=== PATIENT | male | born 1960 | race Caucasian/White ===

== ENCOUNTER 2016-09-12 07:19 | Inpatient (IN) | payer BC, MEDICARE, OTHER ==
[2016-09-12] MEDS ORDERED: Nitroglycerin TAB 0.4 MG* 0.4 MG TAB SL ONE (07:39)
[2016-09-12] MEDS ORDERED: Aspirin TAB* 325 MG PO ONE (07:39)
[2016-09-12] MEDS ORDERED: Ondansetron INJ* 2 MG/ML VIAL IV ONE (07:40)
[2016-09-12] MEDS ORDERED: Aspirin Low Dose CHEW TAB* 81 MG ONE (07:40)
[2016-09-12] MEDS ORDERED: Heparin for STEMI(*) 5,000 UNITS/ML 1 ML VIAL IV ONE (07:40)
[2016-09-12] MEDS ORDERED: Nitroglycerin TAB 0.4 MG* 0.4 MG TAB SL PRN ×2 (07:40→11:13)
[2016-09-12] MEDS ORDERED: nitroGLYCERIN DRIP* 250 ML ONE ×2 (07:45→09:07)
[2016-09-12] MEDS ORDERED: fentaNYL* 50 MCG/ML 2 ML VIAL (100 MCG VIAL) ONE (07:45)
[2016-09-12] MEDS ORDERED: Midazolam* 1 MG/ML 5 ML VIAL (5 MG) ONE (07:45)
[2016-09-12] MEDS ORDERED: Lidocaine 1% INJ* 10 MG/ML 30 ML SDV ONE (07:45)
[2016-09-12] MEDS ORDERED: Heparin 2 UNITS/ML IVPREMIX* 3,000 ML IV ONE (07:45)
[2016-09-12] MEDS ORDERED: Iodixanol* (CONTRAST) 320 MG/ML 100 ML SDV ONE ×2 (07:47→10:30)
[2016-09-12 07:57] LABS: Hematocrit 26 % (42-52); Mean Corpuscular HGB Conc 31 g/dl (31-36); Mean Corpuscular Hemoglobin 28 pg (27-31); Mean Corpuscular Volume 88 fL (80-94); Mean Platelet Volume 10 um3 (7.4-10.4); Red Blood Count 2.89 10^6/ul (4.0-5.4); Red Cell Distribution Width 16 % (10.5-15); White Blood Count 18.9 10^3/ul (3.5-10.8)
[2016-09-12 07:59] LABS: Add Diff/Slide Review? Slide Review Added; Comments Flag Yes
[2016-09-12 08:13] LABS: Albumin 2.3 g/dL (3.2-5.2); BUN/Creatinine Ratio 7.6 (8-20); Calcium 8.9 mg/dL (8.6-10.3); EGFR African American 9.8 (>60); EGFR Non-African American 7.6 (>60); Globulin 4.4 g/dL (2-4); Total Bilirubin 0.3 mg/dL (0.2-1.0); Total Protein 6.7 g/dL (6.4-8.9)
[2016-09-12 08:20] LABS: Troponin I 0.17 ng/mL (<0.04)
[2016-09-12] MEDS ORDERED: Bivalirudin(*) 250 MG VIAL ONE (08:32)
[2016-09-12] MEDS ORDERED: Clopidogrel TAB* 75 MG ONE (08:36)
[2016-09-12 08:42] LABS: Potassium 3.5 mmol/L (3.5-5.0)
[2016-09-12 08:43] LABS: Eosinophils % 3 % (0-6); Immature Granulocytes 5 % (0-9); Metamyelocytes % 1 % (0-2); Myelocytes % 3 % (0-1); Neutrophil % 76 % (38-83)
[2016-09-12 08:44] LABS: Hypochromasia 2+
[2016-09-12] MEDS ORDERED: Heparin(*) 1000 UNIT/ML 10 ML VIAL CATH LAB IV ONE (09:07)
[2016-09-12] MEDS ORDERED: Amiodarone IV VIAL* 6 ML ONE (10:41)
[2016-09-12] MEDS ORDERED: Amiodarone 360 MG IVPREMIX* 360 MG/200 ML BAG IV ONE ×2 (10:42→14:57)
[2016-09-12] MEDS ORDERED: Heparin 2 UNITS/ML IVPREMIX* 1,000 ML IV ONE (11:05)
[2016-09-12] MEDS ORDERED: NS 0.9% 1000 ML* 1,000 ML IV SCH (11:15)
[2016-09-12 13:48] LABS: Troponin I 9.05 ng/mL (<0.04)
[2016-09-12] MEDS: Acetaminophen TAB* 325 MG PO PRN ×2 (15:35→21:20)
[2016-09-12] MEDS ORDERED: Fluticasone NASAL SPRAY 50MCG* 16 gm SPRAY BTL BOTH NARES PRN (16:08)
[2016-09-12] MEDS ORDERED: Dextrose 50% Syringe 50 ML* 25 GM/50 ML SYRINGE IV PUSH PRN ×2 (16:16→16:57)
--- NOTE | 2016-09-12 16:21 | CONSULT ---
Consult Consult: CRITICAL CARE MEDICINE DATE: 09/12/16 TIME: 1400 PRIMARY CARE PROVIDER: REFERRING PROVIDER: Mckenna REASON/CHIEF COMPLAINT: vf arrest in laboratory tech HISTORY OF PRESENT ILLNESS: 56 M with significant vascular history and multiple MIs and stents previously presenting with acute inf wall Mi with occluded RCA. Recieved moderate sedation in laboratory tech. Femoral access. Nasal cannuli. While manipulating open RCA pt with VF, requiring defibrillation x3 with ROSC. slow to respond with shallow respirations at first and concern for need for advanced airway. On arrival pt was doing better with more spont respirations, able to communicate and orient. Protecting airway and still needing stenting to be performed. on NC 15L. Sats into upper 90s. Ventilation a bit impaired but able to begin better compensation. Stayed to observe but not needing advance airway at the time. Later in course, again with VF and responded to defibrillation and placed on amio. Again, slow response to resp recovery, but able to surmount. Able to maintain with supplemental O2 and conclude procedure with plans for continued observation in ICU. REVIEW OF SYSTEMS: As per HPI. Pt with mild sob; limited review. PAST MEDICAL HISTORY: As per HPI. CAD, stents, multiple amputations and gangrene history (see previous records for details as not re-discussed with pt) ; ESRD on PD. MEDICATIONS: Reviewed. ALLERGIES: clinda, morphine - unclear rxn at this time SOCIAL HISTORY: Reviewed. FAMILY HISTORY: Noncontributory at present. PHYSICAL EXAM: limited in lab Vital Signs: Reviewed. Neurologic: awake, communicating, orientable HEENT: anicteric, pupils small but reactive Cardiovascular: Reg, 80s. Respiratory: clear with mild azael stoke resp pattern while coming thru the process Abdomen: soft, mild fluid Extremities: chronic changes and multiple amputations LABS: Reviewed. IMAGING: Reviewed. MEDICATIONS: Reviewed. ASSESSMENT: 56 M Acute STEMI to RCA s/p stenting VF s/p defibrillation. ESRD on PD DM 1 - uncontrolled with pentad PLAN: Neurologic: stable. TTM euthermia; not requiring active tx given stable neuro status, but would avoid fevers with tylenol if they present. Cardiovascular: Perfusing. vol status ok and for PD later today as long as he equilibrates post lab; Cards f/u for tx. not in shock now. amio for vf and f/ u needs. EF depressed prior and may worsen now and needs f/u Respiratory: tolerating ventilation and oxygenation now. wean off nc. is. avoid fluid overload Gastrointestinal: po diet as ok with cards Renal/Metabolic: neprho f/u for his pd needs Infectious Disease: no infectious signs but pt with disturbance of line integrities intracath, although nothing suggestive of true sterile field break, and can hold off on any abx. wbc up as reaction to mi. can remain on his outpt doxy regimen. Hematology: antiplt per cards. bedrest and then can become active and avoid chemical vte prophylaxis needs vs potential need for heparin tomorrow Endocrine: resume outpt lantus. glucose is reactive right now and although he may take less po, needs at least his outpt lantus, plus ssi, or even potential for gtt needs. Musculoskeletal: bedrest per cards. can f/u chronic wounds. Psych/Social: pt expressed understanding Supportive and preventative care as ordered. SUP: po VTE prophylaxis: on antiplt and needs to be oob Disposition: ICU Code Status: Full D/w [facility] Critical Care Time: 45min F. Rajendra Valdez DO
[2016-09-12] MEDS ORDERED: Insulin LISPRO* 1 UNITS UNIT SUBCUT ONE (17:00)
[2016-09-12] MEDS: Atorvastatin* 80 MG TAB PO SCH (17:02)
[2016-09-12] MEDS: Carvedilol TAB* 6.25 MG PO SCH (17:02)
[2016-09-12] MEDS: fentaNYL* 50 MCG/ML 2 ML VIAL (100 MCG VIAL) IV SLOW PU PRN ×2 (17:03→21:00)
[2016-09-12] MEDS ORDERED: Amiodarone 360 MG IVPREMIX* 360 MG/200 ML BAG IV SCH ×2 (17:30→17:31)
[2016-09-12] MEDS: oxyCODONE TAB* 5 MG TAB PO PRN ×2 (17:52→23:09)
[2016-09-12] MEDS ORDERED: nitroGLYCERIN DRIP* 25,000 MCG in PREMIX* 0 ML IV SCH (18:00)
[2016-09-12] MEDS: Insulin GLARGINE(*) 1 UNITS UNIT SUBCUT SCH (18:08)
[2016-09-12 19:19] LABS: Troponin I 30.41 ng/mL (<0.04)
[2016-09-12] MEDS ORDERED: Atropine SYRINGE* 0.1 MG/ML 10 ML SYRINGE (1 MG) ONE (21:05)
[2016-09-12] MEDS: Cilostazol TAB* 100 MG PO SCH (21:19)
[2016-09-12] MEDS: Docusate CAP* 100 MG PO SCH (21:24)
[2016-09-12] MEDS: DOXYcycline CAP(*) 100 MG PO SCH (21:29)
[2016-09-12] MEDS: Pregabalin CAP(*) 25 MG PO SCH (21:29)
[2016-09-12] MEDS: Insulin LISPRO* 1 UNITS UNIT SUBCUT SCH ×3 (22:07→22:17)
[2016-09-13 01:47] LABS: Troponin I 41.05 ng/mL (<0.04)
[2016-09-13] MEDS: fentaNYL* 50 MCG/ML 2 ML VIAL (100 MCG VIAL) IV SLOW PU PRN ×5 (02:12→23:46)
[2016-09-13] MEDS: oxyCODONE TAB* 5 MG TAB PO PRN ×4 (04:30→22:22)
[2016-09-13 05:38] LABS: Hematocrit 24 % (42-52); Hemoglobin 7.8 g/dl (14.0-18.0); Mean Corpuscular HGB Conc 32 g/dl (31-36); Mean Corpuscular Hemoglobin 28 pg (27-31); Mean Corpuscular Volume 88 fL (80-94); Mean Platelet Volume 10 um3 (7.4-10.4); Red Blood Count 2.75 10^6/ul (4.0-5.4); Red Cell Distribution Width 17 % (10.5-15); White Blood Count 23.3 10^3/ul (3.5-10.8)
[2016-09-13 05:43] LABS: Add Diff/Slide Review? Slide Review Added; Comments Flag Yes
[2016-09-13 05:57] LABS: BUN/Creatinine Ratio 7.1 (8-20); Calcium 8.6 mg/dL (8.6-10.3); EGFR African American 11.6 (>60); HDL Cholesterol 12.1 mg/dL; Total Bilirubin 0.2 mg/dL (0.2-1.0)
[2016-09-13] MEDS ORDERED: Potassium Chloride LIQUID* 20 MEQ PACKET PO ONE (07:00)
[2016-09-13] MEDS ORDERED: Clopidogrel TAB* 75 MG PO SCH ×2 (09:00)
[2016-09-13] MEDS ORDERED: Lisinopril TAB* 10 MG PO SCH (09:00)
[2016-09-13] MEDS: Aspirin Low Dose CHEW TAB* 81 MG PO SCH (09:17)
[2016-09-13] MEDS: Cilostazol TAB* 100 MG PO SCH ×2 (09:17→22:21)
[2016-09-13] MEDS: Carvedilol TAB* 6.25 MG PO SCH ×2 (09:17→18:01)
[2016-09-13] MEDS: DOXYcycline CAP(*) 100 MG PO SCH ×2 (09:23→22:40)
[2016-09-13] MEDS: NIFEdipine ER TAB* 30 MG PO SCH (09:23)
[2016-09-13] MEDS: Calcitriol CAP* 0.25 MCG PO SCH (09:23)
[2016-09-13] MEDS ORDERED: Insulin GLARGINE(*) 1 UNITS UNIT SUBCUT ONE (09:25)
[2016-09-13 09:42] LABS: Magnesium 1.3 mg/dL (1.9-2.7)
[2016-09-13] MEDS: Docusate CAP* 100 MG PO SCH ×2 (09:50→22:22)
[2016-09-13] MEDS: Insulin LISPRO* 1 UNITS UNIT SUBCUT SCH ×8 (10:00→22:36)
[2016-09-13] MEDS: Simethicone TAB* 80 MG TAB.CHEW PO PRN (10:02)
--- NOTE | 2016-09-13 12:00 | PN ---
Progress Note - Progress Note Note: CRITICAL CARE MEDICINE DATE: 09/13/16 TIME: 1130 SUBJECTIVE: Patient seen and examined. Doing ok. PHYSICAL EXAM: Vital Signs: Reviewed. Neurologic: awake, communicating HEENT: anicteric, trachea midline Cardiovascular: Reg, 80s. Respiratory: clear Abdomen: soft, mild distention, mild fluid Extremities: chronic changes and multiple amputations LABS: Reviewed. IMAGING: Reviewed. MEDICATIONS: Reviewed. ASSESSMENT: 56 M Acute STEMI to RCA s/p stenting VF s/p defibrillation. ESRD on PD DM 1 - uncontrolled with pentad Chronic pain PLAN: Neurologic: stable. Cardiovascular: Perfusing. vol status ok. f/u pd needs. Cards f/u for tx and rx. Respiratory: stable Gastrointestinal: po diet Renal/Metabolic: neprho f/u for his pd needs and lyte adjustments Infectious Disease: no infectious signs Hematology: antiplt per cards. Endocrine: resumed outpt lantus, but with his reactive hyperglycemia blunt further with additional dose today and ssi as ordered. Will have Dr. Velasco f/u Musculoskeletal: oob. f/u chronic wounds. daily chlorhexadine cleanse Psych/Social: back to chronic outpt narc regimen for chronic pain. Supportive and preventative care as ordered. SUP: po VTE prophylaxis: on antiplt and needs to be oob Disposition: ICU and cards f/u Code Status: Full Critical Care Time: 25min Sudhir Valdez DO
--- NOTE | 2016-09-13 12:06 | ECHO ---
Patient: NETO CRISTINA [facility] Rec#: [id number] : 1960 Date: 09/13/2016 Age: 56y Height: 160 cm / 63.0 in Weight: 73.9 kg / 162.9 lbs Sex: M BSA: 1.77 Room#: [facility] Admit Date#: 09/12/2016 Type: Inpatient Referring: Amado Andres MD Referring: Krish Velasco MD Reading: Amado Andres MD Senior Accountant: Sierra Leslie [facility] Senior Accountant: Judy Martinez CC: Isrrael Turk MD CC: Krish Velasco MD Transthoracic Echocardiogram Indication: Inferior STEMI BP: 108/56 HR: 80 Rhythm: NSR Findings History: CAD, AL, PCI, HTN, HLD, PAD, ESRD w/ peritineal dialysis, DM. Technical Comments: The study was technically limited due to the patient's inability to lay in the left lateral decubitus position. Completed at 0907. Left Ventricle: The left ventricular chamber size is normal. Moderate concentric left ventricular hypertrophy is observed. There is a focal wall motion abnormality present.There is akinesis of the inferior wall, with noderate to severe hypokinesis of the low interventricular septum, with preservation of the low posterolateral wall. There is mild to moderately decreased left ventricular systolic function. The estimated ejection fraction is 35-40%. Visually estimated LVEF is closer to 35%. Abnormal left ventricular diastolic filling is observed, consistent with impaired relaxation. The basal inferior, basal inferoseptal, mid inferolateral, mid inferior, mid inferoseptal, apical septal, and apical inferior wall segments are hypokinetic (score 2). Overall wallmotion score index is 1.44 Left Atrium: The left atrium is mildly dilated. Right Ventricle: The right ventricular cavity size is normal. The right ventricular global systolic function is mildly reduced. Right Atrium: The right atrial cavity size is normal. Aortic Valve: The aortic valve is trileaflet. The aortic valve leaflets are mildly thickened. There is no evidence of aortic regurgitation. There is no evidence of aortic stenosis. Mitral Valve: The mitral valve leaflets are mildly thickened. There is a trace of mitral regurgitation. There is no evidence of mitral stenosis. Tricuspid Valve: The tricuspid valve leaflets are normal. There is trace tricuspid regurgitation. Unable to estimate the right ventricular systolic pressure. There is no tricuspid stenosis. Pulmonic Valve: The pulmonic valve structure is not well visualized. There is a trace pulmonic regurgitation. Pericardium: There is no pericardial effusion. Aorta: There is no dilatation of the ascending aorta. There is no dilatation of the aortic arch. There is no dilation of the aortic root. Pulmonary Artery: The main pulmonary artery is not well visualized. Venous: The venous system is not well visualized. Conclusions Moderate concentric left ventricular hypertrophy is observed. There is a focal wall motion abnormality present.There is akinesis of the inferior wall, with noderate to severe hypokinesis of the low interventricular septum, with preservation of the low posterolateral wall. There is mild to moderately decreased left ventricular systolic function. The estimated ejection fraction is 35-40%. Abnormal left ventricular diastolic filling is observed, consistent with impaired relaxation. No significant valvular disease: There is a trace of mitral regurgitation. There is trace tricuspid regurgitation. Unable to estimate the right ventricular systolic pressure. There is a trace pulmonic regurgitation. Compared to report of study from 07/19/2016 there is no signfiicant change. Measurements Name Value Normal Range RVIDd (AP) 2D 3.5 cm (0.9 - 2.6) RVDdMajor (2D) 3.8 cm (2.2 - 4.4) RAd ISD 4CH 5.1 cm (3.4 - 4.9) RA (A4C)W 4 cm (2.9 - 4.6) IVSd (2D) 1.5 cm (0.6 - 1) LVPWd (2D) 1.5 cm (0.6 - 1) LVIDd (2D) 5 cm (3.6 - 5.4) LVIDs (2D) 4 cm - LV FS (2D) 20 % (25 - 45) Aortic Annulus 2.4 cm (1.4 - 2.6) Ao root diameter (2D) 2.9 cm (2.1 - 3.5) Ascending Ao 3.1 cm (2.1 - 3.4) Aortic arch 3 cm (1.8 - 3.4) Descending Ao 0.8 cm - LA dimension (AP) 2D 3.8 cm (2.3 - 3.8) LAd ISD 4CH 5.6 cm (2.9 - 5.3) LA ISD 4CH W 4 cm (2.5 - 4.5) Name Value Normal Range LA ESV SP 4CH (A/L) 58 ml - LA ESV SP 2CH (A/L) 60 ml - LA ESV BP (A/L) 61 ml - LA ESV BP (A/L) index 35 ml/m2 - LA ESV SP 4CH (MOD) 55 ml - LA ESV SP 2CH (MOD) 58 ml - Name Value Normal Range MV E-wave Vmax 0.7 m/sec - MV deceleration time 248 msec - MV A-wave Vmax 0.9 m/sec - MV E:A ratio 0.7 ratio - LV septal e' Vmax 0.02 m/sec - LV lateral e' Vmax 0.06 m/sec - LV E:e' septal ratio 35 ratio - LV E:e' lateral ratio 11.7 ratio - Name Value Normal Range AV Vmax 1.6 m/sec - AV VTI 21.8 cm - AV peak gradient 9.8 mmHg - AV mean gradient 5 mmHg - LVOT Vmax 1.3 m/sec - LVOT VTI 18.4 cm - LVOT peak gradient 6.9 mmHg - LVOT mean gradient 3.47 mmHg - KARSON Vmax 0.79 m/sec - KARSON peak gradient 2.47 mmHg - Name Value Normal Range TR Vmax 1.3 m/sec - TR peak gradient 6.35 mmHg - Name Value Normal Range PV Vmax 1.1 m/sec - PV peak gradient 4.68 mmHg - Wallmotion BAS Normal BA Normal BAL Normal RYAN Normal BI Hypokinetic BIS Hypokinetic MAS Normal MA Normal MAL Normal MIL Hypokinetic AL Hypokinetic MIS Hypokinetic Hypokinetic AA Normal AL Normal AI Hypokinetic APEX Hypokinetic
[2016-09-13] MEDS ORDERED: Insulin LISPRO* 1 UNITS UNIT SUBCUT ONE (13:18)
[2016-09-13] MEDS: Mupirocin 2% OINT* TUBE TOPICAL SCH (13:22)
[2016-09-13] MEDS ORDERED: Magnesium Sulfate 2 GM IV* 2 GM/50 ML BAG IVPB ONE (15:00)
[2016-09-13] MEDS: Nitroglycerin 0.1 mg/Hr PATCH* (2.5 MG) TRANSDERM SCH (16:54)
[2016-09-13] MEDS: Atorvastatin* 80 MG TAB PO SCH (18:01)
[2016-09-13] MEDS: Insulin GLARGINE(*) 1 UNITS UNIT SUBCUT SCH (18:01)
--- NOTE | 2016-09-13 20:42 | HP ---
ADMISSION HISTORY AND PHYSICAL: DATE OF ADMISSION: 09/12/16 CHIEF COMPLAINT: The patient with significant chest discomfort, EKG now demonstrating ST segment elevation in the inferior leads, acute ST elevation myocardial infarction. HISTORY OF PRESENT ILLNESS: The patient is a 56-year-old gentleman known to our group through Dr. Ella Sosa who has been involved with his severe coronary artery disease. He has a history of having undergone intervention with stent placement back in April for non-ST elevation myocardial infarction to his mid to distal right coronary artery as it turned down to the inferior surface of the heart. He had diffuse disease past that point and was readmitted. The patient subsequently had a non-ST elevation repeat myocardial infarction in June 2016 at which time, a discussion was made with Dr. Sosa as well as Dr. Robert Mesa at [facility], regional branch manager, after looking at the coronary artery disease and seeing distal disease that would necessitate rotational atherectomy. The patient was subsequently transferred up there and further stenting was done in the right coronary artery after the right coronary artery was found to be subtotally occluded at the original stent placed back in April. The distal vessel was not treated at that point as well. More recently, he had gone up to [place] for more revision on his stump, and because of complaints of chest discomfort, he apparently had a heart catheterization just done less than a week ago and then told them that there was no change from his prior disease. I do not have any reports at this emergent time of them. Of note, he has been having on and off chest discomfort atypical in nature for the past month or so. Today, he developed the onset of significant persistent chest discomfort and was brought in by his . In the emergency room, EKG demonstrated acute ST segment elevation in leads III and aVF with reciprocal ST segment depression noted in I and aVL. A STEMI alert was called. He had mild ST segment depression in V6 as well. When I came to see him, he was still having ongoing chest discomfort. We discussed the risks and benefits of yet another repeat cardiac catheterization, noting that he is an atheropath with vascular disease all over and his right groin was now limited with a hematoma present from prior cardiac catheterization just done in [place]. The risks and benefits were explained to both him and his and he wished to proceed. No laboratory results were pending at this time, but he is known to have significant renal failure and is on peritoneal dialysis. PAST MEDICAL HISTORY: 1. Type 1 diabetes. 2. End-stage renal disease, on peritoneal dialysis. 3. Hypertension. 4. Hyperlipidemia. 5. Coronary artery disease, status post MN. 6. Dry gangrene of the right hand. 7. Right lower lobe stump infection. CURRENT MEDICATIONS: At home were unchanged from last hospitalization according to the . ALLERGIES: MORPHINE, CLINDAMYCIN, and SEVELAMER. SOCIAL HISTORY: Does not smoke. REVIEW OF SYSTEMS: Pertinent to proceeding emergently to the cardiovascular lab - the patient has a remote history of having had scars found on a brain scan that were felt to be old infarcts. There was no mention of any cerebral hemorrhage. He has renal failure as known, but he is on peritoneal dialysis. He is not allergic to the dye. He does not have any hematochezia, hematemesis, or hematuria. PHYSICAL EXAMINATION When I see him in the emergency room reveals: VITAL SIGNS: Blood pressure initially 155/66, pulse 95, respirations 22, and O2 saturation 100%. HEENT: Conjunctivae are pale. Sclerae clear. NECK: Supple. There is no increased JVP. Carotid has fair upstroke and volume. LUNGS: No accessory muscle usage. I do not hear any active rales, rhonchi, or wheezes. HEART: No visible heaves. Heart is distant in nature. Normal S1, S2. I cannot appreciate a significant diastolic murmur. EXTREMITIES: Reveal an above the knee amputation on the right with a stump placed. The right hand is bandaged. The left femoral pulse is diminished. I cannot appreciate an active bruit. NEUROLOGIC: The patient is alert and oriented with fairly normal mentation. MUSCULOSKELETAL: The patient moves all extremities appropriately. PSYCHOLOGICAL: The patient appropriately anxious. OVERALL ASSESSMENT: Florian presents now with acute ST segment elevation inferior wall myocardial infarction with known prior stenting to multiple areas of the right coronary artery. At this point in time, the risks and benefits were explained. He wishes to proceed with an attempt towards revascularization if possible to interrupt the inferior myocardial infarction. He understands the inherent risks involved as does his . Further management may depend on pending results. The patient did receive 4000 units of heparin in addition to a full aspirin dose in the emergency room. CC: Krish Velasco MD; Ella Sosa [place] [id number]/[facility] #: [id number] [facility]
[2016-09-13] MEDS: Pregabalin CAP(*) 25 MG PO SCH (22:22)
[2016-09-14] MEDS: Acetaminophen TAB* 325 MG PO PRN ×2 (01:55→20:33)
[2016-09-14] MEDS: oxyCODONE TAB* 5 MG TAB PO PRN ×5 (01:55→23:03)
[2016-09-14] MEDS: fentaNYL* 50 MCG/ML 2 ML VIAL (100 MCG VIAL) IV SLOW PU PRN ×3 (03:46→16:52)
[2016-09-14 06:35] LABS: Hematocrit 25 % (42-52); Hemoglobin 7.7 g/dl (14.0-18.0); Mean Corpuscular HGB Conc 31 g/dl (31-36); Mean Corpuscular Hemoglobin 28 pg (27-31); Mean Corpuscular Volume 88 fL (80-94); Mean Platelet Volume 10 um3 (7.4-10.4); Red Blood Count 2.78 10^6/ul (4.0-5.4); Red Cell Distribution Width 16 % (10.5-15); White Blood Count 18.8 10^3/ul (3.5-10.8)
[2016-09-14 06:51] LABS: BUN/Creatinine Ratio 6.7 (8-20); Calcium 8.6 mg/dL (8.6-10.3); EGFR African American 11.3 (>60); EGFR Non-African American 8.8 (>60); Magnesium 1.6 mg/dL (1.9-2.7); Phosphorus 3.6 mg/dL (2.5-5.0); Potassium 3.2 mmol/L (3.5-5.0)
[2016-09-14] MEDS ORDERED: Potassium Chlor TAB* 20 MEQ TAB.ER PO ONE (06:56)
[2016-09-14] MEDS ORDERED: Insulin LISPRO* 1 UNITS UNIT SUBCUT ONE ×2 (08:00→10:00)
--- NOTE | 2016-09-14 08:18 | PN ---
Subjective - Subjective Reason for Note: Consultation Note History: Dr. Andres requested an endocrine consultation. I am Florian Landry's outpatient medical geneticist/primary care physician. I have reviewed his presentation and recent medical history with the patient and with the electronic health record. He has had reasonable glycemic control until this admission, he has had a stable peritoneal dialysis regimen. Today he is frustrated: he has a cast on his right hand he wants re-evaluated. He has pain in the right amputation stump. He feels that the dialysis routine has changed and this has resulted in hyperglycemia. He would like to have more control over his life and medical conditions. He has had no further chest pain, palpitations, shortness of breath. His telemetry shows no further malignant dysrhythmias. Active Problems: Active Problems Diabetic nephropathy associated with type 1 diabetes mellitus (Acute) E10.21 Electrolyte abnormality (Acute) E87.8 End-stage renal disease on peritoneal dialysis (Acute) N18.6, Z99.2 Hyperglycemia (Acute) R73.9 ST elevation (STEMI) myocardial infarction involving right coronary artery ( Acute) I21.11 Anemia of renal disease (Chronic) D63.1 Diabetic neuropathy (Chronic 03/31/14) E11.40 Diabetic peripheral neuropathy (Chronic) E11.42 History of left below knee amputation (Chronic) Z89.512 History of right above knee amputation (Chronic) Z89.611 Hypercholesteremia (Chronic 03/31/14) E78.0 Hypertension (Chronic 03/31/14) I10 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) T87.43 Peripheral vascular disease (Chronic) I73.9 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) E13.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) E10.22, N18.6 Current Medications: Current Medications Acetaminophen (Tylenol Tab*) 650 mg PO Q4H PRN PRN Reason: HEADACHE/PAIN Last Admin: 09/14/16 01:55 Dose: 650 mg Aspirin (Aspirin Low Dose Tab*) 81 mg PO DAILY [facility] Last Admin: 09/13/16 09:17 Dose: 81 mg Atorvastatin Calcium (Lipitor*) 80 mg PO 1700 [facility] Last Admin: 09/13/16 18:01 Dose: 80 mg Calcitriol (Rocaltrol Cap*) 0.25 mcg PO DAILY [facility] Last Admin: 09/13/16 09:23 Dose: 0.25 mcg Carvedilol (Coreg Tab*) 6.25 mg PO BID WITH MEALS [facility] Last Admin: 09/13/16 18:01 Dose: 6.25 mg Dextrose (D50w Syringe 50 Ml*) 12.5 gm IV PUSH .FOR FS < 60 - SS PRN PRN Reason: FS < 60 Docusate Sodium (Colace Cap*) 100 mg PO BID [facility] Last Admin: 09/13/16 22:22 Dose: 100 mg Doxycycline Hyclate (Vibramycin Cap(*)) 100 mg PO BID [facility] Last Admin: 09/13/16 22:40 Dose: 100 mg Fentanyl Citrate (Fentanyl*) 25 mcg IV SLOW PU Q4H PRN PRN Reason: SEVERE PAIN Last Admin: 09/14/16 03:46 Dose: 25 mcg Fluticasone Propionate (Flonase Nasal Fenton 50mcg*) 2 spray BOTH NARES DAILY PRN PRN Reason: Allergy Symptoms Sodium Chloride (Ns 0.9% 1000 Ml*) 1,000 mls @ 0 mls/hr IV KVO [facility] PRN Reason: KVO Last Admin: 09/13/16 14:56 Dose: 10 mls/hr Insulin Glargine (Lantus(*)) 35 units SUBCUT Q24H [facility] Last Admin: 09/13/16 18:01 Dose: 35 units Insulin Human Lispro (Humalog*) 0 units SUBCUT FS ACHS ICU [facility] PRN Reason: Protocol Last Admin: 09/13/16 22:36 Dose: Not Given Insulin Human Lispro (Humalog*) 0 units SUBCUT ACHS [facility] PRN Reason: Protocol Last Admin: 09/13/16 22:35 Dose: 10 units Lisinopril (Prinivil Tab*) 10 mg PO DAILY [facility] Mupirocin (Bactroban 2 % Oint*) 1 applic TOPICAL DAILY [facility] Last Admin: 09/13/16 13:22 Dose: 1 apply Nifedipine (Procardia Xl Tab*) 30 mg PO DAILY [facility] Last Admin: 09/13/16 09:23 Dose: 30 mg Nitroglycerin (Nitroglycerin Tab 0.4 Mg*) 0.4 mg SL Q5M PRN PRN Reason: ANGINA Nitroglycerin (Nitroglycerin 2.5 Mg Patch*) 1 patch TRANSDERM 0900 [facility] Last Admin: 09/13/16 16:54 Dose: 1 patch Oxycodone HCl (Roxycodone Tab*) 20 mg PO Q4H PRN PRN Reason: PAIN Last Admin: 09/14/16 01:55 Dose: 20 mg Pharmacy Profile Note (Nitro Patch/Oint Remove*) 1 note PATCH OFF 2100 GABRIEL Pregabalin (Lyrica Cap(*)) 75 mg PO BEDTIME [facility] Last Admin: 09/13/16 22:22 Dose: 75 mg Simethicone (Mylicon*) 80 mg PO Q6H PRN PRN Reason: INDIGESTION Last Admin: 09/13/16 10:02 Dose: 80 mg Ticagrelor (Brilinta*) 180 mg PO ONCE ONE Stop: 09/14/16 09:01 Ticagrelor (Brilinta*) 90 mg PO BID GABRIEL - Review of Systems Constitutional Symptoms: No: Fever, Night Sweats Pulmonary: Negative: Cough, Sputum, Hemoptysis Cardiology: Negative: Chest Pain, Shortness of Breath, Palpitations Gastroenterology: Positive: Nausea - after receiving potassium close to mealtime Negative: Abdominal Pain, Vomiting Home Medications: Home Medications Medication Instructions Recorded Confirmed Type Fluticasone NASAL SPRAY 50MCG* 2 spray BOTH NARES DAILY PRN 11/16/13 09/12/16 History [Flonase NASAL SPRAY 50MCG*] Calcitriol CAP* [Rocaltrol CAP*] 0.25 mcg PO DAILY 06/14/14 09/12/16 History Pinnacle-3 Fatty Acids [Fish Oil 1 cap PO DAILY 06/14/14 09/12/16 History Triple Strength 1400 mg] Carvedilol TAB* [Coreg TAB*] 25 mg PO DAILY 04/04/15 09/12/16 History Lisinopril [Lisinopril 40 MG-] 20 mg PO DAILY 04/04/15 09/12/16 History Sildenafil Citrate [Viagra] 100 mg PO DAILY PRN 04/04/15 09/12/16 History B-Complex W/ C & Folic Acid 1 tab PO DAILY 06/18/16 09/12/16 History [Ct-Yvan] Melatonin (NF) 3 mg PO BEDTIME PRN 06/18/16 09/12/16 History Pregabalin CAP(*) [Lyrica CAP(*)] 75 mg PO BEDTIME 06/18/16 09/12/16 History Venlafaxine EXT RELEASE CAP* 37.5 mg PO BEDTIME 06/18/16 09/12/16 History [Effexor Xr CAP*] diPHENhydraMINE PO* [Benadryl PO*] 25 mg PO Q6H PRN 06/18/16 09/12/16 History Allergies: Allergies Allergy/AdvReac Type Severity Reaction Status Date / Time Clindamycin Allergy Intermediate Diarrhea Verified 07/13/15 09:07 Morphine Allergy Hallucinati Verified 07/13/15 09:07 ons Objective - Vital Signs Vital Signs: Vital Signs 09/13/16 09/13/16 09/13/16 09:00 09:18 10:00 Temperature Pulse Rate 80 88 Respiratory 15 19 21 Rate Blood Pressure 108/90 105/56 91/53 (mmHg) O2 Sat by Pulse 100 100 Oximetry 09/13/16 09/13/16 09/13/16 11:00 11:36 12:00 Temperature 99 F Pulse Rate 74 74 Respiratory 15 16 Rate Blood Pressure 72/40 93/51 (mmHg) O2 Sat by Pulse 100 100 Oximetry 09/13/16 09/13/16 09/13/16 13:00 14:00 15:00 Temperature Pulse Rate 79 78 72 Respiratory 15 18 14 Rate Blood Pressure 110/52 117/59 118/68 (mmHg) O2 Sat by Pulse 99 95 99 Oximetry 09/13/16 09/13/16 09/13/16 16:00 17:00 17:07 Temperature 99.1 F Pulse Rate 74 72 Respiratory 17 16 16 Rate Blood Pressure 108/61 134/55 (mmHg) O2 Sat by Pulse 93 93 Oximetry 09/13/16 09/13/16 09/13/16 18:00 19:00 20:00 Temperature 98.9 F Pulse Rate 83 Respiratory 17 13 17 Rate Blood Pressure 148/72 121/57 109/53 (mmHg) O2 Sat by Pulse 99 94 Oximetry 09/13/16 09/13/16 09/13/16 20:26 21:00 22:00 Temperature Pulse Rate Respiratory 14 16 17 Rate Blood Pressure 126/61 (mmHg) O2 Sat by Pulse 99 Oximetry 09/13/16 09/13/16 09/13/16 22:05 22:20 23:00 Temperature Pulse Rate Respiratory 13 16 18 Rate Blood Pressure 105/47 123/53 (mmHg) O2 Sat by Pulse 99 100 Oximetry 09/13/16 09/13/16 09/13/16 23:06 23:46 23:48 Temperature Pulse Rate Respiratory 14 16 16 Rate Blood Pressure (mmHg) O2 Sat by Pulse 100 Oximetry 09/14/16 09/14/16 09/14/16 00:00 00:01 00:15 Temperature 98.0 F Pulse Rate Respiratory 16 22 Rate Blood Pressure 110/54 (mmHg) O2 Sat by Pulse 98 98 Oximetry 09/14/16 09/14/16 09/14/16 01:00 01:20 01:59 Temperature Pulse Rate Respiratory 13 18 16 Rate Blood Pressure 102/37 111/52 (mmHg) O2 Sat by Pulse 97 96 Oximetry 09/14/16 09/14/16 09/14/16 02:00 03:00 03:46 Temperature Pulse Rate Respiratory 19 15 14 Rate Blood Pressure 128/54 98/48 (mmHg) O2 Sat by Pulse 97 99 Oximetry 09/14/16 09/14/16 09/14/16 04:00 04:51 05:00 Temperature Pulse Rate Respiratory 16 16 12 Rate Blood Pressure 95/50 90/48 (mmHg) O2 Sat by Pulse 97 97 Oximetry 09/14/16 09/14/16 09/14/16 05:55 06:00 06:48 Temperature 98.8 F Pulse Rate 82 Respiratory 16 18 Rate Blood Pressure 96/48 (mmHg) O2 Sat by Pulse 97 99 Oximetry 09/14/16 09/14/16 09/14/16 07:00 07:01 08:00 Temperature 97.9 F Pulse Rate 84 84 Respiratory 12 15 Rate Blood Pressure 99/52 (mmHg) O2 Sat by Pulse 98 98 Oximetry - Intake and Output Intake and Output: Intake & Output 09/11/16 09/12/16 09/13/16 09/14/16 11:59 11:59 11:59 11:59 Intake Total 1835 1339 Output Total 200 Balance 1835 1139 Weight 163 lb 2.273 oz 174 lb 13.225 oz Intake: IV Fluids 371 369 NS to Maintain IV Patency 371 319 mg 50 IVPB 215 NS to Maintain IV Patency 215 Medicated IV 529 10 CC - Amiodarone 498 CC - Nitroglycerine/ 31 10 Tridil Oral 720 960 Output: Urine 200 Other: Date of Last Bowel 09/13/2016 Movement # Bowel Movements 1 Estimated Stool Amount Medium ADLs: Meal Record Start: 09/12/16 09: 06 Freq: 09,13,18 Status: Active Created 09/12/16 09:06 System (Rec: 09/12/16 09:06 System CARD-C01) Document 09/12/16 18:00 [id number] (Rec: 09/12/16 18:47 [id number] ICU-C07) Document 09/13/16 09:00 [id number] (Rec: 09/13/16 10:54 [id number] ICU-C07) Document 09/13/16 13:00 [id number] (Rec: 09/13/16 13:27 [id number] ICU-C07) Intake and Output Start: 09/12/16 07: 26 Freq: Status: Active Created 09/12/16 07:26 System (Rec: 09/12/16 07:26 System [id number]) Intake and Output Start: 09/12/16 09: 06 Freq: 06,14,22 Status: Active Created 09/12/16 09:06 System (Rec: 09/12/16 09:06 System CARD-C01) Document 09/12/16 14:00 [id number] (Rec: 09/12/16 14:25 [id number] ICU-C07) Document 09/12/16 22:00 [id number] (Rec: 09/12/16 22:52 [id number] ICU-C07) Document 09/13/16 05:37 [id number] (Rec: 09/13/16 05:38 [id number] ICU-C07) Document 09/13/16 14:00 [id number] (Rec: 09/13/16 15:00 [id number] ICU-M07) Document 09/13/16 22:00 [id number] (Rec: 09/13/16 22:43 [id number] ICU-C20) Document 09/13/16 22:47 [id number] (Rec: 09/13/16 22:47 [id number] ICU-C07) Document 09/14/16 05:55 [id number] (Rec: 09/14/16 05:55 [id number] ICU-C07) - Physical Exam General: No Cyanosis, Yes Anemia, No Jaundice, No Clubbing Skin: Normal: Rash Endocrine: No Central Obesity, No Acromegaly, No Vitiligo, No Flushing, No Acanthosis nigricans, No Violaceious striae, No Stephanie Syndrome Lungs and Chest: Yes: Chest Expansion Full, Chest Expansion Symetrica, Percussion Note Resonant, Vessicular Breath Sounds. No: Crackles, Wheezes Heart Rate and Rhythm: Regular Additional Cardiovascular: Yes: Normal Heart Sounds. No: Heart Murmur Abdominal Exam: Yes: Soft, Bowel Sounds Present. No: Distention, Hepatomegaly, Abdominal Tenderness Results - Results Lab Results: Laboratory Results - last 24 hr 09/13/16 09/13/16 09/13/16 05:30 09:11 10:00 WBC RBC Hgb Hct MCV MCH MCHC RDW Plt Count MPV Sodium Potassium 3.5 Chloride Carbon Dioxide Anion Gap BUN Creatinine Est GFR ( Amer) Est GFR (Non-Af Amer) BUN/Creatinine Ratio Glucose POC Glucose (mg/dL) 285 H Calcium Phosphorus Magnesium 1.3 L 09/13/16 09/13/16 09/13/16 12:46 17:53 22:00 WBC RBC Hgb Hct MCV MCH MCHC RDW Plt Count MPV Sodium Potassium Chloride Carbon Dioxide Anion Gap BUN Creatinine Est GFR ( Amer) Est GFR (Non-Af Amer) BUN/Creatinine Ratio Glucose 373 H POC Glucose (mg/dL) 199 H 283 H Calcium Phosphorus Magnesium 09/14/16 09/14/16 06:25 06:25 WBC 18.8 H RBC 2.78 L Hgb 7.7 L Hct 25 L MCV 88 MCH 28 MCHC 31 RDW 16 H Plt Count 407 MPV 10 Sodium 125 L Potassium 3.2 L Chloride 89 L Carbon Dioxide 25 Anion Gap 11 BUN 44 H Creatinine 6.60 H Est GFR ( Amer) 11.3 Est GFR (Non-Af Amer) 8.8 BUN/Creatinine Ratio 6.7 L Glucose 528 H* POC Glucose (mg/dL) Calcium 8.6 Phosphorus 3.6 Magnesium 1.6 L Other Results/Reports: Transthoracic echocardiogram Conclusions Moderate concentric left ventricular hypertrophy is observed. There is a focal wall motion abnormality present.There is akinesis of the inferior wall, with noderate to severe hypokinesis of the low interventricular septum, with preservation of the low posterolateral wall. There is mild to moderately decreased left ventricular systolic function. The estimated ejection fraction is 35-40%. Abnormal left ventricular diastolic filling is observed, consistent with impaired relaxation. No significant valvular disease: There is a trace of mitral regurgitation. There is trace tricuspid regurgitation. Unable to estimate the right ventricular systolic pressure. There is a trace pulmonic regurgitation. Compared to report of study from 07/19/2016 there is no signfiicant change. Assessment - Problem List Assessment: Patient Problems Diabetic nephropathy associated with type 1 diabetes mellitus (Acute) Electrolyte abnormality (Acute) End-stage renal disease on peritoneal dialysis (Acute) Hyperglycemia (Acute) ST elevation (STEMI) myocardial infarction involving right coronary artery ( Acute) Anemia of renal disease (Chronic) Diabetic neuropathy (Chronic 03/31/14) Diabetic peripheral neuropathy (Chronic) History of left below knee amputation (Chronic) History of right above knee amputation (Chronic) Hypercholesteremia (Chronic 03/31/14) Hypertension (Chronic 03/31/14) 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) Peripheral vascular disease (Chronic) 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 I am concerned that if we over-correct his glycemic control, he may develop hypoglycemia. This concern is shared by Florian. He would prefer to increase his lantus from 35 to 40 units. We have agreed to subtract from the extra correction doses of humalog insulin he requires in the next 24 hours and add a proportion of that to the lantus insulin dose tomorrow IF the dialysate remains constant. He would like Dr. Turk to visit to determine a strategy of dialysis so that there is no discontinuity when he goes home Electrolyte abnormality (Acute) This relates to his PD dialysate End-stage renal disease on peritoneal dialysis (Acute) See above ST elevation (STEMI) myocardial infarction involving right coronary artery ( Acute) 2 days post STEMI and stenting - management per Dr. Andres and certified court interpreter. The echocardiogram doesn't show significant difference with prior study, suggesting a good potential for recovery Anemia of renal disease (Chronic) per Dr. Turk Diabetic neuropathy (Chronic 03/31/14) secondary diagnosis Diabetic peripheral neuropathy (Chronic) secondary diagnosis History of left below knee amputation (Chronic) secondary diagnosis History of right above knee amputation (Chronic) He has stump pain - he had a recent revision/debridement. His dressing has been changed this admission. Hypercholesteremia (Chronic 03/31/14) secondary diagnosis - high intensity statin therapy Hypertension (Chronic 03/31/14) At present he is hypotensive. 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
[2016-09-14] MEDS ORDERED: Insulin LISPRO* 1 UNITS UNIT SUBCUT SCH (08:44)
[2016-09-14] MEDS: Lisinopril TAB* 10 MG PO SCH (08:50)
[2016-09-14] MEDS: Carvedilol TAB* 6.25 MG PO SCH ×2 (08:50→18:05)
[2016-09-14] MEDS: Aspirin Low Dose CHEW TAB* 81 MG PO SCH (08:50)
[2016-09-14] MEDS: Calcitriol CAP* 0.25 MCG PO SCH (08:50)
[2016-09-14] MEDS: DOXYcycline CAP(*) 100 MG PO SCH ×2 (08:50→20:41)
[2016-09-14] MEDS: Simethicone TAB* 80 MG TAB.CHEW PO PRN ×3 (08:50→20:51)
[2016-09-14] MEDS: NIFEdipine ER TAB* 30 MG PO SCH (08:50)
[2016-09-14] MEDS: Nitroglycerin 0.1 mg/Hr PATCH* (2.5 MG) TRANSDERM SCH (08:51)
[2016-09-14] MEDS: Mupirocin 2% OINT* TUBE TOPICAL SCH (08:51)
[2016-09-14] MEDS: Docusate CAP* 100 MG PO SCH ×2 (08:59→20:08)
[2016-09-14] MEDS ORDERED: Ticagrelor* 90 MG TAB PO ONE (09:00)
[2016-09-14] MEDS ORDERED: Dextrose 50% Syringe 50 ML* 25 GM/50 ML SYRINGE IV PUSH PRN (09:51)
[2016-09-14] MEDS ORDERED: Insulin GLARGINE(*) 1 UNITS UNIT SUBCUT ONE (10:00)
[2016-09-14] MEDS: Insulin LISPRO* 1 UNITS UNIT SUBCUT SCH ×9 (10:02→21:00)
[2016-09-14] MEDS: Insulin GLARGINE(*) 1 UNITS UNIT SUBCUT SCH (18:05)
[2016-09-14] MEDS: Atorvastatin* 80 MG TAB PO SCH (18:05)
[2016-09-14] MEDS: Ticagrelor* 90 MG TAB PO SCH (20:33)
[2016-09-14] MEDS: Pregabalin CAP(*) 25 MG PO SCH (20:33)
[2016-09-14] MEDS: Nitro Patch/OINT Remove PATCH OFF SCH (21:00)
[2016-09-15] MEDS: Acetaminophen TAB* 325 MG PO PRN ×2 (03:46→10:20)
[2016-09-15 06:05] LABS: Hematocrit 23 % (42-52); Hemoglobin 7.2 g/dl (14.0-18.0); Mean Corpuscular HGB Conc 32 g/dl (31-36); Mean Corpuscular Hemoglobin 28 pg (27-31); Mean Corpuscular Volume 87 fL (80-94); Mean Platelet Volume 10 um3 (7.4-10.4); Red Blood Count 2.59 10^6/ul (4.0-5.4); Red Cell Distribution Width 17 % (10.5-15)
[2016-09-15 06:06] LABS: Comments Flag Yes
[2016-09-15 06:24] LABS: BUN/Creatinine Ratio 6.5 (8-20); Calcium 8.9 mg/dL (8.6-10.3); EGFR African American 11.5 (>60); EGFR Non-African American 8.9 (>60); Globulin 3.9 g/dL (2-4); Potassium 3.4 mmol/L (3.5-5.0); Total Bilirubin 0.2 mg/dL (0.2-1.0); Total Protein 5.9 g/dL (6.4-8.9)
[2016-09-15] MEDS: Insulin LISPRO* 1 UNITS UNIT SUBCUT SCH ×8 (07:58→22:27)
[2016-09-15] MEDS: Lisinopril TAB* 10 MG PO SCH (09:56)
[2016-09-15] MEDS: Nitroglycerin 0.1 mg/Hr PATCH* (2.5 MG) TRANSDERM SCH (09:57)
[2016-09-15] MEDS: Ticagrelor* 90 MG TAB PO SCH ×2 (09:57→20:53)
[2016-09-15] MEDS: Docusate CAP* 100 MG PO SCH ×2 (09:57→20:30)
[2016-09-15] MEDS: Aspirin Low Dose CHEW TAB* 81 MG PO SCH (09:57)
[2016-09-15] MEDS: Carvedilol TAB* 6.25 MG PO SCH ×2 (09:57→19:15)
[2016-09-15] MEDS: Calcitriol CAP* 0.25 MCG PO SCH (10:01)
[2016-09-15] MEDS: DOXYcycline CAP(*) 100 MG PO SCH ×2 (10:01→20:52)
[2016-09-15] MEDS: Mupirocin 2% OINT* TUBE TOPICAL SCH (10:01)
[2016-09-15] MEDS: NIFEdipine ER TAB* 30 MG PO SCH (10:28)
--- NOTE | 2016-09-15 11:10 | PN ---
Subjective - Subjective Reason for Note: Consultation Note History: I have spoken at length to Dr. Andres and I have reviewed the EHR. Florian states that he was "out of it" yesterday and doesn't remember my visit. He has no new symptoms. No fevers, sweats or chills. He has a chronic cough with some sputum - nothing new. No new shortness of breath. He had nausea yesterday, none today. His right stump and right hand are not causing him undue pain today (though he had one brief episode of lancinating pain whilst I was there in his stump). He has no diarrhea and produces very little urine. He has had no further cardiac symptoms. There are no rashes and no other symptoms suggestive of an acute infectious process. The verbal report about the dressing change to his right hand demonstrates no evidence of new infection ( discharge etc). He is frustrated that he has lost his phone and can't contact his . Active Problems: Active Problems Diabetic nephropathy associated with type 1 diabetes mellitus (Acute) E10.21 Electrolyte abnormality (Acute) E87.8 End-stage renal disease on peritoneal dialysis (Acute) N18.6, Z99.2 Hyperglycemia (Acute) R73.9 Leukocytosis (Acute) D72.829 ST elevation (STEMI) myocardial infarction involving right coronary artery ( Acute) I21.11 Anemia of renal disease (Chronic) D63.1 Diabetic neuropathy (Chronic 03/31/14) E11.40 Diabetic peripheral neuropathy (Chronic) E11.42 History of left below knee amputation (Chronic) Z89.512 History of right above knee amputation (Chronic) Z89.611 Hypercholesteremia (Chronic 03/31/14) E78.0 Hypertension (Chronic 03/31/14) I10 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) T87.43 Peripheral vascular disease (Chronic) I73.9 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) E13.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) E10.22, N18.6 Current Medications: Current Medications Acetaminophen (Tylenol Tab*) 650 mg PO Q4H PRN PRN Reason: HEADACHE/PAIN Last Admin: 09/15/16 10:20 Dose: 650 mg Aspirin (Aspirin Low Dose Tab*) 81 mg PO DAILY GABRIEL Last Admin: 09/15/16 09:57 Dose: 81 mg Atorvastatin Calcium (Lipitor*) 80 mg PO 1700 [facility] Last Admin: 09/14/16 18:05 Dose: 80 mg Calcitriol (Rocaltrol Cap*) 0.25 mcg PO DAILY [facility] Last Admin: 09/15/16 10:01 Dose: 0.25 mcg Carvedilol (Coreg Tab*) 6.25 mg PO BID WITH MEALS [facility] Last Admin: 09/15/16 09:57 Dose: 6.25 mg Dextrose (D50w Syringe 50 Ml*) 12.5 gm IV PUSH .FOR FS < 60 - SS PRN PRN Reason: FS < 60 Dextrose (D50w Syringe 50 Ml*) 12.5 gm IV PUSH .FOR FS < 60 - SS PRN PRN Reason: FS < 60 Docusate Sodium (Colace Cap*) 100 mg PO BID [facility] Last Admin: 09/15/16 09:57 Dose: 100 mg Doxycycline Hyclate (Vibramycin Cap(*)) 100 mg PO BID [facility] Last Admin: 09/15/16 10:01 Dose: Not Given Fentanyl Citrate (Fentanyl*) 25 mcg IV SLOW PU Q4H PRN PRN Reason: SEVERE PAIN Last Admin: 09/14/16 16:52 Dose: 25 mcg Fluticasone Propionate (Flonase Nasal [place] 50mcg*) 2 spray BOTH NARES DAILY PRN PRN Reason: Allergy Symptoms Last Admin: 09/14/16 13:58 Dose: 2 spray Sodium Chloride (Ns 0.9% 1000 Ml*) 1,000 mls @ 0 mls/hr IV KVO [facility] PRN Reason: KVO Last Admin: 09/13/16 14:56 Dose: 10 mls/hr Insulin Glargine (Lantus(*)) 40 units SUBCUT Q24H [facility] Last Admin: 09/14/16 18:05 Dose: 40 units Insulin Human Lispro (Humalog*) 0 units SUBCUT FS ACHS ICU [facility] PRN Reason: Protocol Last Admin: 09/15/16 10:02 Dose: 3 units Insulin Human Lispro (Humalog*) 0 units SUBCUT ACHS [facility]EL PRN Reason: Protocol Last Admin: 09/15/16 07:58 Dose: 8 units Lisinopril (Prinivil Tab*) 10 mg PO DAILY [facility] Last Admin: 09/15/16 09:56 Dose: 10 mg Mupirocin (Bactroban 2 % Oint*) 1 applic TOPICAL DAILY [facility] Last Admin: 09/15/16 10:01 Dose: 1 apply Nifedipine (Procardia Xl Tab*) 30 mg PO DAILY [facility] Last Admin: 09/15/16 10:28 Dose: Not Given Nitroglycerin (Nitroglycerin Tab 0.4 Mg*) 0.4 mg SL Q5M PRN PRN Reason: ANGINA Nitroglycerin (Nitroglycerin 2.5 Mg Patch*) 1 patch TRANSDERM 0900 [facility] Last Admin: 09/15/16 09:57 Dose: 1 patch Oxycodone HCl (Roxycodone Tab*) 20 mg PO Q4H PRN PRN Reason: PAIN Last Admin: 09/14/16 23:03 Dose: 10 mg Pharmacy Profile Note (Nitro Patch/Oint Remove*) 1 note PATCH OFF 2100 [facility] Last Admin: 09/14/16 21:00 Dose: 1 admin Pregabalin (Lyrica Cap(*)) 75 mg PO BEDTIME [facility] Last Admin: 09/14/16 20:33 Dose: 75 mg Simethicone (Mylicon*) 80 mg PO Q6H PRN PRN Reason: INDIGESTION Last Admin: 09/14/16 20:51 Dose: 80 mg Ticagrelor (Brilinta*) 90 mg PO BID [facility] Last Admin: 09/15/16 09:57 Dose: 90 mg Home Medications: Home Medications Medication Instructions Recorded Confirmed Type Fluticasone NASAL SPRAY 50MCG* 2 spray BOTH NARES DAILY PRN 11/16/13 09/12/16 History [Flonase NASAL SPRAY 50MCG*] Calcitriol CAP* [Rocaltrol CAP*] 0.25 mcg PO DAILY 06/14/14 09/12/16 History [place]-3 Fatty Acids [Fish Oil 1 cap PO DAILY 06/14/14 09/12/16 History Triple Strength 1400 mg] Carvedilol TAB* [Coreg TAB*] 25 mg PO DAILY 04/04/15 09/12/16 History Lisinopril [Lisinopril 40 MG-] 20 mg PO DAILY 04/04/15 09/12/16 History Sildenafil Citrate [Viagra] 100 mg PO DAILY PRN 04/04/15 09/12/16 History B-Complex W/ C & Folic Acid 1 tab PO DAILY 06/18/16 09/12/16 History [Ct-Yvan] Melatonin (NF) 3 mg PO BEDTIME PRN 06/18/16 09/12/16 History Pregabalin CAP(*) [Lyrica CAP(*)] 75 mg PO BEDTIME 06/18/16 09/12/16 History Venlafaxine EXT RELEASE CAP* 37.5 mg PO BEDTIME 06/18/16 09/12/16 History [Effexor Xr CAP*] diPHENhydraMINE PO* [Benadryl PO*] 25 mg PO Q6H PRN 06/18/16 09/12/16 History Allergies: Allergies Allergy/AdvReac Type Severity Reaction Status Date / Time Clindamycin Allergy Intermediate Diarrhea Verified 07/13/15 09:07 Morphine Allergy Hallucinati Verified 07/13/15 09:07 ons Objective - Vital Signs Vital Signs: Vital Signs 09/14/16 09/14/16 09/14/16 11:00 11:40 12:00 Temperature 97.6 F Pulse Rate 78 78 Respiratory 18 17 Rate Blood Pressure 92/46 96/52 (mmHg) O2 Sat by Pulse 98 99 Oximetry 09/14/16 09/14/16 09/14/16 12:22 13:00 14:00 Temperature Pulse Rate 79 81 Respiratory 14 14 17 Rate Blood Pressure 107/49 96/57 (mmHg) O2 Sat by Pulse 97 99 Oximetry 09/14/16 09/14/16 09/14/16 15:00 16:00 16:52 Temperature 97.8 F Pulse Rate 80 81 Respiratory 20 16 13 Rate Blood Pressure 122/88 131/62 (mmHg) O2 Sat by Pulse 99 100 Oximetry 09/14/16 09/14/16 09/14/16 17:00 18:00 19:00 Temperature Pulse Rate 51 86 Respiratory 17 14 19 Rate Blood Pressure 106/66 123/57 (mmHg) O2 Sat by Pulse 89 97 97 Oximetry 09/14/16 09/14/16 09/14/16 20:00 20:06 20:14 Temperature 97.7 F Pulse Rate Respiratory 15 17 Rate Blood Pressure 72/54 97/83 (mmHg) O2 Sat by Pulse 96 100 Oximetry 09/14/16 09/14/16 09/14/16 20:59 21:01 22:00 Temperature Pulse Rate 83 Respiratory 15 15 18 Rate Blood Pressure 122/56 (mmHg) O2 Sat by Pulse 98 97 95 Oximetry 09/14/16 09/14/16 09/14/16 22:01 23:00 23:46 Temperature Pulse Rate Respiratory 17 20 17 Rate Blood Pressure 121/58 124/54 (mmHg) O2 Sat by Pulse 100 97 97 Oximetry 09/14/16 09/15/16 09/15/16 23:49 00:00 00:01 Temperature Pulse Rate Respiratory 14 17 16 Rate Blood Pressure 117/57 (mmHg) O2 Sat by Pulse 98 97 Oximetry 09/15/16 09/15/16 09/15/16 01:00 02:00 02:03 Temperature Pulse Rate 78 Respiratory 17 17 18 Rate Blood Pressure 129/54 121/62 (mmHg) O2 Sat by Pulse 99 97 100 Oximetry 09/15/16 09/15/16 09/15/16 03:00 03:53 04:00 Temperature 98.8 F Pulse Rate Respiratory 16 14 16 Rate Blood Pressure 112/55 108/54 (mmHg) O2 Sat by Pulse 99 98 Oximetry 09/15/16 09/15/16 09/15/16 05:00 05:30 06:00 Temperature Pulse Rate Respiratory 13 14 15 Rate Blood Pressure 105/44 (mmHg) O2 Sat by Pulse 97 99 Oximetry 09/15/16 09/15/16 09/15/16 07:00 07:51 07:59 Temperature 97.4 F Pulse Rate 71 Respiratory 14 22 16 Rate Blood Pressure (mmHg) O2 Sat by Pulse 100 Oximetry 09/15/16 08:00 Temperature Pulse Rate 71 Respiratory 16 Rate Blood Pressure 116/53 (mmHg) O2 Sat by Pulse 98 Oximetry - Intake and Output Intake and Output: Intake & Output 09/12/16 09/13/16 09/14/16 09/15/16 11:59 11:59 11:59 11:59 Intake Total 1835 1389 693 Output Total 200 200 Balance 1835 1189 493 Weight 163 lb 2.273 oz 174 lb 13.225 oz 176 lb 5.917 oz Intake: IV Fluids 371 369 173 NS to Maintain IV Patency 371 319 90 mg 50 83 IVPB 215 NS to Maintain IV Patency 215 Medicated IV 529 10 CC - Amiodarone 498 CC - Nitroglycerine/ 31 10 Tridil Oral 720 1010 520 Output: Urine 200 200 Other: Date of Last Bowel 09/13/2016 Movement # Bowel Movements 1 Estimated Stool Amount Medium ADLs: Meal Record Start: 09/12/16 09: 06 Freq: 09,13,18 Status: Active Created 09/12/16 09:06 System (Rec: 09/12/16 09:06 System CARD-C01) Document 09/12/16 18:00 [id number] (Rec: 09/12/16 18:47 [id number] ICU-C07) Document 09/13/16 09:00 [id number] (Rec: 09/13/16 10:54 [id number] ICU-C07) Document 09/13/16 13:00 [id number] (Rec: 09/13/16 13:27 [id number] ICU-C07) Document 09/14/16 09:00 [id number] (Rec: 09/14/16 11:01 [id number] ICU-C07) Document 09/14/16 13:00 [id number] (Rec: 09/14/16 14:30 [id number] ICU-C07) Intake and Output Start: 09/12/16 09: 06 Freq: 06,14,22 Status: Active Created 09/12/16 09:06 System (Rec: 09/12/16 09:06 System CARD-C01) Document 09/12/16 14:00 [id number] (Rec: 09/12/16 14:25 [id number] ICU-C07) Document 09/12/16 22:00 [id number] (Rec: 09/12/16 22:52 [id number] ICU-C07) Document 09/13/16 05:37 [id number] (Rec: 09/13/16 05:38 [id number] ICU-C07) Document 09/13/16 14:00 [id number] (Rec: 09/13/16 15:00 [id number] ICU-M07) Document 09/13/16 22:00 [id number] (Rec: 09/13/16 22:43 [id number] ICU-C20) Document 09/13/16 22:47 [id number] (Rec: 09/13/16 22:47 [id number] ICU-C07) Document 09/14/16 05:55 [id number] (Rec: 09/14/16 05:55 [id number] ICU-C07) Document 09/14/16 14:00 [id number] (Rec: 09/14/16 15:09 [id number] ICU-C07) Document 09/14/16 22:00 [id number] (Rec: 09/14/16 23:45 [id number] ICU-C07) Document 09/15/16 06:00 [id number] (Rec: 09/15/16 06:43 [id number] ICU-C07) - Physical Exam General: No Cyanosis, Yes Anemia, No Jaundice, No Lymphadenopathy Lungs and Chest: Yes: Chest Expansion Full, Chest Expansion Symetrica, Percussion Note Resonant, Vessicular Breath Sounds. No: Crackles, Wheezes Heart Rate and Rhythm: Regular Additional Cardiovascular: Yes: Normal Heart Sounds, Other - no left stump edema , no sacral edema. No: Heart Murmur Abdominal Exam: Yes: Soft, Bowel Sounds Present. No: Distention, Abdominal Mass , Hepatomegaly, Abdominal Tenderness Results - Results Lab Results: Laboratory Results - last 24 hr 09/14/16 09/14/16 09/14/16 13:06 18:03 20:12 WBC RBC Hgb Hct MCV MCH MCHC RDW Plt Count MPV Neut % (Auto) Lymph % (Auto) [place] % (Auto) Eos % (Auto) Baso % (Auto) Absolute Neuts (auto) Absolute Lymphs (auto) Absolute Monos (auto) Absolute Eos (auto) Absolute Basos (auto) Absolute Nucleated RBC Nucleated RBC % Sodium Potassium Chloride Carbon Dioxide Anion Gap BUN Creatinine Est GFR ( Amer) Est GFR (Non-Af Amer) BUN/Creatinine Ratio Glucose POC Glucose (mg/dL) 148 H 139 H 165 H Calcium Total Bilirubin AST ALT Alkaline Phosphatase Total Protein Albumin Globulin Albumin/Globulin Ratio 09/15/16 09/15/16 09/15/16 03:48 05:56 05:56 WBC 21.0 H RBC 2.59 L Hgb 7.2 L Hct 23 L MCV 87 MCH 28 MCHC 32 RDW 17 H Plt Count 431 MPV 10 Neut % (Auto) 77.3 Lymph % (Auto) 10.8 L [place] % (Auto) 9.8 H Eos % (Auto) 1.6 Baso % (Auto) 0.5 Absolute Neuts (auto) 16.2 H Absolute Lymphs (auto) 2.3 Absolute Monos (auto) 2.1 H Absolute Eos (auto) 0.3 Absolute Basos (auto) 0.1 Absolute Nucleated RBC 0.01 Nucleated RBC % 0 Sodium 127 L Potassium 3.4 L Chloride 90 L Carbon Dioxide 27 Anion Gap 10 BUN 42 H Creatinine 6.51 H Est GFR ( Amer) 11.5 Est GFR (Non-Af Amer) 8.9 BUN/Creatinine Ratio 6.5 L Glucose 251 H POC Glucose (mg/dL) 264 H Calcium 8.9 Total Bilirubin 0.20 AST 19 ALT 6 L Alkaline Phosphatase 75 Total Protein 5.9 L Albumin 2.0 L Globulin 3.9 Albumin/Globulin Ratio 0.5 L Assessment - Problem List Assessment: Patient Problems Diabetic nephropathy associated with type 1 diabetes mellitus (Acute) Electrolyte abnormality (Acute) End-stage renal disease on peritoneal dialysis (Acute) Hyperglycemia (Acute) Leukocytosis (Acute) ST elevation (STEMI) myocardial infarction involving right coronary artery ( Acute) Anemia of renal disease (Chronic) Diabetic neuropathy (Chronic 03/31/14) Diabetic peripheral neuropathy (Chronic) History of left below knee amputation (Chronic) History of right above knee amputation (Chronic) Hypercholesteremia (Chronic 03/31/14) Hypertension (Chronic 03/31/14) 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) Peripheral vascular disease (Chronic) 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 Andres: The left coronary artery system is largely patent. He considers this to be a clopidogrel failure and wants him to take ticagrelor for at least 30 months. The only potential block is the [facility]. He states that there were enough collaterals to prevent a large amount of damage to the myocardium from ischemia during his STEMI. From the cardiology point of view he is ready for discharge tomorrow. Leukocytosis (Acute) He has chronic leukocytosis. Todays is higher than the preceding 2 days - though this is not a neutrophilia (the % lymphocytes increased). He has no clinical signs of infection. I will withhold antibacterials. I will culture him and also check a CXR. I suspect that this is a chronic inflammation. I will check a baseline CRP and repeat this to see if it is coming down (it can be raised from a NE, chronic stump inflammation/ infection). His hypoalbuminemia may also be part of a response to chronic inflammation (negative acute phase reactant) Diabetic nephropathy associated with type 1 diabetes mellitus (Acute) Electrolyte abnormality (Acute)End-stage renal disease on peritoneal dialysis ( Acute) His weight has gone up during his hospital stay - but this is a bed scale and I just don't think this is clinically the case. The dialysis team should have a better idea of I and O. 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) Hyperglycemia (Acute) I think his hyperglycemia reflects his dialysate. I don' t want to overcompensate as when he goes home on his usual dialysate he would have hypoglycemia. We will continue coverage. I am far more concerned about hypoglycemia than hyperglycemia. Anemia of renal disease (Chronic) he receives epogen as an outpatient. Dr. Andres wonders about transfusion. I am not sure the virtues outweigh the vices. Diabetic neuropathy (Chronic 03/31/14) secondary diagnosis Diabetic peripheral neuropathy (Chronic) secondary diagnosis History of left below knee amputation (Chronic)secondary diagnosis History of right above knee amputation (Chronic)secondary diagnosis Hypercholesteremia (Chronic 03/31/14)secondary diagnosis Hypertension (Chronic 03/31/14)secondary diagnosis - controlled 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) ? 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 He understands the unpredictable nature of his disease. He thinks his glucose levels will be easier to control at home. He would like to return home as soon as he can.
--- NOTE | 2016-09-15 14:00 | CATH ---
INTERVENTIONAL REPORT: DATE OF PROCEDURE: 09/12/16 - ROOM #ICU-12 INDICATION FOR PROCEDURE: The patient with ST segment elevation inferior wall myocardial infarction. PROCEDURE: Coronary arteriography, balloon angioplasty, and placement of a 2.5 mm x 12 mm long Synergy drug-eluting stent in the distal right coronary artery followed by a second 2.5 x 12 mm long Synergy drug-eluting stent overlapping the prior stent to the mid to distal area. Balloon angioplasty and placement of a 2.75x16 mm Synergy drug eluting stent in the proximal right coronary artery. PROCEDURE IN DETAIL: The patient was interviewed and examined in the ER where the risks and benefits were explained for emergent catheterization and intervention. He and his understood them and wished to proceed. The patient was brought to the [facility] where a formal time out was performed. He was then prepped and draped in a steril fashion and the left groin area was anesthetized with lidocaine and the left femoral artery was cannulated and a 6.5 nigerian glidesheath was placed. coronary arteriography of the left coronary artery was performed with a 5 nigerian 4 curve left may catheter. The right coronary artery was visualized with a ART4 curve 6 nigerian guide catheter. After attempts to cross the totally occluded distal RCA with an exchange length wire supported with an over the wire balloon were unsuccessful due to poor guide catheter support, the guide was exchanged for a 6 nigerian AL1 guide. Eventually a guideliner was also utilized for more support and after multiple different guidewires were used , a PT graphics wire was able to cross the occlusion. Extensive balloon dilatation was performed to the distal RCA and placement of the first 2.5x12 mm stent was performed. Following that, balloon angioplasty was performed through the distal right coronary artery more proximally and a second 2.5 mm x 12 mm long Synergy drug-eluting stent was deployed. Of note, the patient's transient development of arrhythmias with ventricular fibrillation as that stent was initially advanced into the right coronary artery to be placed distally. Following this, the patient was shocked out of an amiodarone bolus and drip was run. The patient then had a balloon angioplasty to the proximal right coronary artery and placement of a 2.75 x 16 mm long Synergy drug-eluting stent. High-pressure balloon inflations were performed after that as well. Eventually, the artery was assessed afterwards with the stent balloons removed. Following that, additional injections were made into the left coronary artery to assess the left coronary artery system. At the end of the case, the sheath was sutured in place to be manually removed in the intensive care unit. It should be noted that the sheath was actually obstructing the blood flow down the leg and it was pulled back to allow extremely slow antegrade flow to occur down the leg. The catheter size was virtually the size of the artery. The total contrast used was 300 cc of Omnipaque dye. The radiation exposure included 49.8 minutes of fluoro time. The air kerma radiation was 2090 milligray. The DAP radiation was 14,702 microgray per meter squared. RESULTS: CORONARY ARTERIOGRAPHY: A. Left coronary artery. 1. Left main. Left main had calcium within the vessel wall with no significant obstruction noted, minimal 10% narrowing in its distal portion. 2. Left anterior descending artery. Left anterior descending artery traversed to the apical region. There was [id number] 45% to 50% narrowing proximally with a 40% narrowing seen after the first small caliber diagonal branch. The LAD continued without significant obstruction. The diagonal branches were small in caliber noted. 3. Circumflex artery - a nondominant vessel supplying a thin first and second obtuse marginal branch with a larger but still small caliber size third and fourth obtuse marginal branch. The vessel filling was somewhat streaming in nature, but there appeared to be moderate disease between the second and third mid obtuse marginal branches. The degree of narrowing is difficult to assess by the suboptimal images, but appears to be as much as 50% to 55%. Collateral blood flow was seen to the posterior descending artery through the septal perforators of the left anterior descending artery. The distal right coronary artery itself was not very well visualized by any type of collaterals. B. Right coronary artery - a dominant vessel, which was totally occluded just after it turned onto the inferior surface of the heart with 2 acute marginal branches; one in the mid segment and one just at the point of total occlusion. On eventual reconstitution of the vessel after intervention, the PDA had a significant 85% to 90% obstruction noted in its proximal portion, again a small caliber vessel clearly under 2 mm. The continuation supplied multiple posterior left ventricular branches, the caliber of which was clearly small in nature at under 2 mm. Diffuse disease was seen in these vessels as well. The proximal segment of the right coronary artery had a significant 85% to 90% obstruction noted on the first bend with calcium. INTERVENTION INTO RIGHT CORONARY ARTERY: A. Cay-xi-ygpwaj total occlusion - successful reconstitution after multiple attempts at wiring the artery with multiple guidewires with balloon angioplasty and placement of two 2.5 x 12 mm long stents in the lxb-ya-qrohhn portion. JOE -3 flow was noted with no significant residual stenosis seen compared to surrounding vessels. Of note, diffuse disease may not well enough assess the true caliber of these vessels for appropriate size. B. Proximal right coronary artery - successful reduction of critical 85% to 90% obstruction with balloon angioplasty and placement of a 2.75 x 16 mm long Synergy drug-eluting stent dilated to high pressures with JOE-3 flow and a mild 15% narrowing noted compared to the area just after it. OVERALL ASSESSMENT: A total occlusion of the [id number]-dntznb right coronary artery at area of prior stent placement with successful intervention as described above. Residual critical disease still left with the ostium of the posterior descending artery. It is noted that collateral blood flow was present from the left anterior descending artery to the PDA itself, which may help support perfusion to this area. At this point in time, consideration for switching from clopidogrel to Brilinta probably should be entertained after reviewing any question of prior hemorrhagic stroke, which will need to be investigated in records. Aggressive dual- antiplatelet therapy in addition to continued statin therapy and aggressive diabetes management are all factors that will need to be addressed carefully. He will continue on peritoneal dialysis. CC: Dr. Krish Velacso; Dr. Isrrael Turk; Dr. Ella Sosa * [id number]/CPS #: [id number] A- [id number]/CPS #: [id number] [facility]
--- NOTE | 2016-09-15 14:00 | RAD ---
Indication: Elevated white blood cell count. Assess for infection. History of cardiovascular disease and respiratory disease. Comparison: July 13, 2016 Technique: Upright AP 1300 hours Report: Elevated lung volumes. No alveolar consolidation, focal pulmonary lesion, pleural effusion, pneumothorax. Mild cardiomegaly. Unremarkable central pulmonary vasculature and mediastinal contours. IMPRESSION: Stigmata of probable chronic obstructive pulmonary disease. Mild cardiomegaly. No acute cardiopulmonary process evident.
[2016-09-15] MEDS: oxyCODONE TAB* 5 MG TAB PO PRN ×2 (14:24→15:41)
[2016-09-15] MEDS: Simethicone TAB* 80 MG TAB.CHEW PO PRN (15:05)
[2016-09-15] MEDS: Atorvastatin* 80 MG TAB PO SCH (19:16)
[2016-09-15] MEDS: Insulin GLARGINE(*) 1 UNITS UNIT SUBCUT SCH (20:52)
[2016-09-15] MEDS: Pregabalin CAP(*) 25 MG PO SCH (20:53)
[2016-09-15] MEDS: Nitro Patch/OINT Remove PATCH OFF SCH (20:57)
[2016-09-16] MEDS: Acetaminophen TAB* 325 MG PO PRN ×3 (00:06→10:28)
[2016-09-16] MEDS: oxyCODONE TAB* 5 MG TAB PO PRN ×3 (00:06→10:27)
[2016-09-16] MEDS: Simethicone TAB* 80 MG TAB.CHEW PO PRN (04:04)
[2016-09-16 06:05] LABS: Hematocrit 24 % (42-52); Hemoglobin 7.3 g/dl (14.0-18.0); Mean Corpuscular HGB Conc 31 g/dl (31-36); Mean Corpuscular Hemoglobin 27 pg (27-31); Mean Corpuscular Volume 87 fL (80-94); Mean Platelet Volume 10 um3 (7.4-10.4); Red Cell Distribution Width 17 % (10.5-15); White Blood Count 20.8 10^3/ul (3.5-10.8)
[2016-09-16 06:07] LABS: Add Diff/Slide Review? Slide Review Added
[2016-09-16 06:18] LABS: BUN/Creatinine Ratio 7.2 (8-20); C Reactive Protein 182.54 mg/L (< 5.00); Calcium 9.3 mg/dL (8.6-10.3); EGFR Non-African American 8.5 (>60); Potassium 3.5 mmol/L (3.5-5.0)
[2016-09-16 06:43] LABS: Macrocytosis 1+; Microcytosis 1+; Polychromasia 1+; Stomatocytes 1+; Target Cells 1+
[2016-09-16] MEDS ORDERED: Carvedilol TAB* 6.25 MG PO SCH (09:00)
--- NOTE | 2016-09-16 10:03 | PN ---
Subjective - Subjective Reason for Note: Consultation Note History: He has responded well to his dialysis regimen with good loss of extra fluid. He has no symptoms suggesting infection - no cough, sputum, fever, sweats. His wounds are not noted to be infected by those who have inspected them. He has had no new cardiac symptoms. Blood glucose control - he is hyperglycemic in the morning after using a higher dextrose dwell in dialysate. His glycemic control was adequate during the day yesterday (running higher than usual). Active Problems: Active Problems Diabetic nephropathy associated with type 1 diabetes mellitus (Acute) E10.21 Electrolyte abnormality (Acute) E87.8 End-stage renal disease on peritoneal dialysis (Acute) N18.6, Z99.2 Hyperglycemia (Acute) R73.9 Leukocytosis (Acute) D72.829 ST elevation (STEMI) myocardial infarction involving right coronary artery ( Acute) I21.11 Anemia of renal disease (Chronic) D63.1 Diabetic neuropathy (Chronic 03/31/14) E11.40 Diabetic peripheral neuropathy (Chronic) E11.42 History of left below knee amputation (Chronic) Z89.512 History of right above knee amputation (Chronic) Z89.611 Hypercholesteremia (Chronic 03/31/14) E78.0 Hypertension (Chronic 03/31/14) I10 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) T87.43 Peripheral vascular disease (Chronic) I73.9 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) E13.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) E10.22, N18.6 Current Medications: Current Medications Acetaminophen (Tylenol Tab*) 650 mg PO Q4H PRN PRN Reason: HEADACHE/PAIN Last Admin: 09/16/16 04:03 Dose: 650 mg Aspirin (Aspirin Low Dose Tab*) 81 mg PO DAILY [facility] Last Admin: 09/15/16 09:57 Dose: 81 mg Atorvastatin Calcium (Lipitor*) 80 mg PO 1700 [facility] Last Admin: 09/15/16 19:16 Dose: 80 mg Calcitriol (Rocaltrol Cap*) 0.25 mcg PO DAILY [facility] Last Admin: 09/15/16 10:01 Dose: 0.25 mcg Carvedilol (Coreg Tab*) 12.5 mg PO BID [facility] Dextrose (D50w Syringe 50 Ml*) 12.5 gm IV PUSH .FOR FS < 60 - SS PRN PRN Reason: FS < 60 Dextrose (D50w Syringe 50 Ml*) 12.5 gm IV PUSH .FOR FS < 60 - SS PRN PRN Reason: FS < 60 Docusate Sodium (Colace Cap*) 100 mg PO BID [facility] Last Admin: 09/15/16 20:30 Dose: Not Given Doxycycline Hyclate (Vibramycin Cap(*)) 100 mg PO BID [facility] Last Admin: 09/15/16 20:52 Dose: 100 mg Fentanyl Citrate (Fentanyl*) 25 mcg IV SLOW PU Q4H PRN PRN Reason: SEVERE PAIN Last Admin: 09/14/16 16:52 Dose: 25 mcg Fluticasone Propionate (Flonase Nasal [place] 50mcg*) 2 spray BOTH NARES DAILY PRN PRN Reason: Allergy Symptoms Last Admin: 09/14/16 13:58 Dose: 2 spray Sodium Chloride (Ns 0.9% 1000 Ml*) 1,000 mls @ 0 mls/hr IV KVO [facility] PRN Reason: KVO Last Admin: 09/13/16 14:56 Dose: 10 mls/hr Insulin Glargine (Lantus(*)) 40 units SUBCUT Q24H [facility] Last Admin: 09/15/16 20:52 Dose: 40 units Insulin Human Lispro (Humalog*) 0 units SUBCUT FS ACHS ICU [facility] PRN Reason: Protocol Last Admin: 09/15/16 22:27 Dose: Not Given Insulin Human Lispro (Humalog*) 0 units SUBCUT ACHS [facility] PRN Reason: Protocol Last Admin: 09/15/16 20:51 Dose: 3 units Lisinopril (Prinivil Tab*) 10 mg PO DAILY [facility] Last Admin: 09/15/16 09:56 Dose: 10 mg Mupirocin (Bactroban 2 % Oint*) 1 applic TOPICAL DAILY [facility] Last Admin: 09/15/16 10:01 Dose: 1 apply Nitroglycerin (Nitroglycerin Tab 0.4 Mg*) 0.4 mg SL Q5M PRN PRN Reason: ANGINA Nitroglycerin (Nitroglycerin 2.5 Mg Patch*) 1 patch TRANSDERM 0900 [facility] Last Admin: 09/15/16 09:57 Dose: 1 patch Oxycodone HCl (Roxycodone Tab*) 10 mg PO Q4H PRN PRN Reason: PAIN Last Admin: 09/16/16 04:03 Dose: 10 mg Pharmacy Profile Note (Nitro Patch/Oint Remove*) 1 note PATCH OFF 2100 [facility] Last Admin: 09/15/16 20:57 Dose: 1 admin Pregabalin (Lyrica Cap(*)) 75 mg PO BEDTIME [facility] Last Admin: 09/15/16 20:53 Dose: 75 mg Simethicone (Mylicon*) 80 mg PO Q6H PRN PRN Reason: INDIGESTION Last Admin: 09/16/16 04:04 Dose: 80 mg Ticagrelor (Brilinta*) 90 mg PO BID [facility] Last Admin: 09/15/16 20:53 Dose: 90 mg Home Medications: Home Medications Medication Instructions Recorded Confirmed Type Fluticasone NASAL SPRAY 50MCG* 2 spray BOTH NARES DAILY PRN 11/16/13 09/12/16 History [Flonase NASAL SPRAY 50MCG*] Calcitriol CAP* [Rocaltrol CAP*] 0.25 mcg PO DAILY 06/14/14 09/12/16 History [place]-3 Fatty Acids [Fish Oil 1 cap PO DAILY 06/14/14 09/12/16 History Triple Strength 1400 mg] Carvedilol TAB* [Coreg TAB*] 25 mg PO DAILY 04/04/15 09/12/16 History Lisinopril [Lisinopril 40 MG-] 20 mg PO DAILY 04/04/15 09/12/16 History Sildenafil Citrate [Viagra] 100 mg PO DAILY PRN 04/04/15 09/12/16 History B-Complex W/ C & Folic Acid 1 tab PO DAILY 06/18/16 09/12/16 History [Ct-Yvan] Melatonin (NF) 3 mg PO BEDTIME PRN 06/18/16 09/12/16 History Pregabalin CAP(*) [Lyrica CAP(*)] 75 mg PO BEDTIME 06/18/16 09/12/16 History Venlafaxine EXT RELEASE CAP* 37.5 mg PO BEDTIME 06/18/16 09/12/16 History [Effexor Xr CAP*] diPHENhydraMINE PO* [Benadryl PO*] 25 mg PO Q6H PRN 06/18/16 09/12/16 History Allergies: Allergies Allergy/AdvReac Type Severity Reaction Status Date / Time Clindamycin Allergy Intermediate Diarrhea Verified 07/13/15 09:07 Morphine Allergy Hallucinati Verified 07/13/15 09:07 ons Objective - Vital Signs Vital Signs: Vital Signs 09/15/16 09/15/16 09/15/16 10:00 11:00 11:58 Temperature 98.1 F Pulse Rate 77 73 Respiratory 15 17 Rate Blood Pressure 110/56 106/50 (mmHg) O2 Sat by Pulse 99 99 Oximetry 09/15/16 09/15/16 09/15/16 12:00 12:12 13:00 Temperature Pulse Rate 68 70 72 Respiratory 17 17 18 Rate Blood Pressure 105/48 66/38 (mmHg) O2 Sat by Pulse 100 100 100 Oximetry 09/15/16 09/15/16 09/15/16 13:02 14:00 15:00 Temperature Pulse Rate 72 71 69 Respiratory 15 16 15 Rate Blood Pressure 112/44 131/56 89/27 (mmHg) O2 Sat by Pulse 100 98 100 Oximetry 09/15/16 09/15/16 09/15/16 15:09 16:00 16:22 Temperature 98.3 F Pulse Rate Respiratory 16 16 17 Rate Blood Pressure 123/61 (mmHg) O2 Sat by Pulse Oximetry 09/15/16 09/15/16 09/15/16 17:00 18:00 18:18 Temperature Pulse Rate Respiratory 18 17 18 Rate Blood Pressure 144/45 117/101 (mmHg) O2 Sat by Pulse Oximetry 09/15/16 09/15/16 09/15/16 19:00 20:00 20:12 Temperature 98.4 F Pulse Rate Respiratory 16 16 Rate Blood Pressure 50/31 128/68 (mmHg) O2 Sat by Pulse Oximetry 09/15/16 09/15/16 09/15/16 20:25 22:00 22:53 Temperature Pulse Rate Respiratory 16 17 19 Rate Blood Pressure (mmHg) O2 Sat by Pulse Oximetry 09/15/16 09/15/16 09/15/16 23:00 23:16 23:27 Temperature 98.7 F Pulse Rate Respiratory 21 19 Rate Blood Pressure 150/49 (mmHg) O2 Sat by Pulse Oximetry 09/16/16 09/16/16 09/16/16 00:00 01:00 02:00 Temperature Pulse Rate Respiratory 16 20 16 Rate Blood Pressure 134/63 128/55 (mmHg) O2 Sat by Pulse Oximetry 09/16/16 09/16/16 09/16/16 03:00 03:36 04:00 Temperature 98.4 F Pulse Rate Respiratory 23 20 Rate Blood Pressure 133/57 127/58 (mmHg) O2 Sat by Pulse Oximetry 09/16/16 09/16/16 09/16/16 04:06 05:00 05:25 Temperature Pulse Rate Respiratory 18 16 16 Rate Blood Pressure 142/60 (mmHg) O2 Sat by Pulse Oximetry 09/16/16 09/16/16 09/16/16 06:00 06:04 08:00 Temperature 97.4 F Pulse Rate Respiratory 21 17 Rate Blood Pressure (mmHg) O2 Sat by Pulse Oximetry - Intake and Output Intake and Output: Intake & Output 09/13/16 09/14/16 09/15/16 09/16/16 11:59 11:59 11:59 11:59 Intake Total 1835 1389 693 720 Output Total 200 200 425 Balance 1835 1189 493 295 Weight 163 lb 2.273 oz 174 lb 13.225 oz 176 lb 5.917 oz 169 lb 1.513 oz Intake: IV Fluids 371 369 173 NS to Maintain IV Patency 371 319 90 mg 50 83 IVPB 215 NS to Maintain IV Patency 215 Medicated IV 529 10 CC - Amiodarone 498 CC - Nitroglycerine/ 31 10 Tridil Oral 720 1010 520 720 Output: Urine 200 200 425 Other: Date of Last Bowel 09/13/2016 Movement # Bowel Movements 1 Estimated Stool Amount Medium ADLs: Meal Record Start: 09/12/16 09: 06 Freq: 09,13,18 Status: Active Created 09/12/16 09:06 System (Rec: 09/12/16 09:06 System CARD-C01) Document 09/12/16 18:00 [id number] (Rec: 09/12/16 18:47 [id number] ICU-C07) Document 09/13/16 09:00 [id number] (Rec: 09/13/16 10:54 [id number] ICU-C07) Document 09/13/16 13:00 [id number] (Rec: 09/13/16 13:27 [id number] ICU-C07) Document 09/14/16 09:00 [id number] (Rec: 09/14/16 11:01 [id number] ICU-C07) Document 09/14/16 13:00 [id number] (Rec: 09/14/16 14:30 [id number] ICU-C07) Document 09/15/16 09:00 [id number] (Rec: 09/15/16 12:15 [id number] ICU-C07) Document 09/15/16 15:09 [id number] (Rec: 09/15/16 15:12 [id number] ICU-C07) Document 09/15/16 18:36 [id number] (Rec: 09/15/16 18:36 [id number] ICU-C07) Intake and Output Start: 09/12/16 09: 06 Freq: 06,14,22 Status: Active Created 09/12/16 09:06 System (Rec: 09/12/16 09:06 System CARD-C01) Document 09/12/16 14:00 [id number] (Rec: 09/12/16 14:25 [id number] ICU-C07) Document 09/12/16 22:00 [id number] (Rec: 09/12/16 22:52 [id number] ICU-C07) Document 09/13/16 05:37 [id number] (Rec: 09/13/16 05:38 [id number] ICU-C07) Document 09/13/16 14:00 [id number] (Rec: 09/13/16 15:00 [id number] ICU-M07) Document 09/13/16 22:00 [id number] (Rec: 09/13/16 22:43 [id number] ICU-C20) Document 09/13/16 22:47 [id number] (Rec: 09/13/16 22:47 [id number] ICU-C07) Document 09/14/16 05:55 [id number] (Rec: 09/14/16 05:55 [id number] ICU-C07) Document 09/14/16 14:00 [id number] (Rec: 09/14/16 15:09 [id number] ICU-C07) Document 09/14/16 22:00 [id number] (Rec: 09/14/16 23:45 [id number] ICU-C07) Document 09/15/16 06:00 [id number] (Rec: 09/15/16 06:43 [id number] ICU-C07) Document 09/15/16 15:12 [id number] (Rec: 09/15/16 15:12 [id number] ICU-C07) Document 09/15/16 21:39 [id number] (Rec: 09/15/16 21:39 [id number] ICU-C07) Document 09/15/16 22:00 [id number] (Rec: 09/15/16 22:44 [id number] ICU-C07) Document 09/16/16 05:50 [id number] (Rec: 09/16/16 05:50 [id number] ICU-C14) - Physical Exam General: No Cyanosis, Yes Anemia, No Jaundice, No Clubbing Lungs and Chest: Yes: Chest Expansion Full, Chest Expansion Symetrica, Percussion Note Resonant, Vessicular Breath Sounds. No: Crackles, Wheezes Heart Rate and Rhythm: Regular Additional Cardiovascular: Yes: Normal Heart Sounds, Other - no sacral or stump edema. No: Heart Murmur Abdominal Exam: Yes: Soft. No: Distention Results - Results Lab Results: Laboratory Results - last 24 hr 09/15/16 09/15/16 09/15/16 11:41 11:41 12:07 WBC RBC Hgb Hct MCV MCH MCHC RDW Plt Count MPV Neut % (Auto) Lymph % (Auto) [place] % (Auto) Eos % (Auto) Baso % (Auto) Absolute Neuts (auto) Absolute Lymphs (auto) Absolute Monos (auto) Absolute Eos (auto) Absolute Basos (auto) Absolute Nucleated RBC Nucleated RBC % Normal RBC Morphology Polychromasia Microcytosis Macrocytosis Target Cells Stomatocytes Sodium Potassium Chloride Carbon Dioxide Anion Gap BUN Creatinine Est GFR ( Amer) Est GFR (Non-Af Amer) BUN/Creatinine Ratio Glucose POC Glucose (mg/dL) 104 Calcium C-Reactive Protein 190.77 H Procalcitonin 1.2 H 09/15/16 09/15/16 09/16/16 16:40 20:42 05:35 WBC RBC Hgb Hct MCV MCH MCHC RDW Plt Count MPV Neut % (Auto) Lymph % (Auto) [place] % (Auto) Eos % (Auto) Baso % (Auto) Absolute Neuts (auto) Absolute Lymphs (auto) Absolute Monos (auto) Absolute Eos (auto) Absolute Basos (auto) Absolute Nucleated RBC Nucleated RBC % Normal RBC Morphology Polychromasia Microcytosis Macrocytosis Target Cells Stomatocytes Sodium 127 L Potassium 3.5 Chloride 89 L Carbon Dioxide 29 Anion Gap 9 BUN 49 H Creatinine 6.78 H Est GFR ( Amer) 11.0 Est GFR (Non-Af Amer) 8.5 BUN/Creatinine Ratio 7.2 L Glucose 303 H POC Glucose (mg/dL) 98 194 H Calcium 9.3 C-Reactive Protein 182.54 H Procalcitonin 09/16/16 05:35 WBC 20.8 H RBC 2.70 L Hgb 7.3 L Hct 24 L MCV 87 MCH 27 MCHC 31 RDW 17 H Plt Count 545 H D MPV 10 Neut % (Auto) 74.1 Lymph % (Auto) 12.9 L [place] % (Auto) 9.9 H Eos % (Auto) 2.5 Baso % (Auto) 0.6 Absolute Neuts (auto) 15.4 H Absolute Lymphs (auto) 2.7 Absolute Monos (auto) 2.1 H Absolute Eos (auto) 0.5 Absolute Basos (auto) 0.1 Absolute Nucleated RBC 0 Nucleated RBC % 0 Normal RBC Morphology Not Reportable Polychromasia 1+ Microcytosis 1+ Macrocytosis 1+ Target Cells 1+ Stomatocytes 1+ Sodium Potassium Chloride Carbon Dioxide Anion Gap BUN Creatinine Est GFR ( Amer) Est GFR (Non-Af Amer) BUN/Creatinine Ratio Glucose POC Glucose (mg/dL) Calcium C-Reactive Protein Procalcitonin Radiology Results: Patient Name: NETO CRISTINA Medical Record#: [id number] Ordering Physician: Krish Velasco MD Acct.#: [id number] : 1960 Age: 56 Sex: M Location: [facility] Exam Date: 09/15/16 1256 ADM Status: ADM IN Order Information: CHEST AP PORTABLE Accession Number: [id number] CPT: 22693 Indication: Elevated white blood cell count. Assess for infection. History of cardiovascular disease and respiratory disease. Comparison: July 13, 2016 Technique: Upright AP 1300 hours Report: Elevated lung volumes. No alveolar consolidation, focal pulmonary lesion , pleural effusion, pneumothorax. Mild cardiomegaly. Unremarkable central pulmonary vasculature and mediastinal contours. IMPRESSION: Stigmata of probable chronic obstructive pulmonary disease. Mild cardiomegaly. No acute cardiopulmonary process evident. <Electronically signed by Power Lott MD in OV> 09/15/16 1357 Dictated By: Power Lott MD Dictated Date/Time: 09/15/16 1357 Transcribed Date/Time: 09/15/16 1355 Copy to: CC:Krish Velasco MD; Juan Valdez DO; Amado Andres MD; Isrrael Turk MD; Kim Hess MD Imaging - [facility] [address] [place] [address] [address] [address] ph ([phone]) ph ([phone]) ph ([phone]) 1 of 1 Assessment - Problem List Assessment: Patient Problems Diabetic nephropathy associated with type 1 diabetes mellitus (Acute) Electrolyte abnormality (Acute) End-stage renal disease on peritoneal dialysis (Acute) Hyperglycemia (Acute) Leukocytosis (Acute) ST elevation (STEMI) myocardial infarction involving right coronary artery ( Acute) Anemia of renal disease (Chronic) Diabetic neuropathy (Chronic 03/31/14) Diabetic peripheral neuropathy (Chronic) History of left below knee amputation (Chronic) History of right above knee amputation (Chronic) Hypercholesteremia (Chronic 03/31/14) Hypertension (Chronic 03/31/14) 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) Peripheral vascular disease (Chronic) 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) 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) Plan: Hyperglycemia (Acute)/Type 1 diabetes mellitus with end-stage renal disease ( ESRD) (Chronic 03/31/14) He is markedly hyperglycemic in the morning, but has mild hyperglycemia during the day. The factors at play include the increased dextrose in the dialysate to allow removal of fluid, recent IA, possible ( doubtful) infection. My main concern is hypoglycemia as this would cause him cardiac stress. He will return to his usual dialysis regimen at home. I recommend he goes back to his usual insulin regimen (lantus 23 units/Humalog carb counting). If he remains hyperglycemic on this, I will titrate back up his basal insulin and increase his coverage - leaving his carb counting alone Diabetic nephropathy associated with type 1 diabetes mellitus (Acute) Electrolyte abnormality (Acute)End-stage renal disease on peritoneal dialysis ( Acute) This is now stable. 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 His CRP is elevated, but came down slightly. The procalcitonin was 1.2 (normal CXR) - I think this is attributable to renal failure. The literature suggests a cut off of 1.5 in patients with end stage renal disease. He is clinically not infected. I have not started him on extra antibacterials ( he takes doxycycline chronically to prevent stump infection). He checks his temperature bid at home anyhow for his peritoneal dialysis. We have cultures pending. ST elevation (STEMI) myocardial infarction involving right coronary artery ( Acute) Per Dr. Andres - ready for discharge Anemia of renal disease (Chronic) Address with Dr. Turk as an outpatient I discussed the above with the patient and his daughter, along with Dr. Andres
[2016-09-16] MEDS: DOXYcycline CAP(*) 100 MG PO SCH (10:13)
[2016-09-16] MEDS: Docusate CAP* 100 MG PO SCH (10:13)
[2016-09-16] MEDS: Calcitriol CAP* 0.25 MCG PO SCH (10:13)
[2016-09-16] MEDS: Ticagrelor* 90 MG TAB PO SCH (10:14)
[2016-09-16] MEDS: Lisinopril TAB* 10 MG PO SCH (10:14)
[2016-09-16] MEDS: Aspirin Low Dose CHEW TAB* 81 MG PO SCH (10:14)
[2016-09-16] MEDS: Insulin LISPRO* 1 UNITS UNIT SUBCUT SCH ×4 (10:28→12:00)
[2016-09-16] MEDS: Mupirocin 2% OINT* TUBE TOPICAL SCH (10:31)
[2016-09-16] MEDS: Nitroglycerin 0.1 mg/Hr PATCH* (2.5 MG) TRANSDERM SCH (10:37)
[2016-09-16] MEDS ORDERED: Epoetin Alfa* 10,000 UNITS/ML VIAL SUBCUT ONE (11:00)
[2016-09-16 14:48] VITALS: BP 113/50
--- NOTE | 2016-09-17 03:15 | DS ---
DISCHARGE SUMMARY: DATE OF ADMISSION: 09/12/16 DATE OF DISCHARGE: 09/16/16 FINAL DIAGNOSIS: Acute ST segment elevation inferior wall myocardial infarction. SECONDARY DIAGNOSES: Include: 1. Stenotic coronary artery disease. 2. History of ischemic cardiomyopathy. 3. History of severe peripheral vascular disease. 4. History of insulin-dependent diabetes. 5. Chronic renal failure, on peritoneal dialysis. 6. Hyponatremia. 7. Persistent elevated white blood count. HISTORY OF PRESENT ILLNESS: The patient is a pleasant 56-year-old gentleman who was well known to our service through Dr. Ella Sosa, who has been involved with his coronary artery interventions in the past. Please refer to my history and physical for complete details of presenting symptoms. Essentially, he presented with onset of chest discomfort reminiscent of his ischemic events in the past with ST segment elevations in II, III, aVF and reciprocal changes in I and aVL. A STEMI alert was called on the day of admission. He was worked to the cardiovascular laboratory. Findings revealed a totally occluded mid to distal right coronary artery as it turned on to the inferior surface of the heart. The left anterior descending artery and the circumflex artery had moderate disease and there had been no focal critical stenosis, although the distal circumflex had bordering on significant disease, but JOE-3 flow was seen throughout these vessels. Collateral blood flow was noted to be from the left anterior descending artery to the right- sided posterior descending artery but it did not fill well the hoh right coronary artery leading to the posterior LV branches. Aggressive attempts were made to open the right coronary artery with multiple wires and balloons utilized, eventually reopening up the right coronary artery and placing drug-eluting stents in the mid to distal portion as well as in the proximal portion with findings of a new critical stenosis in the proximal right coronary artery of greater than 80%. HOSPITAL COURSE: Postprocedure, his cardiac enzymes had peaked with a total CPK of 379. His MB was 65.8. His troponins had gone up to the 40s. During the course of the hospitalization, he was initially watched carefully by Dr. Valdez with eventually Dr. Krish Velasco joining us too as his primary care physician to take over management of his diabetes. He continued on peritoneal dialysis under Dr. Turk's guidance. Throughout the course of the hospitalization, he had sodium that tended to be in the 124 to 127 range and indeed on the day of discharge, his sodium was 127. His sugars came under very good control after initially being significantly elevated. His white count when he came in was elevated at 18,000, had gone up to as high as 23,000 and by the day of discharge was down to 20,800. He had blood cultures drawn that showed today preliminary results of no growth after 24 hours of reading. There was peritoneal fluid that had a culture that was pending. He was afebrile throughout the hospital course and eventually he was up sitting in his customized wheelchair. He had no further chest, throat, jaw or arm discomfort. His electrocardiogram during the hospitalization had revealed resolution of the ST segment elevation in aVF with persistent mild elevation in 3, T-wave inversion was noted in V2 through V4 with ST segment depression and downsloping in I and aVL. It was less of the segment depression than on initial presentation in leads I and aVL where they seemed to be more horizontal in nature. During the hospitalization, changes were made to his medical management for his coronary artery disease, most importantly now switching him to Brilinta 90 mg b.i.d. We stopped his Procardia XL in light of this LV dysfunction and I put him on a nitro patch at 0.1 mg per hour. We continued his beta-dennys, increasing it as blood pressure tolerated with Coreg 12.5 mg twice a day. He remained on lisinopril, albeit a slightly lower dose at 10 mg a day, which may be adjusted further higher as an outpatient depending on his pressure. On the day of discharge, he was well with no shortness of breath, oxygenating well on room air. No specific chest, throat, jaw or arm discomfort. Vital signs were stable. His lungs were clear and his heart had a regular rate and rhythm. Extremities show the amputations that he had already had both to the right above the knee, left below the knee, and finger amputations on the right. MEDICATIONS AT THE TIME OF DISCHARGE: Included: 1. Aspirin 81 mg a day. 2. Atorvastatin 80 mg a day. 3. Calcitriol 0.25 mg daily. 4. Carvedilol 12.5 mg twice a day. 5. Docusate 100 mg a day. 6. Doxycycline 100 mg twice a day to be readdressed by Dr. Krish Velasco because the patient told us that he had stopped that as an outpatient. 7. Insulin 23 units of Lantus a day and lispro per his carbohydrate guidance scale. The patient is also on: 1. Lisinopril 10 mg a day. 2. Nitro patch 0.1 mg per hour while awake. 3. Ticagrelor 90 mg a day. 4. Simethicone 80 mg p.r.n. 5. Oxycodone p.r.n. 6. Lyrica 75 mg at bedtime. 7. Effexor 37.5 mg at bedtime in addition to p.r.n. Flonase usage and p.r.n. Benadryl usage and p.r.n. oxycodone usage. The patient will be called in the office to set up a followup with Dr. Ella Sosa in approximately 1 week after discharge in addition to following up with Dr. Krish Velasco and with Dr. Isrrael Turk. The patient received his education cardiac booklet in addition to a stent card for his current stents that were placed. I answered all of his questions and his 's questions to their satisfaction before he left and his new medications were sent in via the computer to the [facility] in [place]. CC: Isrrael Turk MD; Krish Velasco MD; Ella Sosa MD * [id number]/[facility] #: [id number] MTDD
--- NOTE | 2016-09-17 04:05 | CATH ---
INTERVENTIONAL REPORT: * ADDENDUM: DATE OF PROCEDURE: PROCEDURE IN DETAIL: Following that, a balloon angioplasty was performed through the distal right coronary artery more proximally and a second 2.5 mm x 12 mm long Synergy drug-eluting stent was deployed. Of note, the patient's transient development of arrhythmias with ventricular fibrillation as that stent was initially advanced into the right coronary artery to be placed distally. Following this, the patient was shocked out of an amiodarone bolus and drip was run. The patient then had a balloon angioplasty to the proximal right coronary artery and placement of a 2.75 x 16 mm long Synergy drug-eluting stent. High-pressure balloon inflations were performed after that as well. Eventually, the artery was assessed afterwards with the stent balloons removed. Following that, additional injections were made into the left coronary artery to assess the left coronary artery system. At the end of the case, the sheath was sutured in place to be manually removed in the intensive care unit. It should be noted that the sheath was actually obstructing the blood flow down the leg and it was pulled back to allow extremely slow antegrade flow to occur down the leg. The catheter size was virtually the size of the artery. The total contrast used was 300 cc of Omnipaque dye. The radiation exposure included 49.8 minutes of fluoro time. The air kerma radiation was 2090 milligray. The DAP radiation was 14,702 microgray per meter squared. RESULTS: CORONARY ARTERIOGRAPHY: A. Left coronary artery. 1. Left main. Left main had calcium within the vessel wall with no significant obstruction noted, minimal 10% narrowing in its distal portion. 2. Left anterior descending artery. Left anterior descending artery traversed to the apical region. There was [id number]-[id number] 45% to 50% narrowing proximally with a 40% narrowing seen after the first small caliber diagonal branch. The LAD continued without significant obstruction. The diagonal branches were small in caliber noted. 3. Circumflex artery - a nondominant vessel supplying a thin first and second obtuse marginal branch with a larger but still small caliber size third and fourth obtuse marginal branch. The vessel filling was somewhat streaming in nature, but there appeared to be moderate disease between the second and third mid obtuse marginal branches. The degree of narrowing is difficult to assess by the suboptimal images, but appears to be as much as 50% to 55%. Collateral blood flow was seen to the posterior descending artery through the septal perforators of the left anterior descending artery. The distal right coronary artery itself was not very well visualized by any type of collaterals. B. Right coronary artery - a dominant vessel, which was totally occluded just after it turned onto the inferior surface of the heart with 2 acute marginal branches; one in the mid segment and one just at the point of total occlusion. On eventual reconstitution of the vessel after intervention, the PDA had a significant 85% to 90% obstruction noted in its proximal portion, again a small caliber vessel clearly under 2 mm. The continuation supplied multiple posterior left ventricular branches, the caliber of which was clearly small in nature at under 2 mm. Diffuse disease was seen in these vessels as well. The proximal segment of the right coronary artery had a significant 85% to 90% obstruction noted on the first bend with calcium. INTERVENTION INTO RIGHT CORONARY ARTERY: A. Gmu-rn-oddpca total occlusion - successful reconstitution after multiple attempts at wiring the artery with multiple guidewires with balloon angioplasty and placement of two 2.5 x 12 mm long stents in the zeb-mt-jtnixj portion. JOE-3 flow was noted with no significant residual stenosis seen compared to surrounding vessels. Of note, diffuse disease may not well enough assess the true caliber of these vessels for appropriate size. B. Proximal right coronary artery - successful reduction of critical 85% to 90% obstruction with balloon angioplasty and placement of a 2.75 x 16 mm long Synergy drug-eluting stent dilated to high pressures with JOE -3 flow and a mild 15% narrowing noted compared to the area just after it. OVERALL ASSESSMENT: A total occlusion of the rkz-lo-zzbiiq right coronary artery at area of prior stent placement with successful intervention as described above. Residual critical disease still left with the ostium of the posterior descending artery. It is noted that collateral blood flow was present from the left anterior descending artery to the PDA itself, which may help support perfusion to this area. At this point in time, consideration for switching from clopidogrel to Brilinta probably should be entertained after reviewing any question of prior hemorrhagic stroke, which will need to be investigated in records. Aggressive dual- antiplatelet therapy in addition to continued statin therapy and aggressive diabetes management are all factors that will need to be addressed carefully. He will continue on peritoneal dialysis. [id number]/[facility] #: [id number] [facility]NEUR HEALTHJulia
--- NOTE | 2016-10-17 21:06 | ED ---
Vamshi Ellison Benjamin, scribed for Zak Stout MD on 09/12/16 at 0750 . HPI Chest Pain - HPI Summary HPI Summary: 56yo male c/o burning mid sternal CP since 0545 this morning. Pt rates the pain as 3/10. Pt took NTGx2 SYSTEMS INTEGRATOR but not ASA. NTG did moderate relief. Pt has hx of CAD with cardiac stents put in. - History of Current Complaint Chief Complaint: EDChestPainROMI Time Seen by Provider: 09/12/16 07:28 Hx Obtained From: Patient, Family/Order Analyst Onset/Duration: Started Hours Ago, Still Present Time of Onset: 05:45 Initial Severity: Mild Current Severity: Mild Pain Intensity: 3 Pain Scale Used: 0-10 Numeric Chest Pain Location: Mid Sternal Chest Pain Radiates: No Character: Burning Alleviating Factor(s): NTG 123 Associated Signs and Symptoms: Positive: Negative - Additional Pertinent History Primary Care Physician: NOLAN - Allergy/Home Medications Allergies/Adverse Reactions: Allergies Allergy/AdvReac Type Severity Reaction Status Date / Time Clindamycin Allergy Intermediate Diarrhea Verified 07/13/15 09:07 Morphine Allergy Hallucinati Verified 07/13/15 09:07 ons PMH/Surg Hx/FS Hx/Imm Hx Endocrine/Hematology History: Reports: Hx Diabetes, Hx Anemia, Other Endocrine/ Hematological Disorders - retinal hemorrhage with heparin Denies: Hx Systemic Lupus Erythematosus, Hx Thyroid Disease Cardiovascular History: Reports: Hx Angina, Hx Angioplasty - recent R leg angioplasty, Hx Hypercholesterolemia, Hx Hypertension, Hx Myocardial Infarction , Hx Peripheral Vascular Disease, Other Cardiovascular Problems/Disorders - a.fib in past Denies: Hx Auto Implanted Cardiovert Defib, Hx Congestive Heart Failure, Hx Coronary Artery Disease, Hx Pacemaker/ICD, Hx Valvular Heart Disease Respiratory History: Reports: Hx Sleep Apnea - undiagnosed, Other Respiratory Problems/Disorders - post nasal drip Denies: Hx Asthma, Hx Chronic Obstructive Pulmonary Disease (COPD) GI History: Denies: Hx Jaundice, Hx Ulcer History: Reports: Hx Chronic Renal Failure - ESRD, Hx Dialysis, Hx Renal Disease, Other Problems/Disorders Musculoskeletal History: Reports: Hx Orthopedic Injury - Broke right foot in 2009, Other Musculoskeletal History - Left -BKA Denies: Hx Rheumatoid Arthritis Sensory History: Reports: Hx Cataracts - right eye, Hx Contacts or Glasses, Hx Vision Problem, Hx Hearing Problem - ringing in left ear, Other Sensory Impairments - Bleed related to Heparin. Denies: Hx Hearing Aid Opthamlomology History: Reports: Hx Cataracts - right eye, Hx Contacts or Glasses, Hx Vision Problem, Other Sensory Impairments - Bleed related to Heparin. Neurological History: Reports: Other Neuro Impairments/Disorders - diabetic neuropathy Denies: Hx Headaches Psychiatric History: Denies: Hx Panic Disorder - Cancer History Hx Chemotherapy: No - Surgical History Surgery Procedure, Year, and Place: VASECTOMY;. LEFT KNEE PATELLA REALIGNMENT- 1986;. 2011- PERITONEAL CATHETER PLACEMENT;. 04/2013-CREATION OF A FISTULA LEFT ARM-[facility] [place];. L-BKA-06/23/2014; 04/02/14-Left big toe removed-[facility];. Lt EYE 2013 -CAUTERIZED DUE TO BLOOD POOLING THEN 10/2014 Rt EYE; REVISION Lt BKA Hx Anesthesia Reactions: No Infectious Disease History: No Infectious Disease History: Denies: Hx Hepatitis, Hx Human Immunodeficiency Virus (HIV), Traveled Outside the US in Last 30 Days - Family History Known Family History: Positive: Diabetes Negative: Cardiac Disease - Social History Alcohol Use: None Alcohol Amount: unable to assess Hx Substance Use: No Substance Use Type: Reports: None Substance Use Comment - Amount & Last Used: unable to assess Hx Tobacco Use: Yes Smoking Status (MU): Former Smoker Type: Cigarettes Length of Time of Smoking/Using Tobacco: 22 years Have You Smoked in the Last Year: No Review of Systems Constitutional: Negative Eyes: Negative ENT: Negative Positive: Chest Pain Respiratory: Negative Gastrointestinal: Negative Genitourinary: Negative Musculoskeletal: Negative Skin: Negative Neurological: Negative Psychological: Normal All Other Systems Reviewed And Are Negative: Yes Physical Exam Triage Information Reviewed: Yes Vital Signs On Initial Exam: Initial Vitals Temp Pulse Resp BP Pulse Ox 99 F 95 22 155/66 100 09/12/16 07:21 09/12/16 07:21 09/12/16 07:21 09/12/16 07:21 09/12/16 07:21 Vital Signs Reviewed: Yes Appearance: Positive: Pain Distress - mild Skin: Positive: Warm, Skin Color Reflects Adequate Perfusion, Dry Head/Face: Positive: Normal Head/Face Inspection Eyes: Positive: Normal, EOMI, WALDEMAR ENT: Positive: Normal ENT inspection Neck: Positive: Supple, Nontender Respiratory/Lung Sounds: Positive: Clear to Auscultation, Breath Sounds Present Cardiovascular: Positive: Normal, RRR Abdomen Description: Positive: Nontender, No Organomegaly, Soft Bowel Sounds: Positive: Present Musculoskeletal: Positive: Strength/ROM Intact, Other - bilateral BKA. Dressing on right hand Neurological: Positive: Normal, Sensory/Motor Intact, Alert, Oriented to Person Place, Time, CN Intact II-III Psychiatric: Positive: Affect/Mood Appropriate Diagnostics - Vital Signs Vital Signs Temp Pulse Resp BP Pulse Ox 09/12/16 07:21 99 F 95 22 155/66 100 - Laboratory Lab Results: Lab Results 09/12/16 09/12/16 09/12/16 Range/Units 07:43 07:43 07:43 WBC 18.9 H (3.5-10.8) 10^3/ul RBC 2.89 L (4.0-5.4) 10^6/ul Hgb 8.0 L (14.0-18.0) g/dl Hct 26 L (42-52) % MCV 88 (80-94) fL MCH 28 (27-31) pg MCHC 31 (31-36) g/dl RDW 16 H (10.5-15) % Plt Count 467 H (150-450) 10^3/ul MPV 10 (7.4-10.4) um3 Immature Gran % (Auto) 5 (0-9) % Neut % (Auto) 81.5 (38-83) % Lymph % (Auto) 7.4 L (25-47) % Fannin % (Auto) 8.0 (1-9) % Eos % (Auto) 1.8 (0-6) % Baso % (Auto) 1.3 (0-2) % Absolute Neuts (auto) 15.4 H (1.5-7.7) 10^3/ul Absolute Lymphs (auto) 1.4 (1.0-4.8) 10^3/ul Absolute Monos (auto) 1.5 H (0-0.8) 10^3/ul Absolute Eos (auto) 0.3 (0-0.6) 10^3/ul Absolute Basos (auto) 0.2 (0-0.2) 10^3/ul Absolute Nucleated RBC 0.01 10^3/ul Neutrophils % 76 (38-83) % Band Neutrophils % 1 (0-8) % Lymphocytes % 10 L (25-47) % Monocytes % 5 (0-13) % Eosinophils % 3 (0-6) % Basophils % 1 (0-2) % Metamyelocytes % 1 (0-2) % Myelocytes % 3 H (0-1) % Nucleated RBC % 0 Normal RBC Morphology Not Reportable Hypochromasia 2+ INR (Anticoag Therapy) 1.14 H (0.89-1.11) APTT 32.9 (26.0-36.3) seconds Sodium 126 L (133-145) mmol/L Potassium 3.5 (3.5-5.0) mmol/L Chloride 88 L (101-111) mmol/L Carbon Dioxide 25 (22-32) mmol/L Anion Gap 13 H (2-11) mmol/L BUN 57 H (6-24) mg/dL Creatinine 7.49 H (0.67-1.17) mg/dL Est GFR ( Amer) 9.8 (>60) Est GFR (Non-Af Amer) 7.6 (>60) BUN/Creatinine Ratio 7.6 L (8-20) Glucose 465 H (70-100) mg/dL Lactic Acid (0.5-2.0) mmol/L Calcium 8.9 (8.6-10.3) mg/dL Total Bilirubin 0.30 (0.2-1.0) mg/dL AST 16 (13-39) U/L ALT 3 L (7-52) U/L Alkaline Phosphatase 76 (34-104) U/L Total Creatine Kinase 52 (10-223) U/L CK-MB (CK-2) 4.4 (0.6-6.3) ng/mL Troponin I 0.17 H* (<0.04) ng/mL B-Natriuretic Peptide ( - 100) pg/mL Total Protein 6.7 (6.4-8.9) g/dL Albumin 2.3 L (3.2-5.2) g/dL Globulin 4.4 H (2-4) g/dL Albumin/Globulin Ratio 0.5 L (1-3) LDL Cholesterol Direct 39 mg/dL 09/12/16 09/12/16 Range/Units 07:43 07:43 WBC (3.5-10.8) 10^3/ul RBC (4.0-5.4) 10^6/ul Hgb (14.0-18.0) g/dl Hct (42-52) % MCV (80-94) fL MCH (27-31) pg MCHC (31-36) g/dl RDW (10.5-15) % Plt Count (150-450) 10^3/ul MPV (7.4-10.4) um3 Immature Gran % (Auto) (0-9) % Neut % (Auto) (38-83) % Lymph % (Auto) (25-47) % Fannin % (Auto) (1-9) % Eos % (Auto) (0-6) % Baso % (Auto) (0-2) % Absolute Neuts (auto) (1.5-7.7) 10^3/ul Absolute Lymphs (auto) (1.0-4.8) 10^3/ul Absolute Monos (auto) (0-0.8) 10^3/ul Absolute Eos (auto) (0-0.6) 10^3/ul Absolute Basos (auto) (0-0.2) 10^3/ul Absolute Nucleated RBC 10^3/ul Neutrophils % (38-83) % Band Neutrophils % (0-8) % Lymphocytes % (25-47) % Monocytes % (0-13) % Eosinophils % (0-6) % Basophils % (0-2) % Metamyelocytes % (0-2) % Myelocytes % (0-1) % Nucleated RBC % Normal RBC Morphology Hypochromasia INR (Anticoag Therapy) (0.89-1.11) APTT (26.0-36.3) seconds Sodium (133-145) mmol/L Potassium (3.5-5.0) mmol/L Chloride (101-111) mmol/L Carbon Dioxide (22-32) mmol/L Anion Gap (2-11) mmol/L BUN (6-24) mg/dL Creatinine (0.67-1.17) mg/dL Est GFR ( Amer) (>60) Est GFR (Non-Af Amer) (>60) BUN/Creatinine Ratio (8-20) Glucose (70-100) mg/dL Lactic Acid 1.8 (0.5-2.0) mmol/L Calcium (8.6-10.3) mg/dL Total Bilirubin (0.2-1.0) mg/dL AST (13-39) U/L ALT (7-52) U/L Alkaline Phosphatase (34-104) U/L Total Creatine Kinase (10-223) U/L CK-MB (CK-2) (0.6-6.3) ng/mL Troponin I (<0.04) ng/mL B-Natriuretic Peptide 703 H ( - 100) pg/mL Total Protein (6.4-8.9) g/dL Albumin (3.2-5.2) g/dL Globulin (2-4) g/dL Albumin/Globulin Ratio (1-3) LDL Cholesterol Direct mg/dL Result Diagrams: 09/16/16 05:35 09/16/16 05:35 Lab Statement: Any lab studies that have been ordered have been reviewed, and results considered in the medical decision making process. - EKG 0729 Cardiac Rate: NL EKG Rhythm: Sinus Rhythm EKG Interpretation: ST elevation at avF and depression at avL Chest Pain Course/Dx - Diagnoses Provider Diagnoses: STEMI - Provider Notifications Discussed Care Of Patient With: Dr. Andres (Cardio Bit Grinder) @07:40. Discharge - Discharge Plan Condition: Good Disposition: ADMITTED TO [facility] The documentation as recorded by the Vamshi shell Benjamin accurately reflects the service I personally performed and the decisions made by me, Zak Stout MD.
== END 2016-09-16 13:00 | disposition home or self-care (01) | DRG 246 ==
LOC: ED 07:19 → ICU 08:00
PROVIDERS: ADMIT Internal Medicine Cardiovascular Disease; ATTEND Internal Medicine Cardiovascular Disease
PROC: 3E1M39Z Irrigation of Peritoneal Cavity using Dialysate, Percutaneous Approach (ICD-10-PCS; 2016-09-12)
PROC: 027136Z Dilation of Coronary Artery, Two Arteries with Three Drug-eluting Intraluminal Devices, Percutaneous Approach (ICD-10-PCS; principal; 2016-09-12 07:30)
DX: I21.19 ST elevation (STEMI) myocardial infarction involving other coronary artery of inferior wall (principal); N18.6 End stage renal disease; I12.0 Hypertensive chronic kidney disease with stage 5 chronic kidney disease or end stage renal disease; E10.22 Type 1 diabetes mellitus with diabetic chronic kidney disease; I08.3 Combined rheumatic disorders of mitral, aortic and tricuspid valves; I49.01 Ventricular fibrillation; E87.1 Hypo-osmolality and hyponatremia; I25.2 Old myocardial infarction; Z99.2 Dependence on renal dialysis; E78.5 Hyperlipidemia, unspecified; I25.10 Atherosclerotic heart disease of native coronary artery without angina pectoris; Z88.6 Allergy status to analgesic agent; Z88.8 Allergy status to other drugs, medicaments and biological substances; Z88.1 Allergy status to other antibiotic agents; E10.65 Type 1 diabetes mellitus with hyperglycemia; G89.29 Other chronic pain; E10.42 Type 1 diabetes mellitus with diabetic polyneuropathy; Z89.512 Acquired absence of left leg below knee; Z89.611 Acquired absence of right leg above knee; E10.51 Type 1 diabetes mellitus with diabetic peripheral angiopathy without gangrene; E10.319 Type 1 diabetes mellitus with unspecified diabetic retinopathy without macular edema; D72.829 Elevated white blood cell count, unspecified; D63.1 Anemia in chronic kidney disease; I25.5 Ischemic cardiomyopathy; Z89.021 Acquired absence of right finger(s); Z79.82 Long term (current) use of aspirin; Z79.4 Long term (current) use of insulin; Z79.02 Long term (current) use of antithrombotics/antiplatelets
CPT/HCPCS: 36415; 71010; 76937; 80048; 80053; 80061; 82533; 82550; 82553; 82947; 83605; 83721; 83735; 83880; 84100; 84132; 84145; 84484; 85025; 85027; 85610; 85730; 86140; 87040; 87086; 87205; 87641; 90945; 93005; A9270-GY; C1725; C1769; C1876; C1887; C9606-RC; G0257; J0282; J0461; J0583; J0885; J1644; J2250; J2405; J3010; J3475

== ENCOUNTER 2016-09-22 08:36 | Observation (INO) | payer OTHER ==
[2016-09-22] MEDS ORDERED: Dextrose 50% Syringe 50 ML* 25 GM/50 ML SYRINGE IV PUSH PRN ×2 (08:48→08:49)
[2016-09-22] MEDS ORDERED: Lisinopril TAB* 10 MG PO ONE (08:51)
[2016-09-22] MEDS ORDERED: diPHENhydraMINE PO* 25 MG PO PRN (08:53)
[2016-09-22] MEDS ORDERED: Acetaminophen TAB* 325 MG PO PRN (08:55)
[2016-09-22] MEDS ORDERED: Docusate CAP* 100 MG PO ONE (08:58)
[2016-09-22] MEDS ORDERED: Cilostazol TAB* 100 MG PO SCH (09:00)
[2016-09-22] MEDS ORDERED: Levofloxacin 500 MG IVPREMIX(* 500 MG/100 ML BAG IVPB ONE (09:09)
[2016-09-22] MEDS: Carvedilol TAB* 6.25 MG PO SCH ×2 (09:44→21:21)
[2016-09-22] MEDS: Ticagrelor* 90 MG TAB PO SCH ×2 (09:44→21:21)
[2016-09-22] MEDS: oxyCODONE TAB* 5 MG TAB PO PRN (09:45)
[2016-09-22] MEDS: Aspirin EC Low Dose* 81 MG TAB.EC PO SCH (09:45)
[2016-09-22] MEDS: oxyCODONE SR TAB(*) 40 MG TAB.SR PO SCH ×2 (09:45→21:21)
--- NOTE | 2016-09-22 09:59 | PN ---
Subjective - Subjective Reason for Note: Holding Note History: See H and P - dictated He has developed progressive anemia. In addition he has a progressive increase in his WBC/CRP suggestive of infection. I am bringing him into the hospital for 1. 2 units packed RBC transfusion. 2. Culturing/evaluation of infection and commencement parenterally of linezolid/ levofloxacin. He is fatigued and in pain today Active Problems: Active Problems Diabetic nephropathy associated with type 1 diabetes mellitus (Acute) E10.21 End-stage renal disease on peritoneal dialysis (Acute) N18.6, Z99.2 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 (Acute) T87.43 Leukocytosis (Acute) D72.829 Thrombocytosis (Acute) Diabetic neuropathy (Chronic 03/31/14) E11.40 Diabetic peripheral neuropathy (Chronic) E11.42 History of left below knee amputation (Chronic) Z89.512 History of right above knee amputation (Chronic) Z89.611 Hypercholesteremia (Chronic 03/31/14) E78.0 Hypertension (Chronic 03/31/14) I10 Peripheral vascular disease (Chronic) I73.9 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) E13.319 Sacral decubitus ulcer (Chronic) 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) E10.22, N18.6 Current Medications: Current Medications Acetaminophen (Tylenol Tab*) 650 mg PO Q6H PRN PRN Reason: FEVER Aspirin (Aspirin Ec Low Dose*) 81 mg PO DAILY [facility] Last Admin: 09/22/16 09:45 Dose: 81 mg Atorvastatin Calcium (Lipitor*) 80 mg PO 2100 ONE Stop: 09/22/16 20:01 Calcitriol (Rocaltrol Cap*) 0.25 mcg PO DAILY [facility] Carvedilol (Coreg Tab*) 12.5 mg PO BID [facility] Last Admin: 09/22/16 09:44 Dose: 12.5 mg Cilostazol (Pletal Tab*) 50 mg PO BID [facility] Dextrose (D50w Syringe 50 Ml*) 12.5 gm IV PUSH .FOR FS < 60 - SS PRN PRN Reason: FS < 60 Diphenhydramine HCl (Benadryl Po*) 25 mg PO Q6H PRN PRN Reason: Allergy Symptoms Heparin Sodium (Porcine) (Heparin Vial(*)) 5,000 units SUBCUT Q8HR [facility] Linezolid (Zyvox 600 Mg Ivpremix(*)) 600 mg in 300 mls @ 300 mls/hr IVPB Q12H [facility] Levofloxacin/Dextrose (Levaquin 500 Mg Ivpremix(*)) 500 mg in 100 mls @ 100 mls /hr IVPB ONCE ONE Stop: 09/22/16 10:08 Insulin Glargine (Lantus(*)) 25 units SUBCUT Q24H [facility] Insulin Human Lispro (Humalog*) 1 units SUBCUT AC [facility] PRN Reason: Protocol Insulin Human Lispro (Humalog*) 1 units SUBCUT ACHS [facility] PRN Reason: Protocol Nitroglycerin (Nitroglycerin 2.5 Mg Patch*) 1 patch TRANSDERM DAILY [facility] Oxycodone HCl (Oxycontin(*)) 40 mg PO Q12H [facility] Last Admin: 09/22/16 09:45 Dose: 40 mg Oxycodone HCl (Roxycodone Tab*) 10 mg PO Q6H PRN PRN Reason: PAIN - MODERATE TO SEVERE Last Admin: 09/22/16 09:45 Dose: 10 mg Pharmacy Profile Note (Nitro Patch/Oint Remove*) 1 note PATCH OFF BEDTIME [facility] Pregabalin (Lyrica Cap(*)) 75 mg PO BID [facility] Ticagrelor (Brilinta*) 90 mg PO BID [facility] Last Admin: 09/22/16 09:44 Dose: 90 mg Home Medications: Home Medications Medication Instructions Recorded Confirmed Type Fluticasone NASAL SPRAY 50MCG* 2 spray BOTH NARES DAILY PRN 11/16/13 09/12/16 History [Flonase NASAL SPRAY 50MCG*] Calcitriol CAP* [Rocaltrol CAP*] 0.25 mcg PO DAILY 06/14/14 09/12/16 History [place]-3 Fatty Acids [Fish Oil 1 cap PO DAILY 06/14/14 09/12/16 History Triple Strength 1400 mg] Acetaminophen TAB* [Tylenol TAB*] 650 mg PO Q6H PRN #0 tab 04/19/16 09/12/16 Rx Aspirin Low Dose CHEW TAB* 81 mg PO DAILY tab.chew 04/19/16 09/12/16 Rx [Aspirin Low Dose TAB*] B-Complex W/ C & Folic Acid 1 tab PO DAILY 06/18/16 09/12/16 History [Ct-Yvan] Melatonin (NF) 3 mg PO BEDTIME PRN 06/18/16 09/12/16 History Pregabalin CAP(*) [Lyrica CAP(*)] 75 mg PO BEDTIME 06/18/16 09/12/16 History Venlafaxine EXT RELEASE CAP* 37.5 mg PO BEDTIME 06/18/16 09/12/16 History [Effexor Xr CAP*] diPHENhydraMINE PO* [Benadryl PO*] 25 mg PO Q6H PRN 06/18/16 09/12/16 History Atorvastatin* [Lipitor 80 MG*] 80 mg PO 1700 #90 tab 07/20/16 09/12/16 Rx Docusate CAP* [Colace Cap*] 100 mg PO BID #60 cap 07/20/16 09/12/16 Rx Doxycycline Hyclate [Doxycycline 100 mg PO BID #42 tab 07/20/16 09/12/[address]] Insulin LISPRO* [HumaLOG*] 0 units SUBCUT AC unit 07/20/16 09/12/16 Rx Insulin LISPRO* [HumaLOG*] 0 units SUBCUT ACHS unit 07/20/16 09/12/16 Rx Mupirocin 2% OINT* [Bactroban 2 % 1 applic TOPICAL DAILY #1 tube 07/20/16 Rx Oint*] Oxycodone TAB(NF) [Oxycodone HCl 10 mg PO Q3H PRN #84 tab MDD 6 07/20/16 Rx 10 MG] oxyCODONE SR TAB(*) [Oxycontin 40 40 mg PO Q12H #30 tab.sr MDD 2 07/20/16 Rx mg (*)] Carvedilol TAB* [Coreg TAB*] 12.5 mg PO BID tab 09/16/16 Rx Insulin GLARGINE(*) [Lantus(*)] 23 units SUBCUT 2100 #0 unit 09/16/16 09/12/16 Rx Lisinopril TAB* [Prinivil TAB 10 10 mg PO DAILY tab 09/16/16 Rx MG*] Nitroglycerin 0.1 mg/Hr PATCH* 1 patch TRANSDERM 0900 #30 patch 09/16/16 Rx [Nitroglycerin 2.5 MG PATCH*] Simethicone CHEW TAB* [Mylicon*] 80 mg PO Q6H PRN #0 tab.chew 09/16/16 Rx Ticagrelor* [Brilinta 90 MG*] 90 mg PO BID #60 tab 09/16/16 Rx Allergies: Allergies Allergy/AdvReac Type Severity Reaction Status Date / Time Clindamycin Allergy Intermediate Diarrhea Verified 07/13/15 09:07 Morphine Allergy Hallucinati Verified 07/13/15 09:07 ons Objective - Vital Signs Vital Signs: Vital Signs 09/22/16 09/22/16 08:50 09:45 Temperature 98.4 F Pulse Rate 85 Respiratory 16 16 Rate Blood Pressure 105/67 (mmHg) O2 Sat by Pulse 100 Oximetry - Intake and Output Intake and Output: ADLs: Meal Record Start: 09/22/16 08: 50 Freq: DAILY@0900,1400,1800 Status: Active Created 09/22/16 08:50 System (Rec: 09/22/16 08:50 System [id number]) Intake and Output Start: 09/22/16 08: 50 Freq: DAILY@0600,1400,2200 Status: Active Created 09/22/16 08:50 System (Rec: 09/22/16 08:50 System [id number]) - Physical Exam General: No Cyanosis, Yes Anemia, No Jaundice, No Clubbing Skin: Abnormal: Other - stage 2 decubitus sacral ulcer Lungs and Chest: Yes: Chest Expansion Full, Chest Expansion Symetrica, Percussion Note Resonant, Vessicular Breath Sounds. No: Crackles, Wheezes Heart Rate and Rhythm: Regular JVP: Not Elevated Additional Cardiovascular: Yes: Normal Heart Sounds, Heart Murmur - 2/6 aortic systolic murmur Abdominal Exam: Yes: Distention - slight, Soft, Bowel Sounds Present. No: Abdominal Mass, Hepatomegaly, Abdominal Tenderness Results - Results Lab Results: Laboratory Results - last 24 hr 09/22/16 08:45 Blood Type O Positive Antibody Screen Negative Crossmatch See Detail Assessment - Problem List Assessment: Patient Problems Diabetic nephropathy associated with type 1 diabetes mellitus (Acute) End-stage renal disease on peritoneal dialysis (Acute) 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 (Acute) Leukocytosis (Acute) Thrombocytosis (Acute) Diabetic neuropathy (Chronic 03/31/14) Diabetic peripheral neuropathy (Chronic) History of left below knee amputation (Chronic) History of right above knee amputation (Chronic) Hypercholesteremia (Chronic 03/31/14) Hypertension (Chronic 03/31/14) Peripheral vascular disease (Chronic) 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) Sacral decubitus ulcer (Chronic) 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 CXR. LS spine XR. US kidneys. IV loading linezolid/levofloxacin Anemia of renal disease (Chronic) transfusion x 2 units RBCs Diabetic nephropathy associated with type 1 diabetes mellitus (Acute) End- stage renal disease on peritoneal dialysis (Acute) Dialysis per Dr. romeo 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 (Acute) Likely site of infection - having appt at [place] this coming week. 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
[2016-09-22] MEDS: Nitroglycerin 0.1 mg/Hr PATCH* (2.5 MG) TRANSDERM SCH (10:09)
--- NOTE | 2016-09-22 11:40 | RAD ---
INDICATION: Right groin pain COMPARISON: None. TECHNIQUE: 2 views of the lumbar spine were obtained. FINDINGS: The vertebra are in normal alignment. No fracture is seen. Disc spaces appear maintained. Advanced calcified atherosclerosis is noted overlying the lower abdominal aorta, splenic artery and iliac arteries. . IMPRESSION: 1. No evidence of acute fracture or subluxation. 2. Incidentally noted is advanced calcified atherosclerosis in the visualized lower abdominal and pelvic arteries.
--- NOTE | 2016-09-22 11:46 | RAD ---
INDICATION: Renal failure and right-sided flank pain COMPARISON: None TECHNIQUE: Real-time ultrasound examination of the bilateral kidneys and urinary bladder including grayscale and Doppler color flow analysis. FINDINGS: The right left kidney measures 11 x 5.9 x 6.2 cm and 11 x 5.5 x 5.2 cm, respectively. In the right kidney there is shadowing hyperechogenic material filling the right renal collecting system with shadowing. The left kidney exhibits hyperechogenic, shadowing foci. There is no significant hydronephrosis bilaterally. There is mildly increased echogenicity of the renal cortices which appear normal in thickness. IMPRESSION: 1. Ultrasound findings are compatible with bilateral renal calculi, potentially with "staghorn calculi" in the right kidney. Despite this, there is no signs or appearance of hydronephrosis. 2. Sonographic appearance of the renal cortices are consistent with medical renal disease.
[2016-09-22] MEDS: Linezolid 600 MG IVPREMIX(*) 600 MG/300 ML BAG IVPB SCH ×2 (12:40→23:13)
[2016-09-22] MEDS: Calcitriol CAP* 0.25 MCG PO SCH (12:41)
[2016-09-22] MEDS: Insulin LISPRO* 1 UNITS UNIT SUBCUT SCH ×6 (12:55→21:22)
[2016-09-22] MEDS: Heparin VIAL(*) 5000 UNITS/ML VIAL (FIVE THOUSAND) SUBCUT SCH ×2 (14:11→21:22)
--- NOTE | 2016-09-22 16:09 | HP ---
CC: Dr. Sosa; Dr. Turk OBSERVATION/ADMISSION HISTORY AND PHYSICAL: DATE OF ADMISSION: 09/22/16 PRESENTING COMPLAINT: Low-grade fever, raising WBC and C-reactive protein, infection of his right above-knee amputation stump and also of the right digital amputation stumps, and severe anemia. HISTORY OF PRESENT ILLNESS: Florian Landry is a 56-year-old male. He has longstanding history of type 1 diabetes. He has end-stage renal disease and is on peritoneal dialysis. He had an admission from 09/12/16 to 09/16/[address] Amado Andres for acute ST elevation inferior wall myocardial infarction. During that hospital stay, he had a coronary angiogram with aggressive stenting to the mid and distal porion of the right coronary arteries as well as in the proximal portion. The detailed account is part of the electronic medical record as a procedure and also in the discharge summary. During that hospitalization, he was anaemic. He had leukocytosis, which was coming down a little bit by the time of discharge. He also had C-reactive protein, which was elevated and was slowly coming down by the time of discharge. Following discharge, he had a low-grade fever. As an outpatient, he was fatigued. He had pain in the right stump, in the right loin, and in the right hand. He also has some soreness from a sacral decubitus ulcer. I saw him as an outpatient on Saturday, that is yesterday, and then he was seen following that by Dr. Sosa as a followup for his cardiological condition. We carmita blood to see whether his infection was improving or worsening and also to do the same for his anemia. CBC; white count 24.1, hemoglobin 7.1, hematocrit 23, platelets 658, and present granulocyte 72.3%. Chemistry: Sodium 125, potassium 4.0, chloride 87, bicarbonate 25, BUN 70, creatinine 7.0, glucose 184 , and calcium 8.9. LFTs; AST 12, ALT 6, and alkaline phosphatase 85. C- reactive protein 221.21, total protein 5.7, and albumin 2.1. I discussed the results with the patient and his last night and we agreed to a 23-hour OBV admission today for 2 purposes. No #1 for transfusion of x2 unit packed red cells and secondly to initiate empiric antibacterial treatment of the [place] culturing. Today aside from his chronic pain, there were no new symptoms. PREVIOUS MEDICAL HISTORY: 1. Type 1 diabetes mellitus, diagnosed in 1991 at the age of 29. This is complicated by diabetic retinopathy, which is being treated by laser therapy. 2. End-stage renal disease using peritoneal dialysis since May 2013. 3. He has had peripheral neuropathy. 4. He has microvascular disease with coronary artery disease with multiple recent myocardial infarctions involving the right coronary artery territory. His left ventricle has been preserved on echocardiograms. 5. He has peripheral vascular disease. 6. He has had amputations of the right index third, fourth, and fifth fingers. He has hypocholesterolemia, hypertension, and erectile dysfunction. He is a former smoker. PREVIOUS SURGICAL HISTORY: 1. Left below-knee amputation, June 2014. 2. Right above-knee amputation, April 2016. 3. He has had an attempted AV fistula and also he has peritoneal dialysis catheter in situ. CURRENT MEDICATION: 1. Oxycodone 40 mg slow release twice daily. 2. Oxycodone 10 mg q.4 hours as needed for apqlcqlt-ja-nhyxvv pain. 3. Brilinta 90 mg b.i.d. 4. Aspirin 81 mg every day. 5. Atorvastatin 80 mg every day. 6. Calcitriol 0.25 mg daily. 7. Carvedilol 12.5 mg twice daily. 8. Docusate sodium 100 mg every day. 9. Doxycycline 100 mg twice daily. 10. Lantus insulin 22 units at bedtime. 11. Humalog insulin 1 units for every 15 g of carbohydrate plus 1 unit for every 50 mg/dL above 150 mg/dL. 12. Lisinopril 10 mg daily. 13. Nitroglycerin patch 0.1 mg per hour while awake. 14. Simethicone 80 mg p.r.n. 15. Lyrica 75 mg at bedtime. 16. Venlafaxine 37.5 mg at bedtime. 17. Flonase p.r.n. 18. Benadryl 25 mg p.r.n. ALLERGIES: CLINDAMYCIN and MORPHINE. FAMILY HISTORY: Paternal grandfather had type 2 diabetes. Father had type 1 diabetes, hypercholesterolemia, and hypertension. He was on hemodialysis before he . No other autoimmune history in the family. He has 4 children. SOCIAL HISTORY: No alcohol. No tobacco. Former smoker. Lives with his and has a supportive family. REVIEW OF SYSTEMS: Cardiovascular System: No chest pain, shortness of breath, or palpitations. No new swelling. Respiratory system: No productive cough or hemoptysis. Gastrointestinal system: Mild anorexia. No nausea or vomiting. No changes in his bowel habit. No abdominal pain. He is having daily peritoneal dialysis without adverse effect. The dialysate is clear. Nervous systems: No headaches. Awake and alert. No problems with speech. He is able to control his electronic wheelchair. PHYSICAL EXAMINATION VITAL SIGNS: Temperature 98.4, pulse 85, respirations 16, oxygen saturation 100 %, and blood pressure 105/67. He was able to steer his electric wheelchair independently from the campus receptionist in the hospital to his hospital room; however, he needs a Glenn Lift to transfer. He is not in acute distress. He looks pale. He is not febrile. He has no cyanosis, jaundice, or clubbing. He has dressings over his right hand and right above-knee amputation site. I inspected both yesterday. He has a stage II decubitus ulcer over sacral area. Cardiovascular System: His pulse was regular. Normal character and volume. Venous pressure was not elevated. Heart sounds were normal with a 2/6 systolic murmur at the aortic area. He has no sacral edema and no edema of his left stump from the amputation site. Respiratory System: Chest expansion full and symmetrical. Percussion note resonant. Breath sounds vesicular. No crackles or wheezes. Abdominal Examination: Mild distention. No tenderness, masses, or organomegaly. Bowel sounds were normal. He has some tenderness over the right renal angle. Nervous System: Alert and oriented. Conjugate eye movements. Cranial nerves II through XII are intact. Normal speech. He has normal strength in his arms. DIAGNOSTIC STUDIES/LAB DATA: Investigations: As above. ASSESSMENT AND PLAN: 1. Severe anemia: We are transfusing him 2 units of packed red cells. 2. Likely infection: He has had climbing CRP and also white blood count. He has a right above-knee amputation site that has an open wound that may well be abscesses in there. He also has some drainage from his right hand amputation site. We are repeating blood and wound cultures. We will treat him with linezolid and levafloxacin - loading him parenterally and following orally after discharge. He is seeing his surgeons this coming weak as an outpatient to establish if there are any pockets of infections/abscesses 3. Other possible source of infection, I will check a chest x-ray. 4. Right loin pain: He had a fall, which may account for this pain. I would likely to do a lumbar spine x-ray while he is here to rule out a compression fracture. Other possibilities could include a renal stone; however, the quality of the pain does not sound typical for that. 5. End-stage renal disease: Peritoneal dialysis. I spoke with Dr. Isrrael Turk and he will organize peritoneal dialysis overnight. 6. Coronary artery disease: With recent STEMI of the right coronary artery territory, he seems stable at the present time. He was seen in consultation yesterday by Dr. Sosa. I have low suspicion for an acute coronary syndrome. I will add a troponin I, although I note that with chronic renal disease and peritoneal dialysis, clearance of his previously raised troponin may take sometime. 7. Diabetic retinopathy: This is stable. 8. Peripheral vascular disease: This remains a problem in terms of the healing of his right hand. His left hand at the present time shows no signs of gangrene. 9. Type 1 diabetes mellitus: I am avoiding hypoglycemia because of his coronary artery disease and running his blood sugars a little higher. Today's peritoneal dialysate is unlikely to put his blood sugar up according to Dr. Turk. 10. Hypertension: His blood pressure is not elevated. 11. Hypercholesterolemia: We will maintain his current medication. 12. Pain control: We will continue him on the current regimen of oxycodone slow release to immediate release. 13. DVT prophylaxis: He is ovlevt-ob-jwcf risk. I will keep him on subcutaneous heparin in addition to his antiplatelet agents. 14. He wishes to be a full code. [id number]/[facility] #: [id number] MTDD
[2016-09-22] MEDS ORDERED: Insulin REGULAR(*) 1 UNITS UNIT SUBCUT ONE (17:15)
[2016-09-22] MEDS ORDERED: Insulin LISPRO* 1 UNITS UNIT SUBCUT ONE (18:00)
[2016-09-22] MEDS ORDERED: Venlafaxine ER (NF) 150 MG CAP.ER PO SCH (20:00)
[2016-09-22] MEDS ORDERED: Insulin GLARGINE(*) 1 UNITS UNIT SUBCUT SCH (20:00)
[2016-09-22] MEDS ORDERED: Atorvastatin* 80 MG TAB PO ONE (20:00)
[2016-09-22] MEDS: Pregabalin CAP(*) 25 MG PO SCH ×2 (21:22→21:27)
[2016-09-23] MEDS: oxyCODONE TAB* 5 MG TAB PO PRN (04:07)
[2016-09-23] MEDS: Heparin VIAL(*) 5000 UNITS/ML VIAL (FIVE THOUSAND) SUBCUT SCH (04:08)
[2016-09-23] MEDS ORDERED: oxyCODONE TAB* 5 MG TAB ONE (05:51)
[2016-09-23] MEDS ORDERED: oxyCODONE TAB* 5 MG TAB PO PRN (05:51)
[2016-09-23] MEDS ORDERED: oxyCODONE TAB* 5 MG TAB PO ONE (06:00)
[2016-09-23 06:08] LABS: Hematocrit 28 % (42-52); Hemoglobin 8.9 g/dl (14.0-18.0); Mean Corpuscular HGB Conc 32 g/dl (31-36); Mean Corpuscular Hemoglobin 27 pg (27-31); Mean Corpuscular Volume 83 fL (80-94); Mean Platelet Volume 10 um3 (7.4-10.4); Red Blood Count 3.33 10^6/ul (4.0-5.4); Red Cell Distribution Width 19 % (10.5-15); White Blood Count 20.9 10^3/ul (3.5-10.8)
[2016-09-23 06:10] LABS: Add Diff/Slide Review? Slide Review Added; Comments Flag Yes
[2016-09-23 07:23] LABS: C Reactive Protein 207.92 mg/L (< 5.00)
[2016-09-23] MEDS ORDERED: Insulin LISPRO* 1 UNITS UNIT SUBCUT SCH (07:30)
[2016-09-23 07:32] LABS: Troponin I 0.24 ng/mL (<0.04)
[2016-09-23] MEDS: Insulin LISPRO* 1 UNITS UNIT SUBCUT SCH (07:49)
[2016-09-23 08:16] VITALS: BP 124/69
[2016-09-23] MEDS ORDERED: Linezolid TAB* 600 MG PO SCH (09:00)
--- NOTE | 2016-09-23 09:06 | PN ---
Subjective - Subjective Reason for Note: Discharge Note History: Discharge summary: He tolerated the transfusion well. His glucose is low for the patient this morning (108 mg/dl), but on target from my point of view. The patient is concerned whether the POC machines are calibrated for PD. He has a new pain in the muscles of his left arm, shoulder, left stump. This is very tender and burning. He wonders if this relates to his antibacterials. He wants to go home Active Problems: Active Problems Diabetic nephropathy associated with type 1 diabetes mellitus (Acute) E10.21 End-stage renal disease on peritoneal dialysis (Acute) N18.6, Z99.2 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 (Acute) T87.43 Kidney stones (Acute) N20.0 Leukocytosis (Acute) D72.829 Thrombocytosis (Acute) Diabetic neuropathy (Chronic 03/31/14) E11.40 Diabetic peripheral neuropathy (Chronic) E11.42 History of left below knee amputation (Chronic) Z89.512 History of right above knee amputation (Chronic) Z89.611 Hypercholesteremia (Chronic 03/31/14) E78.0 Hypertension (Chronic 03/31/14) I10 Peripheral vascular disease (Chronic) I73.9 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) E13.319 Sacral decubitus ulcer (Chronic) 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) E10.22, N18.6 Current Medications: Current Medications Acetaminophen (Tylenol Tab*) 650 mg PO Q6H PRN PRN Reason: FEVER Last Admin: 09/23/16 06:00 Dose: 650 mg Aspirin (Aspirin Ec Low Dose*) 81 mg PO DAILY [facility] Last Admin: 09/22/16 09:45 Dose: 81 mg Calcitriol (Rocaltrol Cap*) 0.25 mcg PO DAILY [facility] Last Admin: 09/22/16 12:41 Dose: 0.25 mcg Carvedilol (Coreg Tab*) 12.5 mg PO BID [facility] Last Admin: 09/22/16 21:21 Dose: 12.5 mg Dextrose (D50w Syringe 50 Ml*) 12.5 gm IV PUSH .FOR FS < 60 - SS PRN PRN Reason: FS < 60 Diphenhydramine HCl (Benadryl Po*) 25 mg PO Q6H PRN PRN Reason: Allergy Symptoms Last Admin: 09/22/16 14:26 Dose: 25 mg Heparin Sodium (Porcine) (Heparin Vial(*)) 5,000 units SUBCUT Q8HR [facility] Last Admin: 09/23/16 04:08 Dose: Not Given Insulin Glargine (Lantus(*)) 30 units SUBCUT Q24H [facility] Last Admin: 09/22/16 21:22 Dose: 30 units Insulin Human Lispro (Humalog*) 0 units SUBCUT ACHS [facility] PRN Reason: Protocol Last Admin: 09/23/16 07:49 Dose: Not Given Insulin Human Lispro (Humalog*) 0 units SUBCUT AC [facility] PRN Reason: Protocol Linezolid (Zyvox Tab*) 600 mg PO Q12H [facility] Nitroglycerin (Nitroglycerin 2.5 Mg Patch*) 1 patch TRANSDERM DAILY [facility] Last Admin: 09/22/16 10:09 Dose: Not Given Oxycodone HCl (Oxycontin(*)) 40 mg PO Q12H [facility] Last Admin: 09/22/16 21:21 Dose: 40 mg Oxycodone HCl (Roxycodone Tab*) 20 mg PO Q6H PRN PRN Reason: PAIN - MODERATE TO SEVERE Pharmacy Profile Note (Nitro Patch/Oint Remove*) 1 note PATCH OFF BEDTIME [facility] Pregabalin (Lyrica Cap(*)) 75 mg PO BID [facility] Last Admin: 09/22/16 21:27 Dose: Not Given Ticagrelor (Brilinta*) 90 mg PO BID [facility] Last Admin: 09/22/16 21:21 Dose: 90 mg - Review of Systems Constitutional Symptoms: Yes: Fatigue, No: Fever, Night Sweats Pulmonary: Negative: Cough, Sputum, Hemoptysis Cardiology: Negative: Chest Pain, Shortness of Breath, Palpitations Gastroenterology: Negative: Abdominal Pain, Nausea, Vomiting, Anorexia, Change in Bowel Habits Genital - Urinary: Positive: Other - peritoneal dialysis Home Medications: Home Medications Medication Instructions Recorded Confirmed Type Fluticasone NASAL SPRAY 50MCG* 2 spray BOTH NARES DAILY PRN 11/16/13 09/12/16 History [Flonase NASAL SPRAY 50MCG*] Calcitriol CAP* [Rocaltrol CAP*] 0.25 mcg PO DAILY 06/14/14 09/12/16 History [place]-3 Fatty Acids [Fish Oil 1 cap PO DAILY 06/14/14 09/12/16 History Triple Strength 1400 mg] Acetaminophen TAB* [Tylenol TAB*] 650 mg PO Q6H PRN #0 tab 04/19/16 09/12/16 Rx Aspirin Low Dose CHEW TAB* 81 mg PO DAILY tab.chew 04/19/16 09/12/16 Rx [Aspirin Low Dose TAB*] B-Complex W/ C & Folic Acid 1 tab PO DAILY 06/18/16 09/12/16 History [Ct-Yvan] Melatonin (NF) 3 mg PO BEDTIME PRN 06/18/16 09/12/16 History Pregabalin CAP(*) [Lyrica CAP(*)] 75 mg PO BEDTIME 06/18/16 09/12/16 History Venlafaxine EXT RELEASE CAP* 37.5 mg PO BEDTIME 06/18/16 09/12/16 History [Effexor Xr CAP*] diPHENhydraMINE PO* [Benadryl PO*] 25 mg PO Q6H PRN 06/18/16 09/12/16 History Atorvastatin* [Lipitor 80 MG*] 80 mg PO 1700 #90 tab 07/20/16 09/12/16 Rx Docusate CAP* [Colace Cap*] 100 mg PO BID #60 cap 07/20/16 09/12/16 Rx Insulin LISPRO* [HumaLOG*] 0 units SUBCUT AC unit 07/20/16 09/12/16 Rx Insulin LISPRO* [HumaLOG*] 0 units SUBCUT ACHS unit 07/20/16 09/12/16 Rx Mupirocin 2% OINT* [Bactroban 2 % 1 applic TOPICAL DAILY #1 tube 07/20/16 Rx Oint*] Oxycodone TAB(NF) [Oxycodone HCl 10 mg PO Q3H PRN #84 tab MDD 6 07/20/16 Rx 10 MG] oxyCODONE SR TAB(*) [Oxycontin 40 40 mg PO Q12H #30 tab.sr MDD 2 07/20/16 Rx mg (*)] Carvedilol TAB* [Coreg TAB*] 12.5 mg PO BID tab 09/16/16 Rx Insulin GLARGINE(*) [Lantus(*)] 23 units SUBCUT 2100 #0 unit 09/16/16 09/12/16 Rx Lisinopril TAB* [Prinivil TAB 10 10 mg PO DAILY tab 09/16/16 Rx MG*] Nitroglycerin 0.1 mg/Hr PATCH* 1 patch TRANSDERM 0900 #30 patch 09/16/16 Rx [Nitroglycerin 2.5 MG PATCH*] Simethicone CHEW TAB* [Mylicon*] 80 mg PO Q6H PRN #0 tab.chew 09/16/16 Rx Ticagrelor* [Brilinta 90 MG*] 90 mg PO BID #60 tab 09/16/16 Rx Levofloxacin TAB* [Levaquin TAB*] 500 mg PO EVERY OTHER DAY #14 tab 09/23/16 Rx Linezolid TAB* [Zyvox TAB*] 600 mg PO Q12H #28 tab 09/23/16 Rx Allergies: Allergies Allergy/AdvReac Type Severity Reaction Status Date / Time Clindamycin Allergy Intermediate Diarrhea Verified 07/13/15 09:07 Morphine Allergy Hallucinati Verified 07/13/15 09:07 ons Objective - Vital Signs Vital Signs: Vital Signs 09/22/16 09/22/16 09/22/16 09:45 10:23 11:45 Temperature Pulse Rate Respiratory 16 16 14 Rate Blood Pressure (mmHg) O2 Sat by Pulse Oximetry 09/22/16 09/22/16 09/22/16 14:26 15:12 15:30 Temperature 98.4 F 98.4 F Pulse Rate 81 81 Respiratory 14 14 14 Rate Blood Pressure 130/56 130/56 (mmHg) O2 Sat by Pulse 95 Oximetry 09/22/16 09/22/16 09/22/16 15:45 16:26 19:48 Temperature 98.8 F 98.4 F Pulse Rate 64 72 Respiratory 12 14 Rate Blood Pressure 128/51 140/66 (mmHg) O2 Sat by Pulse 98 Oximetry 09/22/16 09/22/16 09/22/16 21:21 21:22 21:50 Temperature Pulse Rate Respiratory 16 18 18 Rate Blood Pressure (mmHg) O2 Sat by Pulse Oximetry 09/22/16 09/22/16 09/23/16 22:51 23:13 03:01 Temperature 97.7 F 98.7 F Pulse Rate 72 67 Respiratory 16 20 16 Rate Blood Pressure 140/99 207/131 (mmHg) O2 Sat by Pulse 100 100 Oximetry 09/23/16 09/23/16 09/23/16 03:03 04:07 06:00 Temperature Pulse Rate Respiratory 18 18 Rate Blood Pressure 144/52 (mmHg) O2 Sat by Pulse Oximetry 09/23/16 07:41 Temperature 97.9 F Pulse Rate 70 Respiratory 16 Rate Blood Pressure 124/69 (mmHg) O2 Sat by Pulse 100 Oximetry - Intake and Output Intake and Output: Intake & Output 09/20/16 09/21/16 09/22/16 09/23/16 11:59 11:59 11:59 11:59 Intake Total 100 2818 Output Total 0 Balance 100 2818 Weight 169 lb 165 lb Intake: IV Fluids 100 IVPB 1322 levaquin 100 linezolid 610 Oral 860 Packed Cells 636 Output: Urine 0 ADLs: Meal Record Start: 09/22/16 08: 50 Freq: DAILY@0900,1400,1800 Status: Active Created 09/22/16 08:50 System (Rec: 09/22/16 08:50 System MED-L06) Document 09/22/16 13:59 [id number] (Rec: 09/22/16 14:00 [id number] MED-C09) Document 09/22/16 18:00 [id number] (Rec: 09/22/16 18:38 [id number] MED-C09) Intake and Output Start: 09/22/16 08: 50 Freq: DAILY@0600,1400,2200 Status: Active Created 09/22/16 08:50 System (Rec: 09/22/16 08:50 System MED-L06) Document 09/22/16 13:59 [id number] (Rec: 09/22/16 14:00 [id number] MED-C09) Document 09/22/16 19:38 [id number] (Rec: 09/22/16 19:38 [id number] MED-L05) Document 09/22/16 22:00 [id number] (Rec: 09/22/16 22:02 [id number] MED-C09) Document 09/22/16 23:07 [id number] (Rec: 09/22/16 23:07 [id number] MED-C14) Document 09/23/16 05:14 [id number] (Rec: 09/23/16 05:14 [id number] [facility] [place] - Physical Exam General Physical Exam Comment: He has tenderness over his left upper arm muscles , shoulder and left amputation stump. He has good peripheral capillary refill left hand. There is no warmth or swelling of his left upper arm, shoulder or left amputation stump. There are no skin changes General: No Cyanosis, No Jaundice, No Clubbing Lungs and Chest: Yes: Chest Expansion Full, Chest Expansion Symetrica, Percussion Note Resonant, Vessicular Breath Sounds. No: Crackles, Wheezes Heart Rate and Rhythm: Regular JVP: Not Elevated Additional Cardiovascular: Yes: Normal Heart Sounds. No: Heart Murmur Abdominal Exam: Yes: Soft, Bowel Sounds Present. No: Rigidity, Abdominal Tenderness - Extremities Cranial Nerves II-XII Intact: Yes Limbs: Abnormal Power - He has weakness of his left upper arm vs. pain on movement Results - Results Lab Results: Laboratory Results - last 24 hr 09/22/16 09/22/16 09/22/16 08:45 09:30 11:30 WBC RBC Hgb Hct MCV MCH MCHC RDW Plt Count MPV Neut % (Auto) Lymph % (Auto) [place] % (Auto) Eos % (Auto) Baso % (Auto) Absolute Neuts (auto) Absolute Lymphs (auto) Absolute Monos (auto) Absolute Eos (auto) Absolute Basos (auto) Absolute Nucleated RBC Nucleated RBC % Glucose POC Glucose (mg/dL) Ammonia 33 Troponin I 0.26 H* C-Reactive Protein Blood Type O Positive Antibody Screen Negative Crossmatch See Detail 09/22/16 09/22/16 09/22/16 12:00 18:11 21:10 WBC RBC Hgb Hct MCV MCH MCHC RDW Plt Count MPV Neut % (Auto) Lymph % (Auto) [place] % (Auto) Eos % (Auto) Baso % (Auto) Absolute Neuts (auto) Absolute Lymphs (auto) Absolute Monos (auto) Absolute Eos (auto) Absolute Basos (auto) Absolute Nucleated RBC Nucleated RBC % Glucose 400 H 377 H POC Glucose (mg/dL) 190 H Ammonia Troponin I C-Reactive Protein Blood Type Antibody Screen Crossmatch 09/23/16 09/23/16 09/23/16 05:24 05:24 07:40 WBC 20.9 H RBC 3.33 L Hgb 8.9 L Hct 28 L MCV 83 MCH 27 MCHC 32 RDW 19 H Plt Count 608 H D MPV 10 Neut % (Auto) 68.0 Lymph % (Auto) 14.7 L [place] % (Auto) 14.1 H Eos % (Auto) 2.0 Baso % (Auto) 1.2 Absolute Neuts (auto) 14.2 H Absolute Lymphs (auto) 3.1 Absolute Monos (auto) 2.9 H Absolute Eos (auto) 0.4 Absolute Basos (auto) 0.2 Absolute Nucleated RBC 0.01 Nucleated RBC % 0 Glucose POC Glucose (mg/dL) 108 H Ammonia Troponin I 0.24 H* C-Reactive Protein 207.92 H Blood Type Antibody Screen Crossmatch Radiology Results: Patient Name: NETO CRISTINA Medical Record#: [id number] Ordering Physician: Krish Velasco MD Acct.#: [id number] : 1960 Age: 56 Sex: M Location: [address] [place] [address] MEDICAL Exam Date: 09/22/16 1003 ADM Status: ADM Estrada Order Information: US RENAL COMPLETE Accession Number: [id number] CPT: 34254 INDICATION: Renal failure and right-sided flank pain COMPARISON: None TECHNIQUE: Real-time ultrasound examination of the bilateral kidneys and urinary bladder including grayscale and Doppler color flow analysis. FINDINGS: The right left kidney measures 11 x 5.9 x 6.2 cm and 11 x 5.5 x 5.2 cm, respectively. In the right kidney there is shadowing hyperechogenic material filling the right renal collecting system with shadowing. The left kidney exhibits hyperechogenic, shadowing foci. There is no significant hydronephrosis bilaterally. There is mildly increased echogenicity of the renal cortices which appear normal in thickness. IMPRESSION: 1. Ultrasound findings are compatible with bilateral renal calculi, potentially with "staghorn calculi" in the right kidney. Despite this, there is no signs or appearance of hydronephrosis. 2. Sonographic appearance of the renal cortices are consistent with medical renal disease. <Electronically signed by Juanito David MD in OV> 09/22/16 1143 Dictated By: Juanito David MD Dictated Date/Time: 09/22/16 1143 Transcribed Date/Time: 09/22/16 1140 Copy to: CC:Krish Velasco MD Imaging - [facility] Imaging [facility] Imaging [facility] [address] [place] [address] [address] [address] ph ([phone]) ph ([phone]) ph [phone]) Patient Name: NETO CRISTINA Medical Record#: [id number] Ordering Physician: Krish Velasco MD Acct.#: [id number] : 1960 Age: 56 Sex: M Location: [address] [place] [address] MEDICAL Exam Date: 09/22/16 1003 ADM Status: ADM Estrada Order Information: SP LUMBAR AP/ LAT 2-3 VIEWS Accession Number: [id number] CPT: 51848 INDICATION: Right groin pain COMPARISON: None. TECHNIQUE: 2 views of the lumbar spine were obtained. FINDINGS: The vertebra are in normal alignment. No fracture is seen. Disc spaces appear maintained. Advanced calcified atherosclerosis is noted overlying the lower abdominal aorta, splenic artery and iliac arteries. . IMPRESSION: 1. No evidence of acute fracture or subluxation. 2. Incidentally noted is advanced calcified atherosclerosis in the visualized lower abdominal and pelvic arteries. <Electronically signed by Juanito David MD in OV> 09/22/16 1136 Dictated By: Juanito David MD Dictated Date/Time: 09/22/16 1136 Transcribed Date/Time: 09/22/16 1128 Copy to: CC:Krish Velasco MD Imaging - [facility] Imaging [facility] Imaging [facility] [address] [facility] [address] ph ([phone]) ph [phone]) ([phone]) 1 of 1 Assessment - Problem List Assessment: Patient Problems Diabetic nephropathy associated with type 1 diabetes mellitus (Acute) End-stage renal disease on peritoneal dialysis (Acute) 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 (Acute) Kidney stones (Acute) Leukocytosis (Acute) Thrombocytosis (Acute) Diabetic neuropathy (Chronic 03/31/14) Diabetic peripheral neuropathy (Chronic) History of left below knee amputation (Chronic) History of right above knee amputation (Chronic) Hypercholesteremia (Chronic 03/31/14) Hypertension (Chronic 03/31/14) Peripheral vascular disease (Chronic) 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 It continues to climb. Anemia of renal disease (Chronic) This is improved with transfusion. New pain in left upper arm, shoulder and left amputation stump: This appears to be muscular. It may relate to the injections of antibacterials. Otherwise, I can't see any signs of any infection/inflammation of these areas. I will treat conservatively and watch 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 (Acute) This may be the cause of his elevated WBC/CRP - or his right finger amputation site infection. Kidney stones (Acute) He has had right loin pain. This may relate to the right kidney stone - maybe a staghorn calculus. This could be infected, but no evidence of dilatation of the kidney/abscess. I think this is best followed as an outpatient. 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 He is going to attend outpatient visits at [facility] for his 2 amputation infections 2. He is attending his PCP at [facility] in [place] on Saturday 3. He is attending my office on Saturday - I will obtain CBC/diff/CRP 4. I will set up urology consultation after this coming week - unless the right loin pain worsens. I note his most recent urine culture/UA was negative 5. Dr. Turk to determine treatment with epogen/aranesp Medications Oxycodone HCl (Roxycodone Tab*) 20 mg PO Q6H PRN PRN Reason: PAIN - MODERATE TO SEVERE Calcitriol (Rocaltrol Cap*) 0.25 mcg PO DAILY [facility] Last Admin: 09/22/16 12:41 Dose: 0.25 mcg Aspirin (Aspirin Ec Low Dose*) 81 mg PO DAILY [facility] Last Admin: 09/22/16 09:45 Dose: 81 mg Acetaminophen (Tylenol Tab*) 650 mg PO Q6H PRN PRN Reason: FEVER Last Admin: 09/23/16 06:00 Dose: 650 mg Ticagrelor (Brilinta*) 90 mg PO BID [facility] Last Admin: 09/22/16 21:21 Dose: 90 mg Pregabalin (Lyrica Cap(*)) 75 mg PO BID [facility] Last Admin: 09/22/16 21:27 Dose: Not Given Oxycodone HCl (Oxycontin(*)) 40 mg PO Q12H [facility] Last Admin: 09/22/16 21:21 Dose: 40 mg Linezolid (Zyvox Tab*) 600 mg PO Q12H [facility] Diphenhydramine HCl (Benadryl Po*) 25 mg PO Q6H PRN PRN Reason: Allergy Symptoms Last Admin: 09/22/16 14:26 Dose: 25 mg Carvedilol (Coreg Tab*) 12.5 mg PO BID [facility] Last Admin: 09/22/16 21:21 Dose: 12.5 mg Levafloxacin 500 mg every other day - next dose 09/24/16 Lisinopril 10 mg daily. Hold venlafaxine (interacts with linezolid)
[2016-09-23] MEDS: Nitroglycerin 0.1 mg/Hr PATCH* (2.5 MG) TRANSDERM SCH (09:20)
[2016-09-23] MEDS: Carvedilol TAB* 6.25 MG PO SCH (09:20)
[2016-09-23] MEDS: Pregabalin CAP(*) 25 MG PO SCH (09:20)
[2016-09-23] MEDS: oxyCODONE SR TAB(*) 40 MG TAB.SR PO SCH (09:21)
[2016-09-23] MEDS: Ticagrelor* 90 MG TAB PO SCH (09:21)
[2016-09-23] MEDS: Aspirin EC Low Dose* 81 MG TAB.EC PO SCH (09:21)
[2016-09-23] MEDS: Calcitriol CAP* 0.25 MCG PO SCH (09:21)
[2016-09-23] MEDS ORDERED: Nitro Patch/OINT Remove PATCH OFF SCH (21:00)
== END 2016-09-23 10:50 | disposition home or self-care (01) ==
LOC: INTOOBSV 08:36 → MED 08:36
PROVIDERS: ADMIT Internal Medicine; ATTEND Internal Medicine
DX: D64.9 Anemia, unspecified (principal); T87.43 Infection of amputation stump, right lower extremity; T87.41 Infection of amputation stump, right upper extremity; Y83.8 Other surgical procedures as the cause of abnormal reaction of the patient, or of later complication, without mention of misadventure at the time of the procedure; R10.9 Unspecified abdominal pain; N20.0 Calculus of kidney; I12.0 Hypertensive chronic kidney disease with stage 5 chronic kidney disease or end stage renal disease; N18.6 End stage renal disease; Z99.2 Dependence on renal dialysis; D47.3 Essential (hemorrhagic) thrombocythemia; D72.829 Elevated white blood cell count, unspecified; I25.10 Atherosclerotic heart disease of native coronary artery without angina pectoris; I25.2 Old myocardial infarction; E10.319 Type 1 diabetes mellitus with unspecified diabetic retinopathy without macular edema; Z79.4 Long term (current) use of insulin; I73.9 Peripheral vascular disease, unspecified; E78.00 Pure hypercholesterolemia, unspecified; L89.152 Pressure ulcer of sacral region, stage 2; N52.9 Male erectile dysfunction, unspecified; Z79.899 Other long term (current) drug therapy; Z79.82 Long term (current) use of aspirin; Z87.891 Personal history of nicotine dependence
CPT/HCPCS: 36415; 36430; 72100; 76775; 82140; 82947; 84484; 85025; 86140; 86850; 86900; 86901; 86922; 87040; 87070; 87076; 87077; 87185; 87186; 87205; 87640; 87641; 90945; 96365; 96366; 96367; A9270-GY; G0257; G0378; J1644; J1956; J2020; P9040

== ENCOUNTER 2017-04-09 04:36 | Inpatient (IN) | payer BC, MEDICARE ==
[2017-04-09 05:31] LABS: Hematocrit 29 % (42-52); Hemoglobin 9.4 g/dl (14.0-18.0); Mean Corpuscular HGB Conc 33 g/dl (31-36); Mean Corpuscular Hemoglobin 30 pg (27-31); Mean Corpuscular Volume 90 fL (80-94); Mean Platelet Volume 9 um3 (7.4-10.4); Red Blood Count 3.18 10^6/ul (4.0-5.4); Red Cell Distribution Width 18 % (10.5-15); White Blood Count 14.9 10^3/ul (3.5-10.8)
[2017-04-09 05:36] LABS: BUN/Creatinine Ratio 8.9 (8-20); Calcium 9.8 mg/dL (8.6-10.3); EGFR African American 30.2 (>60); EGFR Non-African American 23.5 (>60); Globulin 4.1 g/dL (2-4); Potassium 3.8 mmol/L (3.5-5.0); Total Bilirubin 0.4 mg/dL (0.2-1.0); Total Protein 7.1 g/dL (6.4-8.9)
[2017-04-09 05:55] LABS: Troponin I 0.05 ng/mL (<0.04)
[2017-04-09] MEDS ORDERED: Acetaminophen TAB* 325 MG PO ONE (06:13)
[2017-04-09] MEDS ORDERED: Levofloxacin 500 MG IVPREMIX(* 500 MG/100 ML BAG IVPB ONE (06:26)
--- NOTE | 2017-04-09 06:36 | ED ---
Irish Ellison Rebecca, scribed for Marquis Garcia on 04/09/17 at 0500 . HPI Chest Pain - HPI Summary HPI Summary: Pt is a 57 y/o M BIBA as a transfer from [facility] for CP, fever and SOB s/p cardiac stent procedure on 03/28 (12 days ago) in [place], [place]. Pt reports that sx began last night at 2200 and have continued through this morning. CP is characterized as burning and is currently severe, ranked 8/10. Treated with 3 NTG at home which did not change sx. Sx aggravated and alleviated by nothing. PMHx renal failure for which he is on hemodialysis - last treatment was yesterday. - History of Current Complaint Chief Complaint: EDChestPainROMI Time Seen by Provider: 04/09/17 04:40 Hx Obtained From: Patient Onset/Duration: Still Present Time of Onset: 22:00 Current Severity: Severe Pain Intensity: 8 Pain Scale Used: 0-10 Numeric Character: Burning Aggravating Factor(s): Nothing Alleviating Factor(s): Nothing Associated Signs and Symptoms: Positive: Shortness of Breath, Fever - Additional Pertinent History Primary Care Physician: [id number] - Allergy/Home Medications Allergies/Adverse Reactions: Allergies Allergy/AdvReac Type Severity Reaction Status Date / Time Clindamycin Allergy Intermediate Diarrhea Verified 04/09/17 04:46 Morphine Allergy Hallucinati Verified 04/09/17 04:46 ons Home Medications: Home Medications Acetaminophen TAB* [Tylenol TAB*] 650 mg G TUBE Q6H PRN 04/09/17 [History Confirmed 04/09/17] Albuterol/Ipratropium RESP(NF) [Combivent Respimat (NF)] 1 puff INH Q6HR [History Confirmed 04/09/17] Alprazolam [Xanax] 0.5 mg G TUBE TID 04/09/17 [History Confirmed 04/09/17] Aspirin Low Dose CHEW TAB* [Aspirin Low Dose TAB*] 81 mg G TUBE DAILY 04/09/17 [ History Confirmed 04/09/17] Atorvastatin* [Lipitor*] 20 mg G TUBE 2100 04/09/17 [History Confirmed 04/09/17] Carvedilol TAB* [Coreg TAB*] 12.5 mg G TUBE BID 04/09/17 [History Confirmed ] Collagenase 250 MG/GM OINT* [Santyl 250 mg/gm Oint*] 1 applic TOPICAL DAILY [History Confirmed 04/09/17] Dextrose (Diabetic Use) [Glucose] 40 % G TUBE ONCE PRN 04/09/17 [History Confirmed 04/09/17] Docusate Sodium [Pedia-Lax] 100 mg G TUBE BID 04/09/17 [History Confirmed ] Epoetin Augustine* [Epogen*] 4,000 units IV PRN 04/09/17 [History] Famotidine [Pepcid] 20 mg G TUBE DAILY 04/09/17 [History Confirmed 04/09/17] Folic Acid TAB* [Folvite TAB*] 1 mg G TUBE DAILY 04/09/17 [History Confirmed ] Insulin Aspart [Novolog] 1 unit SUBCUT ACHS 04/09/17 [History Confirmed 04/09/17 ] Insulin GLARGINE(*) [Lantus(*)] 15 units SUBCUT 2100 04/09/17 [History Confirmed 04/09/17] Iron Sucrose* [Venofer*] 100 mg IV Q14D 04/09/17 [History Confirmed 04/09/17] Ketoconazole 2 % CREAM (NF) [Nizoral 2% CREAM (NF)] 1 applic TOPICAL BID [History Confirmed 04/09/17] Lactobacillus [Probiotic Acidophilus] 2 cap G TUBE BID 04/09/17 [History Confirmed 04/09/17] Lansoprazole SOLUTAB* [Prevacid Solutab*] 30 mg G TUBE 04/09/17 [History] Loperamide CAP* [Imodium CAP*] 4 mg G TUBE Q6H PRN 04/09/17 [History Confirmed 04/09/17] Lyrica CAP(*) 75 mg G TUBE BEDTIME 04/09/17 [History Confirmed 04/09/17] Melatonin 3 mg G TUBE BEDTIME PRN 04/09/17 [History Confirmed 04/09/17] Metoclopramide HCl [Reglan] 5 mg G TUBE TID 04/09/17 [History Confirmed 04/09/17 ] Multiple Vitamin [Renal Multivitamin Formul] 1 tab G TUBE DAILY 04/09/17 [ History Confirmed 04/09/17] Polyethylene Glycol 1000 1 packet G TUBE BID PRN 04/09/17 [History Confirmed ] Povidone/Iodine 10% Micha* [Betadine 10% MICHA*] 1 applic TOPICAL SEE INSTRUCTIONS 04/09/17 [History Confirmed 04/09/17] Simethicone CHEW TAB* [Mylicon*] 80 mg G TUBE Q6H PRN 04/09/17 [History Confirmed 04/09/17] Ticagrelor* [Brilinta 90 MG*] 90 mg G TUBE BID 04/09/17 [History Confirmed 04/09] amLODIPine TAB* [Norvasc 5 mg TAB*] 10 mg G TUBE DAILY 04/09/17 [History Confirmed 04/09/17] hydrALAZINE TAB* [Apresoline TAB*] 25 mg G TUBE Q8HR 04/09/17 [History Confirmed 04/09/17] oxyCODONE *Concentrate* [Oxycodone *Concentrate* 20 mg/ml] 5 mg G TUBE Q4HR PRN 04/09/17 [History Confirmed 04/09/17] PMH/Surg Hx/FS Hx/Imm Hx Endocrine/Hematology History: Reports: Hx Diabetes, Hx Anemia, Other Endocrine/ Hematological Disorders - retinal hemorrhage with heparin Denies: Hx Systemic Lupus Erythematosus, Hx Thyroid Disease Cardiovascular History: Reports: Hx Angina, Hx Angioplasty, Hx Cardiac Arrest, Hx Hypercholesterolemia, Hx Hypertension, Hx Myocardial Infarction, Hx Peripheral Vascular Disease, Other Cardiovascular Problems/Disorders - a.fib in past Denies: Hx Auto Implanted Cardiovert Defib, Hx Congestive Heart Failure, Hx Coronary Artery Disease, Hx Pacemaker/ICD, Hx Valvular Heart Disease Respiratory History: Reports: Hx Sleep Apnea - undiagnosed, Other Respiratory Problems/Disorders - post nasal drip Denies: Hx Asthma, Hx Chronic Obstructive Pulmonary Disease (COPD) GI History: Reports: Hx Gastroesophageal Reflux Disease Denies: Hx Jaundice, Hx Ulcer History: Reports: Hx Chronic Renal Failure - ESRD, Hx Dialysis, Hx Renal Disease, Other Problems/Disorders Musculoskeletal History: Reports: Hx Orthopedic Injury - Broke right foot in 2009, Other Musculoskeletal History - Left -BKA Denies: Hx Rheumatoid Arthritis Sensory History: Reports: Hx Cataracts - right eye, Hx Contacts or Glasses, Hx Vision Problem, Hx Hearing Problem - ringing in left ear, Other Sensory Impairments - Bleed related to Heparin. Denies: Hx Hearing Aid Opthamlomology History: Reports: Hx Cataracts - right eye, Hx Contacts or Glasses, Hx Vision Problem, Other Sensory Impairments - Bleed related to Heparin. Neurological History: Reports: Other Neuro Impairments/Disorders - diabetic neuropathy Denies: Hx Headaches Psychiatric History: Denies: Hx Panic Disorder - Cancer History Hx Chemotherapy: No - Surgical History Surgery Procedure, Year, and Place: VASECTOMY;. LEFT KNEE PATELLA REALIGNMENT- 1986;. 2011- PERITONEAL CATHETER PLACEMENT;. 04/2013-CREATION OF A FISTULA LEFT ARM-[facility];. L-BKA-06/23/2014; 04/02/14-Left big toe removed-[facility];. Lt EYE 2013 -CAUTERIZED DUE TO BLOOD POOLING THEN 10/2014 Rt EYE; REVISION Lt BKA Hx Anesthesia Reactions: No Infectious Disease History: No Infectious Disease History: Denies: Hx Hepatitis, Hx Human Immunodeficiency Virus (HIV), Traveled Outside the [place] in Last 30 Days - Family History Known Family History: Positive: Diabetes Negative: Cardiac Disease - Social History Alcohol Use: None Alcohol Amount: unable to assess Hx Substance Use: No Substance Use Type: Reports: None Substance Use Comment - Amount & Last Used: unable to assess Hx Tobacco Use: Yes Smoking Status (MU): Former Smoker Type: Cigarettes Length of Time of Smoking/Using Tobacco: 22 years Have You Smoked in the Last Year: No Review of Systems Positive: Fever Positive: Chest Pain - Burning Positive: Shortness Of Breath All Other Systems Reviewed And Are Negative: Yes Physical Exam - Summary Physical Exam Summary: Appearance: Well appearing, no pain distress Skin: warm, dry, reflects adequate perfusion Head/face: normal Eyes: EOMI, WALDEMAR ENT: normal Neck: supple, nontender Respiratory: CTA, breath sounds present Cardiovascular: RRR, pulses symmetrical, Tesio catheter on the L chest, scar on the L chest Abdomen: nontender, soft, GT tube is present Bowel: present Musculoskeletal: strength/ROM intact, wounds on the amputated R hand, chronic wounds on the [id number] amputation of the LLE, [id number] amputation of the RLE, healing wounds on the L and R hand which are clear Neuro: normal, sensory motor intact, A&Ox3 Triage Information Reviewed: Yes Vital Signs On Initial Exam: Initial Vitals Temp Pulse Resp BP Pulse Ox 100.7 F 73 10 148/55 96 04/09/17 04:46 04/09/17 04:46 04/09/17 04:46 04/09/17 04:46 04/09/17 04:46 Vital Signs Reviewed: Yes Diagnostics - Vital Signs Vital Signs Temp Pulse Resp BP Pulse Ox 04/09/17 04:46 100.7 F 73 10 148/55 96 - Laboratory Lab Results: Lab Results 04/09/17 04/09/17 04/09/17 Range/Units 05:00 05:00 05:00 WBC 14.9 H (3.5-10.8) 10^3/ul RBC 3.18 L (4.0-5.4) 10^6/ul Hgb 9.4 L (14.0-18.0) g/dl Hct 29 L (42-52) % MCV 90 (80-94) fL MCH 30 (27-31) pg MCHC 33 (31-36) g/dl RDW 18 H (10.5-15) % Plt Count 427 (150-450) 10^3/ul MPV 9 (7.4-10.4) um3 Neut % (Auto) 77.6 (38-83) % Lymph % (Auto) 8.3 L (25-47) % Bremer % (Auto) 12.7 H (1-9) % Eos % (Auto) 0.8 (0-6) % Baso % (Auto) 0.6 (0-2) % Absolute Neuts (auto) 11.6 H (1.5-7.7) 10^3/ul Absolute Lymphs (auto) 1.2 (1.0-4.8) 10^3/ul Absolute Monos (auto) 1.9 H (0-0.8) 10^3/ul Absolute Eos (auto) 0.1 (0-0.6) 10^3/ul Absolute Basos (auto) 0.1 (0-0.2) 10^3/ul Absolute Nucleated RBC 0 10^3/ul Nucleated RBC % 0 INR (Anticoag Therapy) 1.08 (0.89-1.11) APTT 38.7 H (26.0-36.3) seconds Sodium (133-145) mmol/L Potassium (3.5-5.0) mmol/L Chloride (101-111) mmol/L Carbon Dioxide (22-32) mmol/L Anion Gap (2-11) mmol/L BUN (6-24) mg/dL Creatinine (0.67-1.17) mg/dL Est GFR ( Amer) (>60) Est GFR (Non-Af Amer) (>60) BUN/Creatinine Ratio (8-20) Glucose (70-100) mg/dL Lactic Acid (0.5-2.0) mmol/L Calcium (8.6-10.3) mg/dL Total Bilirubin (0.2-1.0) mg/dL AST (13-39) U/L ALT (7-52) U/L Alkaline Phosphatase (34-104) U/L Troponin I (<0.04) ng/mL B-Natriuretic Peptide 2753 H ( - 100) pg/mL Total Protein (6.4-8.9) g/dL Albumin (3.2-5.2) g/dL Globulin (2-4) g/dL Albumin/Globulin Ratio (1-3) 04/09/17 04/09/17 Range/Units 05:00 05:00 WBC (3.5-10.8) 10^3/ul RBC (4.0-5.4) 10^6/ul Hgb (14.0-18.0) g/dl Hct (42-52) % MCV (80-94) fL MCH (27-31) pg MCHC (31-36) g/dl RDW (10.5-15) % Plt Count (150-450) 10^3/ul MPV (7.4-10.4) um3 Neut % (Auto) (38-83) % Lymph % (Auto) (25-47) % Bremer % (Auto) (1-9) % Eos % (Auto) (0-6) % Baso % (Auto) (0-2) % Absolute Neuts (auto) (1.5-7.7) 10^3/ul Absolute Lymphs (auto) (1.0-4.8) 10^3/ul Absolute Monos (auto) (0-0.8) 10^3/ul Absolute Eos (auto) (0-0.6) 10^3/ul Absolute Basos (auto) (0-0.2) 10^3/ul Absolute Nucleated RBC 10^3/ul Nucleated RBC % INR (Anticoag Therapy) (0.89-1.11) APTT (26.0-36.3) seconds Sodium 130 L (133-145) mmol/L Potassium 3.8 (3.5-5.0) mmol/L Chloride 90 L (101-111) mmol/L Carbon Dioxide 33 H (22-32) mmol/L Anion Gap 7 (2-11) mmol/L BUN 25 H (6-24) mg/dL Creatinine 2.81 H (0.67-1.17) mg/dL Est GFR ( Amer) 30.2 (>60) Est GFR (Non-Af Amer) 23.5 (>60) BUN/Creatinine Ratio 8.9 (8-20) Glucose 206 H (70-100) mg/dL Lactic Acid 0.9 (0.5-2.0) mmol/L Calcium 9.8 (8.6-10.3) mg/dL Total Bilirubin 0.40 (0.2-1.0) mg/dL AST 32 (13-39) U/L ALT 27 (7-52) U/L Alkaline Phosphatase 111 H (34-104) U/L Troponin I 0.05 H* (<0.04) ng/mL B-Natriuretic Peptide ( - 100) pg/mL Total Protein 7.1 (6.4-8.9) g/dL Albumin 3.0 L (3.2-5.2) g/dL Globulin 4.1 H (2-4) g/dL Albumin/Globulin Ratio 0.7 L (1-3) Result Diagrams: 04/09/17 05:00 04/09/17 05:00 Lab Statement: Any lab studies that have been ordered have been reviewed, and results considered in the medical decision making process. - Radiology CXR Xray Interpretation: Positive (See Comments) - Increased markings of the right lower lobe Radiology Interpretation Completed By: ED Physician - EKG 0720 Cardiac Rate: NL - 72 bpm EKG Rhythm: Sinus Rhythm ST Segment: Non-Specific - Non-specific ST T changes Chest Pain Course/Dx - Course Assessment/Plan: Pt is a 57 y/o M BIBA as a transfer from [facility] for CP, fever and SOB s/p cardiac stent procedure on 03/28 (12 days ago) in [place], [place]. Pt reports that sx began last night at 2200 and have continued through this morning. CP is characterized as burning and is currently severe, ranked 8/ 10. Treated with 3 NTG at home which did not change sx. Sx aggravated and alleviated by nothing. PMHx renal failure for which he is on hemodialysis - last treatment was yesterday. WBC of 14.9, troponin of 0.05 which is lower than on any prior visits, BNP of 2753, creatinine of 2.81, sodium of 130. CXR reveals increased markings of the right lower lobe as read by ED physician. EKG is sinus rhythm with non-specific ST T changes. Discussed care of pt with Dr. Fulton who accepts pt for admission. He will be admitted with Dx of SOB, PNA, CHF, end stage renal disease and hemodialysis. He understands and agrees. Elevated BP noted and advised to f/u with PCP. - Diagnoses Provider Diagnoses: SOB (shortness of breath), Pneumonia, CHF (congestive heart failure), End stage renal disease, hemodialysis, Troponin level elevated, Sepsis - Provider Notifications Discussed Care Of Patient With: Guanakito Fulton Time Discussed With Above Provider: 06:25 Instructed by Provider To: Other - Accepts pt for admission Discharge - Discharge Plan Condition: Stable Disposition: ADMITTED TO [facility] Referrals: Justa Cruz [Primary Care Provider] - The documentation as recorded by the Irish shell Rebecca accurately reflects the service I personally performed and the decisions made by , Marquis Garcia.
[2017-04-09] MEDS ORDERED: oxyCODONE TAB* 5 MG TAB PO ONE (08:01)
--- NOTE | 2017-04-09 08:12 | RAD ---
INDICATION: Fever. COMPARISON: Comparison is made with a prior chest x-ray study from September 15, 2016. TECHNIQUE: A portable view of the chest was obtained. FINDINGS: There is a central venous catheter entering on the left side. The catheter tip projects over the right atrium. The heart is mildly enlarged and unchanged from the prior exam. The lungs are clear. No pleural effusion is seen. IMPRESSION: NO EVIDENCE FOR ACUTE FINDING.
[2017-04-09] MEDS ORDERED: Morphine INJ* 2 MG/ML 1 ML SYRINGE IV PRN (09:14)
[2017-04-09] MEDS ORDERED: oxyCODONE ORAL.SOLN* 5 MG/5 ML UDC PRN (09:17)
[2017-04-09] MEDS ORDERED: Fluticasone NASAL SPRAY 50MCG* 16 gm SPRAY BTL BOTH NARES PRN (09:17)
[2017-04-09] MEDS ORDERED: Loperamide LIQ* 2 MG/10 ML UDC PEG TUBE PRN (09:17)
[2017-04-09] MEDS ORDERED: Simethicone CHEW TAB* 80 MG PRN (09:17)
[2017-04-09] MEDS ORDERED: Polyethylene Glycol 3350* 17 GM PACKET G TUBE PRN (09:17)
[2017-04-09] MEDS ORDERED: CMC:Melatonin (NF) 3 MG TAB PO PRN (09:17)
[2017-04-09] MEDS ORDERED: Vancomycin(*) 1,000 MG in NS 0.9% 250 ML* 250 ML IVPB ONE (10:00)
[2017-04-09] MEDS ORDERED: ZOSYN 3.375 GM x ONE DOSE over 30 miuntes IVPB ×2 (10:00)
[2017-04-09] MEDS ORDERED: Zosyn per Pharmacy* NOTE FOLLOW UP SCH (10:00)
[2017-04-09] MEDS ORDERED: Insulin LISPRO* 1 UNITS UNIT SUBCUT SCH (11:30)
[2017-04-09] MEDS: ZOSYN 3.375 GM Q8H per EXTENDED INFUSION IVPB SCH ×4 (11:41→20:26)
[2017-04-09] MEDS ORDERED: Dextrose 50% Syringe 50 ML* 25 GM/50 ML SYRINGE IV PUSH PRN (12:18)
[2017-04-09] MEDS ORDERED: hydrALAZINE IV* 20 MG/ML VIAL IV SLOW PU ONE (12:18)
[2017-04-09] MEDS ORDERED: Simethicone CHEW TAB* 80 MG PO PRN (12:26)
[2017-04-09] MEDS ORDERED: Polyethylene Glycol 3350* 17 GM PACKET PO PRN (12:26)
[2017-04-09] MEDS ORDERED: Loperamide LIQ* 2 MG/10 ML UDC PO PRN (12:27)
[2017-04-09] MEDS: Acetaminophen TAB* 325 MG PO PRN (12:39)
[2017-04-09 13:32] LABS: C Reactive Protein 151.17 mg/L (< 5.00)
--- NOTE | 2017-04-09 14:53 | PN ---
Nusrat Ellison SooYoung, scribed for Bismark Chicas MD on 04/09/17 at 0904 . Progress Note - Progress Note Date of Service: 04/09/17 Note: Attempts to contact Dr. Velasco were made at 0652, 0811 and 0834. 0837: Consult with Dr. Velasco, PCP for pt If this is cardiac, pt needs transfer. If not, pt can remain at [facility]. 0850: MD at bedside Pt is a 57 y/o M BIBA presenting to ED with c/o CP onset last night since resolved. Recent cardiac surgery. Discussed being admitted vs transfer, pt prefers to stay here. Brief PE: Wounds are clean. L tympanic membrane is bulging and a little erythematous. There is no cervical lymphadenopathy, but mild tenderness to posterior chain with palpation. 0905: Consult with Dr. Cramer, hospitalist Will admit pt. The documentation as recorded by the Nusrat shell SooYoung accurately reflects the service I personally performed and the decisions made by me, Bismark Chicas MD.
[2017-04-09] MEDS: ALPRAZolam TAB* 0.5 MG PO SCH ×2 (15:51→21:42)
[2017-04-09] MEDS: hydrALAZINE TAB* 25 MG PO SCH ×2 (15:52→21:41)
[2017-04-09] MEDS: Insulin LISPRO* 1 UNITS UNIT SUBCUT SCH ×2 (17:08→21:43)
--- NOTE | 2017-04-09 21:18 | RAD ---
Indication: Evaluate for osteomyelitis. 2 views of the right hand demonstrates diffuse osteopenia. Extensive atherosclerosis with calcified vessels are noted. No erosions are noted. IMPRESSION: Diffuse osteopenia. Open wound is noted at the head of the fifth metacarpal. No gross lytic areas are noted.
--- NOTE | 2017-04-09 21:19 | RAD ---
Indication: Left knee wound, evaluate for osteomyelitis 2 views of left knee demonstrates no abnormal erosion although diffuse osteopenia is noted. Atherosclerosis is noted. IMPRESSION: Extensive atherosclerosis. Diffuse osteopenia.
[2017-04-09] MEDS: Pregabalin CAP(*) 25 MG PO SCH (21:41)
[2017-04-09] MEDS: Docusate CAP* 100 MG PO SCH (21:41)
[2017-04-09] MEDS: Atorvastatin* 20 MG TAB PO SCH (21:42)
[2017-04-09] MEDS: Ticagrelor* 90 MG TAB PO SCH (21:42)
[2017-04-09] MEDS: Senna TAB PO SCH (21:42)
[2017-04-09] MEDS: Carvedilol TAB* 6.25 MG PO SCH (21:42)
[2017-04-09] MEDS: Metoclopramide TAB* 10 MG PO SCH (21:43)
[2017-04-09] MEDS: Insulin GLARGINE(*) 1 UNITS UNIT SUBCUT SCH (21:43)
[2017-04-09] MEDS: CMC:Ketoconazole 2 % CREAM (NF) 30 GM TUBE TOPICAL SCH (21:44)
--- NOTE | 2017-04-10 01:03 | HP ---
HISTORY AND PHYSICAL: DATE OF ADMISSION: 04/09/17 PRIMARY CARE PROVIDER: Justa Cruz NP, [facility]. The patient is transferred from [facility]. CHIEF COMPLAINT: Lightheadedness/dizzy/fever. HISTORY OF PRESENT ILLNESS: Mr. Landry is a 57-year-old gentleman, medically complex, who was brought to [facility]'s emergency room from [facility] for an array of complaints. There was original complaint of chest pain, which the patient states is true, but he states it was not as severe as initially portrayed. The patient recently had a cardiac coronary bypass surgery by a robotic methodology at [facility] and this was approximately 12 days ago on 03/28/17. The patient also complains of fever and some mild shortness of breath and lightheadedness and dizziness. On closer questioning of the patient, he describes left ear fullness and a feeling of sinus congestion and his corroborated recent upper respiratory congestion and rhinorrhea and coryza. About 2 nights ago, the patient started having fevers and he treated this symptomatically with Tylenol at home. Again, his left ear was bothering him clearly, he sleeps on his right side and this is his left side , which may I have had a hard time draining according to the patient. The patient also has an array of wounds that are in the midst of healing. The patient had known osteomyelitis in his right hand. He is a long time type 1 diabetic with severe vascular disease and neuropathy and he has multiple amputations including multiple digits on his right finger and AKA on his right lower extremity and a BKA on his left lower extremity. He has a stage 3 or stage 4 sacral decubitus ulcer as well as an unstageable wound on his right patella. Again, he has got wounds on his right hand, which is healing and was the site of previous osteomyelitis. The patient states that he usually has controlled blood sugars, but when he presented to the hospital, he had a glucose of approximately 400 (at [place]). The patient had several episodes of fever with a T-max of 102.5 here at [facility], all of which were controlled by Tylenol. He was started on vancomycin and Zosyn for broad-spectrum antibiotics. Blood cultures were drawn at [facility] prior to antibiotics being given and so they were not repeated at [facility]. Important access includes recent hemodialysis access in the past few weeks for a transition from peritoneal dialysis to hemodialysis. He also has a PEG tube in situ. The patient is accompanied by his , Shanelle, who is a significant lens engraver and he comes to the hospital today from home. The patient narrows his complaints primarily to his left ear with lightheadedness and dizziness followed by some chest discomfort, which on questioning did not seem entirely cardiac in nature and were almost reflux when being described. For this reason, I felt that he was safe for admission to [facility] with always the option to transfer and so, he was admitted by our hospitalist service. PAST MEDICAL HISTORY: 1. Type 1 diabetes mellitus, diagnosed in 1991 (age 29). 2. Diabetic retinopathy, treated by laser therapy. 3. CKD - stage 5/ESRD - transitioned from peritoneal dialysis only recently, now under the care of Dr. Isrrael Turk in [place]. 4. Severe peripheral neuropathy. 5. Microvascular disease with coronary disease and multiple myocardial infarctions and multiple acute coronary syndromes with multiple stents and re- stenting and finally CABG at [facility], March 2017. 6. Peripheral vascular disease with history of aortofemoral bypass on the left. 7. Left AKA. 8. Right BKA. 9. Multiple extremity angioplasties and stenting. 10. Retinal hemorrhage surgery x2. 11. Multiple episodes of sepsis and osteomyelitis with implication of right hand - now undergoing home wound care. 12. Hypertension. 13. Hyperlipidemia. 14. History of STEMI. OUTPATIENT MEDICATIONS: 1. Acetaminophen 650 mg by G-tube q.6 hours p.r.n. 2. Albuterol ipratropium 1 puff every 6 hours as needed shortness of breath. 3. Dextrose by diabetic protocol. 4. Epogen 4000 units IV as directed by dialysis treatment. 5. Iron sucrose 100 mg IV q.2 weeks according to dialysis protocol. 6. Lactobacillus 2 caps G-tube twice daily. 7. Melatonin 3 mg G-tube at bedtime. 8. Reglan 5 mg G-tube t.i.d. 9. Multivitamin 1 tablet G-tube daily. 10. Alprazolam 0.5 mg G-tube t.i.d. 11. Aspirin 81 mg by mouth daily. 12. Lipitor 20 mg by G-tube at night. 13. Coreg 12.5 mg mouth or by G-tube twice daily. 14. Collagenase/Santyl apply to wounds as directed. 15. Colace 100 mg G-tube twice daily. 16. Pepcid 20 mg G-tube daily. 17. Fluticasone/Flonase 2 sprays both nares daily. 18. Folic acid 1 mg G-tube daily. 19. Insulin aspart 1 unit subcu a.c., h.s. and Lantus 15 units subcu 2100 hours daily. 20. Ketoconazole 2% cream apply topically twice daily. 21. Lansoprazole 30 mg G-tube daily. 22. Imodium 4 mg G-tube q.6 hours p.r.n. loose stools. 23. Lyrica 75 mg G-tube b.i.d. for neuropathy. 24. Polyethylene glycol 1 tablet G-tube twice daily p.r.n. constipation. 25. Simethicone 80 mg G-tube q.6 hours p.r.n. gas/bloating. 26. Brilinta 90 mg G-tube twice daily, antiplatelet therapy for coronary disease. 27. Amlodipine 10 mg G-tube daily. 28. Hydralazine 25 mg G-tube q.8 hours standing. 29. Oxycodone 5 mg G-tube q.4 hours p.r.n. pain (oral concentrate at 20 mg/mL). ALLERGIES: CLINDAMYCIN/MORPHINE (oxycodone tolerated). FAMILY HISTORY: Multiple relatives with diabetes, both type 2 and type 1, as well as hypercholesterolemia and hypertension. There were relatives who underwent dialysis secondary to diabetes. There is no autoimmune history in his family. SOCIAL HISTORY: The patient is . His , Shanelle, is his surrogate decision maker. He does not smoke tobacco nor use alcohol. He is a former smoker. He lives with his and has a supportive family. He has multiple children. REVIEW OF SYSTEMS: Review of 14 systems was accomplished at the bedside. This was largely negative except for the pertinent positives mentioned above in the HPI and past medical history. He also identified erectile dysfunction consistent with his extensive peripheral vascular disease. PHYSICAL EXAMINATION On admission: GENERAL APPEARANCE: Older than stated age. He is lying in a hospital gurney. He has multiple amputations evident. He is a slight built man, weighing only 60 kilos. He is awake, alert, and oriented at the time of my interview. VITAL SIGNS: Temperature 98.5 degrees Fahrenheit, most recently T-max 102.5 that was at 7:30 this morning following transferring from [facility], always responsive to Tylenol. Heart rate 60s to 70s and regular, respirations 18 to 20 and unlabored, oxygen saturation 99% on 2 L nasal cannula, blood pressure consistently in the 140s-180s/60s-80s. HEENT: Oropharynx is clear. Mucous membranes are moist. His left tympanic membrane was fluid filled and bulging, it was erythematous consistent with otitis media. He had some left periauricular pain with movement of his ear, again consistent with otitis media. No lymphadenopathy bilaterally. NECK: History of tracheostomy noted with tracheostomy scar clean, dry, and intact. CHEST: Left mid axillary scar from recent cardiac surgery clean, dry, and intact. No fluctuance, no pain, no erythema. Generally negative appearance. ABDOMEN: He has got multiple surgical scars on his abdomen. He has got a PEG tube in situ. He has generally intact skin on his torso. His back is afflicted by a sacral wound that is stage 3 to stage 4 with some modest tunneling between 2 o'clock and 9 o'clock. Wound care is ordered for this. He is being turned frequently. EXTREMITIES: Left AKA noted and right BKA with eschar over right anterior patella with wound unstageable, at least 2 inches in diameter. His right hand has only his thumb, multiple digits have been amputated, site of former acute purulent osteomyelitis with now bone exposed with eschar/membrane overlying bone , but clear bone exposure and osteomyelitis by definition. NEUROLOGIC: Extensive diminished sensation in extremities. PSYCH: Distant affect, very overwhelmed by medical conditions and complexity, comforted by in room. 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 DIAGNOSTIC STUDIES/LAB DATA: Admission data: Sodium diminished at 130 - consistent with previous values, potassium 3.8, chloride 90, bicarb 33, anion gap 7, BUN 25, creatinine 2.81 (much lower than previous values whilst the patient on peritoneal dialysis), glucose 206 (elevated), fingersticks have been in the 180s to 190s subsequent to admission. Calcium, total bilirubin, AST, and ALT were normal. Alk phos elevated at 111. Troponin 0.05 (normal considering ESRD). CRP greatly elevated at 151. BNP elevated at 2753 (unclear significance given end-stage renal failure/recent cardiac surgery). Albumin 3.0 (diminished). INR 1.08. White blood cell count elevated at 14.9, hemoglobin depressed at 9.4, platelets 427,000. EKG demonstrates a normal sinus rhythm, 72 beats per minute with difficulty interpreting secondary to recent surgery with anterior ST elevations noted, but not dramatic and likely artifactual at this point considering negative troponin and absence of discomfort at this time. ASSESSMENT AND PLAN: Mr. Landry is a 57-year-old gentleman who has had fever, lightheadedness, and dizziness for the past 2 days, accompanied by left ear pain and upper sinus/respiratory congestion with the most likely explanation as otitis media, but also with multiple wounds and history of osteomyelitis with diabetes and end-stage renal as risk factors for these as infectious sources. 1. Otitis media - the patient is receiving broad-spectrum IV antibiotics that will cover otitis media including penicillin agents. We will continue this, although many causes of sinusitis and otitis media may be viral. 2. Possible osteomyelitis - check plain films of right hand and left knee for evidence of osteomyelitis. Certainly, the patient is very predisposed to this. X- rays may be insufficient sensitivity. We could always move to MRI, though may get Infectious Disease consultation to guide in this determination. I note elevated CRP and ESR, but these are nonspecific tests. Continue piperacillin/ vancomycin and we will request ID consultation for tailoring of antibiotics to current situation. 3. Insulin-dependent diabetes - continue outpatient regimen of basal insulin with preprandial dosing and sliding scale with short-acting insulin agent. Add on hemoglobin A1c to assess adequacy of long-term control. 4. Coronary disease - continue current medication regimen including atorvastatin/carvedilol/aspirin/ticagrelor/Brilinta as well as blood pressure control with amlodipine and hydralazine. 5. GI - continue PPI/H2 dennys therapy as per outpatient regimen. 6. Anemia - hemoglobin at baseline. We will trend hemoglobin during hospitalization. 7. End-stage renal disease secondary to diabetic nephropathy - consult Dr. Turk for ongoing dialysis services in hospital. 8. Reported chest pain at [facility] - repeat troponin, though 0.05 troponin level hours after onset of chest pain is reassuring. Recent coronary bypass surgery noted. 9. Status post coronary artery bypass graft earlier this month - not obviously a surgical complication with the surgical incision site being quite clean and only mild chest discomfort that is likely surgical related pain and not a true coronary ischemia considering troponin and current symptomatology profile. 10. Severe peripheral vascular disease noted with multiple amputations and this impairs wound healing. 11. Wound care consult is requested. 12. Diabetic diet as the patient tolerates with nutrition consult to recommend supplementation during hospitalization using PEG tube. The patient's was updated on plan of care and was present at the bedside much of today. TIME SPENT: Total time taken to admit Mr. Landry was 75 minutes, greater than half the time was spent at the bedside going over the history and physical and examination, [id number] with the patient. [id number]/[facility] #: [id number] [place]
[2017-04-10] MEDS: ZOSYN 3.375 GM Q8H per EXTENDED INFUSION IVPB SCH ×2 (04:47)
[2017-04-10] MEDS: hydrALAZINE TAB* 25 MG PO SCH ×3 (05:19→21:52)
[2017-04-10] MEDS ORDERED: Vancomycin(*) 1,000 MG in NS 0.9% 250 ML* 250 ML IVPB PRN (09:00)
[2017-04-10] MEDS ORDERED: Collagenase 250 MG/GM OINT* 30 GM TOPICAL PRN (09:00)
[2017-04-10] MEDS: Insulin LISPRO* 1 UNITS UNIT SUBCUT SCH ×4 (09:02→21:47)
[2017-04-10] MEDS: Famotidine TAB* 20 MG PO SCH (09:28)
[2017-04-10] MEDS: Senna TAB PO SCH (09:28)
[2017-04-10] MEDS: Docusate CAP* 100 MG PO SCH ×2 (09:28→21:55)
[2017-04-10] MEDS: Folic Acid TAB* 1 MG PO SCH (09:28)
[2017-04-10] MEDS: Omeprazole CAP* 20 MG PO SCH (09:28)
[2017-04-10] MEDS: ALPRAZolam TAB* 0.5 MG PO SCH ×2 (09:28→17:40)
[2017-04-10] MEDS: Aspirin Low Dose CHEW TAB* 81 MG PO SCH (09:28)
[2017-04-10] MEDS: amLODIPine TAB* 5 MG PO SCH (09:29)
[2017-04-10] MEDS: Ticagrelor* 90 MG TAB PO SCH ×2 (09:29→21:53)
[2017-04-10] MEDS: Carvedilol TAB* 6.25 MG PO SCH ×2 (09:29→21:54)
[2017-04-10] MEDS: Metoclopramide TAB* 10 MG PO SCH ×3 (09:37→21:53)
[2017-04-10] MEDS: oxyCODONE ORAL.SOLN* 5 MG/5 ML UDC PO PRN ×3 (10:19→22:22)
[2017-04-10] MEDS: CMC:Ketoconazole 2 % CREAM (NF) 30 GM TUBE TOPICAL SCH (13:14)
[2017-04-10 15:32] LABS: Hematocrit 26 % (42-52); Hemoglobin 8.6 g/dl (14.0-18.0); Mean Corpuscular HGB Conc 33 g/dl (31-36); Mean Corpuscular Hemoglobin 30 pg (27-31); Mean Corpuscular Volume 91 fL (80-94); Mean Platelet Volume 10 um3 (7.4-10.4); Red Blood Count 2.88 10^6/ul (4.0-5.4); Red Cell Distribution Width 17 % (10.5-15); White Blood Count 9.8 10^3/ul (3.5-10.8)
[2017-04-10] MEDS ORDERED: Epoetin Alfa* 10,000 UNITS/ML VIAL IV ONE (16:00)
[2017-04-10 16:09] LABS: Troponin I 0.06 ng/mL (<0.04)
[2017-04-10 16:16] LABS: Vancomycin Random 8.5 mcg/mL
[2017-04-10] MEDS: Heparin VIAL(*) 5000 UNITS/ML VIAL (FIVE THOUSAND) SUBCUT SCH ×2 (17:52→21:52)
[2017-04-10] MEDS ORDERED: Vancomycin(*) 1,000 MG in NS 0.9% 250 ML* 250 ML IVPB ONE (18:00)
[2017-04-10 18:01] LABS: Albumin 2.8 g/dL (3.2-5.2); BUN/Creatinine Ratio 10.5 (8-20); EGFR Non-African American 31.1 (>60); Globulin 4.3 g/dL (2-4); Potassium 3.6 mmol/L (3.5-5.0); Total Bilirubin 0.4 mg/dL (0.2-1.0); Total Protein 7.1 g/dL (6.4-8.9)
[2017-04-10] MEDS: ZOSYN 3.375 GM Q12H per EXTENDED INFUSION IVPB SCH ×2 (18:04)
[2017-04-10] MEDS ORDERED: Albuterol/Ipratropium NEB.SOL* Albuterol 2.5 MG/Ipratropium 0.5 MG 3 ML INH PRN (18:51)
[2017-04-10] MEDS ORDERED: Bisacodyl EC TAB* 5 MG PO ONE (18:51)
[2017-04-10] MEDS ORDERED: ALPRAZolam TAB* 0.25 MG PO PRN (18:51)
[2017-04-10] MEDS: Acetaminophen TAB* 325 MG PO PRN (19:09)
--- NOTE | 2017-04-10 19:51 | CONS ---
CONSULTATION REPORT: DATE OF CONSULTATION: 04/10/17 REQUESTING PHYSICIAN: Dr. Cramer. CONSULTING SERVICE: Infectious Disease. REASON FOR CONSULTATION: Sepsis. IMPRESSION: 1. Sepsis due to left ear process. On exam appears to be otitis media, possible perforated tympanic membrane, but because of the diabetes and looks like erosion in his auditory canal, question cholesteatoma. He also has mastoid tenderness and mastoiditis could be a consideration. 2. Type 1 diabetes. 3. Peripheral vascular disease, status post left [id number] amputation, right [id number] amputation, right 2nd through 5th finger amputation; aortofemoral bypass on the left. 4. Coronary artery disease, status post coronary artery bypass grafting and then recent percutaneous coronary intervention at [facility] in March 2017. 5. End-stage renal disease, on hemodialysis via left chest catheter. 6. Sacral decubitus ulcer, unstageable, ulceration of his leg amputations and over the 3rd and 5th metacarpal heads on the right hand. Underlying osteomyelitis is a consideration in each area though there is not significant evidence of a soft tissue infection on the hand or legs, that seems to be less likely there. The bigger concern would be the sacrum. RECOMMENDATIONS: 1. I agree with broad-spectrum antibiotics including coverage for Staph aureus and pseudomonas given concern for cholesteatoma. Please ask ENT to evaluate him and give recommendations on imaging of that area to evaluate mastoiditis and /or cholesteatoma. 2. As he improves, we will consider MRI of the sacrum for osteomyelitis. HISTORY OF PRESENT ILLNESS: This is a 57-year-old type 1 diabetic with vascular disease, end-stage renal disease, admitted with fever on 04/09/17. He had initially developed left ear pain and fullness and then some sinus congestion. About 3 days before coming to the hospital, he had fever with chills , no shaking chills, no sweats. He went to [facility], blood sugar was about 400. He had blood cultures drawn, started on vancomycin and Zosyn and transferred to [facility] for dialysis access. He previously used peritoneal dialysis , but now has a left chest catheter for hemodialysis. His blood cultures from 04/09/17 are negative on 24 hours. Temperature was originally 39.2, when he came to [facility] he has been afebrile. Today, he has undergone hemodialysis, complains of ongoing left ear pain and some pain behind his left ear and in the left jaw. He has no pain with jaw movement. His white count was 15,000 when he came to the hospital yesterday. He had a chest x-ray done yesterday that showed no acute findings. No evidence of osteomyelitis in the x-ray of his right hand and left knee. He has not noticed much drainage from those areas from the wounds there which are slowly getting better. He is treating with Hibiclens or Chlorhexidine. His decubitus ulcer on his back side has been followed with occasional debridement. PAST MEDICAL HISTORY: 1. Type 1 diabetes complicated by nephropathy, neuropathy, vascular disease, retinopathy. 2. Peripheral vascular disease, status post left aortofemoral bypass, left above- the-knee amputation, right oemwy-isd-achq amputation, right finger amputation. 3. Coronary artery disease, status post CABG and PCI. 4. Retinal hemorrhage surgery x2. 5. Hypertension. 6. Hyperlipidemia. 7. History of ST elevation OR. 8. End-stage renal disease, on hemodialysis, previous peritoneal dialysis. MEDICATIONS: 1. Alprazolam t.i.d. 2. Lipitor. 3. Coreg. 4. Docusate. 5. Famotidine. 6. Folic acid. 7. Insulin glargine. 8. Loperamide p.r.n. 9. Melatonin. 10. Omeprazole. 11. Zosyn 3.375 g every 12 hours by extended infusion. 12. Simethicone. 13. Brilinta. 14. Vancomycin post dialysis. 15. Amlodipine. 16. Hydralazine. 17. Oxycodone. ALLERGIES: CLINDAMYCIN and MORPHINE. FAMILY HISTORY: No recurrent infections. There are many relatives with diabetes. SOCIAL HISTORY: He lives with his . No travel. No sick contacts. Recently in the hospital at [facility] in [place]. REVIEW OF SYSTEMS: All negative to a full review of systems except as noted above. PHYSICAL EXAM: Vital Signs: Temperature 37.6, heart rate 76, respiratory rate 15, blood pressure 123/82, O2 sat 99% on room air. In general, he is awake and not in distress. Neurologic: He is oriented x3. Follows all commands. Moves all extremities. HEENT: There is no conjunctival hemorrhage. Oropharynx without lesions. Left mastoid tenderness to palpation. Left TM is obscured. There is either adherent material on the auditory canal or something is extruding into the auditory canal in the 3 o'clock position. Neck is supple without nuchal rigidity. Lymph Nodes: There is no inguinal, axillary or epitrochlear lymphadenopathy. Heart has a regular rate and rhythm without murmurs, rubs or gallops. Lungs: Clear to auscultation bilaterally. Abdomen: Soft, nontender, nondistended. There are bowel sounds present. Skin: There is no rash or splinter hemorrhage. The right 3rd and 5th metacarpal head ulceration. The right knee bandage was not taken down nor was the sacral bandage given that he is currently being dialyzed. DIAGNOSTIC STUDIES/LAB DATA: Labs from 04/09/17, white blood cell count 15, hemoglobin 9.4, platelets 427, creatinine is 2, potassium is 4. C-reactive protein was 151. Please see impressions and recommendations outlined above which are discussed with Dr. Cramer Thank you for asking me to see Mr. Landry in consultation. [id number]/[facility] #: [id number] [facility]OSPITALJulia
[2017-04-10] MEDS: Insulin GLARGINE(*) 1 UNITS UNIT SUBCUT SCH (21:48)
[2017-04-10] MEDS: Pregabalin CAP(*) 25 MG PO SCH (21:51)
[2017-04-10] MEDS: Atorvastatin* 20 MG TAB PO SCH (21:53)
[2017-04-11] MEDS: CMC:Ketoconazole 2 % CREAM (NF) 30 GM TUBE TOPICAL SCH ×3 (03:30→23:30)
[2017-04-11] MEDS: Senna TAB PO SCH ×3 (03:30→23:30)
[2017-04-11] MEDS: oxyCODONE ORAL.SOLN* 5 MG/5 ML UDC PO PRN ×2 (03:55→08:35)
[2017-04-11] MEDS: ZOSYN 3.375 GM Q12H per EXTENDED INFUSION IVPB SCH ×4 (05:33→17:35)
[2017-04-11] MEDS: Heparin VIAL(*) 5000 UNITS/ML VIAL (FIVE THOUSAND) SUBCUT SCH ×3 (05:37→23:28)
[2017-04-11] MEDS: hydrALAZINE TAB* 25 MG PO SCH ×3 (05:39→23:27)
[2017-04-11 06:09] LABS: Hematocrit 26 % (42-52); Hemoglobin 8.4 g/dl (14.0-18.0); Mean Corpuscular HGB Conc 33 g/dl (31-36); Mean Corpuscular Hemoglobin 30 pg (27-31); Mean Corpuscular Volume 91 fL (80-94); Mean Platelet Volume 9 um3 (7.4-10.4); Red Blood Count 2.84 10^6/ul (4.0-5.4); Red Cell Distribution Width 18 % (10.5-15); White Blood Count 14.2 10^3/ul (3.5-10.8)
[2017-04-11 06:11] LABS: Add Diff/Slide Review? Slide Review Added; Comments Flag Yes
[2017-04-11 06:38] LABS: BUN/Creatinine Ratio 11.1 (8-20); Calcium 9.4 mg/dL (8.6-10.3); EGFR African American 31.5 (>60); EGFR Non-African American 24.5 (>60); Potassium 3.7 mmol/L (3.5-5.0)
[2017-04-11] MEDS: amLODIPine TAB* 5 MG PO SCH (08:42)
[2017-04-11] MEDS: Omeprazole CAP* 20 MG PO SCH (08:43)
[2017-04-11] MEDS: Famotidine TAB* 20 MG PO SCH (08:43)
[2017-04-11] MEDS: Metoclopramide TAB* 10 MG PO SCH ×3 (08:44→23:28)
[2017-04-11] MEDS: Aspirin Low Dose CHEW TAB* 81 MG PO SCH (08:44)
[2017-04-11] MEDS: Carvedilol TAB* 6.25 MG PO SCH ×2 (08:44→23:27)
[2017-04-11] MEDS: Ticagrelor* 90 MG TAB PO SCH ×2 (08:44→23:27)
[2017-04-11] MEDS: Docusate CAP* 100 MG PO SCH ×2 (09:37→23:28)
[2017-04-11] MEDS: Insulin LISPRO* 1 UNITS UNIT SUBCUT SCH ×4 (09:37→23:29)
[2017-04-11] MEDS: Bisacodyl EC TAB* 5 MG PO SCH (09:37)
[2017-04-11] MEDS: Acetaminophen TAB* 325 MG PO PRN (10:13)
--- NOTE | 2017-04-11 11:29 | PN ---
Progress Note - Progress Note Date of Service: 04/11/17 SOAP: Subjective: DOS: 04/11/17 CC: fever HPI: 57 year old man with ESRD, PAD and recent admission at OSH, admitted here with sepsis. Ongoing fever. L ear and skull pain. R chest pain. Longstanding decubitus ulcer and wound on hands and left leg. No fever, rash, or diarrhea. Objective: [] Vital Signs Temp 38.8 C 04/11/17 08:11 Pulse 80 04/11/17 08:11 Resp 16 04/11/17 08:35 BP 144/52 04/11/17 08:11 Pulse Ox 100 04/11/17 08:11 Intake & Output 04/10/17 04/11/17 04/11/17 18:59 06:59 18:59 Intake Total 1435 100 Output Total 0 Balance 1435 100 Intake: IV Fluids 20 ABX - ZOSYN 20 IVPB 100 ABX - ZOSYN 100 Oral 120 100 Tube Feeding 1155 Tube Feeding Flush Amount 40 Output: Urine 0 Other: Estimated Void Small # Bowel Movements 5 Estimated Stool Amount Small # Voids 2 Gen:awake, no distress HEENT:PERRL, MMM; L TM retracted, canal with whitish clump Neck:supple Heart:RRR no murmur Lungs:CTA BL Abd:+BS NTND soft Skin: R chest blisters; large ischeal ulcer without surrounding erythema MSK no spine tenderness; L mastoid tenderness Laboratory Results - last 24 hr 04/10/17 04/10/17 04/10/17 12:10 14:30 14:30 WBC 9.8 RBC 2.88 L Hgb 8.6 L Hct 26 L MCV 91 MCH 30 MCHC 33 RDW 17 H Plt Count 305 MPV 10 Neut % (Auto) 72.1 Lymph % (Auto) 9.8 L [place] % (Auto) 15.3 H Eos % (Auto) 2.3 Baso % (Auto) 0.5 Absolute Neuts (auto) 7.1 Absolute Lymphs (auto) 1.0 Absolute Monos (auto) 1.5 H Absolute Eos (auto) 0.2 Absolute Basos (auto) 0.1 Absolute Nucleated RBC 0 Nucleated RBC % 0 Sodium 131 L Potassium 3.6 Chloride 92 L Carbon Dioxide 30 Anion Gap 9 BUN 23 Creatinine 2.20 H Est GFR ( Amer) 40.0 Est GFR (Non-Af Amer) 31.1 BUN/Creatinine Ratio 10.5 Glucose 129 H POC Glucose (mg/dL) 211 H Calcium 9.0 Total Bilirubin 0.40 AST 38 ALT 37 Alkaline Phosphatase 95 Troponin I 0.06 H* Total Protein 7.1 Albumin 2.8 L Globulin 4.3 H Albumin/Globulin Ratio 0.7 L Random Vancomycin 8.5 04/10/17 04/10/17 04/11/17 17:11 21:02 05:47 WBC RBC Hgb Hct MCV MCH MCHC RDW Plt Count MPV Neut % (Auto) Lymph % (Auto) [place] % (Auto) Eos % (Auto) Baso % (Auto) Absolute Neuts (auto) Absolute Lymphs (auto) Absolute Monos (auto) Absolute Eos (auto) Absolute Basos (auto) Absolute Nucleated RBC Nucleated RBC % Sodium Potassium Chloride Carbon Dioxide Anion Gap BUN Creatinine Est GFR ( Amer) Est GFR (Non-Af Amer) BUN/Creatinine Ratio Glucose POC Glucose (mg/dL) 199 H 234 H Calcium Total Bilirubin AST ALT Alkaline Phosphatase Troponin I Total Protein Albumin Globulin Albumin/Globulin Ratio Random Vancomycin 24.0 04/11/17 04/11/17 04/11/17 05:47 05:47 07:56 WBC 14.2 H RBC 2.84 L Hgb 8.4 L Hct 26 L MCV 91 MCH 30 MCHC 33 RDW 18 H Plt Count 314 MPV 9 Neut % (Auto) 71.6 Lymph % (Auto) 9.9 L [place] % (Auto) 16.4 H Eos % (Auto) 1.9 Baso % (Auto) 0.2 Absolute Neuts (auto) 10.2 H Absolute Lymphs (auto) 1.4 Absolute Monos (auto) 2.3 H Absolute Eos (auto) 0.3 Absolute Basos (auto) 0 Absolute Nucleated RBC 0 Nucleated RBC % 0 Sodium 132 L Potassium 3.7 Chloride 93 L Carbon Dioxide 31 Anion Gap 8 BUN 30 H Creatinine 2.71 H Est GFR ( Amer) 31.5 Est GFR (Non-Af Amer) 24.5 BUN/Creatinine Ratio 11.1 Glucose 117 H POC Glucose (mg/dL) 110 H Calcium 9.4 Total Bilirubin AST ALT Alkaline Phosphatase Troponin I Total Protein Albumin Globulin Albumin/Globulin Ratio Random Vancomycin Microbiology 04/09/17 05:30 Aerobic Blood Culture - Preliminary Blood Venous No Growth Day 2 Anaerobic Blood Culture - Preliminary No Growth Day 2 Blood Culture - Final 04/09/17 05:21 Aerobic Blood Culture - Preliminary Blood Venous No Growth Day 2 Anaerobic Blood Culture - Preliminary No Growth Day 2 Blood Culture - Final Assessment: 1. fever, ongoing; L otitis media and mastoiditis; given his T1DM and cholesteatoma 2. encephalopathy, present on admission 3. ESRD on HD 4. CAD s/p CABG and recent PCI 5. large decubitus ulcer with likely underlying chronic osteo of left ischeum Plan: 1. continue broad spectrum antibiotics, dosed for ESRD, vanco per pharmacy. Will discuss MRI with Dr Cramer.
[2017-04-11] MEDS: Folic Acid TAB* 1 MG PO SCH (12:01)
--- NOTE | 2017-04-11 23:23 | PN ---
Subjective Date of Service: 04/10/17 Interval History: . pt feels a bit better still with left ear pain WBC improved dialysis occurred some constipation-related pain - not unusual for him. requested breathing treatment - I agreed wound care ongoing TEN continuous as per nutrition recommendations Family History: Unchanged from Admission Social History: Unchanged from Admission Past Medical History: Unchanged from Admission Objective Active Medications: . Acetaminophen (Tylenol Tab*) 650 mg PO Q4H PRN PRN Reason: FEVER/PAIN Last Admin: 04/11/17 10:13 Dose: 650 mg Albuterol/Ipratropium (Duoneb (Albuterol 2.5 Mg/Ipratropium 0.5 Mg)) 1 neb INH Q4H PRN PRN Reason: SOB/WHEEZING Alprazolam (Xanax Tab*) 0.25 mg PO TID PRN PRN Reason: ANXIETY Amlodipine Besylate (Norvasc Tab*) 10 mg PO DAILY [facility] Last Admin: 04/11/17 08:42 Dose: 10 mg Aspirin (Aspirin Low Dose Tab*) 81 mg PO DAILY [facility] Last Admin: 04/11/17 08:44 Dose: 81 mg Atorvastatin Calcium (Lipitor*) 20 mg PO 2100 [facility] Last Admin: 04/10/17 21:53 Dose: 20 mg Bisacodyl (Dulcolax Ec Tab*) 10 mg PO DAILY [facility] Last Admin: 04/11/17 09:37 Dose: Not Given Carvedilol (Coreg Tab*) 12.5 mg PO BID [facility] Last Admin: 04/11/17 08:44 Dose: 12.5 mg Collagenase (Santyl 250 Mg/Gm Oint*) 1 applic TOPICAL .SEE COMMENTS PRN PRN Reason: SEE COMMENTS Dextrose (D50w Syringe 50 Ml*) 12.5 gm IV PUSH .FOR FS < 60 - SS PRN PRN Reason: FS < 60 Docusate Sodium (Colace Cap*) 100 mg PO BID [facility] Last Admin: 04/11/17 09:37 Dose: Not Given Famotidine (Pepcid Tab*) 20 mg PO DAILY [facility] Last Admin: 04/11/17 08:43 Dose: 20 mg Fluticasone Propionate (Flonase Nasal [place] 50mcg*) 2 spray BOTH NARES DAILY PRN PRN Reason: Allergy Symptoms Folic Acid (Folvite Tab*) 1 mg PO DAILY [facility] Last Admin: 04/11/17 12:01 Dose: 1 mg Heparin Sodium (Porcine) (Heparin Vial(*)) 5,000 units SUBCUT Q8HR [facility] Last Admin: 04/11/17 16:19 Dose: 5,000 units Hydralazine HCl (Apresoline Tab*) 25 mg PO Q8HR [facility] Last Admin: 04/11/17 16:21 Dose: 25 mg Vancomycin HCl 1,000 mg/ (Sodium Chloride) 250 mls @ 166.667 mls/hr IVPB DAILY PRN PRN Reason: When AM random level < 20 Piperacillin Sod/Tazobactam (Sod 3.375 gm/ Sodium Chloride) 100 mls @ 25 mls/ hr IVPB Q12H [facility] Last Admin: 04/11/17 17:35 Dose: 25 mls/hr Insulin Glargine (Lantus(*)) 15 units SUBCUT 2100 [facility] Last Admin: 04/10/17 21:48 Dose: 15 units Insulin Human Lispro (Humalog*) 0 units SUBCUT ACHS [facility]ES [facility] PRN Reason: Protocol Last Admin: 04/11/17 17:33 Dose: 4 units Ketoconazole (Nizoral 2% Cream (Nf)) 1 applic TOPICAL BID [facility] PRN Reason: Protocol Last Admin: 04/11/17 14:53 Dose: Not Given Loperamide HCl (Imodium Liq*) 4 mg PO Q6H PRN PRN Reason: DIARRHEA Melatonin (Melatonin (Nf)) 3 mg PO BEDTIME PRN; Protocol PRN Reason: INSOMNIA Metoclopramide HCl (Reglan Tab*) 5 mg PO TID [facility] Last Admin: 04/11/17 16:21 Dose: 5 mg Omeprazole (Prilosec Cap*) 20 mg PO DAILY [facility] Last Admin: 04/11/17 08:43 Dose: 20 mg Oxycodone HCl (Oxycodone Oral.Soln*) 10 mg PO Q4HR PRN PRN Reason: PAIN Last Admin: 04/11/17 08:35 Dose: 10 mg Pharmacy Consult (Zosyn Per Pharmacy*) 1 note FOLLOW UP .ZOSYN PER PHARMACY [facility] Pharmacy Consult (Vancomycin Random Level*) 1 note FOLLOW UP DAILY@0600 [facility] Polyethylene Glycol/Electrolytes (Miralax*) 1 gm PO BID PRN PRN Reason: CONSTIPATION Pregabalin (Lyrica Cap(*)) 75 mg PO BEDTIME COUNT [facility] Last Admin: 04/10/17 21:51 Dose: 75 mg Senna (Senokot Tab*) 1 tab PO BID [facility] Last Admin: 04/11/17 14:31 Dose: Not Given Simethicone (Mylicon*) 80 mg PO Q6H PRN PRN Reason: INDIGESTION Ticagrelor (Brilinta*) 90 mg PO BID COUNT [facility] Last Admin: 04/11/17 08:44 Dose: 90 mg Vital Signs 04/10/17 04/11/17 04/11/17 23:51 00:22 00:38 Temperature 99.6 F Pulse Rate 82 Respiratory 14 14 16 Rate Blood Pressure 144/53 (mmHg) O2 Sat by Pulse 97 Oximetry 04/11/17 04/11/17 04/11/17 01:31 03:37 03:55 Temperature 100.8 F Pulse Rate 84 91 Respiratory 18 16 14 Rate Blood Pressure 140/49 (mmHg) O2 Sat by Pulse 95 93 Oximetry Oxygen Devices in Use Now: Nasal Cannula Appearance: chronically ill, frail. Eyes: No Scleral Icterus Ears/Nose/Mouth/Throat: Clear Oropharnyx, - - left ear with periauricular pain, but not severe Neck: Trachea Midline Respiratory: Symmetrical Chest Expansion and Respiratory Effort Cardiovascular: NL Sounds; No Murmurs; No JVD Abdominal: NL Sounds; No Tenderness; No Distention Lymphatic: No Cervical Adenopathy Extremities: No Edema Skin: - - multiple wounds previously described Neurological: Alert and Oriented x 3 Lines/Tubes/Other Access: Clean, Dry and Intact Peripheral IV Nutrition: Taking PO's Result Diagrams: 04/11/17 05:47 04/11/17 05:47 Additional Lab and Data: Lab Results 04/09/17 04/09/17 04/09/17 Range/Units 05:00 05:00 05:00 WBC 14.9 H (3.5-10.8) 10^3/ul RBC 3.18 L (4.0-5.4) 10^6/ul Hgb 9.4 L (14.0-18.0) g/dl Hct 29 L (42-52) % MCV 90 (80-94) fL MCH 30 (27-31) pg MCHC 33 (31-36) g/dl RDW 18 H (10.5-15) % Plt Count 427 (150-450) 10^3/ul MPV 9 (7.4-10.4) um3 Neut % (Auto) 77.6 (38-83) % Lymph % (Auto) 8.3 L (25-47) % Hall % (Auto) 12.7 H (1-9) % Eos % (Auto) 0.8 (0-6) % Baso % (Auto) 0.6 (0-2) % Absolute Neuts (auto) 11.6 H (1.5-7.7) 10^3/ul Absolute Lymphs (auto) 1.2 (1.0-4.8) 10^3/ul Absolute Monos (auto) 1.9 H (0-0.8) 10^3/ul Absolute Eos (auto) 0.1 (0-0.6) 10^3/ul Absolute Basos (auto) 0.1 (0-0.2) 10^3/ul Absolute Nucleated RBC 0 10^3/ul Nucleated RBC % 0 INR (Anticoag Therapy) 1.08 (0.89-1.11) APTT 38.7 H (26.0-36.3) seconds Sodium (133-145) mmol/L Potassium (3.5-5.0) mmol/L Chloride (101-111) mmol/L Carbon Dioxide (22-32) mmol/L Anion Gap (2-11) mmol/L BUN (6-24) mg/dL Creatinine (0.67-1.17) mg/dL Est GFR ( Amer) (>60) Est GFR (Non-Af Amer) (>60) BUN/Creatinine Ratio (8-20) Glucose (70-100) mg/dL Lactic Acid (0.5-2.0) mmol/L Calcium (8.6-10.3) mg/dL Total Bilirubin (0.2-1.0) mg/dL AST (13-39) U/L ALT (7-52) U/L Alkaline Phosphatase (34-104) U/L Troponin I (<0.04) ng/mL B-Natriuretic Peptide 2753 H ( - 100) pg/mL Total Protein (6.4-8.9) g/dL Albumin (3.2-5.2) g/dL Globulin (2-4) g/dL Albumin/Globulin Ratio (1-3) 04/09/17 04/09/17 Range/Units 05:00 05:00 WBC (3.5-10.8) 10^3/ul RBC (4.0-5.4) 10^6/ul Hgb (14.0-18.0) g/dl Hct (42-52) % MCV (80-94) fL MCH (27-31) pg MCHC (31-36) g/dl RDW (10.5-15) % Plt Count (150-450) 10^3/ul MPV (7.4-10.4) um3 Neut % (Auto) (38-83) % Lymph % (Auto) (25-47) % Hall % (Auto) (1-9) % Eos % (Auto) (0-6) % Baso % (Auto) (0-2) % Absolute Neuts (auto) (1.5-7.7) 10^3/ul Absolute Lymphs (auto) (1.0-4.8) 10^3/ul Absolute Monos (auto) (0-0.8) 10^3/ul Absolute Eos (auto) (0-0.6) 10^3/ul Absolute Basos (auto) (0-0.2) 10^3/ul Absolute Nucleated RBC 10^3/ul Nucleated RBC % INR (Anticoag Therapy) (0.89-1.11) APTT (26.0-36.3) seconds Sodium 130 L (133-145) mmol/L Potassium 3.8 (3.5-5.0) mmol/L Chloride 90 L (101-111) mmol/L Carbon Dioxide 33 H (22-32) mmol/L Anion Gap 7 (2-11) mmol/L BUN 25 H (6-24) mg/dL Creatinine 2.81 H (0.67-1.17) mg/dL Est GFR ( Amer) 30.2 (>60) Est GFR (Non-Af Amer) 23.5 (>60) BUN/Creatinine Ratio 8.9 (8-20) Glucose 206 H (70-100) mg/dL Lactic Acid 0.9 (0.5-2.0) mmol/L Calcium 9.8 (8.6-10.3) mg/dL Total Bilirubin 0.40 (0.2-1.0) mg/dL AST 32 (13-39) U/L ALT 27 (7-52) U/L Alkaline Phosphatase 111 H (34-104) U/L Troponin I 0.05 H* (<0.04) ng/mL B-Natriuretic Peptide ( - 100) pg/mL Total Protein 7.1 (6.4-8.9) g/dL Albumin 3.0 L (3.2-5.2) g/dL Globulin 4.1 H (2-4) g/dL Albumin/Globulin Ratio 0.7 L (1-3) Microbiology and Other Data: Microbiology 04/09/17 12:40 Nasal Screen MRSA (PCR)([facility]) - Final Nasal Mrsa Negative Assess/Plan/Problems-Billing . Assessment: 57 yo man with multiple significant problems including IDDM, CKD-V (ESRD), on HD , s/p CABG recently and multiple coronary stents as well as multiple amputations (R AKA, L BKA, R 2-5th fingers) now with fever and sepsis and unclear source, leading candidates are L OM vs mastoiditis or osteomyelitis from any of his significant wounds. . - Patient Problems (1) Sepsis Current Visit: Yes Status: Acute Priority: High Comment: - broad spectrum antibiotics - Vanco and Zosyn renally dosed. - ID consultation appreciated (2) Otitis media Current Visit: Yes Status: Acute Priority: High Code(s): H66.90 - OTITIS MEDIA, UNSPECIFIED, UNSPECIFIED EAR Comment: - TM bulging, not ruptured. - ? cholesteatoma - Mastoiditis - recent URI noted... - patient immunosupressed. (3) Mastoiditis Current Visit: Yes Status: Acute Priority: High Code(s): H70.90 - UNSPECIFIED MASTOIDITIS, UNSPECIFIED EAR Comment: - possible (4) Diabetic nephropathy associated with type 1 diabetes mellitus Current Visit: No Status: Acute Priority: High Code(s): E10.21 - TYPE 1 DIABETES MELLITUS WITH DIABETIC NEPHROPATHY SNOMED Code(s): 760943992 Comment: - noted (5) History of left below knee amputation Current Visit: No Status: Chronic Priority: High Code(s): Z89.512 - ACQUIRED ABSENCE OF LEFT LEG BELOW KNEE (6) History of right above knee amputation Current Visit: No Status: Chronic Priority: High Code(s): Z89.611 - ACQUIRED ABSENCE OF RIGHT LEG ABOVE KNEE (7) Hypercholesteremia Current Visit: No Status: Chronic Priority: Medium Code(s): E78.0 - PURE HYPERCHOLESTEROLEMIA * DO NOT USE * (8) Peripheral vascular disease Current Visit: No Status: Chronic Priority: High Code(s): I73.9 - PERIPHERAL VASCULAR DISEASE, UNSPECIFIED SNOMED Code(s): 918271695 (9) 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 - labs at HD when possible
[2017-04-11] MEDS: Pregabalin CAP(*) 25 MG PO SCH (23:26)
[2017-04-11] MEDS: Atorvastatin* 20 MG TAB PO SCH (23:27)
[2017-04-11] MEDS: Insulin GLARGINE(*) 1 UNITS UNIT SUBCUT SCH (23:29)
--- NOTE | 2017-04-11 23:37 | PN ---
Subjective Date of Service: 04/11/17 Interval History: . Saw patient earlier today. WBC up from yesterday; though he feels a bit better I told him we would want a bit more time on hte IV antibiotics. If continued elevated WBC tomorrow and not clear improvement, can pursue MRI, though ENT informally made it clear that there would be a high threshold for surgery if the patient was stable, or improving, given his considerable co- morbidities and associated surgical risk. HD tomorrow and labs rechecked. had BM yesterday and rectal pain resolved Family History: Unchanged from Admission Social History: Unchanged from Admission Past Medical History: Unchanged from Admission Objective Active Medications: . Acetaminophen (Tylenol Tab*) 650 mg PO Q4H PRN PRN Reason: FEVER/PAIN Last Admin: 04/11/17 10:13 Dose: 650 mg Albuterol/Ipratropium (Duoneb (Albuterol 2.5 Mg/Ipratropium 0.5 Mg)) 1 neb INH Q4H PRN PRN Reason: SOB/WHEEZING Alprazolam (Xanax Tab*) 0.25 mg PO TID PRN PRN Reason: ANXIETY Amlodipine Besylate (Norvasc Tab*) 10 mg PO DAILY [facility] Last Admin: 04/11/17 08:42 Dose: 10 mg Aspirin (Aspirin Low Dose Tab*) 81 mg PO DAILY [facility] Last Admin: 04/11/17 08:44 Dose: 81 mg Atorvastatin Calcium (Lipitor*) 20 mg PO 2100 [facility] Last Admin: 04/11/17 23:27 Dose: 20 mg Bisacodyl (Dulcolax Ec Tab*) 10 mg PO DAILY [facility] Last Admin: 04/11/17 09:37 Dose: Not Given Carvedilol (Coreg Tab*) 12.5 mg PO BID [facility] Last Admin: 04/11/17 23:27 Dose: 12.5 mg Collagenase (Santyl 250 Mg/Gm Oint*) 1 applic TOPICAL .SEE COMMENTS PRN PRN Reason: SEE COMMENTS Dextrose (D50w Syringe 50 Ml*) 12.5 gm IV PUSH .FOR FS < 60 - SS PRN PRN Reason: FS < 60 Docusate Sodium (Colace Cap*) 100 mg PO BID [facility] Last Admin: 04/11/17 23:28 Dose: Not Given Famotidine (Pepcid Tab*) 20 mg PO DAILY [facility] Last Admin: 04/11/17 08:43 Dose: 20 mg Fluticasone Propionate (Flonase Nasal [place] 50mcg*) 2 spray BOTH NARES DAILY PRN PRN Reason: Allergy Symptoms Folic Acid (Folvite Tab*) 1 mg PO DAILY [facility] Last Admin: 04/11/17 12:01 Dose: 1 mg Heparin Sodium (Porcine) (Heparin Vial(*)) 5,000 units SUBCUT Q8HR [facility] Last Admin: 04/11/17 23:28 Dose: 5,000 units Hydralazine HCl (Apresoline Tab*) 25 mg PO Q8HR [facility] Last Admin: 04/11/17 23:27 Dose: 25 mg Vancomycin HCl 1,000 mg/ (Sodium Chloride) 250 mls @ 166.667 mls/hr IVPB DAILY PRN PRN Reason: When AM random level < 20 Piperacillin Sod/Tazobactam (Sod 3.375 gm/ Sodium Chloride) 100 mls @ 25 mls/ hr IVPB Q12H [facility] Last Admin: 04/11/17 17:35 Dose: 25 mls/hr Insulin Glargine (Lantus(*)) 15 units SUBCUT 2100 [facility] Last Admin: 04/11/17 23:29 Dose: 15 units Insulin Human Lispro (Humalog*) 0 units SUBCUT ACHS [facility] PRN Reason: Protocol Last Admin: 04/11/17 23:29 Dose: 4 units Ketoconazole (Nizoral 2% Cream (Nf)) 1 applic TOPICAL BID [facility] PRN Reason: Protocol Last Admin: 04/11/17 23:30 Dose: Not Given Loperamide HCl (Imodium Liq*) 4 mg PO Q6H PRN PRN Reason: DIARRHEA Melatonin (Melatonin (Nf)) 3 mg PO BEDTIME PRN; Protocol PRN Reason: INSOMNIA Metoclopramide HCl (Reglan Tab*) 5 mg PO TID [facility] Last Admin: 04/11/17 23:28 Dose: 5 mg Omeprazole (Prilosec Cap*) 20 mg PO DAILY [facility] Last Admin: 04/11/17 08:43 Dose: 20 mg Oxycodone HCl (Oxycodone Oral.Soln*) 10 mg PO Q4HR PRN PRN Reason: PAIN Last Admin: 04/11/17 08:35 Dose: 10 mg Pharmacy Consult (Zosyn Per Pharmacy*) 1 note FOLLOW UP .ZOSYN PER PHARMACY [facility] Pharmacy Consult (Vancomycin Random Level*) 1 note FOLLOW UP DAILY@0600 [facility] Polyethylene Glycol/Electrolytes (Miralax*) 1 gm PO BID PRN PRN Reason: CONSTIPATION Pregabalin (Lyrica Cap(*)) 75 mg PO BEDTIME [facility] Last Admin: 04/11/17 23:26 Dose: 75 mg Senna (Senokot Tab*) 1 tab PO BID [facility] Last Admin: 04/11/17 23:30 Dose: Not Given Simethicone (Mylicon*) 80 mg PO Q6H PRN PRN Reason: INDIGESTION Ticagrelor (Brilinta*) 90 mg PO BID [facility] Last Admin: 04/11/17 23:27 Dose: 90 mg Vital Signs 04/10/17 04/11/17 04/11/17 23:51 00:22 00:38 Temperature 99.6 F Pulse Rate 82 Respiratory 14 14 16 Rate Blood Pressure 144/53 (mmHg) O2 Sat by Pulse 97 Oximetry 04/11/17 04/11/17 04/11/17 01:31 03:37 03:55 Temperature 100.8 F Pulse Rate 84 91 Respiratory 18 16 14 Rate Blood Pressure 140/49 (mmHg) O2 Sat by Pulse 95 93 Oximetry Oxygen Devices in Use Now: Nasal Cannula Appearance: NAD; chronically ill Respiratory: Symmetrical Chest Expansion and Respiratory Effort Cardiovascular: NL Sounds; No Murmurs; No JVD, - - surgical scar from CABG Abdominal: - - PEG noted Extremities: - - AKA/BKA Skin: No Nodules or Sclerosis, - - multiple wounds Neurological: Alert and Oriented x 3 Lines/Tubes/Other Access: Clean, Dry and Intact Peripheral IV, Clean, Dry and Intact Percuteneous Feeding Tube - PEG, Clean, Dry and Intact Other Access - HD Nutrition: Taking PO's Result Diagrams: 04/11/17 05:47 04/11/17 05:47 Microbiology and Other Data: Microbiology 04/09/17 12:40 Nasal Screen MRSA (PCR)([facility]) - Final Nasal Mrsa Negative Assess/Plan/Problems-Billing . Assessment: 57 yo man with multiple significant problems including IDDM, CKD-V (ESRD), on HD , s/p CABG recently and multiple coronary stents as well as multiple amputations (R AKA, L BKA, R 2-5th fingers) now with fever and sepsis and unclear source, leading candidates are L OM vs mastoiditis or osteomyelitis from any of his significant wounds. . - Patient Problems (1) Sepsis Current Visit: Yes Status: Acute Priority: High Comment: - broad spectrum antibiotics - Vanco and Zosyn renally dosed. - ID consultation appreciated - Agree with imaging L. mastoid area if no improvement or if clinical decline - Surgery would, of course, be a last choice given his severe CAD, PAOD, IDDM, ESRD/HD, etc. etc. (2) Otitis media Current Visit: Yes Status: Acute Priority: High Code(s): H66.90 - OTITIS MEDIA, UNSPECIFIED, UNSPECIFIED EAR Comment: - TM bulging, not ruptured. - ? cholesteatoma - Mastoiditis - recent URI noted... - patient immunosupressed. (3) Mastoiditis Current Visit: Yes Status: Acute Priority: High Code(s): H70.90 - UNSPECIFIED MASTOIDITIS, UNSPECIFIED EAR Comment: - possible (4) Diabetic nephropathy associated with type 1 diabetes mellitus Current Visit: No Status: Acute Priority: High Code(s): E10.21 - TYPE 1 DIABETES MELLITUS WITH DIABETIC NEPHROPATHY SNOMED Code(s): 314205447 Comment: - noted (5) History of left below knee amputation Current Visit: No Status: Chronic Priority: High Code(s): Z89.512 - ACQUIRED ABSENCE OF LEFT LEG BELOW KNEE (6) History of right above knee amputation Current Visit: No Status: Chronic Priority: High Code(s): Z89.611 - ACQUIRED ABSENCE OF RIGHT LEG ABOVE KNEE (7) Hypercholesteremia Current Visit: No Status: Chronic Priority: Medium Code(s): E78.0 - PURE HYPERCHOLESTEROLEMIA * DO NOT USE * (8) Peripheral vascular disease Current Visit: No Status: Chronic Priority: High Code(s): I73.9 - PERIPHERAL VASCULAR DISEASE, UNSPECIFIED SNOMED Code(s): 404759062 (9) 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 - labs at HD when possible
[2017-04-12 05:59] LABS: Hematocrit 25 % (42-52); Hemoglobin 8.2 g/dl (14.0-18.0); Mean Corpuscular HGB Conc 33 g/dl (31-36); Mean Corpuscular Hemoglobin 29 pg (27-31); Mean Corpuscular Volume 90 fL (80-94); Mean Platelet Volume 9 um3 (7.4-10.4); Red Blood Count 2.77 10^6/ul (4.0-5.4); Red Cell Distribution Width 17 % (10.5-15); White Blood Count 13.8 10^3/ul (3.5-10.8)
[2017-04-12] MEDS: Vancomycin Random Level* NOTE FOLLOW UP SCH ×2 (06:03→06:04)
[2017-04-12] MEDS: ZOSYN 3.375 GM Q12H per EXTENDED INFUSION IVPB SCH ×6 (06:04→22:53)
[2017-04-12] MEDS: Heparin VIAL(*) 5000 UNITS/ML VIAL (FIVE THOUSAND) SUBCUT SCH ×3 (06:04→23:19)
[2017-04-12] MEDS: hydrALAZINE TAB* 25 MG PO SCH ×3 (06:05→23:20)
[2017-04-12] MEDS: Acetaminophen TAB* 325 MG PO PRN (06:14)
[2017-04-12 06:17] LABS: Comments Flag Yes
[2017-04-12 06:20] LABS: Albumin 2.7 g/dL (3.2-5.2); Calcium 9.5 mg/dL (8.6-10.3); EGFR African American 19.5 (>60); EGFR Non-African American 15.2 (>60); Potassium 3.8 mmol/L (3.5-5.0); Total Bilirubin 0.4 mg/dL (0.2-1.0); Total Protein 6.7 g/dL (6.4-8.9)
[2017-04-12] MEDS ORDERED: Saline NASAL SPRAY 0.65%* BTL BOTH NARES PRN (06:54)
[2017-04-12] MEDS: Insulin LISPRO* 1 UNITS UNIT SUBCUT SCH ×4 (08:41→23:17)
[2017-04-12] MEDS ORDERED: Epoetin Alfa* 10,000 UNITS/ML VIAL IV ONE (09:00)
[2017-04-12] MEDS ORDERED: Heparin DIALYSIS ONLY(*) 1,000 UNITS/ML VIAL DIALYSIS ONE (09:00)
[2017-04-12] MEDS: oxyCODONE ORAL.SOLN* 5 MG/5 ML UDC PO PRN ×2 (14:08→23:08)
[2017-04-12] MEDS: Omeprazole CAP* 20 MG PO SCH (14:11)
[2017-04-12] MEDS: Folic Acid TAB* 1 MG PO SCH (14:11)
[2017-04-12] MEDS: amLODIPine TAB* 5 MG PO SCH (14:11)
[2017-04-12] MEDS: Aspirin Low Dose CHEW TAB* 81 MG PO SCH (14:11)
[2017-04-12] MEDS: Famotidine TAB* 20 MG PO SCH (14:12)
[2017-04-12] MEDS: Senna TAB PO SCH ×2 (14:22→23:19)
[2017-04-12] MEDS: Bisacodyl EC TAB* 5 MG PO SCH (14:33)
[2017-04-12] MEDS: Docusate CAP* 100 MG PO SCH ×2 (14:34→23:18)
[2017-04-12] MEDS: Carvedilol TAB* 6.25 MG PO SCH ×2 (14:35→23:16)
[2017-04-12] MEDS: Metoclopramide TAB* 10 MG PO SCH ×3 (14:35→23:16)
[2017-04-12] MEDS: CMC:Ketoconazole 2 % CREAM (NF) 30 GM TUBE TOPICAL SCH ×2 (14:35→23:18)
--- NOTE | 2017-04-12 14:44 | PN ---
Subjective Date of Service: 04/12/17 Interval History: Patient seen this morning at . Reports feeling better, pain around the ear almost resolved, still some anterior to the ear. Denies subjective fever/ chills. Still feels hearing is a bit impaired. Family History: Unchanged from Admission Social History: Unchanged from Admission Past Medical History: Unchanged from Admission Objective Active Medications: Acetaminophen (Tylenol Tab*) 650 mg PO Q4H PRN Albuterol/Ipratropium (Duoneb (Albuterol 2.5 Mg/Ipratropium 0.5 Mg)) 1 neb INH Q4H PRN Alprazolam (Xanax Tab*) 0.25 mg PO TID PRN Amlodipine Besylate (Norvasc Tab*) 10 mg PO DAILY [facility] Aspirin (Aspirin Low Dose Tab*) 81 mg PO DAILY [facility] Atorvastatin Calcium (Lipitor*) 20 mg PO 2100 [facility] Bisacodyl (Dulcolax Ec Tab*) 10 mg PO DAILY [facility] Carvedilol (Coreg Tab*) 12.5 mg PO BID [facility] Collagenase (Santyl 250 Mg/Gm Oint*) 1 applic TOPICAL .SEE COMMENTS PRN Dextrose (D50w Syringe 50 Ml*) 12.5 gm IV PUSH .FOR FS < 60 - SS PRN Docusate Sodium (Colace Cap*) 100 mg PO BID [facility] Famotidine (Pepcid Tab*) 20 mg PO DAILY [facility] Fluticasone Propionate (Flonase Nasal [place] 50mcg*) 2 spray BOTH NARES DAILY PRN Folic Acid (Folvite Tab*) 1 mg PO DAILY [facility] Heparin Sodium (Porcine) (Heparin Vial(*)) 5,000 units SUBCUT Q8HR [facility] Hydralazine HCl (Apresoline Tab*) 25 mg PO Q8HR [facility] Vancomycin HCl 1,000 mg/ (Sodium Chloride) 250 mls @ 166.667 mls/hr IVPB DAILY [facility]N Piperacillin Sod/Tazobactam (Sod 3.375 gm/ Sodium Chloride) 100 mls @ 25 mls/ hr IVPB Q12H [facility] Insulin Glargine (Lantus(*)) 15 units SUBCUT 2100 [facility] Insulin Human Lispro (Humalog*) 0 units SUBCUT ACHS [facility] Ketoconazole (Nizoral 2% Cream (Nf)) 1 applic TOPICAL BID [facility] Loperamide HCl (Imodium Liq*) 4 mg PO Q6H PRN Melatonin (Melatonin (Nf)) 3 mg PO BEDTIME PRN; Protocol Metoclopramide HCl (Reglan Tab*) 5 mg PO TID [facility] Omeprazole (Prilosec Cap*) 20 mg PO DAILY [facility] Oxycodone HCl (Oxycodone Oral.Soln*) 10 mg PO Q4HR PRN Pharmacy Consult (Zosyn Per Pharmacy*) 1 note FOLLOW UP .ZOSYN PER PHARMACY [facility] Pharmacy Consult (Vancomycin Random Level*) 1 note FOLLOW UP DAILY@0600 [facility] Polyethylene Glycol/Electrolytes (Miralax*) 1 gm PO BID PRN Pregabalin (Lyrica Cap(*)) 75 mg PO BEDTIME [facility] Senna (Senokot Tab*) 1 tab PO BID [facility] Simethicone (Mylicon*) 80 mg PO Q6H PRN Sodium Chloride (Sodium Chloride 0.65% Nasal [place]*) 2 spray BOTH NARES Q4H PRN Ticagrelor (Brilinta*) 90 mg PO BID [facility] Vital Signs 04/11/17 04/11/17 04/11/17 15:23 20:00 20:01 Temperature 98.6 F 98.9 F Pulse Rate 66 70 Respiratory 16 16 20 Rate Blood Pressure 127/47 143/55 (mmHg) O2 Sat by Pulse 96 97 Oximetry 04/11/17 04/11/17 04/12/17 23:26 23:32 00:36 Temperature 99.2 F Pulse Rate 75 76 Respiratory 3 16 Rate Blood Pressure 175/59 144/51 (mmHg) O2 Sat by Pulse 100 Oximetry 04/12/17 04/12/17 04/12/17 01:26 02:16 04:20 Temperature 99.8 F 100.7 F Pulse Rate 73 76 Respiratory 16 16 24 Rate Blood Pressure 180/61 140/52 (mmHg) O2 Sat by Pulse 99 97 Oximetry 04/12/17 04/12/17 04/12/17 06:17 08:00 08:09 Temperature 99.8 F 98.5 F Pulse Rate 68 Respiratory 20 20 Rate Blood Pressure 139/51 (mmHg) O2 Sat by Pulse 97 Oximetry 04/12/17 04/12/17 12:51 14:08 Temperature 98.3 F Pulse Rate 72 Respiratory 16 18 Rate Blood Pressure 149/54 (mmHg) O2 Sat by Pulse 99 Oximetry Oxygen Devices in Use Now: None Appearance: Middle-aged, M, laying in bed in NAD Eyes: No Scleral Icterus Ears/Nose/Mouth/Throat: Mucous Membranes Moist, - - Some mild bulging of L TM, adherent material to ear canal, no erythema, no blood Neck: NL Appearance and Movements; NL JVP Respiratory: Symmetrical Chest Expansion and Respiratory Effort, Clear to Auscultation Cardiovascular: NL Sounds; No Murmurs; No JVD, RRR Abdominal: NL Sounds; No Tenderness; No Distention, - - PEG tube in place, appears c/d/i Lymphatic: No Cervical Adenopathy Extremities: - - R AKA, L BKA Neurological: Alert and Oriented x 3 Nutrition: Taking PO's Result Diagrams: 04/12/17 05:28 04/12/17 05:28 Assess/Plan/Problems-Billing . Assessment: 57 yo man with multiple significant problems including IDDM, CKD-V (ESRD), on HD , s/p CABG recently and multiple coronary stents as well as multiple amputations (R AKA, L BKA, R 2-5th fingers) now with fever and sepsis and unclear source, seems that ear is most likely OM vs cholesteatoma vs less likely mastoiditis . - Patient Problems (1) Sepsis Current Visit: Yes Comment: - Seems 2/2 OM vs cholesteatoma vs possible mastoiditis - Mild fever this AM, continue broad spectrum antibiotics - Vanco and Zosyn renally dosed. - ID consultation appreciated, will get MRI head/ear today to rule out deeper infection - Surgery would, of course, be a last choice given his severe CAD, PAOD, IDDM, ESRD/HD, etc. etc. 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 - labs at HD when possible - continue Lantus and HISS (3) CAD (coronary artery disease) Current Visit: Yes Comment: Continue ASA, Brilinta, Coreg, statin (4) History of left below knee amputation Current Visit: No (5) History of right above knee amputation Current Visit: No (6) DVT prophylaxis Current Visit: Yes Comment: HSQ Status and Disposition: Likely discharge tomorrow pending labs and patient remaining afebrile
[2017-04-12] MEDS: Ticagrelor* 90 MG TAB PO SCH ×2 (14:52→23:16)
--- NOTE | 2017-04-12 21:50 | RAD ---
Indication: Left ear pain. Image sequences: Sagittal and axial T1, axial T2, FLAIR, diffusion and susceptibility weighted images of the brain were obtained. Ventricular structures are midline. No midline shift is noted. The extra-axial spaces are unremarkable. There is no restriction of diffusion noted. Periventricular signal abnormality consistent with chronic ischemic White matter change or minor microvascular disease is noted. Posterior fossa and brainstem are unremarkable. No evidence of susceptibility weighted artifact is noted. Mastoid air cells demonstrates fluid in both mastoid air cells. This is consistent with mastoid sinusitis. IMPRESSION: CHRONIC ISCHEMIC WHITE MATTER CHANGE WITH NO RESTRICTION OF DIFFUSION. FLUID IS NOTED IN THE MASTOID AIR CELLS BILATERALLY CONSISTENT WITH MASTOID SINUSITIS.
[2017-04-12] MEDS: Pregabalin CAP(*) 25 MG PO SCH (23:12)
[2017-04-12] MEDS: Atorvastatin* 20 MG TAB PO SCH (23:16)
[2017-04-12] MEDS: Insulin GLARGINE(*) 1 UNITS UNIT SUBCUT SCH (23:17)
[2017-04-13] MEDS ORDERED: hydrALAZINE TAB* 25 MG PO ONE (03:43)
[2017-04-13] MEDS: oxyCODONE ORAL.SOLN* 5 MG/5 ML UDC PO PRN (04:06)
[2017-04-13 05:43] LABS: Hematocrit 26 % (42-52); Hemoglobin 8.6 g/dl (14.0-18.0); Mean Corpuscular HGB Conc 33 g/dl (31-36); Mean Corpuscular Hemoglobin 29 pg (27-31); Mean Corpuscular Volume 90 fL (80-94); Mean Platelet Volume 10 um3 (7.4-10.4); Red Blood Count 2.93 10^6/ul (4.0-5.4); Red Cell Distribution Width 17 % (10.5-15); White Blood Count 11.3 10^3/ul (3.5-10.8)
[2017-04-13] MEDS: hydrALAZINE TAB* 25 MG PO SCH (06:05)
[2017-04-13] MEDS: Heparin VIAL(*) 5000 UNITS/ML VIAL (FIVE THOUSAND) SUBCUT SCH (06:06)
[2017-04-13] MEDS: Vancomycin Random Level* NOTE FOLLOW UP SCH (06:06)
[2017-04-13 08:21] VITALS: BP 141/62
[2017-04-13] MEDS: Insulin LISPRO* 1 UNITS UNIT SUBCUT SCH (08:25)
[2017-04-13] MEDS: ZOSYN 3.375 GM Q12H per EXTENDED INFUSION IVPB SCH ×2 (08:37)
[2017-04-13] MEDS: Docusate CAP* 100 MG PO SCH (08:37)
[2017-04-13] MEDS: Bisacodyl EC TAB* 5 MG PO SCH (08:37)
[2017-04-13] MEDS: Senna TAB PO SCH (08:46)
[2017-04-13] MEDS: Folic Acid TAB* 1 MG PO SCH (08:46)
[2017-04-13] MEDS: amLODIPine TAB* 5 MG PO SCH (08:46)
[2017-04-13] MEDS: Omeprazole CAP* 20 MG PO SCH (08:48)
[2017-04-13] MEDS: Ticagrelor* 90 MG TAB PO SCH (08:48)
[2017-04-13] MEDS: Aspirin Low Dose CHEW TAB* 81 MG PO SCH (08:48)
[2017-04-13] MEDS: Famotidine TAB* 20 MG PO SCH (08:48)
[2017-04-13] MEDS: Carvedilol TAB* 6.25 MG PO SCH (08:48)
[2017-04-13] MEDS: Metoclopramide TAB* 10 MG PO SCH (08:48)
[2017-04-13] MEDS: CMC:Ketoconazole 2 % CREAM (NF) 30 GM TUBE TOPICAL SCH (08:50)
--- NOTE | 2017-04-13 08:53 | DCNOTE ---
Patient seen this morning. Reported some SOB overnight, lungs remained clear, no hypoxia ?anxiety, receiving xanax right now. Denies any ear pain, still some difficulty hearing on the L side. No fever or chills. On exam, RRR, s1 and s2 present, trace rales in B/L bases, no wheezing, good air movement, no mastoid tenderness, no jaw tenderness MRI shows some fluid in B/L mastoid sinuses, does not appear to have any bone involvement/erosion. Plan to discharge later this morning as long as breathing remains stable. Will send on every other day [facility] for prolonged course. Will need ID/ENT follow- up.
[2017-04-13] MEDS ORDERED: Vancomycin(*) 1,000 MG in NS 0.9% 250 ML* 250 ML IVPB ONE (10:00)
--- NOTE | 2017-04-13 10:03 | RAD ---
INDICATION: Rales, dyspnea. COMPARISON: Comparison is made with a prior chest x-ray study from April 09, 2017 TECHNIQUE: AP and lateral views of the chest were obtained. FINDINGS: There is a central venous catheter entering on the left side. The catheter tip projects over the right atrium. The heart appears mildly enlarged and unchanged from the prior exam. There is mild diffuse prominence of the interstitial markings and slight thickening of the fissures suggestive of mild congestive heart failure. IMPRESSION: FINDINGS SUGGESTIVE OF CONGESTIVE HEART FAILURE.
--- NOTE | 2017-04-13 18:16 | DS ---
CC: Justa Cruz NP * DISCHARGE SUMMARY: DATE OF ADMISSION: 04/09/17 DATE OF DISCHARGE: 04/13/17 PRIMARY CARE PHYSICIAN: Justa Cruz NP PRINCIPAL DISCHARGE DIAGNOSIS: Otitis media of the left ear, possible cholesteatoma, less likely mastoiditis. SECONDARY DIAGNOSES: 1. Type 1 diabetes. 2. End-stage renal disease, on hemodialysis. 3. Severe peripheral neuropathy. 4. Multiple amputations. 5. Coronary artery disease with multiple myocardial infarctions and multiple acute coronary interventions. 6. Hypertension. 7. Hyperlipidemia. DISCHARGE MEDICATIONS: 1. Levofloxacin 500 mg by mouth every other day x2 weeks. 2. Epogen 4000 units IV as needed. 3. Lansoprazole 30 mg per G-tube. 4. Collagenase 1 application topical daily. 5. Lantus 15 units subcutaneous every night. 6. Fluticasone 2 sprays in both nares daily as needed for allergy symptoms. 7. Combivent 1 puff inhaled every 6 hours. 8. Iron sucrose 100 mg IV every 14 days. 9. Ketoconazole 1 application topical 2 times daily. 10. Lactobacillus 2 capsules per G-tube 2 times daily. 11. Loperamide 4 mg per G-tube every 6 hours as needed for diarrhea. 12. Reglan 5 mg per G-tube 3 times daily. 13. Oxycodone 5 mg per G-tube every 4 hours as needed for pain. 14. MiraLax 1 packet per G-tube twice a day as needed for constipation. 15. Lyrica 75 mg per G-tube at bedtime. 16. Multivitamin 1 tablet per G-tube daily. 17. Insulin aspart sliding scale with meals at night. 18. Tylenol 650 mg by G-tube every 6 hours as needed for pain. 19. Melatonin 3 mg by G-tube at bedtime as needed for insomnia. 20. Ticagrelor 90 mg by G-tube twice daily. 21. Alprazolam 0.5 mg per G-tube 3 times daily. 22. Aspirin 81 mg per G-tube daily. 23. Atorvastatin 20 mg per G-tube daily. 24. Coreg 12.5 mg per G-tube twice daily. 25. Dextrose 40% per G-tube once as needed for hypoglycemia. 26. Colace 100 mg per G-tube twice daily. 27. Famotidine 20 mg per G-tube daily. 28. Folic acid 1 mg per G-tube daily. 29. Amlodipine 10 mg per G-tube daily. 30. Hydralazine 25 mg per G-tube every 8 hours. 31. Simethicone 80 mg per G- tube every 6 hours as needed for indigestion. STUDIES DONE DURING HOSPITALIZATION: Chest x-ray, portable, impression: No evidence for acute findings. Right hand x-ray, impression: Diffuse osteopenia, open wound at the head of the 5th metacarpal. No gross lytic lesions noted. Knee, left x-ray, impression: Extensive atherosclerosis, diffuse osteopenia. MRI of the brain without contrast, impression: Chronic ischemic white matter change with no restriction or diffusion. Fluid is noted in the mastoid air cells bilaterally consistent with mastoid sinusitis. Chest x-ray, PA and lateral, impression: Findings suggestive of congestive heart failure. CONSULTANTS DURING THE HOSPITALIZATION: Dr. Giovanni Dean, Infectious Disease. HISTORY OF PRESENT ILLNESS AND HOSPITAL SUMMARY: Please see the full history and physical by Dr. Phil Cramer, for full details. Briefly, Mr. Landry is a 57-year-old man who presented to the hospital with fever, shortness of breath , left ear fullness, sinus congestion in addition to some chest pain. The patient reported a few days of fever and some difficulty hearing as well. He had a fever of 102 here at the hospital. He was started on broad-spectrum antibiotics. On exam, he had a fluid filled and bulging tympanic membrane. It was felt that he likely had otitis media. Dr. Dean was consulted who also had some concern about possible cholesteatoma or possible mastoiditis. Over the following days, the patient improved with broad-spectrum IV antibiotics. MRI of the head showed some fluid in bilateral mastoid air cells; however, the patient did not have any tenderness over the mastoid bone on the left side on the 2 days that I evaluated him, felt like this is most likely a acute mastoiditis. The patient will be transitioned to levofloxacin at Dr. Dean' s suggestion to take every other day for a 2-week course. The patient should follow up with Dr. Dean as well as with ENT as an outpatient. TIME SPENT: Total time spent on this discharge, 45 minutes. This is a summary of the hospitalization. Please see the full medical record for further details. [id number]/CPS #: [id number] MTDD
== END 2017-04-13 13:05 | disposition home or self-care (01) | DRG 871 ==
LOC: ED 04:36 → ICU 09:14 → MEDTELE 04-10 16:37
PROVIDERS: ADMIT Internal Medicine; ATTEND Hospitalist
PROC: 5A1D60Z (ICD-10-PCS; principal; 2017-04-10)
DX: A41.9 Sepsis, unspecified organism (principal); L89.153 Pressure ulcer of sacral region, stage 3; G93.40 Encephalopathy, unspecified; N18.6 End stage renal disease; I12.0 Hypertensive chronic kidney disease with stage 5 chronic kidney disease or end stage renal disease; E10.22 Type 1 diabetes mellitus with diabetic chronic kidney disease; H70.002 Acute mastoiditis without complications, left ear; L97.819 Non-pressure chronic ulcer of other part of right lower leg with unspecified severity; I48.91 Unspecified atrial fibrillation; H66.92 Otitis media, unspecified, left ear; Z95.5 Presence of coronary angioplasty implant and graft; Z99.2 Dependence on renal dialysis; Z88.5 Allergy status to narcotic agent; Z88.1 Allergy status to other antibiotic agents; E78.5 Hyperlipidemia, unspecified; I25.2 Old myocardial infarction; G47.30 Sleep apnea, unspecified; K21.9 Gastro-esophageal reflux disease without esophagitis; H26.9 Unspecified cataract; H71.92 Unspecified cholesteatoma, left ear; I25.10 Atherosclerotic heart disease of native coronary artery without angina pectoris; E10.42 Type 1 diabetes mellitus with diabetic polyneuropathy; E10.51 Type 1 diabetes mellitus with diabetic peripheral angiopathy without gangrene; M85.841 Other specified disorders of bone density and structure, right hand; M85.862 Other specified disorders of bone density and structure, left lower leg; E10.319 Type 1 diabetes mellitus with unspecified diabetic retinopathy without macular edema; D64.9 Anemia, unspecified; Z83.3 Family history of diabetes mellitus; Z87.891 Personal history of nicotine dependence; Z89.611 Acquired absence of right leg above knee; Z95.1 Presence of aortocoronary bypass graft; Z79.4 Long term (current) use of insulin; Z79.82 Long term (current) use of aspirin; Z89.512 Acquired absence of left leg below knee
CPT/HCPCS: 36415; 70551; 71010; 71020; 80048; 80053; 80202; 83036; 83605; 83880; 84484; 85025; 85610; 85730; 86140; 86141; 87040; 87641; 90935; 93005; A9270-GY; G0257; J0360; J0885; J1644; J1956; J2543; J3370

== ENCOUNTER 2017-05-27 06:53 | Observation (INO) | payer MEDICARE, OTHER ==
[2017-05-27 07:25] LABS: Hematocrit 38 % (42-52); Hemoglobin 12.3 g/dl (14.0-18.0); Mean Corpuscular HGB Conc 32 g/dl (31-36); Mean Corpuscular Hemoglobin 28 pg (27-31); Mean Corpuscular Volume 88 fL (80-94); Mean Platelet Volume 10 um3 (7.4-10.4); Red Blood Count 4.34 10^6/ul (4.0-5.4); Red Cell Distribution Width 19 % (10.5-15)
[2017-05-27 07:42] LABS: Albumin 3.8 g/dL (3.2-5.2); BUN/Creatinine Ratio 12.7 (8-20); C Reactive Protein 29.55 mg/L (< 5.00); Calcium 9.9 mg/dL (8.6-10.3); EGFR Non-African American 10.1 (>60); Globulin 4.7 g/dL (2-4); Magnesium 2.1 mg/dL (1.9-2.7); Potassium 4.7 mmol/L (3.5-5.0); Total Bilirubin 0.5 mg/dL (0.2-1.0); Total Protein 8.5 g/dL (6.4-8.9)
[2017-05-27 07:45] LABS: Troponin I 0.04 ng/mL (<0.04)
[2017-05-27 08:12] LABS: TSH (Thyroid Stimulating Horm) 3.85 mcIU/mL (0.34-5.60)
--- NOTE | 2017-05-27 08:50 | RAD ---
INDICATION: Shortness of breath. COMPARISON: Comparison is made with prior chest history study from April 13, 2017. TECHNIQUE: A portable view of the chest was obtained. FINDINGS: There is a central venous catheter entering on the left side. The catheter tip projects over the right atrium. The heart appears mildly enlarged. There is diffuse prominence of the interstitial markings with more focal infiltrates at both lung bases and small bilateral pleural effusions. IMPRESSION: FINDINGS MOST CONSISTENT WITH CONGESTIVE HEART FAILURE LESS LIKELY PNEUMONIA.
[2017-05-27] MEDS ORDERED: oxyCODONE ORAL.SOLN* 5 MG/5 ML UDC PRN (09:35)
[2017-05-27] MEDS ORDERED: Loperamide LIQ* 2 MG/10 ML UDC PO PRN (09:35)
[2017-05-27] MEDS ORDERED: Fluticasone NASAL SPRAY 50MCG* 16 gm SPRAY BTL BOTH NARES PRN (09:35)
[2017-05-27] MEDS ORDERED: Acetaminophen ADULT LIQ* 650 MG/20.3 ML UDC PO PRN (09:35)
[2017-05-27] MEDS ORDERED: CMC:Melatonin (NF) 3 MG TAB PO PRN (09:35)
[2017-05-27] MEDS ORDERED: Povidone Iodine SWABSTICK TOPICAL SCH (10:00)
[2017-05-27] MEDS ORDERED: Albuterol/Ipratropium NEB.SOL* Albuterol 2.5 MG/Ipratropium 0.5 MG 3 ML INH PRN (10:05)
[2017-05-27] MEDS ORDERED: Insulin REGULAR(*) 1 UNITS UNIT SUBCUT SCH (12:00)
[2017-05-27] MEDS ORDERED: Heparin DIALYSIS ONLY(*) 1,000 UNITS/ML VIAL DIALYSIS ONE (12:00)
[2017-05-27] MEDS: ALPRAZolam TAB* 0.5 MG G TUBE SCH ×3 (12:03→22:06)
[2017-05-27] MEDS ORDERED: Dextrose 50% Syringe 50 ML* 25 GM/50 ML SYRINGE IV PUSH PRN (14:04)
[2017-05-27] MEDS: Carvedilol TAB* 6.25 MG G TUBE SCH ×2 (14:05→22:07)
[2017-05-27] MEDS: amLODIPine TAB* 5 MG G TUBE SCH (14:05)
[2017-05-27] MEDS: hydrALAZINE TAB* 25 MG G TUBE SCH ×2 (14:06→22:05)
[2017-05-27] MEDS: Metoclopramide LIQ* 10 MG/10 ML ORAL.SOLN G TUBE SCH ×2 (14:18→22:22)
[2017-05-27] MEDS: Famotidine SUSP* 40 MG/5 ML ORAL.SUSP 50 ML BOTTLE PO SCH (14:19)
[2017-05-27] MEDS: Aspirin Low Dose CHEW TAB* 81 MG G TUBE SCH (14:19)
[2017-05-27] MEDS: Ticagrelor* 90 MG TAB PO SCH ×2 (14:19→22:06)
[2017-05-27] MEDS: Heparin VIAL(*) 5000 UNITS/ML VIAL (FIVE THOUSAND) SUBCUT SCH ×2 (14:19→22:05)
--- NOTE | 2017-05-27 16:00 | HP ---
CC: Justa Cruz NP * HISTORY AND PHYSICAL: DATE OF ADMISSION: 05/27/17 PRIMARY CARE PROVIDER: Justa Cruz NP CHIEF COMPLAINT: Shortness of breath. HISTORY OF PRESENT ILLNESS: Mr. Landry is a 57-year-old male with past medical history of type 1 diabetes; diabetic retinopathy; CKD, stage 5/end-stage renal disease, on hemodialysis; severe peripheral neuropathy; CAD with multiple MIs and multiple acute coronary syndromes and interventions including a CABG in March 2017; peripheral vascular disease; history of aortofemoral bypass; left AKA; right BKA; multiple extremity angioplasties and stenting; retinal hemorrhage surgery x2; sepsis and osteomyelitis of the right hand; hypertension ; hyperlipidemia, who presents to the hospital with shortness of breath. The patient is a bit sleepy in the emergency department, history is obtained mostly from his who is present, states that over the last few nights the patient has had progressively more difficulty breathing, which culminated last night. She said she also noticed that he has had some intermittent sweats as well overnight. His symptoms have seemed to improve during the day with improvement in his breathing and no sweats. He has taken his temperature at home multiple times, and he has not been febrile. Last night, he continued to complain of difficulty breathing, which worsened significantly and he finally agreed to come to the hospital for further evaluation. He denies any chest pain. He does report chills he was having at night. Denies any cough, nausea, or vomiting. He has been taking good p.o. intake. His states that she did not think that he has had excessive fluid over the weekend, which occasionally will lead to some fluid overload between his weekend dialysis sessions. He has not had any diarrhea, constipation, or bleeding. The patient's states that they went to the NH 2 weeks ago, met with the excavating machine operator. There is concern that he may have obstructive sleep apnea. She states that he did some limited pulmonary function testing in the office and were told that everything looked okay. Also, states that they have a sleep study scheduled, but the earliest that could be done was the end of June. She also states that the patient's blood pressure medications have been increased recently from Coreg 6.25 b.i.d. to 12.5 b.i.d. and hydralazine from 25 t.i.d. to 50 t.i.d. In the emergency department, the patient was found to be hypoxic, extremely rhonchorous throughout his lung márquez, and Dr. Stout in the emergency department got in touch with Dr. Turk and planned for urgent dialysis session. PAST MEDICAL HISTORY: Type 1 diabetes; diabetic retinopathy; stage 5 CKD; end- stage renal disease, on hemodialysis; severe peripheral neuropathy; microvascular disease with coronary disease, multiple MIs, multiple acute coronary syndromes and intervention including a CABG in March 2017; peripheral vascular disease with history of aortofemoral bypass; left AKA; right BKA; multiple extremity angioplasties and stenting; retinal hemorrhage surgery x2; multiple episodes of sepsis and osteomyelitis with implication of the right hand , now undergoing home wound care; sacral pressure ulcer, which has been handled by wound care; hypertension; hyperlipidemia. HOME MEDICATIONS: 1. Reglan 5 mg per G-tube 3 times daily. 2. Melatonin 3 mg per G-tube at bedtime as needed for sleep. 3. Lyrica 75 mg per G-tube at bedtime. 4. Oxycodone concentrate 5 mg per G-tube every 4 hours as needed for pain. 5. Hydralazine 50 mg per G-tube every 8 hours. 6. Amlodipine 10 mg per G-tube daily. 7. Ticagrelor 90 mg per G-tube twice daily. 8. Betadine 1 application topical. 9. Polyethylene glycol 1 packet per G-tube twice daily as needed for constipation. 10. Multivitamin 1 tablet per G-tube daily. 11. Ketoconazole 1 application topical 2 times daily. 12. Iron sucrose 100 mg IV every 14 days. 13. Famotidine 20 mg per G-tube daily. 14. Epogen 4000 units IV every 14 days as needed. 15. Dextrose 40% per G-tube once as needed for hypoglycemia. 16. Atorvastatin 20 mg by mouth nightly. 17. Aspirin 81 mg by mouth daily. 18. Xanax 0.5 mg per G-tube 3 times daily. 19. Combivent 1 puff inhaled every 6 hours as needed for shortness of breath or wheezing. 20. Tylenol 650 mg per G-tube every 6 hours as needed for pain. 21. Coreg 12.5 mg per G-tube twice daily. 22. Flonase 2 sprays to both nares daily as needed for allergy symptoms. 23. Colace 100 mg per G-tube twice daily. 24. Lantus 10 units subcutaneous nightly. 25. Insulin aspart sliding scale a.c. and h.s. 26. Lansoprazole 30 mg per G-tube at bedtime. 27. Loperamide 4 mg per G-tube every 6 hours as needed for diarrhea. ALLERGIES: To CLINDAMYCIN and MORPHINE. FAMILY HISTORY: Multiple relatives with diabetes type 1 and type 2, hyperlipidemia, and hypertension. SOCIAL HISTORY: The patient is to his , Shanelle, who is the surrogate decision maker. The patient does not smoke or use tobacco, former smoker. REVIEW OF SYSTEMS: A 12-point review of systems was negative except for that as noted in the HPI. PHYSICAL EXAMINATION GENERAL: The patient is a middle-aged male, lying in bed, in mild respiratory distress. VITAL SIGNS: On admission, temperature 97.1, heart rate of 103, respiratory rate of 25, O2 saturation 96% on BiPAP, blood pressure 152/81. HEENT: Head: Normocephalic, atraumatic. Eyes: Pupils equal, round, and reactive to light and accommodation. Anicteric sclerae. ENT: Dry mucous membranes. BiPAP in place. LUNGS: With diffuse coarse rales and rhonchi throughout bilateral middle and lower lobes. CARDIOVASCULAR: Regular rate and rhythm. S1, S2 present. No murmurs, gallops , or rubs. ABDOMEN: Soft, nontender, nondistended. PEG tube is present, appears clean, dry, and intact. Bowel sounds positive. EXTREMITIES: The patient with right upper extremity amputation in the hand, left AKA, right BKA. We will evaluate wounds including sacral wound when dressings are changed later today. NEUROLOGIC: The patient is slightly lethargic. Moving all 4 extremities. Oriented to self, place, and time. DIAGNOSTIC STUDIES/LAB DATA: White blood cell count of 17, hemoglobin 12.3, hematocrit of 38, platelets of 358. INR of 0.94. Sodium 133, potassium 4.7, chloride of 95, BUN of 74, creatinine of 5.82, glucose of 201, lactic acid of 1.6. LFTs within normal limits aside from mildly elevated alk phos of 134. Troponin of 0.04. CRP of 29.5. B-natriuretic peptide of 2626. EKG: Personally reviewed, shows normal sinus rhythm, incomplete left bundle branch block, Q waves present in some inferior leads. No acute changes appreciated. Chest x-ray: Personally reviewed, shows bilateral fluffy infiltrates likely related to fluid overload. ASSESSMENT AND PLAN: Acute hypoxic respiratory failure, likely secondary to fluid overload/congestive heart failure exacerbation/acute on chronic systolic congestive heart failure exacerbation in a 57-year-old man with multiple medical problems including hypertension, coronary artery disease, significant vasculopath, type 1 diabetes, and end-stage renal disease, on dialysis. 1. Acute hypoxic respiratory failure. The patient was placed on BiPAP in the emergency department. He states his breathing has improved significantly since then, although he is still fairly lethargic. We will continue BiPAP for now as after speaking with Dr. Valdez notes that some of his blood counts are up, maybe intravascularly hemoconcentrated. He will undergo dialysis this morning, which is being set up at the moment. We can reevaluate the patient after hemodialysis. Unclear at this time if there is any active infection contributing to his decompensation, he has reported some chills at home. White count is elevated at 17 without much of a left shift. He has been afebrile here. We will check a procalcitonin. I am still awaiting a UA as the patient states he does make urine. The patient had last echocardiogram in September of this year, which showed some left ventricular hypertrophy, some wall motion abnormalities, and an ejection fraction of 35% to 40%. B-natriuretic peptide is about the same as it was last admission, which is difficult to interpret in the setting of his multiple cardiac problems and renal failure. 2. Hypertension. For now, we will continue his home medications, Coreg 12.5 mg by mouth 2 times daily, amlodipine 10 mg by mouth daily, hydralazine 50 mg by mouth 3 times daily. 3. Coronary artery disease. Troponin is not elevated. For now, continue the patient's aspirin, ticagrelor, statin, and Coreg. 4. Type 1 diabetes. The patient is n.p.o. for now, he is on BiPAP, continue his Lantus for regular insulin sliding scale. Continue his home Reglan. 5. DVT prophylaxis. Heparin subcu. 6. Code status. The patient is a full code. TIME SPENT: Total time spent on this admission 60 minutes with over half the time spent [id number] with the patient in counseling and coordinating care. [id number]/[facility] #: [id number] [place]
[2017-05-27] MEDS: Insulin LISPRO* 1 UNITS UNIT SUBCUT SCH (17:18)
[2017-05-27] MEDS ORDERED: Atorvastatin* 20 MG TAB G TUBE SCH (21:00)
[2017-05-27] MEDS ORDERED: Pregabalin CAP(*) 25 MG G TUBE SCH (21:00)
[2017-05-27] MEDS ORDERED: Lansoprazole susp Kit 3 MG/ML (30 MG = 10 ML) G TUBE SCH (21:00)
[2017-05-27] MEDS ORDERED: Insulin GLARGINE(*) 1 UNITS UNIT SUBCUT SCH (21:00)
[2017-05-28] MEDS: Heparin VIAL(*) 5000 UNITS/ML VIAL (FIVE THOUSAND) SUBCUT SCH ×2 (06:14→14:31)
[2017-05-28] MEDS: hydrALAZINE TAB* 25 MG G TUBE SCH ×2 (06:14→14:18)
[2017-05-28 06:40] LABS: Hematocrit 32 % (42-52); Hemoglobin 10.5 g/dl (14.0-18.0); Mean Corpuscular HGB Conc 33 g/dl (31-36); Mean Corpuscular Hemoglobin 29 pg (27-31); Mean Corpuscular Volume 87 fL (80-94); Mean Platelet Volume 10 um3 (7.4-10.4); Red Cell Distribution Width 19 % (10.5-15)
[2017-05-28 06:54] LABS: BUN/Creatinine Ratio 11.4 (8-20); Calcium 9.5 mg/dL (8.6-10.3); EGFR African American 20.4 (>60); EGFR Non-African American 15.8 (>60); Potassium 4.2 mmol/L (3.5-5.0)
--- NOTE | 2017-05-28 07:45 | DCNOTE ---
Patient seen this morning. Reports feeling "great" this morning. Breathing stable overnight, weaned off O2, denies SOB. Eager to go home. On exam, trace rales in L base, otherwise clear, RRR, s1 and s2 present, no m/g/ r, abd soft, NTND, PEG in place, B/L LE amputations, dressings in place c/d/i Significant improvement today after HD yesterday (2.8 L removed). He says he thinks there was not enough fluid removed on his last HD session. Overnight oximetry shows patient will likely qualify for home O2 until he can get his sleep study done. Will speak with home health care case manager and likely discharge later this morning.
[2017-05-28] MEDS: Insulin LISPRO* 1 UNITS UNIT SUBCUT SCH ×2 (08:46→13:14)
[2017-05-28] MEDS ORDERED: Prenatal Vitamin TAB PO SCH (09:00)
[2017-05-28] MEDS: amLODIPine TAB* 5 MG G TUBE SCH (09:35)
[2017-05-28] MEDS: Ticagrelor* 90 MG TAB PO SCH (09:35)
[2017-05-28] MEDS: Carvedilol TAB* 6.25 MG G TUBE SCH (09:35)
[2017-05-28] MEDS: Famotidine SUSP* 40 MG/5 ML ORAL.SUSP 50 ML BOTTLE PO SCH (09:36)
[2017-05-28] MEDS: ALPRAZolam TAB* 0.5 MG G TUBE SCH ×2 (09:36→14:18)
[2017-05-28] MEDS: Metoclopramide LIQ* 10 MG/10 ML ORAL.SOLN G TUBE SCH ×2 (09:37→15:22)
[2017-05-28] MEDS: Aspirin Low Dose CHEW TAB* 81 MG G TUBE SCH (10:04)
[2017-05-28 15:11] VITALS: BP 136/71
--- NOTE | 2017-05-29 08:46 | DS ---
CC: Justa Cruz NP * DISCHARGE SUMMARY: DATE OF ADMISSION: 05/27/17 DATE OF DISCHARGE: 05/28/17 PRIMARY CARE PHYSICIAN: Justa Cruz NP PRINCIPAL DISCHARGE DIAGNOSES: 1. Acute hypoxic respiratory failure secondary to fluid overload. 2. [id number] systolic CHF exacerbation. SECONDARY DIAGNOSIS: 1. Type 1 diabetes. 2. Diabetic retinopathy. 3. Stage 5 CKD/end-stage renal disease, on hemodialysis. 4. Severe peripheral neuropathy. 5. Microvascular disease with coronary disease. 6. Multiple MIs. 7. Multiple acute coronary syndromes and interventions including CABG. 8. Left AKA. 9. Right BKA. 10. Multiple episodes of sepsis and osteomyelitis. STUDIES DONE DURING HOSPITALIZATION: Chest x-ray, impression: Findings most consistent with congestive heart failure, less likely pneumonia. DISCHARGE MEDICATION REGIMEN: 1. Reglan 5 mg per G-tube 3 times daily. 2. Melatonin 3 mg per G-tube at bedtime as needed for sleep. 3. Lyrica 75 mg per G-tube at bedtime. 4. Oxycodone 5 mg per G-tube every 4 hours as needed for pain. 5. Hydralazine 50 mg per G-tube every 8 hours. 6. Amlodipine 10 mg per G-tube daily. 7. Ticagrelor 90 mg per G-tube 2 times daily. 8. Betadine one application topical as instructed. 9. MiraLAX one packet per G-tube 2 times daily as needed for constipation. 10. Multivitamin one tablet per G-tube daily. 11. Ketoconazole one application topical 2 times daily. 12. Iron sucrose 100 mg IV every 14 days. 13. Famotidine 20 mg per G-tube daily. 14. Epogen 4000 units IV every 14 days as needed during dialysis. 15. Dextrose 40% per G-tube once as needed for hypoglycemia. 16. Atorvastatin 20 mg per G-tube nightly. 17. Aspirin 81 mg per G-tube daily. 18. Alprazolam 0.5 mg per G-tube 3 times daily. 19. Combivent one puff inhaled every 6 hours. 20. Tylenol 650 mg per G-tube every 6 hours as needed for pain. 21. Coreg 12.5 mg per G-tube 2 times daily. 22. Fluticasone two sprays in both nares daily as needed for allergies. 23. Docusate 100 mg per G-tube 2 times daily. 24. Lantus 10 units subcutaneous nightly. 25. Aspart one unit subcutaneous with meals and at night as per sliding scale. 26. Lansoprazole 30 mg per G-tube at bedtime. 27. Loperamide 4 mg per G-tube every 6 hours as needed for diarrhea. HISTORY OF PRESENT ILLNESS AND HOSPITAL SUMMARY: Please see my full history and physical for full details. Briefly, Mr. Landry is a 57-year-old male with past medical history as above, who presented to the hospital with progressive shortness of breath, worse over the past night leading to hospitalization. On the morning of admission, the patient had significant difficulty breathing overnight and, at his 's insistence, he came to the hospital. He was found to be hypoxic and had evidence of significant fluid overload based on chest x- ray and labs. The patient was placed on BiPAP and was urgently dialyzed with 2.8 L removed. Symptoms improved significantly afterwards, and he was weaned initially to 4 L of nasal cannula and then back to room air. The patient's states that he has an upcoming sleep study as there is some concern that he may have sleep apnea; however, the study is not until the end of June. While in the hospital and on room air, he underwent an overnight pulse oximetry and he did have some evidence of desaturations. So, he will be sent home with nocturnal oxygen. The patient states that he felt that perhaps at his last dialysis session, not enough fluid was taken out and he states he wants to discuss this further with his attache, Dr. Turk, which he will do at tomorrow's HD session. TIME SPENT: Total time spent on this discharge - 45 minutes. This is a summary of the hospitalization. Please see the full medical record for further details. [id number]/[facility]PS #: [id number] MTDD
== END 2017-05-28 15:25 | disposition home or self-care (01) ==
LOC: ED 06:53 → ICU 07:10
PROVIDERS: ADMIT Hospitalist; ATTEND Pediatrics
DX: J96.01 Acute respiratory failure with hypoxia (principal); I13.2 Hypertensive heart and chronic kidney disease with heart failure and with stage 5 chronic kidney disease, or end stage renal disease; E10.22 Type 1 diabetes mellitus with diabetic chronic kidney disease; N18.6 End stage renal disease; I50.23 Acute on chronic systolic (congestive) heart failure; E10.40 Type 1 diabetes mellitus with diabetic neuropathy, unspecified; I25.10 Atherosclerotic heart disease of native coronary artery without angina pectoris; I25.2 Old myocardial infarction; Z89.612 Acquired absence of left leg above knee; Z89.511 Acquired absence of right leg below knee; Z95.1 Presence of aortocoronary bypass graft; Z79.899 Other long term (current) drug therapy; Z79.4 Long term (current) use of insulin; Z88.1 Allergy status to other antibiotic agents; Z88.5 Allergy status to narcotic agent; Z87.891 Personal history of nicotine dependence; R94.31 Abnormal electrocardiogram [ECG] [EKG]; I44.7 Left bundle-branch block, unspecified
CPT/HCPCS: 36415; 71010; 80048; 80053; 82550; 82553; 83605; 83690; 83735; 83880; 84100; 84145; 84443; 84484; 85025; 85610; 85730; 86140; 87040; 90935; 93005; 94660; 96372; 99284; A9270-GY; G0378; J1644

== ENCOUNTER 2017-06-01 13:12 | Emergency (ER) | payer MEDICARE, OTHER ==
[2017-06-01 14:11] LABS: Hematocrit 37 % (42-52); Hemoglobin 12.1 g/dl (14.0-18.0); Mean Corpuscular HGB Conc 33 g/dl (31-36); Mean Corpuscular Hemoglobin 28 pg (27-31); Mean Corpuscular Volume 87 fL (80-94); Mean Platelet Volume 10 um3 (7.4-10.4); Red Blood Count 4.27 10^6/ul (4.0-5.4); Red Cell Distribution Width 19 % (10.5-15); White Blood Count 12.8 10^3/ul (3.5-10.8)
[2017-06-01 14:13] LABS: ALT 18 U/L (7-52); AST 22 U/L (13-39); Albumin 3.6 g/dL (3.2-5.2); Alkaline Phosphatase 112 U/L (34-104); Anion Gap 6 mmol/L (2-11); BUN/Creatinine Ratio 9.1 (8-20); Blood Urea Nitrogen 34 mg/dL (6-24); CO2 Carbon Dioxide 34 mmol/L (22-32); Chloride 90 mmol/L (101-111); EGFR African American 21.6 (>60); EGFR Non-African American 16.8 (>60); Globulin 4.4 g/dL (2-4); Glucose 108 mg/dL (70-100); Lipase < 10 U/L (11.0-82.0); Potassium 4.7 mmol/L (3.5-5.0); Sodium 130 mmol/L (133-145)
--- NOTE | 2017-06-01 14:59 | RAD ---
INDICATION: Cough and fever COMPARISON: Most recent comparison chest x-rays dated May 27, 2017 TECHNIQUE: PA and lateral views of the chest were obtained. FINDINGS: Again seen is a left internal jugular vein tunneled hemodialysis catheter with the tip terminating at the cavoatrial junction. The heart and mediastinum are normal in size and contour. The lungs are grossly clear. There has been improved aeration when compared to the most recent chest x-ray. There is no evidence of large pleural effusion. Visualized bones are normal for the patient's age. There is no radiographic evidence of free air beneath the diaphragm IMPRESSION: No radiographic evidence of acute cardiopulmonary disease.
[2017-06-01] MEDS ORDERED: Levofloxacin TAB* 250 MG PO ONE (16:08)
[2017-06-01 16:27] VITALS: BP 144/58
--- NOTE | 2017-06-02 08:38 | ED ---
Ze Ellison Nikita, scribed for Power Chamberlain MD on 06/01/17 at 1349 . Complex/Multi-Sys Presentation - HPI Summary HPI Summary: This patient is a 57 year old M presenting to ED with a chief complaint of fever and ear pain since 2 days ago. The patient rates the pain 3/10 in severity. Symptoms aggravated by nothing. Symptoms alleviated by nothing. reports fever (100.1, pt was given Tylenol), generally unwell, flank pain, ear ache (fluid behind ear drum, no infection), SOB, and abdominal pain (last night) . The called an at-home nurse who says the lower part of the lungs was diminished but found no crackles. PMHx of CHF (due to overload on fluid, pt is on hemodialysis, BIBA and went to ICU from 05/27/17 to 05/28/17, white count was at 17 and then went down to 10 when they D/C the pt). Pt was last on dialysis yesterday. Pt has stage 4 sacral decubitus. Pt had open heart surgery on 03/18/17 for an arterial bypass with 2 stents. Pt has amputations above the R knee and below the L knee; 4 of his fingers are amputated as well. - History Of Current Complaint Chief Complaint: EDFlankPain Time Seen by Provider: 06/01/17 13:32 Hx Obtained From: Patient Onset/Duration: Sudden Onset, Lasting Days, Still Present Timing: Constant Severity Currently: Mild Severity Initially: Mild Location: Pain At: - ear Aggravating Factor(s): nothing Alleviating Factor(s): nothing Associated Signs And Symptoms: Positive: Other - reports fever (100.1, pt was given Tylenol), generally unwell, flank pain (last night), ear ache (fluid behind ear drum, no infection), and SOB. The called an at-home nurse who says the lower part of the lungs was diminished but found no crackles. - Allergies/Home Medications Allergies/Adverse Reactions: Allergies Allergy/AdvReac Type Severity Reaction Status Date / Time Clindamycin AdvReac Intermediate Diarrhea Verified 06/01/17 13:37 Morphine AdvReac Hallucinati Verified 06/01/17 13:37 ons PMH/Surg Hx/FS Hx/Imm Hx Endocrine/Hematology History: Reports: Hx Diabetes, Hx Anemia, Other Endocrine/ Hematological Disorders - retinal hemorrhage with heparin Denies: Hx Systemic Lupus Erythematosus, Hx Thyroid Disease Cardiovascular History: Reports: Hx Angina, Hx Angioplasty, Hx Cardiac Arrest, Hx Coronary Artery Disease, Hx Hypercholesterolemia, Hx Hypertension, Hx Myocardial Infarction, Hx Peripheral Vascular Disease, Other Cardiovascular Problems/Disorders - a.fib in past Denies: Hx Auto Implanted Cardiovert Defib, Hx Congestive Heart Failure, Hx Pacemaker/ICD, Hx Valvular Heart Disease Respiratory History: Reports: Hx Sleep Apnea - undiagnosed, Other Respiratory Problems/Disorders - post nasal drip Denies: Hx Asthma, Hx Chronic Obstructive Pulmonary Disease (COPD) GI History: Reports: Hx Gastroesophageal Reflux Disease, Other GI Disorders - g tube Denies: Hx Jaundice, Hx Ulcer History: Reports: Hx Chronic Renal Failure - ESRD, Hx Dialysis, Hx Kidney Stones, Hx Renal Disease, Other Problems/Disorders Musculoskeletal History: Reports: Hx Orthopedic Injury - Broke right foot in 2009, Other Musculoskeletal History - bilateral BKA, multiple finger amputations on right hand Denies: Hx Rheumatoid Arthritis Sensory History: Reports: Hx Cataracts - right eye, Hx Vision Problem, Hx Hearing Problem - ringing in left ear, Other Sensory Impairments - Bleed related to Heparin. Denies: Hx Contacts or Glasses, Hx Hearing Aid Opthamlomology History: Reports: Hx Cataracts - right eye, Hx Vision Problem, Other Sensory Impairments - Bleed related to Heparin. Denies: Hx Contacts or Glasses Neurological History: Reports: Other Neuro Impairments/Disorders - diabetic neuropathy Denies: Hx Headaches Psychiatric History: Denies: Hx Panic Disorder - Cancer History Hx Chemotherapy: No - Surgical History Surgery Procedure, Year, and Place: VASECTOMY;. LEFT KNEE PATELLA REALIGNMENT- 1986;. 2011- PERITONEAL CATHETER PLACEMENT;. 04/2013-CREATION OF A FISTULA LEFT ARM-[facility] [place];. L-BKA-06/23/2014; 04/02/14-Left big toe removed-[facility] [place];. Lt EYE 2013 -CAUTERIZED DUE TO BLOOD POOLING THEN 10/2014 Rt EYE; REVISION Lt BKA. heart stents 09/28 and 03/28, 06/2016, 04/27. open heart surgery 03/28. tracetomy 10/26. hemodialysis catherter placed 10/26. 08/28- revision of right hand and right leg amputation. 06/2016- four fingers of right hand amputated. 04/27- amputation of right leg. 04/26- transplant of veins in left leg. 2014- amputation of left leg. 2015-revision of left leg amputation Hx Anesthesia Reactions: No Infectious Disease History: No Infectious Disease History: Denies: Hx Hepatitis, Hx Human Immunodeficiency Virus (HIV), Traveled Outside the [place] in Last 30 Days - Family History Known Family History: Positive: Diabetes Negative: Cardiac Disease - Social History Alcohol Use: None Alcohol Amount: unable to assess Hx Substance Use: No Substance Use Type: Reports: None Substance Use Comment - Amount & Last Used: unable to assess Hx Tobacco Use: Yes Smoking Status (MU): Former Smoker Type: Cigarettes Length of Time of Smoking/Using Tobacco: 22 years Have You Smoked in the Last Year: No Review of Systems Constitutional: Other - generally unwell Positive: Fever Positive: Ear Ache - fluid behind ear drum, no infection Positive: Shortness Of Breath, Other - home nurse says lower part of lungs was diminished but no crackles Positive: Abdominal Pain - flank pain All Other Systems Reviewed And Are Negative: Yes Physical Exam - Summary Physical Exam Summary: GENERAL: ~Patient is a thin MALE who is lying comfortable in the stretcher. ~ Patient is not in any acute respiratory distress. Pt looks a bit dehydrated HEAD AND FACE: No signs of trauma. ~No ecchymosis, hematomas or skull depressions. No sinus tenderness. EYES: PERRLA, EOMI x 2, No injected conjunctiva, no nystagmus. EARS: Hearing grossly intact. Ear canals and tympanic membranes are within normal limits.no sign of infection in ears MOUTH: Oropharynx within normal limits. NECK: Supple, trachea is midline, no adenopathy, no JVD, no carotid bruit, no c- spine tenderness, neck with full ROM. No lymphadenopathy CHEST: Symmetric, no tenderness at palpation LUNGS: Clear to auscultation bilaterally. Crackles in both bases of lungs CVS: Regular rate and rhythm, S1 and S2 present, no murmurs or gallops appreciated. ABDOMEN: Soft, non-tender. No signs of distention. No rebound no guarding, and no masses palpated. Bowel sounds are normal. EXTREMITIES: amputee above the right knee, below the L knee, and 4 fingers in the right hand NEURO: Alert and oriented x 3. No acute neurological deficits. Speech is normal and follows commands. SKIN: Dry and warm stage 4 sacral decubitus Triage Information Reviewed: Yes Vital Signs On Initial Exam: Initial Vitals Temp Pulse Resp BP Pulse Ox 101.2 F 68 16 114/59 98 06/01/17 13:32 06/01/17 13:32 06/01/17 13:32 06/01/17 13:32 06/01/17 13:32 Vital Signs Reviewed: Yes Diagnostics - Vital Signs Vital Signs Temp Pulse Resp BP Pulse Ox 06/01/17 13:32 101.2 F 68 16 114/59 98 - Laboratory Lab Results: Lab Results 06/01/17 06/01/17 06/01/17 Range/Units 13:45 13:45 13:45 WBC 12.8 H (3.5-10.8) 10^3/ul RBC 4.27 (4.0-5.4) 10^6/ul Hgb 12.1 L (14.0-18.0) g/dl Hct 37 L (42-52) % MCV 87 (80-94) fL MCH 28 (27-31) pg MCHC 33 (31-36) g/dl RDW 19 H (10.5-15) % Plt Count 329 (150-450) 10^3/ul MPV 10 (7.4-10.4) um3 Neut % (Auto) 73.7 (38-83) % Lymph % (Auto) 10.5 L (25-47) % [place] % (Auto) 14.1 H (1-9) % Eos % (Auto) 1.1 (0-6) % Baso % (Auto) 0.6 (0-2) % Absolute Neuts (auto) 9.5 H (1.5-7.7) 10^3/ul Absolute Lymphs (auto) 1.3 (1.0-4.8) 10^3/ul Absolute Monos (auto) 1.8 H (0-0.8) 10^3/ul Absolute Eos (auto) 0.1 (0-0.6) 10^3/ul Absolute Basos (auto) 0.1 (0-0.2) 10^3/ul Absolute Nucleated RBC 0.01 10^3/ul Nucleated RBC % 0.1 Sodium 130 L (133-145) mmol/L Potassium 4.7 (3.5-5.0) mmol/L Chloride 90 L (101-111) mmol/L Carbon Dioxide 34 H (22-32) mmol/L Anion Gap 6 (2-11) mmol/L BUN 34 H (6-24) mg/dL Creatinine 3.75 H (0.67-1.17) mg/dL Est GFR ( Amer) 21.6 (>60) Est GFR (Non-Af Amer) 16.8 (>60) BUN/Creatinine Ratio 9.1 (8-20) Glucose 108 H (70-100) mg/dL Lactic Acid 1.0 (0.5-2.0) mmol/L Calcium 10.0 (8.6-10.3) mg/dL Total Bilirubin 0.60 (0.2-1.0) mg/dL AST 22 (13-39) U/L ALT 18 (7-52) U/L Alkaline Phosphatase 112 H (34-104) U/L C-Reactive Protein 111.90 H (< 5.00) mg/L Total Protein 8.0 (6.4-8.9) g/dL Albumin 3.6 (3.2-5.2) g/dL Globulin 4.4 H (2-4) g/dL Albumin/Globulin Ratio 0.8 L (1-3) Lipase < 10 L (11.0-82.0) U/L Result Diagrams: 06/01/17 13:45 06/01/17 13:45 Lab Statement: Any lab studies that have been ordered have been reviewed, and results considered in the medical decision making process. - Radiology CXR Radiology Interpretation Completed By: Radiologist - No radiographic evidence of acute cardiopulmonary disease. ED physician has reviewed this radiology report and agrees. - EKG 1440 Cardiac Rate: NL - 70 bpm EKG Interpretation: unchanged from 05/27/17 Re-Evaluation - Re-Evaluation First Eval Re-Evaluation Time: 16:01 Change: Improved Comment: Discussed with pt about discharge plan. Complex Multi-Symp Course/Dx Assessment/Plan: This patient is a 57 year old M presenting to ED with a chief complaint of fever and ear pain since 2 days ago. The patient rates the pain 3/ 10 in severity. Symptoms aggravated by nothing. Symptoms alleviated by nothing. reports fever (100.1, pt was given Tylenol), generally unwell, flank pain ( last night), ear ache (fluid behind ear drum, no infection), and SOB. The called an at-home nurse who says the lower part of the lungs was diminished but found no crackles. CXR reveals no radiographic evidence of acute cardiopulmonary disease. ED physician has reviewed this radiology report and agrees. EKG reveals sinus rhythm at 70 bpm and unchanged from 05/27/17. Pt will be discharged. Pt is agreeable with this plan. In the ED course an IV access was obtained. Patient was placed in a bank teller. Patient was started with IV fluids. Labs without any significant abnormality except for WBCs 12.8. CXR impression: No acute pathology. I believe patient may be developing bronchitis. She will be given Levaquin and a f/u of PCP. If symptoms worsen he should return to the ED for further w/u. Patient is A+O x 3 and hemodynamically stable. I discussed all the findings and test results with the patient. Patient was instructed to return to the emergency room immediately if any of the symptoms return or worsens. Plan of care was discussed with the patient and understands and agrees. All questions were answered at patient satisfaction. There were no further complaints or concerns - Diagnoses Differential Diagnoses/HQI/PQRI: Other - Bronchitis, Pneumonia, Ear infevion, URI Provider Diagnoses: Bronchitis Discharge - Discharge Plan Condition: Stable Disposition: HOME Prescriptions: Levofloxacin TAB* [Levaquin TAB*] 750 mg PO DAILY #9 tab Patient Education Materials: Acute Bronchitis (ED) Referrals: Justa Cruz [Primary Care Provider] - 3 Days The documentation as recorded by the Ze shell Nikita accurately reflects the service I personally performed and the decisions made by me, Power Chamberlain MD.
== END 2017-06-01 16:53 | disposition home or self-care (01) ==
LOC: ED 13:12
DX: J40 Bronchitis, not specified as acute or chronic (principal); R10.84 Generalized abdominal pain; R50.9 Fever, unspecified; H92.09 Otalgia, unspecified ear; R06.02 Shortness of breath; Z87.891 Personal history of nicotine dependence
CPT/HCPCS: 36415; 71020; 80053; 83605; 83690; 85025; 86140; 87040; 93005; 99282; A9270-GY

== ENCOUNTER 2017-08-16 12:02 | Emergency (ER) | payer MEDICARE, OTHER ==
[2017-08-16 12:45] LABS: Hematocrit 22 % (42-52); Hemoglobin 7.2 g/dl (14.0-18.0); Mean Corpuscular HGB Conc 33 g/dl (31-36); Mean Corpuscular Hemoglobin 30 pg (27-31); Mean Corpuscular Volume 91 fL (80-94); Mean Platelet Volume 11 um3 (7.4-10.4); Platelet Count 227 10^3/ul (150-450); Red Cell Distribution Width 16 % (10.5-15)
[2017-08-16 13:10] LABS: EGFR Non-African American 11.4 (>60)
[2017-08-16] MEDS ORDERED: Pantoprazole IV* 40 MG IV ONE (13:29)
--- NOTE | 2017-08-16 13:31 | RAD ---
Indication: Altered mental status. Possible GI bleed. Renal failure. Cardiac disease. Dehydration. Comparison: June 01, 2017 Technique: Upright AP 1303 hours Report: Tip of LEFT side tunnel central venous catheter at level of RIGHT atrium. Clear lungs and pleural spaces. Negative for pneumothorax. Mild cardiomegaly. Unremarkable central pulmonary vasculature. Negative for free air beneath the diaphragm. IMPRESSION: No evidence for cardiogenic pulmonary edema or acute pulmonary pathology.
[2017-08-16 13:44] LABS: ABS Basophils 0.1 10^3/ul (0-0.2); ABS Eosinophils 0.1 10^3/ul (0-0.6); ABS Lymphocytes 1.5 10^3/ul (1.0-4.8); ABS Monocytes 1.6 10^3/ul (0-0.8); ABS Neutrophils 7.6 10^3/ul (1.5-7.7); ABS Nucleated RBC 0 10^3/ul; Eosinophil % 1.2 % (0-6); Lymphocyte % 14.1 % (25-47); Nucleated Red Blood Cells % 0
[2017-08-16] MEDS ORDERED: Pantoprazole IV* 80 MG in NS 0.9% 100 ML* 100 ML IVPB SCH (14:00)
--- NOTE | 2017-08-16 14:51 | ED ---
Steve Ellison Stephanie, scribed for Zak Stout MD on 08/16/17 at 1227 . GI/ HPI - HPI Summary HPI Summary: The pt is a 57 y/o M presenting to the ED with c/o bloody stools that began about a week ago. The pt was minimally responsive at concierge receptionist. His reports that the pts feeding tube was removed 2 weeks ago. Soon after, the pt experienced constipation so his gave him Imodium which resulted in bouts of bloody diarrhea. The diarrhea stopped and then his gave him 1 dose of Miralax (he usually takes 2 doses) which resulted in bouts of bloody diarrheal incontinence for several days. The pt denies vomiting or abd pain. The pt's reports recent hematocrit level of 28. - History of Current Complaint Chief Complaint: EDGIBleed Time Seen by Provider: 08/16/17 12:17 Stated Complaint: DIARRHEA Hx Obtained From: Patient, Family/Social Science Research Assistant - widfe, Medical Records Onset/Duration: Started Weeks Ago - 1 Timing: Constant Pain Intensity: 3 Associated Signs and Symptoms: Positive: Blood w/Stool, Diarrhea, Other: - constipation. Negative: Vomiting, Abdominal Pain Aggravating Factor(s): Nothing Alleviating Factor(s): Nothing - Additional Pertinent History Primary Care Physician: [id number] - Allergy/Home Medications Allergies/Adverse Reactions: Allergies Allergy/AdvReac Type Severity Reaction Status Date / Time Clindamycin AdvReac Intermediate Diarrhea Verified 06/01/17 13:37 Morphine AdvReac Hallucinati Verified 06/01/17 13:37 ons Home Medications: Home Medications ALPRAZolam TAB* [Xanax TAB*] 0.5 mg G TUBE TID 08/16/17 [History Confirmed 08/16] Ascorbic Acid TAB* [Vitamin C TAB*] 500 mg G TUBE DAILY 08/16/17 [History Confirmed 08/16/17] Aspirin EC Low Dose* [Ecotrin EC Low Dose 81 MG*] 81 mg G TUBE DAILY 08/16/17 [ History Confirmed 08/16/17] Collagenase 250 MG/GM OINT* [Santyl 250 mg/gm Oint*] 1 applic TOPICAL DAILY 12/27 [History Confirmed 08/16/17] Docusate CAP* [Colace Cap*] 100 mg G TUBE DAILY PRN 08/16/17 [History Confirmed 08/16/17] Famotidine TAB* [Pepcid 20 MG TAB*] 20 mg G TUBE DAILY 08/16/17 [History Confirmed 08/16/17] Folic Acid TAB* [Folvite TAB*] 1 mg G TUBE DAILY 08/16/17 [History Confirmed 12/27] Lactobacillus [Probiotic] 2 cap G TUBE DAILY 08/16/17 [History Confirmed ] Metoclopramide TAB* [Reglan TAB*] 5 mg G TUBE TID 08/16/17 [History Confirmed ] Multivitamins/Minerals TAB* [Theragran/minerals TAB*] 1 tab G TUBE DAILY [History Confirmed 08/16/17] Polyethylene Glycol 3350* [Miralax*] 17 gm G TUBE BID PRN 08/16/17 [History Confirmed 08/16/17] Pregabalin CAP(*) [Lyrica CAP(*)] 75 mg G TUBE BEDTIME 08/16/17 [History Confirmed 08/16/17] Sevelamer Carbonate [Renvela] 2.4 gm G TUBE AC 08/16/17 [History Confirmed 08/16] Sodium Polystyrene ORAL.MICHA* [Kayexalate ORAL.MICHA*] 15 gm G TUBE DAILY 08/16/17 [History Confirmed 08/16/17] oxyCODONE ORAL.SOLN* [Oxycodone ORAL.SOLN 5 mg/5 ml *] 5 mg G TUBE Q4H PRN 08/16 [History Confirmed 08/16/17] PMH/Surg Hx/FS Hx/Imm Hx Endocrine/Hematology History: Reports: Hx Diabetes, Hx Anemia, Other Endocrine/ Hematological Disorders - retinal hemorrhage with heparin Denies: Hx Systemic Lupus Erythematosus, Hx Thyroid Disease Cardiovascular History: Reports: Hx Angina, Hx Angioplasty, Hx Cardiac Arrest, Hx Coronary Artery Disease, Hx Hypercholesterolemia, Hx Hypertension, Hx Myocardial Infarction, Hx Peripheral Vascular Disease, Other Cardiovascular Problems/Disorders - a.fib in past Denies: Hx Auto Implanted Cardiovert Defib, Hx Congestive Heart Failure, Hx Pacemaker/ICD, Hx Valvular Heart Disease Respiratory History: Reports: Hx Sleep Apnea - undiagnosed, Other Respiratory Problems/Disorders - post nasal drip Denies: Hx Asthma, Hx Chronic Obstructive Pulmonary Disease (COPD) GI History: Reports: Hx Gastroesophageal Reflux Disease, Other GI Disorders - g tube Denies: Hx Jaundice, Hx Ulcer History: Reports: Hx Chronic Renal Failure - ESRD, Hx Dialysis, Hx Kidney Stones, Hx Renal Disease, Other Problems/Disorders Musculoskeletal History: Reports: Hx Orthopedic Injury - Broke right foot in 2009, Other Musculoskeletal History - bilateral BKA, multiple finger amputations on right hand Denies: Hx Rheumatoid Arthritis Sensory History: Reports: Hx Cataracts - right eye, Hx Vision Problem, Hx Hearing Problem - ringing in left ear, Other Sensory Impairments - Bleed related to Heparin. Denies: Hx Contacts or Glasses, Hx Hearing Aid Opthamlomology History: Reports: Hx Cataracts - right eye, Hx Vision Problem, Other Sensory Impairments - Bleed related to Heparin. Denies: Hx Contacts or Glasses Neurological History: Reports: Other Neuro Impairments/Disorders - diabetic neuropathy Denies: Hx Headaches Psychiatric History: Denies: Hx Panic Disorder - Cancer History Hx Chemotherapy: No - Surgical History Surgery Procedure, Year, and Place: VASECTOMY;. LEFT KNEE PATELLA REALIGNMENT- 1986;. 2011- PERITONEAL CATHETER PLACEMENT;. 04/2013-CREATION OF A FISTULA LEFT ARM-[facility] [place];. L-BKA-06/23/2014; 04/02/14-Left big toe removed-[facility] [place];. Lt EYE 2013 -CAUTERIZED DUE TO BLOOD POOLING THEN 10/2014 Rt EYE; REVISION Lt BKA. heart stents 09/28 and 03/28, 06/2016, 04/27. open heart surgery 03/28. tracetomy 10/26. hemodialysis catherter placed 10/26. 08/28- revision of right hand and right leg amputation. 06/2016- four fingers of right hand amputated. 04/27- amputation of right leg. 04/26- transplant of veins in left leg. 2014- amputation of left leg. 2014-revision of left leg amputation Hx Anesthesia Reactions: No Infectious Disease History: No Infectious Disease History: Denies: Hx Hepatitis, Hx Human Immunodeficiency Virus (HIV), Traveled Outside the [place] in Last 30 Days - Family History Known Family History: Positive: Diabetes Negative: Cardiac Disease - Social History Occupation: Disabled Lives: With Family Alcohol Use: None Alcohol Amount: unable to assess Hx Substance Use: No Substance Use Type: Reports: None Substance Use Comment - Amount & Last Used: unable to assess Hx Tobacco Use: Yes Smoking Status (MU): Former Smoker Type: Cigarettes Length of Time of Smoking/Using Tobacco: 22 years Have You Smoked in the Last Year: No Review of Systems Negative: Fever Positive: Diarrhea, Other - constipation. Negative: Abdominal Pain, Vomiting Positive: incontinence - bloody stools All Other Systems Reviewed And Are Negative: Yes Physical Exam - Summary Physical Exam Summary: General: responds to voice Skin: warm, color reflects adequate perfusion, dry Head: normal Eyes: EOMI, WALDEMAR ENT: normal Neck: supple, nontender Respiratory: CTA, breath sounds present Cardiovascular: RRR Abdomen: soft, nontender Bowel: positive bowel sounds Musculoskeletal: normal, strength/ROM intact Neurological: normal, sensory/motor intact, A&O x3 Psychological: affect/mood appropriate Triage Information Reviewed: Yes Vital Signs On Initial Exam: Initial Vitals Temp Pulse Resp BP Pulse Ox 96.9 F 63 13 74/43 95 08/16/17 12:15 08/16/17 12:15 08/16/17 12:15 08/16/17 12:15 08/16/17 12:15 Vital Signs Reviewed: Yes Diagnostics - Vital Signs Vital Signs Temp Pulse Resp BP Pulse Ox 08/16/17 12:15 96.9 F 63 13 74/43 95 - Laboratory Lab Results: Lab Results 08/16/17 08/16/17 08/16/17 Range/Units 12:20 12:20 12:20 WBC 11.0 H (3.5-10.8) 10^3/ul RBC 2.40 L (4.0-5.4) 10^6/ul Hgb 7.2 L (14.0-18.0) g/dl Hct 22 L (42-52) % MCV 91 (80-94) fL MCH 30 (27-31) pg MCHC 33 (31-36) g/dl RDW 16 H (10.5-15) % Plt Count 227 (150-450) 10^3/ul MPV 11 H (7.4-10.4) um3 Neut % (Auto) 69.3 (38-83) % Lymph % (Auto) 14.1 L (25-47) % [place] % (Auto) 14.5 H (1-9) % Eos % (Auto) 1.2 (0-6) % Baso % (Auto) 0.9 (0-2) % Absolute Neuts (auto) 7.6 (1.5-7.7) 10^3/ul Absolute Lymphs (auto) 1.5 (1.0-4.8) 10^3/ul Absolute Monos (auto) 1.6 H (0-0.8) 10^3/ul Absolute Eos (auto) 0.1 (0-0.6) 10^3/ul Absolute Basos (auto) 0.1 (0-0.2) 10^3/ul Absolute Nucleated RBC 0 10^3/ul Nucleated RBC % 0 INR (Anticoag Therapy) (0.77-1.02) APTT (26.0-36.3) seconds VBG pH (7.33-7.43) VBG pCO2 (41-51) mmHg VBG pO2 (35-45) mmHg VBG HCO3 (24-28) mmol/L VBG O2 Saturation (70-80) % VBG Base Excess (0-4) Sodium 129 L (133-145) mmol/L Potassium TNP Chloride 91 L (101-111) mmol/L Carbon Dioxide 24 (22-32) mmol/L Anion Gap 14 H (2-11) mmol/L BUN 108 H (6-24) mg/dL Creatinine 5.24 H (0.67-1.17) mg/dL Est GFR ( Amer) 14.7 (>60) Est GFR (Non-Af Amer) 11.4 (>60) BUN/Creatinine Ratio 20.6 H (8-20) Glucose 154 H (70-100) mg/dL Lactic Acid (0.5-2.0) mmol/L Calcium 8.9 (8.6-10.3) mg/dL Phosphorus (2.5-5.0) mg/dL Magnesium (1.9-2.7) mg/dL Total Bilirubin 0.50 (0.2-1.0) mg/dL AST TNP ALT 38 (7-52) U/L Alkaline Phosphatase 74 (34-104) U/L Ammonia (16-53) mol/L Total Creatine Kinase 43 (10-223) U/L CK-MB (CK-2) Pending Troponin I (<0.04) ng/mL C-Reactive Protein (< 5.00) mg/L B-Natriuretic Peptide ( - 100) pg/mL Total Protein 6.3 L (6.4-8.9) g/dL Albumin 3.0 L (3.2-5.2) g/dL Globulin 3.3 (2-4) g/dL Albumin/Globulin Ratio 0.9 L (1-3) Lipase (11.0-82.0) U/L TSH (0.34-5.60) mcIU/mL Blood Type O Positive Antibody Screen Negative Crossmatch See Detail 08/16/17 08/16/17 08/16/17 Range/Units 12:42 12:42 12:42 WBC (3.5-10.8) 10^3/ul RBC (4.0-5.4) 10^6/ul Hgb (14.0-18.0) g/dl Hct (42-52) % MCV (80-94) fL MCH (27-31) pg MCHC (31-36) g/dl RDW (10.5-15) % Plt Count (150-450) 10^3/ul MPV (7.4-10.4) um3 Neut % (Auto) (38-83) % Lymph % (Auto) (25-47) % [place] % (Auto) (1-9) % Eos % (Auto) (0-6) % Baso % (Auto) (0-2) % Absolute Neuts (auto) (1.5-7.7) 10^3/ul Absolute Lymphs (auto) (1.0-4.8) 10^3/ul Absolute Monos (auto) (0-0.8) 10^3/ul Absolute Eos (auto) (0-0.6) 10^3/ul Absolute Basos (auto) (0-0.2) 10^3/ul Absolute Nucleated RBC 10^3/ul Nucleated RBC % INR (Anticoag Therapy) 1.00 (0.77-1.02) APTT 33.7 (26.0-36.3) seconds VBG pH (7.33-7.43) VBG pCO2 (41-51) mmHg VBG pO2 (35-45) mmHg VBG HCO3 (24-28) mmol/L VBG O2 Saturation (70-80) % VBG Base Excess (0-4) Sodium (133-145) mmol/L Potassium Chloride (101-111) mmol/L Carbon Dioxide (22-32) mmol/L Anion Gap (2-11) mmol/L BUN (6-24) mg/dL Creatinine (0.67-1.17) mg/dL Est GFR ( Amer) (>60) Est GFR (Non-Af Amer) (>60) BUN/Creatinine Ratio (8-20) Glucose (70-100) mg/dL Lactic Acid (0.5-2.0) mmol/L Calcium (8.6-10.3) mg/dL Phosphorus 6.4 H (2.5-5.0) mg/dL Magnesium 2.0 (1.9-2.7) mg/dL Total Bilirubin (0.2-1.0) mg/dL AST ALT (7-52) U/L Alkaline Phosphatase (34-104) U/L Ammonia 41 (16-53) mol/L Total Creatine Kinase (10-223) U/L CK-MB (CK-2) Troponin I 0.04 H* (<0.04) ng/mL C-Reactive Protein 34.15 H (< 5.00) mg/L B-Natriuretic Peptide 545 H ( - 100) pg/mL Total Protein (6.4-8.9) g/dL Albumin (3.2-5.2) g/dL Globulin (2-4) g/dL Albumin/Globulin Ratio (1-3) Lipase 12 (11.0-82.0) U/L TSH 1.39 (0.34-5.60) mcIU/mL Blood Type Antibody Screen Crossmatch 08/16/17 08/16/17 Range/Units 12:42 12:42 WBC (3.5-10.8) 10^3/ul RBC (4.0-5.4) 10^6/ul Hgb (14.0-18.0) g/dl Hct (42-52) % MCV (80-94) fL MCH (27-31) pg MCHC (31-36) g/dl RDW (10.5-15) % Plt Count (150-450) 10^3/ul MPV (7.4-10.4) um3 Neut % (Auto) (38-83) % Lymph % (Auto) (25-47) % [place] % (Auto) (1-9) % Eos % (Auto) (0-6) % Baso % (Auto) (0-2) % Absolute Neuts (auto) (1.5-7.7) 10^3/ul Absolute Lymphs (auto) (1.0-4.8) 10^3/ul Absolute Monos (auto) (0-0.8) 10^3/ul Absolute Eos (auto) (0-0.6) 10^3/ul Absolute Basos (auto) (0-0.2) 10^3/ul Absolute Nucleated RBC 10^3/ul Nucleated RBC % INR (Anticoag Therapy) (0.77-1.02) APTT (26.0-36.3) seconds VBG pH 7.35 (7.33-7.43) VBG pCO2 48 (41-51) mmHg VBG pO2 26 L (35-45) mmHg VBG HCO3 24.1 (24-28) mmol/L VBG O2 Saturation 47.1 L (70-80) % VBG Base Excess 0.4 (0-4) Sodium (133-145) mmol/L Potassium Chloride (101-111) mmol/L Carbon Dioxide (22-32) mmol/L Anion Gap (2-11) mmol/L BUN (6-24) mg/dL Creatinine (0.67-1.17) mg/dL Est GFR ( Amer) (>60) Est GFR (Non-Af Amer) (>60) BUN/Creatinine Ratio (8-20) Glucose (70-100) mg/dL Lactic Acid 2.1 H* (0.5-2.0) mmol/L Calcium (8.6-10.3) mg/dL Phosphorus (2.5-5.0) mg/dL Magnesium (1.9-2.7) mg/dL Total Bilirubin (0.2-1.0) mg/dL AST ALT (7-52) U/L Alkaline Phosphatase (34-104) U/L Ammonia (16-53) mol/L Total Creatine Kinase (10-223) U/L CK-MB (CK-2) Troponin I (<0.04) ng/mL C-Reactive Protein (< 5.00) mg/L B-Natriuretic Peptide ( - 100) pg/mL Total Protein (6.4-8.9) g/dL Albumin (3.2-5.2) g/dL Globulin (2-4) g/dL Albumin/Globulin Ratio (1-3) Lipase (11.0-82.0) U/L TSH (0.34-5.60) mcIU/mL Blood Type Antibody Screen Crossmatch Result Diagrams: 08/16/17 12:20 08/16/17 12:20 Lab Statement: Any lab studies that have been ordered have been reviewed, and results considered in the medical decision making process. - Radiology CXR Xray Interpretation: No Acute Changes Radiology Interpretation Completed By: Radiologist - No evidence for cardiogenic pulmonary edema or acute pulmonary pathology. - EKG 12:59 EKG Rhythm: Sinus Bradycardia - [address] Segment: Normal Ectopy: None EKG Interpretation: Flipped T at V6. LVH with secondary repolarization abnormality. Re-Evaluation - Re-Evaluation First Eval Re-Evaluation Time: 13:48 - BP is 78/51, 58 BPM Change: Unchanged Second Eval Re-Evaluation Time: 14:02 - BP is 113/73, 58 BPM Change: Improved GIGU Course/Dx - Course Course Of Treatment: Medications reviewed. NO GI AT [facility] [place] THEREFORE, NEEDS CARE AT FACILITY WITH GI. NO BEDS AT [facility]. ACCEPTED IN TRANSFER TO [facility] ED BY DR JEAN. SBP INCREASED TO 101 AND PATIENT ALERT WITH BLOOD TRANSFUSION. STABLE WITH BLOOD TRANSFUSION. WILL SEND TO [facility] WITH BLOOD HANGING. NO RESPIRATORY DISTRESS. - Diagnoses Provider Diagnoses: GI bleed, Hypotension, Kidney failure - Critical Care Time Critical Care Time: 75-104 min Discharge - Discharge Plan Condition: Fair Disposition: TRANS HIGHER LVL OF CARE FAC Referrals: Justa Cruz [Primary Care Provider] - The documentation as recorded by the Steve shell Stephanie accurately reflects the service I personally performed and the decisions made by me, Zak Stout MD.
[2017-08-16 16:01] VITALS: BP 100/78
--- NOTE | 2017-08-17 09:29 | PN ---
Progress Note - Progress Note Date of Service: 08/16/17 Note: patient diagnosed with GI bleed. positive stool occult blood.
== END 2017-08-16 16:00 | disposition short-term general hospital (02) ==
LOC: ED 12:02
DX: K92.2 Gastrointestinal hemorrhage, unspecified (principal); I95.9 Hypotension, unspecified; N19 Unspecified kidney failure; K59.00 Constipation, unspecified; Z87.891 Personal history of nicotine dependence; R19.7 Diarrhea, unspecified
CPT/HCPCS: 36415; 71045; 80053; 82140; 82270; 82550; 82553; 82803; 83605; 83690; 83735; 83880; 84100; 84443; 84484; 85025; 85610; 85730; 86140; 86850; 86900; 86901; 86922; 93005; 96374; 96376; 99285; P9040

== ENCOUNTER 2017-09-13 21:59 | Emergency (ER) | payer OTHER ==
[2017-09-14 01:04] LABS: Hematocrit 23 % (42-52); Hemoglobin 7.6 g/dl (14.0-18.0); Mean Corpuscular HGB Conc 34 g/dl (31-36); Mean Corpuscular Hemoglobin 31 pg (27-31); Mean Corpuscular Volume 92 fL (80-94); Mean Platelet Volume 10 um3 (7.4-10.4); Platelet Count 184 10^3/ul (150-450); Red Blood Count 2.47 10^6/ul (4.0-5.4); Red Cell Distribution Width 17 % (10.5-15); White Blood Count 9.9 10^3/ul (3.5-10.8)
[2017-09-14 01:05] LABS: ABS Basophils 0.1 10^3/ul (0-0.2); ABS Eosinophils 0.2 10^3/ul (0-0.6); ABS Lymphocytes 1.2 10^3/ul (1.0-4.8); ABS Monocytes 1.6 10^3/ul (0-0.8); ABS Neutrophils 6.8 10^3/ul (1.5-7.7); ABS Nucleated RBC 0 10^3/ul; Eosinophil % 2.2 % (0-6); Lymphocyte % 11.8 % (25-47); Nucleated Red Blood Cells % 0.1
[2017-09-14 01:17] LABS: EGFR Non-African American 33.6 (>60)
[2017-09-14 01:19] LABS: INR 1.07 (0.77-1.02)
[2017-09-14 04:20] LABS: Urine Appearance Turbid; Urine Blood 1+ (Negative); Urine Color Yellow; Urine Ketones Negative (Negative); Urine Protein 2+(100 mg/dL) (Negative); Urine Specific Gravity 1.014 (1.010-1.030); Urine Urobilinogen Negative (Negative)
[2017-09-14] MEDS ORDERED: cefTRIAXone(*) 1 GM in NS 0.9% 50 ML* 50 ML IVPB ONE (04:31)
[2017-09-14] MEDS ORDERED: CMCS: Cefdinir cap (NF) 300 MG CAP PO ONE (06:37)
[2017-09-14] MEDS ORDERED: metroNIDAZOLE TAB* 250 MG PO ONE (06:37)
[2017-09-14 07:07] VITALS: BP 119/55
--- NOTE | 2017-09-14 13:25 | RAD ---
INDICATION: Fever and GI bleed COMPARISON: Most recent comparison chest x-ray is dated August 16, 2017 TECHNIQUE: Single AP portable view of the chest was obtained. FINDINGS: Image quality is compromised due to the relative inferiority of a portable chest x-ray. Again seen is a left internal jugular tunneled hemodialysis catheter with the tip terminating at the cavoatrial junction. The heart and mediastinum exhibit normal size and contour. Patchy densities overlying the bilateral lungs are most consistent with mild pulmonary edema. There is no focal or lobar consolidation. Visualized bones are normal for the patient's age. IMPRESSION: Possible interval appearance of mild pulmonary edema without other acute cardiopulmonary findings.
--- NOTE | 2017-09-26 06:49 | ED ---
Ze Ellison Tecjoon, scribed for William Pinedo MD on 09/14/17 at 0023 . HPI Febrile Illness - HPI Summary HPI Summary: This patient is a 57 year old male presenting to [facility] accompanied by family with a chief complaint of fever since 2 days ago. Patient was recently underwent surgery for GI bleed from colon, with complications of sepsis. Patient was discharged 2 days ago from [facility]. The pain is rated 7/10 in severity. Symptoms aggravated by nothing. Symptoms alleviated by nothing. The patient treated the pain and sx with Tylenol and oxycodone [employer]. Patient additionally reports fatigue, SOB, general myalgia. Patient denies loss of appetite, abd pain. - History of Current Complaint Chief Complaint: EDFever Time Seen by Provider: 09/13/17 23:19 Hx Obtained From: Patient Onset/Duration: Started Days Ago - 2, Still Present Timing: Constant Initial Severity: Moderate Current Severity: Moderate Pain Intensity: 7 Pain Scale Used: 0-10 Numeric Aggravating Factors: Nothing Alleviating Factors: Nothing Associated Signs and Symptoms: Negative - loss of appetite, abd pain., Other: - fatigue, SOB, general myalgia - Additional Pertinent History Primary Care Physician: [id number] - Allergy/Home Medications Allergies/Adverse Reactions: Allergies Allergy/AdvReac Type Severity Reaction Status Date / Time MS Clindamycin [Clindamycin] AdvReac Intermediate Diarrhea Verified 06/01/17 13: 37 MS Morphine [Morphine] AdvReac Hallucinati Verified 06/01/17 13:37 ons PMH/Surg Hx/FS Hx/Imm Hx Previously Healthy: No Endocrine/Hematology History: Reports: Hx Diabetes, Hx Anemia, Other Endocrine/ Hematological Disorders - retinal hemorrhage with heparin Denies: Hx Systemic Lupus Erythematosus, Hx Thyroid Disease Cardiovascular History: Reports: Hx Angina, Hx Angioplasty, Hx Cardiac Arrest, Hx Coronary Artery Disease, Hx Hypercholesterolemia, Hx Hypertension, Hx Myocardial Infarction, Hx Peripheral Vascular Disease, Other Cardiovascular Problems/Disorders - a.fib in past Denies: Hx Auto Implanted Cardiovert Defib, Hx Congestive Heart Failure, Hx Pacemaker/ICD, Hx Valvular Heart Disease Respiratory History: Reports: Hx Sleep Apnea - undiagnosed, Other Respiratory Problems/Disorders - post nasal drip Denies: Hx Asthma, Hx Chronic Obstructive Pulmonary Disease (COPD) GI History: Reports: Hx Gastroesophageal Reflux Disease, Other GI Disorders - g tube Denies: Hx Jaundice, Hx Ulcer History: Reports: Hx Chronic Renal Failure - ESRD, Hx Dialysis, Hx Kidney Stones, Hx Renal Disease, Other Problems/Disorders Musculoskeletal History: Reports: Hx Orthopedic Injury - Broke right foot in 2009, Other Musculoskeletal History - bilateral BKA, multiple finger amputations on right hand Denies: Hx Rheumatoid Arthritis Sensory History: Reports: Hx Cataracts - right eye, Hx Vision Problem, Hx Hearing Problem - ringing in left ear, Other Sensory Impairments - Bleed related to Heparin. Denies: Hx Contacts or Glasses, Hx Hearing Aid Opthamlomology History: Reports: Hx Cataracts - right eye, Hx Vision Problem, Other Sensory Impairments - Bleed related to Heparin. Denies: Hx Contacts or Glasses Neurological History: Reports: Other Neuro Impairments/Disorders - diabetic neuropathy Denies: Hx Headaches Psychiatric History: Denies: Hx Panic Disorder - Cancer History Hx Chemotherapy: No - Surgical History Surgery Procedure, Year, and Place: VASECTOMY;. LEFT KNEE PATELLA REALIGNMENT- 1986;. 2011- PERITONEAL CATHETER PLACEMENT;. [place] [place]-06/23/2014; [place]02[place]14[place] [place]. [place] 2013 -CAUTERIZED DUE TO BLOOD POOLING THEN 10/2014 Rt EYE; REVISION Lt BKA. heart stents 09/28 and 03/28, 06/2016, 04/27. open heart surgery 03/28. tracetomy 10/26. hemodialysis catherter placed 10/26. 08/28- revision of right hand and right leg amputation. 06/2016- four fingers of right hand amputated. 04/27- amputation of right leg. 04/26- transplant of veins in left leg. 2014- amputation of left leg. 2014-revision of left leg amputation Hx Anesthesia Reactions: No Infectious Disease History: Yes Infectious Disease History: Denies: Hx Hepatitis, Hx Human Immunodeficiency Virus (HIV), Traveled Outside the US in Last 30 Days - Family History Known Family History: Positive: Diabetes Negative: Cardiac Disease - Social History Lives: With Family Alcohol Use: None Alcohol Amount: unable to assess Hx Substance Use: No Substance Use Type: Reports: None Substance Use Comment - Amount & Last Used: unable to assess Hx Tobacco Use: Yes Smoking Status (MU): Former Smoker Type: Cigarettes Length of Time of Smoking/Using Tobacco: 22 years Have You Smoked in the Last Year: No Review of Systems Positive: Fatigue Positive: Shortness Of Breath Gastrointestinal: Negative - loss of appetite Negative: Abdominal Pain Positive: Myalgia All Other Systems Reviewed And Are Negative: Yes Physical Exam - Summary Physical Exam Summary: Appearance: Well-appearing, Well-nourished Skin: Warm Eyes: Normal ENT: Normal Neck: Supple, nontender Respiratory: Clear to auscultation Cardiovascular: Normal S1, S2. No murmurs. Normal distal pulses in tibial and radial bilaterally. Abdomen: Soft, nontender Musculoskeletal: Normal, Strength/ROM Intact Neurological: Normal, A&Ox3 Psychiatric: Normal Triage Information Reviewed: Yes Vital Signs On Initial Exam: Initial Vitals Temp Pulse Resp BP Pulse Ox 98.9 F 68 14 105/76 100 09/13/17 22:03 09/13/17 22:03 09/13/17 22:03 09/13/17 22:03 09/13/17 22:03 Vital Signs Reviewed: Yes Diagnostics - Vital Signs Vital Signs Temp Pulse Resp BP Pulse Ox 09/13/17 22:03 98.9 F 68 14 105/76 100 - Laboratory Lab Results: Lab Results 09/14/17 09/14/17 09/14/17 Range/Units 00:45 00:45 00:45 WBC (3.5-10.8) 10^3/ul RBC (4.0-5.4) 10^6/ul Hgb (14.0-18.0) g/dl Hct (42-52) % MCV (80-94) fL MCH (27-31) pg MCHC (31-36) g/dl RDW (10.5-15) % Plt Count (150-450) 10^3/ul MPV (7.4-10.4) um3 Neut % (Auto) (38-83) % Lymph % (Auto) (25-47) % [place] % (Auto) (1-9) % Eos % (Auto) (0-6) % Baso % (Auto) (0-2) % Absolute Neuts (auto) (1.5-7.7) 10^3/ul Absolute Lymphs (auto) (1.0-4.8) 10^3/ul Absolute Monos (auto) (0-0.8) 10^3/ul Absolute Eos (auto) (0-0.6) 10^3/ul Absolute Basos (auto) (0-0.2) 10^3/ul Absolute Nucleated RBC 10^3/ul Nucleated RBC % INR (Anticoag Therapy) 1.07 H (0.77-1.02) APTT 36.5 H (26.0-36.3) seconds Sodium 131 L (133-145) mmol/L Potassium 3.3 L (3.5-5.0) mmol/L Chloride 95 L (101-111) mmol/L Carbon Dioxide 30 (22-32) mmol/L Anion Gap 6 (2-11) mmol/L BUN 19 (6-24) mg/dL Creatinine 2.06 H (0.67-1.17) mg/dL Est GFR ( Amer) 43.2 (>60) Est GFR (Non-Af Amer) 33.6 (>60) BUN/Creatinine Ratio 9.2 (8-20) Glucose 184 H (70-100) mg/dL Lactic Acid (0.5-2.0) mmol/L Calcium 8.4 L (8.6-10.3) mg/dL Total Bilirubin 0.30 (0.2-1.0) mg/dL AST 10 L (13-39) U/L ALT 6 L (7-52) U/L Alkaline Phosphatase 94 (34-104) U/L C-Reactive Protein 125.57 H (< 5.00) mg/L Total Protein 6.5 (6.4-8.9) g/dL Albumin 2.3 L (3.2-5.2) g/dL Globulin 4.2 H (2-4) g/dL Albumin/Globulin Ratio 0.5 L (1-3) Urine Color Urine Appearance Urine pH (5-9) Ur Specific [place] (1.010-1.030) Urine Protein (Negative) Urine Ketones (Negative) Urine Blood (Negative) Urine Nitrate (Negative) Urine Bilirubin (Negative) Urine Urobilinogen (Negative) Ur Leukocyte Esterase (Negative) Urine WBC (Auto) (Absent) Urine RBC (Auto) (Absent) Urine Bacteria (Absent) Urine Glucose (Negative) Influenza A (Rapid) (Negative) Influenza B (Rapid) (Negative) Blood Type O Positive Antibody Screen Negative 09/14/17 09/14/1718 Range/Units 00:45 00:45 00:49 WBC 9.9 (3.5-10.8) 10^3/ul RBC 2.47 L (4.0-5.4) 10^6/ul Hgb 7.6 L (14.0-18.0) g/dl Hct 23 L (42-52) % MCV 92 (80-94) fL MCH 31 (27-31) pg MCHC 34 (31-36) g/dl RDW 17 H (10.5-15) % Plt Count 184 (150-450) 10^3/ul MPV 10 (7.4-10.4) um3 Neut % (Auto) 69.1 (38-83) % Lymph % (Auto) 11.8 L (25-47) % [place] % (Auto) 15.8 H (1-9) % Eos % (Auto) 2.2 (0-6) % Baso % (Auto) 1.1 (0-2) % Absolute Neuts (auto) 6.8 (1.5-7.7) 10^3/ul Absolute Lymphs (auto) 1.2 (1.0-4.8) 10^3/ul Absolute Monos (auto) 1.6 H (0-0.8) 10^3/ul Absolute Eos (auto) 0.2 (0-0.6) 10^3/ul Absolute Basos (auto) 0.1 (0-0.2) 10^3/ul Absolute Nucleated RBC 0 10^3/ul Nucleated RBC % 0.1 INR (Anticoag Therapy) (0.77-1.02) APTT (26.0-36.3) seconds Sodium (133-145) mmol/L Potassium (3.5-5.0) mmol/L Chloride (101-111) mmol/L Carbon Dioxide (22-32) mmol/L Anion Gap (2-11) mmol/L BUN (6-24) mg/dL Creatinine (0.67-1.17) mg/dL Est GFR ( Amer) (>60) Est GFR (Non-Af Amer) (>60) BUN/Creatinine Ratio (8-20) Glucose (70-100) mg/dL Lactic Acid 1.5 (0.5-2.0) mmol/L Calcium (8.6-10.3) mg/dL Total Bilirubin (0.2-1.0) mg/dL AST (13-39) U/L ALT (7-52) U/L Alkaline Phosphatase (34-104) U/L C-Reactive Protein (< 5.00) mg/L Total Protein (6.4-8.9) g/dL Albumin (3.2-5.2) g/dL Globulin (2-4) g/dL Albumin/Globulin Ratio (1-3) Urine Color Urine Appearance Urine pH (5-9) Ur Specific [place] (1.010-1.030) Urine Protein (Negative) Urine Ketones (Negative) Urine Blood (Negative) Urine Nitrate (Negative) Urine Bilirubin (Negative) Urine Urobilinogen (Negative) Ur Leukocyte Esterase (Negative) Urine WBC (Auto) (Absent) Urine RBC (Auto) (Absent) Urine Bacteria (Absent) Urine Glucose (Negative) Influenza A (Rapid) Negative (Negative) Influenza B (Rapid) Negative (Negative) Blood Type Antibody Screen 09/14/17 Range/Units 03:25 WBC (3.5-10.8) 10^3/ul RBC (4.0-5.4) 10^6/ul Hgb (14.0-18.0) g/dl Hct (42-52) % MCV (80-94) fL MCH (27-31) pg MCHC (31-36) g/dl RDW (10.5-15) % Plt Count (150-450) 10^3/ul MPV (7.4-10.4) um3 Neut % (Auto) (38-83) % Lymph % (Auto) (25-47) % [place] % (Auto) (1-9) % Eos % (Auto) (0-6) % Baso % (Auto) (0-2) % Absolute Neuts (auto) (1.5-7.7) 10^3/ul Absolute Lymphs (auto) (1.0-4.8) 10^3/ul Absolute Monos (auto) (0-0.8) 10^3/ul Absolute Eos (auto) (0-0.6) 10^3/ul Absolute Basos (auto) (0-0.2) 10^3/ul Absolute Nucleated RBC 10^3/ul Nucleated RBC % INR (Anticoag Therapy) (0.77-1.02) APTT (26.0-36.3) seconds Sodium (133-145) mmol/L Potassium (3.5-5.0) mmol/L Chloride (101-111) mmol/L Carbon Dioxide (22-32) mmol/L Anion Gap (2-11) mmol/L BUN (6-24) mg/dL Creatinine (0.67-1.17) mg/dL Est GFR ( Amer) (>60) Est GFR (Non-Af Amer) (>60) BUN/Creatinine Ratio (8-20) Glucose (70-100) mg/dL Lactic Acid (0.5-2.0) mmol/L Calcium (8.6-10.3) mg/dL Total Bilirubin (0.2-1.0) mg/dL AST (13-39) U/L ALT (7-52) U/L Alkaline Phosphatase (34-104) U/L C-Reactive Protein (< 5.00) mg/L Total Protein (6.4-8.9) g/dL Albumin (3.2-5.2) g/dL Globulin (2-4) g/dL Albumin/Globulin Ratio (1-3) Urine Color Yellow Urine Appearance Turbid Urine pH 7.0 (5-9) Ur Specific [place] 1.014 (1.010-1.030) Urine Protein 2+(100 mg/dl) H (Negative) Urine Ketones Negative (Negative) Urine Blood 1+ H (Negative) Urine Nitrate Negative (Negative) Urine Bilirubin Negative (Negative) Urine Urobilinogen Negative (Negative) Ur Leukocyte Esterase 2+ H (Negative) Urine WBC (Auto) 3+(>20/hpf) H (Absent) Urine RBC (Auto) 3+(>10/hpf) H (Absent) Urine Bacteria 2+ H (Absent) Urine Glucose 1+(50 mg/dl) H (Negative) Influenza A (Rapid) (Negative) Influenza B (Rapid) (Negative) Blood Type Antibody Screen Result Diagrams: 09/14/17 00:45 09/14/17 00:45 Lab Statement: Any lab studies that have been ordered have been reviewed, and results considered in the medical decision making process. Re-Evaluation - Re-Evaluation First Eval Re-Evaluation Time: 05:56 Comment: Confirmed lab results with patient and discussed possible methods of care. Patient and family are willing to try oral antibiotics, specifically Cefdinir and Flagyl. Course/Dx - Course Assessment/Plan: I had a conversation with the patient's primary surgical team at outside hospital. After discussing the case with team and family, we agreed that patient would try outpatient oral abx and return promptly for any recurrent fever. Pt and family understand the risks and agree to and understand dc instructions. - Diagnoses Provider Diagnoses: UTI (urinary tract infection), Fever Discharge - Discharge Plan Condition: Stable Disposition: HOME Patient Education Materials: Urinary Tract Infection in Men (ED) Referrals: Justa Cruz [Primary Care Provider] - Additional Instructions: PLEASE MAKE AN APPOINTMENT FIRST THING IN THE MORNING TO BE SEEN BY YOUR SURGEON IF YOU CONTINUE TO HAVE FEVERS PLEASE RETURN IMMEDIATELY TO THE ER IF YOU HAVE ANY WORSENING OR CONCERNING SYMPTOMS PLEASE MAKE AN APPOINTMENT TO BE SEEN BY YOUR PRIMARY CARE DOCTOR WITHIN 1 WEEK The documentation as recorded by the Ze shell Tecjoon accurately reflects the service I personally performed and the decisions made by me, William Pinedo MD.
== END 2017-09-14 07:05 | disposition home or self-care (01) ==
LOC: ED 21:59
DX: N39.0 Urinary tract infection, site not specified (principal); Z87.891 Personal history of nicotine dependence; E11.9 Type 2 diabetes mellitus without complications; I25.10 Atherosclerotic heart disease of native coronary artery without angina pectoris; E78.00 Pure hypercholesterolemia, unspecified; I10 Essential (primary) hypertension; I25.2 Old myocardial infarction; I73.9 Peripheral vascular disease, unspecified; I48.91 Unspecified atrial fibrillation; K21.9 Gastro-esophageal reflux disease without esophagitis
CPT/HCPCS: 36415; 71045; 80053; 81003; 81015; 83605; 85025; 85610; 85730; 86140; 86850; 86900; 86901; 87040; 87086; 87502; 99284; A9270-GY

== ENCOUNTER 2017-09-16 10:32 | Emergency (ER) | payer OTHER ==
[2017-09-16 10:42] VITALS: BP 130/80
[2017-09-16 11:33] LABS: Hematocrit 26 % (42-52); Hemoglobin 8.4 g/dl (14.0-18.0); Mean Corpuscular HGB Conc 32 g/dl (31-36); Mean Corpuscular Hemoglobin 30 pg (27-31); Mean Corpuscular Volume 92 fL (80-94); Mean Platelet Volume 10 um3 (7.4-10.4); Platelet Count 357 10^3/ul (150-450); Red Blood Count 2.81 10^6/ul (4.0-5.4); Red Cell Distribution Width 19 % (10.5-15); White Blood Count 14.7 10^3/ul (3.5-10.8)
[2017-09-16 11:44] LABS: EGFR Non-African American 12.4 (>60)
[2017-09-16 11:50] LABS: ABS Basophils 0.2 10^3/ul (0-0.2); ABS Eosinophils 0.3 10^3/ul (0-0.6); ABS Lymphocytes 0.8 10^3/ul (1.0-4.8); ABS Monocytes 1.7 10^3/ul (0-0.8); ABS Neutrophils 11.9 10^3/ul (1.5-7.7); ABS Nucleated RBC 0 10^3/ul; Eosinophil % 1.8 % (0-6); Lymphocyte % 5.4 % (25-47); Nucleated Red Blood Cells % 0
[2017-09-16 11:53] LABS: INR 1.05 (0.77-1.02)
--- NOTE | 2017-09-16 11:58 | RAD ---
Indication: Shortness of breath. Cardiac disease with history of previous atrial fibrillation. End-stage renal disease on dialysis. Comparison: September 14, 2017 Technique: Upright AP 1135 hours Report: Tip of LEFT side tunnel central venous catheter is at the level of the RIGHT atrium. Negative for pneumothorax. Cardiomegaly. Mildly prominent and ill-defined central pulmonary vasculature and diffuse mild prominence of interstitial markings with thickened peripheral interlobular septa and small bilateral pleural effusions. IMPRESSION: Pulmonary vascular congestion and interstitial edema with associated small effusions.
--- NOTE | 2017-09-16 12:21 | ED ---
Ruben Ellison Jennifer, scribed for aZk Stout MD on 09/16/17 at 1054 . Shortness of Breath - HPI Summary HPI Summary: The patient is a 57 year old male who [facility]ness of breath and difficulty breathing that worsened today. The patient was on his way to receive dialysis at 11:00 but his shortness of breath worsened to a point where the [facility] thought [facility] to bring [facility] to the ED instead. The patient was in the ED overnight three days ago but denied admission to [facility] and was given Toradol. He additionally complains of a fever. He would prefer to go to dialysis than be admitted today. 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 Onset/Duration: Sudden Onset, Still Present, Worse Since Timing: Constant Current Severity: Moderate Aggrevating Factors: Nothing Alleviating Factors: Nothing Associated Signs & Symptoms: Fever - Allergy/Home Medications Allergies/Adverse Reactions: Allergies Allergy/AdvReac Type Severity Reaction Status Date / Time MS Clindamycin [Clindamycin] AdvReac Intermediate Diarrhea Verified 06/01/17 13: 37 MS Morphine [Morphine] AdvReac Hallucinati Verified 06/01/17 13:37 ons Home Medications: Home Medications Folic Acid/Vit B Complex and C [Ct-Yvan Tablet] 0.8 mg G TUBE DAILY 09/16/17 [ History Confirmed 09/16/17] Sevelamer Carb SUSP (NF) [Renvela SUSP (NF)] 0.8 gm G TUBE AC 09/16/17 [History Confirmed 09/16/17] PMH/Surg Hx/FS Hx/Imm Hx Endocrine/Hematology History: Reports: Hx Diabetes, Hx Anemia, Other Endocrine/ Hematological Disorders - retinal hemorrhage with heparin Denies: Hx Systemic Lupus Erythematosus, Hx Thyroid Disease Cardiovascular History: Reports: Hx Angina, Hx Angioplasty, Hx Cardiac Arrest, Hx Coronary Artery Disease, Hx Hypercholesterolemia, Hx Hypertension, Hx Myocardial Infarction, Hx Peripheral Vascular Disease, Other Cardiovascular Problems/Disorders - a.fib in past Denies: Hx Auto Implanted Cardiovert Defib, Hx Congestive Heart Failure, Hx Pacemaker/ICD, Hx Valvular Heart Disease Respiratory History: Reports: Hx Sleep Apnea - undiagnosed, Other Respiratory Problems/Disorders - post nasal drip Denies: Hx Asthma, Hx Chronic Obstructive Pulmonary Disease (COPD) GI History: Reports: Hx Gastroesophageal Reflux Disease, Other GI Disorders - g tube Denies: Hx Jaundice, Hx Ulcer History: Reports: Hx Chronic Renal Failure - ESRD, Hx Dialysis, Hx Kidney Stones, Hx Renal Disease, Other Problems/Disorders Musculoskeletal History: Reports: Hx Orthopedic Injury - Broke right foot in 2009, Other Musculoskeletal History - bilateral BKA, multiple finger amputations on right hand Denies: Hx Rheumatoid Arthritis Sensory History: Reports: Hx Cataracts - right eye, Hx Vision Problem, Hx Hearing Problem - ringing in left ear, Other Sensory Impairments - Bleed related to Heparin. Denies: Hx Contacts or Glasses, Hx Hearing Aid Opthamlomology History: Reports: Hx Cataracts - right eye, Hx Vision Problem, Other Sensory Impairments - Bleed related to Heparin. Denies: Hx Contacts or Glasses Neurological History: Reports: Other Neuro Impairments/Disorders - diabetic neuropathy Denies: Hx Headaches Psychiatric History: Denies: Hx Panic Disorder - Cancer History Hx Chemotherapy: No - Surgical History Surgery Procedure, Year, and Place: VASECTOMY;. LEFT KNEE PATELLA REALIGNMENT- 1986;. 2011- PERITONEAL CATHETER PLACEMENT;. 04/2013-CREATION OF A FISTULA LEFT ARM-[facility];. L-BKA-06/23/2014; 04/02/14-Left big toe removed-[facility];. Lt EYE 2013 -CAUTERIZED DUE TO BLOOD POOLING THEN 10/2014 Rt EYE; REVISION Lt BKA. heart stents 09/28 and 03/28, 06/2016, 04/27. open heart surgery 03/28. tracetomy 10/26. hemodialysis catherter placed 10/26. 08/28- revision of right hand and right leg amputation. 06/2016- four fingers of right hand amputated. 04/27- amputation of right leg. 04/26- transplant of veins in left leg. 2014- amputation of left leg. 2014-revision of left leg amputation Hx Anesthesia Reactions: No - Immunization History Date of Influenza Vaccine: 05/28 Infectious Disease History: No Infectious Disease History: Denies: Hx Hepatitis, Hx Human Immunodeficiency Virus (HIV), Traveled Outside the [place] in Last 30 Days - Family History Known Family History: Positive: Diabetes Negative: Cardiac Disease - Social History Alcohol Use: None Alcohol Amount: unable to assess Hx Substance Use: No Substance Use Type: Reports: None Substance Use Comment - Amount & Last Used: unable to assess Hx Tobacco Use: Yes Smoking Status (MU): Former Smoker Type: Cigarettes Length of Time of Smoking/Using Tobacco: 22 years Have You Smoked in the Last Year: No Review of Systems Positive: Fever Positive: Shortness Of Breath, Other - Difficulty breathing All Other Systems Reviewed And Are Negative: Yes Physical Exam - Summary Physical Exam Summary: General: well-appearing, no pain distress. Diabetic. Skin: warm, color reflects adequate perfusion, dry Head: normal Eyes: EOMI, WALDEMAR ENT: normal Neck: supple, nontender Respiratory: CTA, breath sounds present. Moderate respiratory distress. Cardiovascular: RRR Abdomen: soft, nontender Bowel: present Musculoskeletal: normal, strength/ROM intact Neurological: normal, sensory/motor intact, A&O x3 Psychological: affect/mood appropriate Triage Information Reviewed: Yes Vital Signs On Initial Exam: Initial Vitals Temp Pulse Resp BP Pulse Ox 99 F 104 26 130/80 98 09/16/17 10:38 09/16/17 10:38 09/16/17 10:38 09/16/17 10:38 09/16/17 10:38 Vital Signs Reviewed: Yes Diagnostics - Vital Signs Vital Signs Temp Pulse Resp BP Pulse Ox 09/16/17 10:38 99 F 104 26 130/80 98 - Laboratory Lab Results: Lab Results 09/16/17 09/16/17 09/16/17 Range/Units 11:15 11:15 11:15 WBC 14.7 H (3.5-10.8) 10^3/ul RBC 2.81 L (4.0-5.4) 10^6/ul Hgb 8.4 L (14.0-18.0) g/dl Hct 26 L (42-52) % MCV 92 (80-94) fL MCH 30 (27-31) pg MCHC 32 (31-36) g/dl RDW 19 H (10.5-15) % Plt Count 357 (150-450) 10^3/ul MPV 10 (7.4-10.4) um3 Neut % (Auto) 80.5 (38-83) % Lymph % (Auto) 5.4 L (25-47) % Prentiss % (Auto) 11.2 H (1-9) % Eos % (Auto) 1.8 (0-6) % Baso % (Auto) 1.1 (0-2) % Absolute Neuts (auto) 11.9 H (1.5-7.7) 10^3/ul Absolute Lymphs (auto) 0.8 L (1.0-4.8) 10^3/ul Absolute Monos (auto) 1.7 H (0-0.8) 10^3/ul Absolute Eos (auto) 0.3 (0-0.6) 10^3/ul Absolute Basos (auto) 0.2 (0-0.2) 10^3/ul Absolute Nucleated RBC 0 10^3/ul Nucleated RBC % 0 INR (Anticoag Therapy) 1.05 H (0.77-1.02) APTT 39.0 H (26.0-36.3) seconds Sodium 126 L (133-145) mmol/L Potassium 5.1 H D (3.5-5.0) mmol/L Chloride 92 L (101-111) mmol/L Carbon Dioxide 25 (22-32) mmol/L Anion Gap 9 (2-11) mmol/L BUN 70 H (6-24) mg/dL Creatinine 4.87 H (0.67-1.17) mg/dL Est GFR ( Amer) 16.0 (>60) Est GFR (Non-Af Amer) 12.4 (>60) BUN/Creatinine Ratio 14.4 (8-20) Glucose 214 H (70-100) mg/dL Lactic Acid (0.5-2.0) mmol/L Calcium 9.7 (8.6-10.3) mg/dL Phosphorus 1.4 L (2.5-5.0) mg/dL Magnesium 1.7 L (1.9-2.7) mg/dL Total Bilirubin 0.40 (0.2-1.0) mg/dL AST 15 (13-39) U/L ALT 8 (7-52) U/L Alkaline Phosphatase 122 H (34-104) U/L Troponin I 0.09 H* (<0.04) ng/mL C-Reactive Protein 113.34 H (< 5.00) mg/L Total Protein 7.4 (6.4-8.9) g/dL Albumin 2.6 L (3.2-5.2) g/dL Globulin 4.8 H (2-4) g/dL Albumin/Globulin Ratio 0.5 L (1-3) Lipase 59 (11.0-82.0) U/L TSH Pending 09/16/17 Range/Units 11:15 WBC (3.5-10.8) 10^3/ul RBC (4.0-5.4) 10^6/ul Hgb (14.0-18.0) g/dl Hct (42-52) % MCV (80-94) fL MCH (27-31) pg MCHC (31-36) g/dl RDW (10.5-15) % Plt Count (150-450) 10^3/ul MPV (7.4-10.4) um3 Neut % (Auto) (38-83) % Lymph % (Auto) (25-47) % Prentiss % (Auto) (1-9) % Eos % (Auto) (0-6) % Baso % (Auto) (0-2) % Absolute Neuts (auto) (1.5-7.7) 10^3/ul Absolute Lymphs (auto) (1.0-4.8) 10^3/ul Absolute Monos (auto) (0-0.8) 10^3/ul Absolute Eos (auto) (0-0.6) 10^3/ul Absolute Basos (auto) (0-0.2) 10^3/ul Absolute Nucleated RBC 10^3/ul Nucleated RBC % INR (Anticoag Therapy) (0.77-1.02) APTT (26.0-36.3) seconds Sodium (133-145) mmol/L Potassium (3.5-5.0) mmol/L Chloride (101-111) mmol/L Carbon Dioxide (22-32) mmol/L Anion Gap (2-11) mmol/L BUN (6-24) mg/dL Creatinine (0.67-1.17) mg/dL Est GFR ( Amer) (>60) Est GFR (Non-Af Amer) (>60) BUN/Creatinine Ratio (8-20) Glucose (70-100) mg/dL Lactic Acid 1.3 (0.5-2.0) mmol/L Calcium (8.6-10.3) mg/dL Phosphorus (2.5-5.0) mg/dL Magnesium (1.9-2.7) mg/dL Total Bilirubin (0.2-1.0) mg/dL AST (13-39) U/L ALT (7-52) U/L Alkaline Phosphatase (34-104) U/L Troponin I (<0.04) ng/mL C-Reactive Protein (< 5.00) mg/L Total Protein (6.4-8.9) g/dL Albumin (3.2-5.2) g/dL Globulin (2-4) g/dL Albumin/Globulin Ratio (1-3) Lipase (11.0-82.0) U/L TSH Result Diagrams: 09/16/17 11:15 09/16/17 11:15 Lab Statement: Any lab studies that have been ordered have been reviewed, and results considered in the medical decision making process. - Radiology CXR Xray Interpretation: Positive (See Comments) - Pulmonary vascular congestion and interstitial edema with associated small effusions. Dr. Stout has reviewed this report. Radiology Interpretation Completed By: Radiologist - EKG 10:57 Cardiac Rate: NL EKG Rhythm: Sinus Rhythm Ectopy: None EKG Interpretation: Left bundle branch block, left atrial enlargement Course/Dx - Course Course Of Treatment: BP noted and advised to follow up with PCP. Allergies noted. Medications reviewed. DR WARD SAW PATIENT IN THE ED. MR CRISTINA IS GOING TO DIALYSIS FROM THE ED. ADMISSION TO THE HOSPITAL WILL BE DECLIDED AFTER DIALYSIS. CRITICAL CARE TIME LESS THAN 30 MINUTES. - Diagnoses Provider Diagnoses: Uncontrolled hypertension, Renal failure, Dyspnea - Physician Notifications Discussed Care of Patient With: Isrrael Ward Time Discussed With Above Provider: 11:45 Instructed by Provider To: Admit As Inpatient Discharge - Discharge Plan Condition: Stable Disposition: HOME Patient Education Materials: Hemodialysis (DC), Dyspnea (ED) Referrals: Justa Cruz [Primary Care Provider] - Additional Instructions: GO DIRECTLY TO DIALYSIS. DISCUSS RETURN TO THE EMERGENCY DEPARTMENT WITH DR WARD. Your blood pressure was elevated during todays visit; please follow up with your primary care provider within a week for further evaluation. The documentation as recorded by the Ruben shell Jennifer accurately reflects the service I personally performed and the decisions made by , Zak Stout MD.
--- NOTE | 2017-09-17 01:33 | PN ---
PROGRESS NOTE: DATE OF SERVICE: 09/16/17 HISTORY: Mr. Landry is a 57-year-old gentleman well known to me from outpatient dialysis and consultations. He recently was discharged from the [facility] after an episode of ischemic colitis requiring a colostomy. He has been complaining of fever for the past few days and he is somewhat short of breath at the present time. Apparently, his breathing deteriorated in the ambulance en route to the emergency room. He actually does not appear to be having any significant respiratory distress to me at the present time. He thinks he is due for dialysis and, in fact, he is due in the dialysis unit for today. However, he tells me he has been very cautious about his fluid intake. His tells me she noted to have some discoloration of his ostomy stoma. PHYSICAL EXAMINATION: His temperature is 101, blood pressure 118/76, with a pulse of 88. His mucous membranes are moist. He is anicteric. His chest reveals some wheezing, but I did not appreciate any rales. The heart revealed a regular rhythm without murmurs. The abdomen is soft and nontender, he has a functioning ostomy in place. LABORATORY DATA: His white count has been going up over the past 2 days since he was in the emergency room. His hemoglobin is actually improved. IMPRESSION: Febrile illness, the etiology which is not presently determined. Saturday night, when he was in the emergency room, he appeared to have a grossly infected urine however, it was cultured negative. He certainly can have a respiratory infection; there, of course, has been a viral bronchitic epidemic going around. I am a little suspicious about his urine. Nevertheless, he does need to be dialyzed. I think the most reasonable plan is for us to take him to the chronic dialysis unit to filter off whatever fluid we need to get him to his dry weight and we will see how he does. If he improves significantly, he probably can go home. If not, it might be more reasonable to bring him to the hospital. I have reviewed his case with Dr. Stout. [id number]/[facility] #: [id number] [place]
== END 2017-09-16 11:55 | disposition home or self-care (01) ==
LOC: ED 10:32
DX: I10 Essential (primary) hypertension (principal); R50.9 Fever, unspecified; R06.02 Shortness of breath; Z87.891 Personal history of nicotine dependence; N19 Unspecified kidney failure; R06.00 Dyspnea, unspecified
CPT/HCPCS: 36415; 71045; 80053; 83605; 83690; 83735; 83880; 84100; 84443; 84484; 85025; 85610; 85730; 86140; 87040; 93005; 99285

== ENCOUNTER 2017-09-16 16:08 | Emergency (ER) | payer OTHER ==
[2017-09-16] MEDS ORDERED: Vancomycin(*) 1,000 MG in NS 0.9% 250 ML* 250 ML IVPB ONE (18:27)
[2017-09-16] MEDS ORDERED: Piperacillin/Tazobac ADVAN(*) 3.375 GM in NS 0.9% 100 ML* 100 ML IVPB ONE (18:27)
[2017-09-16] MEDS ORDERED: HYDROmorphone INJ* 2 MG/ML CARPUJECT SYRINGE IV SLOW PU ONE (18:27)
[2017-09-16] MEDS ORDERED: Zosyn per Pharmacy* NOTE FOLLOW UP SCH (19:00)
[2017-09-16 19:14] LABS: ABS Basophils 0.1 10^3/ul (0-0.2); ABS Eosinophils 0.1 10^3/ul (0-0.6); ABS Lymphocytes 0.9 10^3/ul (1.0-4.8); ABS Monocytes 1.7 10^3/ul (0-0.8); ABS Neutrophils 7.7 10^3/ul (1.5-7.7); ABS Nucleated RBC 0 10^3/ul; Eosinophil % 1.4 % (0-6); Hematocrit 24 % (42-52); Hemoglobin 8.1 g/dl (14.0-18.0); Lymphocyte % 8.2 % (25-47); Mean Corpuscular HGB Conc 34 g/dl (31-36); Mean Corpuscular Hemoglobin 30 pg (27-31); Mean Corpuscular Volume 90 fL (80-94); Mean Platelet Volume 10 um3 (7.4-10.4); Nucleated Red Blood Cells % 0; Platelet Count 366 10^3/ul (150-450); Red Cell Distribution Width 18 % (10.5-15); White Blood Count 10.4 10^3/ul (3.5-10.8)
[2017-09-16] MEDS ORDERED: Iodixanol* (CONTRAST) 320 MG/ML 100 ML SDV IV ONE ×2 (20:04→20:06)
--- NOTE | 2017-09-16 20:50 | RAD ---
CLINICAL HISTORY: Abdominal pain, status post right colectomy COMPARISON: September 23, 2006 TECHNIQUE: Multiple contiguous axial CT scans were obtained of the abdomen and pelvis after the administration of intravenous contrast. Coronal and sagittal multiplanar reformations are submitted for review. Oral contrast was administered. Delayed images were obtained through the abdomen and pelvis. FINDINGS: LUNG BASES: There are trace bilateral pleural effusions. There is minimal dependent atelectasis of the lung bases bilaterally. LIVER: The liver is normal in shape, size, contour, and attenuation. BILE DUCTS: There is no intrahepatic or extrahepatic biliary dilatation. GALLBLADDER: The gallbladder is normal, without pericholecystic inflammatory change. PANCREAS: The pancreas is normal, without mass or ductal dilatation. SPLEEN: Normal in size and appearance. UPPER GI TRACT: Evaluation of the gastrointestinal tract is limited by incomplete gastric distention. The upper GI tract is unremarkable. SMALL BOWEL AND MESENTERY: The small bowel is normal in contour, course, and caliber. There is no obstruction or dilatation. COLON: A colostomy is noted. The patient appears to be status post partial colectomy. There is a loculated fluid collection in the right hemiabdomen adjacent to the colostomy site, extending to the inferior margin of the right lobe of liver. This measures 7 x 4.8 cm transversely and extends for approximately 14.3 cm in craniocaudal dimension. ADRENALS: Normal bilaterally. KIDNEYS: The kidneys are normal in shape, size, contour, and axis. There is no hydronephrosis or nephrolithiasis. BLADDER: There is circumferential bladder wall thickening. PELVIC ORGANS: The prostate gland is normal. The seminal vesicles are symmetric. AORTA: There is calcific atherosclerotic disease of the abdominal aorta and its branches, without aneurysmal dilatation IVC: Unremarkable LYMPH NODES: There is no lymphadenopathy by size criteria. ABDOMINAL WALL: There is postsurgical change with a dehiscent wound along the anterior abdominal wall. The patient is status post colostomy. BONES AND SOFT TISSUES: Degenerative changes are noted of the spine. OTHER: None IMPRESSION: 1. THE PATIENT APPEARS TO BE STATUS POST PARTIAL COLECTOMY. THERE IS A LOCULATED FLUID COLLECTION WITHIN THE RIGHT HEMIABDOMEN MEASURING APPROXIMATE 7 X 4.8 CM TRANSVERSELY AND 14.3 CM IN CLINICAL DIMENSION, CONSISTENT WITH AN ABSCESS. FINDINGS WERE DISCUSSED WITH LAW MILNER AT APPROXIMATELY 8:45 PM ON SEPTEMBER 16, 2017 2. THERE IS CIRCUMFERENTIAL BLADDER WALL THICKENING. 3. TRACE BILATERAL PLEURAL EFFUSIONS. 4. ATHEROSCLEROSIS.
[2017-09-16] MEDS ORDERED: Loperamide LIQ* 2 MG/10 ML UDC PO ONE (21:34)
[2017-09-16] MEDS ORDERED: oxyCODONE ORAL.SOLN* 5 MG/5 ML UDC PO ONE (21:35)
--- NOTE | 2017-09-16 22:33 | ED ---
I, Leo Marshall, scribed for Riki Ivy MD on 09/16/17 at 2056 . Progress - Progress Note Progress Note: This patient was signed out from Dr. Chamberlain, pending disposition, awaiting CT. CT reveals 1. THE PATIENT APPEARS TO BE STATUS POST PARTIAL COLECTOMY. THERE IS A LOCULATED FLUID COLLECTION WITHIN THE RIGHT HEMIABDOMEN MEASURING APPROXIMATE 7 X 4.8 CM TRANSVERSELY AND 14.3 CM IN CLINICAL DIMENSION, CONSISTENT WITH AN ABSCESS. FINDINGS WERE DISCUSSED WITH LAW MILNER AT APPROXIMATELY 8:45 PM ON SEPTEMBER 16, 2017 2. THERE IS CIRCUMFERENTIAL BLADDER WALL THICKENING. 3. TRACE BILATERAL PLEURAL EFFUSIONS. 4. ATHEROSCLEROSIS The patient has a right sided intra-abdominal abscess 5x7cm. the patient and his state he left the hospital at the end of August and has been having a low grade fever recently. His surgery done was done at [facility] b Dr. Elizabeth Graham. I discussed the plan with and patient and they agree to the transfer. I have reviewed the antibiotics ordered by the hospitalist. Pt is complaining of CP so I ordered a repeat EKG which showed sinus rhythm of 73BPM LAD, LVH with strain. There is no difference from one done early this morning. Done at 213 22:07 I discussed patient care with [facility] they have accepted the patient for transfer. The accepting doctor will be Dr. Baldemar Amin and the patient will be going to the ED . - EKG/XRAY/CT EKG: NSR - at 73 BPM. done at 2131, LVH - with strain Comments: LAD Re-Evaluation - Re-Evaluation First Eval Re-Evaluation Time: 21:03 Change: Unchanged - I discussed the plan with and patient and they agree to the transfer Second Eval Re-Evaluation Time: 21:48 Change: Worse Comment: Pt is complaining of CP so I ordered a repeat EKG which showed sinus rhythm of 73BPM LAD, LVH with strain. There is no difference from one done early this morning. Done at 2131 Course/Dx - Diagnoses Provider Diagnoses: Abdominal pain The documentation as recorded by the Rolando shell Gabriel accurately reflects the service I personally performed and the decisions made by me, Riki Ivy MD.
[2017-09-16 23:04] VITALS: BP 97/43
--- NOTE | 2017-09-17 00:59 | CONS ---
CC: MAEVE Underwood; Dr. Turk * CONSULTATION REPORT: DATE OF CONSULT: 09/16/17 PRIMARY CARE PROVIDER: MAEVE Underwood PRIMARY BATT PACKER: Dr. Turk. CHIEF COMPLAINT: 1. Fever. 2. Weakness. 3. Not feeling well. HISTORY OF PRESENT ILLNESS: Mr. Landry is a 57-year-old male patient with a very complex medical history. He recently, about 4 weeks ago, was diagnosed with a GI bleed, was transferred to [facility]. He has vasculopathy, has a history of PVD, GI bleed, and neuropathy. He has had multiple amputations to bilateral lower extremities. He has had a stroke, osteomyelitis. He has got stage IV pressure ulcer and he has a history of CAD, CHF, hypertension, hyperlipidemia, and he is on dialysis for end-stage renal disease. He went to [facility] 4 weeks ago for lower GI bleeding. He underwent a partial colectomy on the right side. He initially was doing well about a week postop. According to the , he developed hematoma, which was felt to be infected as he was having fevers and chills. He was taken back to the OR, this was evacuated, and he was put on 2 weeks of antibiotics. The patient did well, he was discharged on Saturday, he was feeling good, he was in good spirits. Unfortunately, though , Saturday, and Saturday, and last night, he was having low-grade fevers. He was starting to get abdominal discomfort again. His temperatures were as high as 101.8. He was complaining today of more acutely having shortness of breath. He initially went to the ER around noon time today. He was evaluated and was taken for urgent dialysis. He went to dialysis and then while on dialysis, the patient had mentioned that he was having abdominal pain. He was sent back to the ER to be evaluated for this abdominal discomfort. Initially, it was thought that the shortness of breath was his major complaint, but because of the fact that he had worsening abdominal pain and fevers, he came to the ER and we were asked to evaluate for admission. He denies any chest pain or shortness of breath. He says the pain is mostly is in his back and he has been having some lower abdominal discomfort , particularly near his abdominal wound and near his colostomy site. His ostomy has been working appropriately, the stoma does not appear to be dusky, it is pink. He says he has had a decreased appetite and he has just been having some low-grade fevers. Because of this, we were asked to evaluate for admission. PAST MEDICAL HISTORY: Significant for: 1. Diabetes, type 1. 2. Retinopathy. 3. He has had retinal hemorrhage. 4. End-stage renal disease. 5. GI bleed. 6. Neuropathy. 7. CAD. 8. OH. 9. PVD. 10. Osteomyelitis. 11. History of CVA. 12. Pressure ulcer. 13. Hyperlipidemia. 14. Hypertension. 15. CAD. 16. He has had an OH in the past as well. 17. He has also had a recent GI bleed. PAST SURGICAL HISTORY: 1. He has had CABG. 2. He has had arterial femoral bypasses. 3. He has had multiple angioplasties of the lower extremities. 4. He has had a left AKA, right BKA. 5. He has had a recent bowel resection. 6. He has had a recent hematoma evacuation. 7. He has a colostomy now. 8. He has a history of amputation to his fingers on the right side. MEDICATIONS: Home meds include: 1. Vitamin C 500 mg daily. 2. Combivent 1 puff inhaled every 6 hours. 3. Xanax 0.5 mg p.o. t.i.d. 4. Lactobacillus 2 capsules daily. 5. Lantus 15 units subcu daily. 6. Ct-Yvan 0.8 mg p.o. daily. 7. Folic acid 1 mg daily. 8. Flonase 2 sprays daily. 9. Pepcid 20 mg daily. 10. Colace 100 mg daily. 11. Santyl 1 application topically daily. 12. Coreg 6.25 mg p.o. b.i.d. 13. Lipitor 20 mg daily. 14. Aspirin 81 mg daily. 15. Renvela 0.8 g before meals. 16. Lyrica 75 mg daily at bedtime. 17. MiraLAX 17 g b.i.d. as needed. 18. Multivitamin 1 tablet daily. 19. Reglan 5 mg t.i.d. 20. Melatonin 6 mg at bedtime as needed. 21. Imodium 4 mg every 6 hours as needed. 22. Prevacid 30 mg p.o. at bedtime. 23. Oxycodone 5 mg G tube every 4 hours. 24. Hydralazine 25 mg p.o. every 8 hours. 25. Norvasc 10 mg daily. 26. Brilinta 90 mg p.o. b.i.d. 27. Kayexalate 15 g daily. ALLERGIES TO MEDICATIONS: Include CLINDAMYCIN and MORPHINE. FAMILY HISTORY: His father was a diabetic. His mother's history was reviewed, essentially is noncontributory. She, according to the patient, is healthy. SOCIAL HISTORY: He is a former smoker, he does not drink alcohol. Surrogate decision maker is his . REVIEW OF SYSTEMS: There is no documented fever. He denied any significant weight change. There is no double vision. He denies having any ear discharge. He denies having any rhinorrhea. No sore throat, no thyroid enlargement. He denies any chest pain. There is orthopnea, there is dyspnea on exertion. He did admit to having abdominal pain mostly in the lower abdomen near the incision site and denied any nausea or vomiting. No dysuria, no frequency. No seizure, no loss of consciousness. No pruritus, no skin ulceration. Review of 14 systems completed, all others negative. PHYSICAL EXAM: Blood pressure 125/66, pulse 81, respirations were 15, O2 sat 100%, temperature 100.4. General: At this time, Mr. Landry is a 57-year-old male patient. He is chronically ill-appearing. He is sitting in the ED stretcher. He does not appear to be in any acute distress. HEENT: Head atraumatic and normocephalic. Eyes: EOMs intact. Sclerae anicteric and not pale. Throat: Oral mucosa appears to be dry. No oropharyngeal erythema. Neck : Supple. Heart sounds S1 and S2. Regular rate and rhythm. No murmurs, rubs , or gallops. Lungs: Clear to auscultation bilaterally. No wheezes, rales, or rhonchi. Abdomen: Soft and flat. There was tenderness near the surgical incision site and near the wound. He also has an ostomy, which does appear to have stoma which is intact and it does not appear to be dusky. It is pink. Bowel sounds present. Extremities: He is moving his upper extremity with 5/5 strength. He has got amputations noted to the right hand and also bilateral lower extremity amputations. Neurologically, he is awake, alert, and oriented x3. No gross focal deficits. Skin: Intact. DIAGNOSTIC STUDIES/LAB DATA: WBC 10.4, RBC of 2.70, hemoglobin 8.1, hematocrit 24, platelet count 366. INR 1.05, PTT of 39. Sodium was 132, potassium 3.7, chloride of 92, bicarb 32, BUN 25, creatinine 2.21, glucose 201, lactate 1.3. Trop 0.11. Total bili 0.4, AST 14, ALT 8. His CRP was 113. Lipase was 59. TSH normal. He had an abdominal and pelvis CT scan obtained today, which revealed the patient appears to be status post partial colectomy. There is a loculated fluid collection within the right viviana abdomen measuring approximately 7 x 4.8 transversely and 14 cm in clinical dimension consistent with abscess. Findings were discussed with myself at approximately 8:45 p.m. There is some circumferential thickening of the bladder, trace bilateral pleural effusions, and atherosclerosis. He had a chest x-ray obtained today, which showed pulmonary vascular congestion and interstitial edema with associated small effusions. EKG obtained today showed a sinus rhythm, rate of 91 with a left bundle branch block consistent with previous EKGs. Old medical records reviewed. ASSESSMENT AND PLAN: Mr. Landry is a 57-year-old male patient with a very complex medical history coming into our ER today with complaints of abdominal discomfort and fever, on evaluation was found to have abscess. We were asked to evaluate for admission. My recommendations at this point are: 1. Intraabdominal abscess in the setting of recent surgery. At this point, I would recommend transfer back to a tertiary care center given his medical complexity. In addition to this, this is where he recently had surgery and certainly is a postoperative complication. This probably needs to be drained. I would recommend broad-spectrum antibiotics. Blood cultures have been sent and I would recommend transfer back to his surgical center. 2. History of coronary artery disease. Continue meds as prescribed. He is not having any chest pain. 3. Diabetes. I would continue his meds as prescribed. 4. History of gastrointestinal bleed. He is not actively bleeding at this point. 5. History of end-stage renal disease. Continue with dialysis as prescribed. 6. Neuropathy. Continue his meds as prescribed. 7. Peripheral vascular disease. He is on Brilinta, statin, continue. 8. History of cerebrovascular accident. Continue with secondary prevention. 9. Hypertension. In the setting of his acute illness, I probably will hold his blood pressure meds with the exception of his beta dennys. 10. Hyperlipidemia. Continue statin therapy. 11. History of congestive heart failure. He had dialysis today. He appears to be now euvolemic and he is not in any respiratory trouble. I would continue with his scheduled dialysis and careful fluid management. RECOMMENDATIONS: Again, I would recommend transfer to a tertiary care center. I did discuss this with my attending, Dr. Aguila; she is in agreement. LAW MILNER NP [id number]/[facility] #: [id number] [place]
--- NOTE | 2017-09-17 09:32 | ED ---
Jose Ellison Angela, scribed for Power Chamberlain MD on 09/16/17 at 1642 . Shortness of Breath - HPI Summary HPI Summary: This pt is a 57 y/o male presenting to [facility] c/o SOB today. Pt's reports the pt has had a recent colectomy. Pt became SOB today after dialysis. Pt was seen earlier in the ED today for SOB and was discharged to go to urgent dialysis at the [facility]. Dr. Turk sent pt back to the ED for admission to the hospitalist. PMHx: HTN, W[place], diabetes, end stage renal disease. - History of Current Complaint Chief Complaint: EDShortnessOfBreath Time Seen by Provider: 09/16/17 16:32 Hx Obtained From: Patient Onset/Duration: Lasting Hours, Still Present Timing: Constant Current Severity: Moderate Dyspnea At: Exertion Aggrevating Factors: Nothing Alleviating Factors: Nothing - Allergy/Home Medications Allergies/Adverse Reactions: Allergies Allergy/AdvReac Type Severity Reaction Status Date / Time MS Clindamycin [Clindamycin] AdvReac Intermediate Diarrhea Verified 06/01/17 13: 37 MS Morphine [Morphine] AdvReac Hallucinati Verified 06/01/17 13:37 ons PMH/Surg Hx/FS Hx/Imm Hx Endocrine/Hematology History: Reports: Hx Diabetes, Hx Anemia, Other Endocrine/ Hematological Disorders - retinal hemorrhage with heparin Denies: Hx Systemic Lupus Erythematosus, Hx Thyroid Disease Cardiovascular History: Reports: Hx Angina, Hx Angioplasty, Hx Cardiac Arrest, Hx Coronary Artery Disease, Hx Hypercholesterolemia, Hx Hypertension, Hx Myocardial Infarction, Hx Peripheral Vascular Disease, Other Cardiovascular Problems/Disorders - a.fib in past Denies: Hx Auto Implanted Cardiovert Defib, Hx Congestive Heart Failure, Hx Pacemaker/ICD, Hx Valvular Heart Disease Respiratory History: Reports: Hx Sleep Apnea - undiagnosed, Other Respiratory Problems/Disorders - post nasal drip Denies: Hx Asthma, Hx Chronic Obstructive Pulmonary Disease (COPD) GI History: Reports: Hx Gastroesophageal Reflux Disease, Other GI Disorders - g tube Denies: Hx Jaundice, Hx Ulcer History: Reports: Hx Chronic Renal Failure - ESRD, Hx Dialysis, Hx Kidney Stones, Hx Renal Disease, Other Problems/Disorders Musculoskeletal History: Reports: Hx Orthopedic Injury - Broke right foot in 2009, Other Musculoskeletal History - bilateral BKA, multiple finger amputations on right hand Denies: Hx Rheumatoid Arthritis Sensory History: Reports: Hx Cataracts - right eye, Hx Vision Problem, Hx Hearing Problem - ringing in left ear, Other Sensory Impairments - Bleed related to Heparin. Denies: Hx Contacts or Glasses, Hx Hearing Aid Opthamlomology History: Reports: Hx Cataracts - right eye, Hx Vision Problem, Other Sensory Impairments - Bleed related to Heparin. Denies: Hx Contacts or Glasses Neurological History: Reports: Other Neuro Impairments/Disorders - diabetic neuropathy Denies: Hx Headaches Psychiatric History: Denies: Hx Panic Disorder - Cancer History Hx Chemotherapy: No - Surgical History Surgery Procedure, Year, and Place: VASECTOMY;. LEFT KNEE PATELLA REALIGNMENT- 1986;. 2011- PERITONEAL CATHETER PLACEMENT;. 04/2013-CREATION OF A FISTULA LEFT [place]. L-BKA-06/23/2014; 04/02/14-Left big toe removed[place]. Lt EYE 2013 -CAUTERIZED DUE TO BLOOD POOLING THEN 10/2014 Rt EYE; REVISION Lt BKA. heart stents 09/28 and 03/28, 06/2016, 04/27. open heart surgery 03/28. tracetomy 10/26. hemodialysis catherter placed 10/26. 08/28- revision of right hand and right leg amputation. 06/2016- four fingers of right hand amputated. 04/27- amputation of right leg. 04/26- transplant of veins in left leg. 2014- amputation of left leg. 2014-revision of left leg amputation Hx Anesthesia Reactions: No - Immunization History Date of Influenza Vaccine: 05/28 Infectious Disease History: No Infectious Disease History: Denies: Hx Hepatitis, Hx Human Immunodeficiency Virus (HIV), Traveled Outside the [place] in Last 30 Days - Family History Known Family History: Positive: Diabetes Negative: Cardiac Disease - Social History Alcohol Use: None Alcohol Amount: unable to assess Hx Substance Use: No Substance Use Type: Reports: None Substance Use Comment - Amount & Last Used: unable to assess Hx Tobacco Use: Yes Smoking Status (MU): Former Smoker Type: Cigarettes Length of Time of Smoking/Using Tobacco: 22 years Have You Smoked in the Last Year: No Review of Systems Negative: Fever Eyes: Negative ENT: Negative Positive: Shortness Of Breath Neurological: Negative All Other Systems Reviewed And Are Negative: Yes Physical Exam - Summary Physical Exam Summary: VITAL SIGNS: Reviewed. GENERAL: Patient is a well-developed and nourished male who is lying comfortable in the stretcher. Patient is not in any acute respiratory distress. HEAD AND FACE: No signs of trauma. No ecchymosis, hematomas or skull depressions. No sinus tenderness. EYES: PERRLA, EOMI x 2, No injected conjunctiva, no nystagmus. EARS: Hearing grossly intact. Ear canals and tympanic membranes are within normal limits. MOUTH: Oropharynx within normal limits. NECK: Supple, trachea is midline, no adenopathy, no JVD, no carotid bruit, no c- spine tenderness, neck with full ROM. CHEST: Symmetric, no tenderness at palpation LUNGS: Crackles in both bases of the lungs. CVS: Regular rate and rhythm, S1 and S2 present, no murmurs or gallops appreciated. ABDOMEN: Soft, non-tender. No signs of distention. No rebound no guarding, and no masses palpated. Bowel sounds are normal. Open wound on the lower abd after colectomy. Colostomy bag in the right lower abdomen. EXTREMITIES: no edema, no cyanosis or clubbing. Right leg amputation below the knee. Left leg amputation below the knee. NEURO: Alert and oriented x 3. No acute neurological deficits. Speech is normal and follows commands. SKIN: Dry and warm Triage Information Reviewed: Yes Vital Signs On Initial Exam: Initial Vitals Temp Pulse Resp BP Pulse Ox 99.6 F 83 20 123/54 100 09/16/17 16:18 02 16:18 09/16/17 16:18 09/16/17 16:18 09/16/17 16:18 Vital Signs Reviewed: Yes Diagnostics - Vital Signs Vital Signs Temp Pulse Resp BP Pulse Ox 09/16/17 16:18 99.6 F 83 20 123/54 100 - Laboratory Lab Statement: Any lab studies that have been ordered have been reviewed, and results considered in the medical decision making process. Course/Dx - Course Assessment/Plan: This pt is a 57 y/o male presenting to [facility] c/o SOB today. Pt' s reports the pt has had a recent colectomy. Pt became SOB today after dialysis. Pt was seen earlier in the ED today for SOB and was discharged to go to urgent dialysis at the [facility] [place]. Dr. Turk sent pt back to the ED for admission to the hospitalist. PMHx: HTN, [place], diabetes, end stage renal disease. The pt came in for a direct admission after dialysis. However, because the pt has developed abdominal pain the hospitalist requested to do an abdomen/pelvis CT before admission. Therefore, the pt is waiting for the CT results and further disposition. The pt will be signed out to Dr. Ivy for further work up and management. - Diagnoses Provider Diagnoses: Abdominal pain - Physician Notifications Discussed Care of Patient With: Jarrod Hurtado Time Discussed With Above Provider: 16:39 Instructed by Provider To: Other - I discussed pt care with Dr. Hurtado, hospitalist, who has agreed to admit the pt. Discharge - Discharge Plan Condition: Stable Disposition: OTHER Discharge Disposition Comment: signed out to Dr. Ivy, pending dispo, awaiting CT abd/pel. Referrals: Justa Cruz [Primary Care Provider] - The documentation as recorded by the Jose shell Angela accurately reflects the service I personally performed and the decisions made by , Power Chamberlain MD.
== END 2017-09-16 23:32 ==
LOC: ED 16:08
DX: R10.9 Unspecified abdominal pain (principal); I12.0 Hypertensive chronic kidney disease with stage 5 chronic kidney disease or end stage renal disease; N18.6 End stage renal disease; I25.2 Old myocardial infarction; Z87.891 Personal history of nicotine dependence; G47.30 Sleep apnea, unspecified; K21.9 Gastro-esophageal reflux disease without esophagitis; I70.90 Unspecified atherosclerosis; R07.9 Chest pain, unspecified; R50.9 Fever, unspecified; R53.1 Weakness; E10.22 Type 1 diabetes mellitus with diabetic chronic kidney disease; H35.00 Unspecified background retinopathy; G62.9 Polyneuropathy, unspecified; I25.10 Atherosclerotic heart disease of native coronary artery without angina pectoris; Z86.73 Personal history of transient ischemic attack (TIA), and cerebral infarction without residual deficits; M86.9 Osteomyelitis, unspecified; E78.5 Hyperlipidemia, unspecified; Z93.3 Colostomy status; Z79.82 Long term (current) use of aspirin; I73.9 Peripheral vascular disease, unspecified; I50.9 Heart failure, unspecified; Z99.2 Dependence on renal dialysis; J90 Pleural effusion, not elsewhere classified
CPT/HCPCS: 36415; 74177; 80053; 83605; 84484; 85025; 87040; 93005; 96360; 96374; 96375; 99285; A9270-GY; J1170; J2543; Q9967

== ENCOUNTER 2017-10-17 01:02 | Emergency (ER) | payer MEDICARE, OTHER ==
[2017-10-17] MEDS ORDERED: NS 0.9% 1000 ML* 1,000 ML IV ONE (01:39)
[2017-10-17] MEDS ORDERED: HYDROmorphone INJ* 1 MG/ML CARPUJECT SYRINGE IV SLOW PU ONE (01:39)
[2017-10-17] MEDS ORDERED: Metoclopramide IV* 5 MG/ML 2 ML VIAL IV SLOW PU ONE (01:39)
[2017-10-17 02:33] LABS: ABS Basophils 0.1 10^3/ul (0-0.2); ABS Eosinophils 0.3 10^3/ul (0-0.6); ABS Lymphocytes 1.2 10^3/ul (1.0-4.8); ABS Monocytes 1.3 10^3/ul (0-0.8); ABS Neutrophils 4.9 10^3/ul (1.5-7.7); ABS Nucleated RBC 0 10^3/ul; Hematocrit 32 % (42-52); Hemoglobin 10.9 g/dl (14.0-18.0); Lymphocyte % 15.5 % (25-47); Mean Corpuscular HGB Conc 34 g/dl (31-36); Mean Corpuscular Hemoglobin 32 pg (27-31); Mean Corpuscular Volume 95 fL (80-94); Mean Platelet Volume 10 um3 (7.4-10.4); Nucleated Red Blood Cells % 0.1; Platelet Count 190 10^3/ul (150-450); Red Cell Distribution Width 22 % (10.5-15); White Blood Count 7.9 10^3/ul (3.5-10.8)
[2017-10-17 02:39] LABS: INR 1.16 (0.77-1.02)
[2017-10-17 02:46] LABS: EGFR Non-African American 20.6 (>60)
[2017-10-17] MEDS ORDERED: HYDROmorphone INJ* 2 MG/ML CARPUJECT SYRINGE IV SLOW PU ONE (04:29)
[2017-10-17 05:35] VITALS: BP 124/54
--- NOTE | 2017-10-17 05:36 | ED ---
Steve Ellison Stephanie, scribed for Riki Ivy MD on 10/17/17 at 0151 . Abdominal Pain/Male - HPI Summary HPI Summary: The pt is a 57 y/o M presenting to the ED with c/o abd pain since 01:28. Symptoms include fever, bedsores on his back that began 1 year ago. The pt denies vomiting. The pts changes his bedsore bandages 2x per day. The pt reports being discharged from [facility] 5 weeks ago. The pt reports abx treatment for an abscess. The pt was a pt at [facility] for 5 weeks and was discharged from [facility] 6 weeks ago with dx of intra-abdominal abscess. He has a hx of diabetes with various vascular complications and amputations. The pt takes IV abx at home through PIC line. Today is the last day of his abx course and is scheduled to have the drain removed on 10/18/17. - History of Current Complaint Stated Complaint: ABD PAIN Time Seen by Provider: 10/17/17 01:17 Hx Obtained From: Patient Onset/Duration: Gradual Onset, Lasting Hours, Still Present Timing: Constant Severity Currently: Severe Pain Intensity: 9 Pain Scale Used: 0-10 Numeric Location: Diffuse Aggravating Factor(s): Nothing Alleviating Factor(s): Nothing Associated Signs And Symptoms: Positive: Fever, Other - bed sores. Negative: Vomiting - Allergies/Home Medications Allergies/Adverse Reactions: Allergies Allergy/AdvReac Type Severity Reaction Status Date / Time MS Clindamycin [Clindamycin] AdvReac Intermediate Diarrhea Verified 06/01/17 13: 37 MS Morphine [Morphine] AdvReac Hallucinati Verified 06/01/17 13:37 ons PMH/Surg Hx/FS Hx/Imm Hx Endocrine/Hematology History: Reports: Hx Diabetes, Hx Anemia, Other Endocrine/ Hematological Disorders - retinal hemorrhage with heparin Denies: Hx Systemic Lupus Erythematosus, Hx Thyroid Disease Cardiovascular History: Reports: Hx Angina, Hx Angioplasty, Hx Cardiac Arrest, Hx Coronary Artery Disease, Hx Hypercholesterolemia, Hx Hypertension, Hx Myocardial Infarction, Hx Peripheral Vascular Disease, Other Cardiovascular Problems/Disorders - a.fib in past Denies: Hx Auto Implanted Cardiovert Defib, Hx Congestive Heart Failure, Hx Pacemaker/ICD, Hx Valvular Heart Disease Respiratory History: Reports: Hx Sleep Apnea - undiagnosed, Other Respiratory Problems/Disorders - post nasal drip Denies: Hx Asthma, Hx Chronic Obstructive Pulmonary Disease (COPD) GI History: Reports: Hx Gastroesophageal Reflux Disease, Other GI Disorders - g tube Denies: Hx Jaundice, Hx Ulcer History: Reports: Hx Chronic Renal Failure - ESRD, Hx Dialysis, Hx Kidney Stones, Hx Renal Disease, Other Problems/Disorders Musculoskeletal History: Reports: Hx Orthopedic Injury - Broke right foot in 2009, Other Musculoskeletal History - bilateral BKA, multiple finger amputations on right hand Denies: Hx Rheumatoid Arthritis Sensory History: Reports: Hx Cataracts - right eye, Hx Vision Problem, Hx Hearing Problem - ringing in left ear, Other Sensory Impairments - Bleed related to Heparin. Denies: Hx Contacts or Glasses, Hx Hearing Aid Opthamlomology History: Reports: Hx Cataracts - right eye, Hx Vision Problem, Other Sensory Impairments - Bleed related to Heparin. Denies: Hx Contacts or Glasses Neurological History: Reports: Other Neuro Impairments/Disorders - diabetic neuropathy Denies: Hx Headaches Psychiatric History: Denies: Hx Panic Disorder - Cancer History Hx Chemotherapy: No - Surgical History Surgery Procedure, Year, and Place: VASECTOMY;. LEFT KNEE PATELLA REALIGNMENT- 1986;. 2011- PERITONEAL CATHETER PLACEMENT;. [place] [place]-06/23/2014; [place]02[place] [place]. [place] 2013 -CAUTERIZED DUE TO BLOOD POOLING THEN 10/2014 Rt EYE; REVISION Lt BKA. heart stents 09/28 and 03/28, 06/2016, 04/27. open heart surgery 03/28. tracetomy 10/26. hemodialysis catherter placed 10/26. 08/28- revision of right hand and right leg amputation. 06/2016- four fingers of right hand amputated. 04/27- amputation of right leg. 04/26- transplant of veins in left leg. 2014- amputation of left leg. 2014-revision of left leg amputation Hx Anesthesia Reactions: No - Immunization History Date of Influenza Vaccine: 05/28 Infectious Disease History: No Infectious Disease History: Denies: Hx Hepatitis, Hx Human Immunodeficiency Virus (HIV), Traveled Outside the [place] in Last 30 Days - Family History Known Family History: Positive: Diabetes Negative: Cardiac Disease - Social History Occupation: Disabled Lives: With Family Alcohol Use: None Alcohol Amount: unable to assess Hx Substance Use: No Substance Use Type: Reports: None Substance Use Comment - Amount & Last Used: unable to assess Hx Tobacco Use: Yes Smoking Status (MU): Former Smoker Type: Cigarettes Length of Time of Smoking/Using Tobacco: 22 years Have You Smoked in the Last Year: No Review of Systems Positive: Fever Positive: Abdominal Pain. Negative: Vomiting All Other Systems Reviewed And Are Negative: Yes Physical Exam - Summary Physical Exam Summary: VITAL SIGNS: Reviewed. GENERAL: Patient is a well-developed and nourished MALE who is lying comfortable in the stretcher. Patient is not in any acute respiratory distress. HEAD AND FACE: No signs of trauma. No ecchymosis, hematomas or skull depressions. No sinus tenderness. EYES: PERRLA, EOMI x 2, No injected conjunctiva, no nystagmus. EARS: Hearing grossly intact. Ear canals and tympanic membranes are within normal limits. MOUTH: Oropharynx within normal limits. NECK: Supple, trachea is midline, no adenopathy, no JVD, no carotid bruit, no c- spine tenderness, neck with full ROM. CHEST: Symmetric, no tenderness at palpation LUNGS: Clear to auscultation bilaterally. No wheezing or crackles. CVS: Regular rate and rhythm, S1 and S2 present, no murmurs or gallops appreciated. ABDOMEN: Soft, belly diffusely tender. No signs of distention. No rebound no guarding, and no masses palpated. Bowel sounds are normal. Colostomy bag full of soft stool. drain next to colostomy, not draining. EXTREMITIES: FROM in all major joints, no edema, no cyanosis or clubbing. R AKA , L BKA. PIC line in L upper arm with 2 ports. R hand has an old healed ulcer over the stump of the R hand. BACK: 3 cm *1 cm decubitus over sacrum that is deep to the bone, no inflammatory signs NEURO: Alert and oriented x 3. No acute neurological deficits. Speech is normal and follows commands. SKIN: Dry and warm Triage Information Reviewed: Yes Vital Signs On Initial Exam: Initial Vitals Temp Pulse Resp BP Pulse Ox 98.3 F 68 12 93/49 0 10/17/17 01:20 10/17/17 01:20 10/17/17 01:20 10/17/17 01:20 10/17/17 01:20 Vital Signs Reviewed: Yes Diagnostics - Vital Signs Vital Signs Temp Pulse Resp BP Pulse Ox 10/17/17 01:20 98.3 F 68 12 93/49 0 - Laboratory Result Diagrams: 10/17/17 02:09 10/17/17 02:09 Lab Statement: Any lab studies that have been ordered have been reviewed, and results considered in the medical decision making process. - CT Abdomen/Pelvis CT Interpretation: No Acute Changes CT Interpretation Completed By: Radiologist - Enterostomy is noted. No bowel obstruction. There is a drainage catheter in the RLQ. The fluid collection from September 16 has nearly completely resolved with only a minimal amount of fluid around the pigtail. No free intraperitoneal air or free fluid. No acute abnormalities of the liver, spleen, pancreas, or adrenal glands. Gallbladder is somewhat distended. No other obvious gallbladder abnormalities. Correlate with RUQ pain. No urinary tract obstruction. Extensive vascular calcification. Abdominal Pain Fem Course/Dx - Diagnoses Provider Diagnoses: Abdominal pain Discharge - Discharge Plan Condition: Stable Disposition: HOME Patient Education Materials: Abdominal Pain (ED) Referrals: Justa Cruz [Primary Care Provider] - 2 Days Additional Instructions: Follow up with [facility]. ED physician recommends to keep your scheduled appointment. ED physician recommends wound care follow up. RETURN TO EMERGENCY DEPARTMENT FOR ANY NEW OR WORSENING SYMPTOMS The documentation as recorded by the Steve shell Stephanie accurately reflects the service I personally performed and the decisions made by Cata keller Abdul, MD.
--- NOTE | 2017-10-17 08:35 | RAD ---
INDICATION: Abdominal pain. Stomach and buttock pain. End-stage renal disease on dialysis. Peripheral vascular disease with multiple amputations. COMPARISON: September 16, 2017 CT. TECHNIQUE: Multidetector CT images were obtained from the lung bases to the ischial tuberosities. Oral contrast administered. Assessment of the visceral limited without IV contrast. REPORT: Mild bibasilar atelectasis. Resolution of previous small pleural effusions. Negative for cardiomegaly or pericardial effusion. Coronary artery calcifications. Unremarkable liver, gallbladder, pancreas, spleen. Enteric contrast extends to the RIGHT lower quadrant ileostomy. Suggestion of a long segment Bayron pouch. No suspicious CT abnormality of the bowel loops. RIGHT lower quadrant percutaneous drain in place without significant residual loculated peritoneal abscess collection with marked decrease in volume compared with the September 16, 2017 exam. Negative for ascites or free air. Small umbilical level hernia which appears to contain part of a jejunal bowel loop without resulting bowel obstruction or evidence for inflammatory change. Normal adrenal glands. Mildly atrophic cachil dehe kidneys. Negative for hydronephrosis or conspicuous focal renal lesions. No suspicious finding along the course of the nondilated ureters. Unremarkable partially distended urinary bladder. Symmetric seminal vesicles. Negative for lymphadenopathy. Severe diffuse atherosclerotic calcification of the arteries throughout the [id number]. Negative for aortoiliac aneurysm. Given visualized burden of calcific plaque hemodynamic significant stenosis at the aortic bifurcation/common iliac arteries is not excluded. Largely decompressed inferior vena cava indicating low volume state. No fracture or suspicious focal osseous lesion evident. No compelling CT stigmata of osteomyelitis at the posterior pelvis or ischial tuberosities. Mild soft tissue edema at the subcutaneous tissue plane superficial to the RIGHT ischial tuberosity. No subcutaneous emphysema evident. Diffuse skeletal muscle atrophy. IMPRESSION: 1. Resolution of previous small pleural effusions. 2. RIGHT lower quadrant percutaneous drain in place without significant residual loculated peritoneal abscess collection with marked decrease in volume compared with the September 16, 2017 exam. Negative for ascites or free air. 3. Small umbilical level hernia which appears to contain part of a jejunal bowel loop without resulting bowel obstruction or evidence for inflammatory change. 4. Extensive peripheral vascular disease. Given visualized burden of calcific plaque hemodynamic significant stenosis at the aortic bifurcation/common iliac arteries is not excluded. 5. No compelling CT stigmata of osteomyelitis at the posterior pelvis or ischial tuberosities. Mild soft tissue edema at the subcutaneous tissue plane superficial to the RIGHT ischial tuberosity.
== END 2017-10-17 07:34 | disposition home or self-care (01) ==
LOC: ED 01:02
DX: R10.11 Right upper quadrant pain (principal); K42.9 Umbilical hernia without obstruction or gangrene; I73.9 Peripheral vascular disease, unspecified; Z87.891 Personal history of nicotine dependence; Z88.3 Allergy status to other anti-infective agents; Z88.5 Allergy status to narcotic agent
CPT/HCPCS: 36415; 74176; 80053; 83690; 83735; 85025; 85610; 85730; 86140; 96374; 96375; 96376; 99283; J1170; J2765

== ENCOUNTER 2017-10-18 08:23 | Emergency (ER) | payer OTHER ==
[2017-10-18] MEDS ORDERED: NS 0.9% 1000 ML*IV.FLUID IV ONE (08:46)
[2017-10-18] MEDS ORDERED: Piperacillin/Tazobac ADVAN(*) 3.375 GM in NS 0.9% 100 ML* 100 ML IVPB ONE (08:46)
[2017-10-18] MEDS ORDERED: Vancomycin(*) 1,000 MG VIAL IVPB SCH (09:00)
[2017-10-18 09:40] LABS: Hematocrit 34 % (42-52); Hemoglobin 11.1 g/dl (14.0-18.0); Mean Corpuscular HGB Conc 33 g/dl (31-36); Mean Corpuscular Hemoglobin 31 pg (27-31); Mean Corpuscular Volume 94 fL (80-94); Mean Platelet Volume 10 um3 (7.4-10.4); Platelet Count 208 10^3/ul (150-450); Red Blood Count 3.55 10^6/ul (4.0-5.4); Red Cell Distribution Width 21 % (10.5-15); White Blood Count 16.3 10^3/ul (3.5-10.8)
[2017-10-18] MEDS ORDERED: Vancomycin(*) 750 MG in NS 0.9% 250 ML* 250 ML IVPB ONE (10:00)
[2017-10-18 10:03] LABS: EGFR Non-African American 11.5 (>60)
--- NOTE | 2017-10-18 10:03 | RAD ---
HISTORY: Fever COMPARISONS: September 16, 2017 VIEWS: 1: frontal portable view of the chest at 9:45 AM FINDINGS: LINES AND TUBES: A central venous catheter is noted from a left internal jugular vein approach. A second central venous catheter is noted from the left as well. The tips of both catheters overlie the superior vena cava at the level of the cavoatrial junction. CARDIOMEDIASTINAL SILHOUETTE: The cardiomediastinal silhouette is normal for portable technique. PLEURA: The costophrenic angles are sharp. No pleural abnormalities are noted. LUNG PARENCHYMA: The lungs are clear. ABDOMEN: The upper abdomen is clear. There is no subphrenic gas. BONES AND SOFT TISSUES: No bone or soft tissue abnormalities are noted. IMPRESSION: LINES AND TUBES ABOVE. NO ACTIVE CARDIOPULMONARY DISEASE.
[2017-10-18 10:07] LABS: INR 1.12 (0.77-1.02)
[2017-10-18] MEDS ORDERED: ceFAZolin 1 GM in Dextrose (*) 1 GM/50 ML BAG IVPB ONE (10:22)
[2017-10-18 10:36] LABS: ABS Basophils 0.1 10^3/ul (0-0.2); ABS Eosinophils 0.1 10^3/ul (0-0.6); ABS Lymphocytes 1.7 10^3/ul (1.0-4.8); ABS Monocytes 2.2 10^3/ul (0-0.8); ABS Neutrophils 12.2 10^3/ul (1.5-7.7); ABS Nucleated RBC 0 10^3/ul; Eosinophil % 0.4 % (0-6); Lymphocyte % 10.5 % (25-47); Nucleated Red Blood Cells % 0
[2017-10-18] MEDS ORDERED: Ticagrelor* 90 MG TAB PO SCH (11:00)
[2017-10-18] MEDS ORDERED: Acetaminophen TAB* 325 MG PO ONE (11:30)
--- NOTE | 2017-10-18 11:59 | ED ---
Jose Ellison Angela, scribed for Power Chamberlain MD on 10/18/17 at 0904 . HPI Febrile Illness - HPI Summary HPI Summary: This pt is a 57 y/o male presenting to [facility] via EMS c/o cough and fever since yesterday. reports the pt has developed a productive cough with green sputum. notes the pt had a temperature of 104 F this morning. Pt also c/o abdominal pain and nausea. Pt was brought to the ED yesterday for abdominal pain , nausea, bedsores and fever. He had a CT done which resulted negative for an acute pathology. notes they went home but pt's fever continued. This morning the pt had an appointment with infectious disease in [place] but decided to come to the ED today due to his symptoms. Pt is currently on Vancomycin. reports the pt was on Zosyn for 4 weeks, BID, and his last dose was last night. PMHx includes end stage renal disease, diabetes, bilateral lower extremity amputation, right hand digits amputation. - History of Current Complaint Chief Complaint: EDFever Time Seen by Provider: 10/18/17 08:51 Hx Obtained From: Patient Onset/Duration: Started Days Ago - 1, Still Present Timing: Lasting Days - 1 Temperature: 104 F Current Severity: Moderate Pain Intensity: 5 Pain Scale Used: 0-10 Numeric Aggravating Factors: Nothing Alleviating Factors: Nothing Associated Signs and Symptoms: Cough, Other: - fever - Additional Pertinent History Primary Care Physician: [id number] - Allergy/Home Medications Allergies/Adverse Reactions: Allergies Allergy/AdvReac Type Severity Reaction Status Date / Time MS Clindamycin [Clindamycin] AdvReac Intermediate Diarrhea Verified 06/01/17 13: 37 MS Morphine [Morphine] AdvReac Hallucinati Verified 06/01/17 13:37 ons Home Medications: Home Medications DAPTOmycin SDV(*) [Cubicin SDV(*)] 420 mg IV .10/18/17 [History Confirmed 10/18/17] DAPTOmycin SDV(*) [Cubicin SDV(*)] 630 mg IV .Fridays10/18/17 [History Confirmed 10/18/17] Insulin ASPART (NF) [Novolog (NF)] 0 units SUBCUT TID AC 10/18/17 [History Confirmed 10/18/17] Ketoconazole 2 % CREAM (NF) [Nizoral 2% CREAM (NF)] 1 applic TOPICAL BID [History Confirmed 10/18/17] Ketoconazole [Ketoconazole] 2 % TOPICAL DAILY 10/18/17 [History Confirmed ] Piperacillin/Tazobactam(*) [Zosyn(*)] 2.25 gm IV Q12H 10/18/17 [History Confirmed 10/18/17] hydrALAZINE TAB* [Apresoline TAB*] 50 mg PO .QAM AND QPM 10/18/17 [History Confirmed 10/18/17] PMH/Surg Hx/FS Hx/Imm Hx Endocrine/Hematology History: Reports: Hx Diabetes, Hx Anemia, Other Endocrine/ Hematological Disorders - retinal hemorrhage with heparin Denies: Hx Systemic Lupus Erythematosus, Hx Thyroid Disease Cardiovascular History: Reports: Hx Angina, Hx Angioplasty, Hx Cardiac Arrest, Hx Coronary Artery Disease, Hx Hypercholesterolemia, Hx Hypertension, Hx Myocardial Infarction, Hx Peripheral Vascular Disease, Other Cardiovascular Problems/Disorders - a.fib in past Denies: Hx Auto Implanted Cardiovert Defib, Hx Congestive Heart Failure, Hx Pacemaker/ICD, Hx Valvular Heart Disease Respiratory History: Reports: Hx Sleep Apnea - undiagnosed, Other Respiratory Problems/Disorders - post nasal drip Denies: Hx Asthma, Hx Chronic Obstructive Pulmonary Disease (COPD) GI History: Reports: Hx Gastroesophageal Reflux Disease, Other GI Disorders - g tube Denies: Hx Jaundice, Hx Ulcer History: Reports: Hx Chronic Renal Failure - ESRD, Hx Dialysis, Hx Kidney Stones, Hx Renal Disease, Other Problems/Disorders Musculoskeletal History: Reports: Hx Orthopedic Injury - Broke right foot in 2009, Other Musculoskeletal History - bilateral BKA, multiple finger amputations on right hand Denies: Hx Rheumatoid Arthritis Sensory History: Reports: Hx Cataracts - right eye, Hx Vision Problem, Hx Hearing Problem - ringing in left ear, Other Sensory Impairments - Bleed related to Heparin. Denies: Hx Contacts or Glasses, Hx Hearing Aid Opthamlomology History: Reports: Hx Cataracts - right eye, Hx Vision Problem, Other Sensory Impairments - Bleed related to Heparin. Denies: Hx Contacts or Glasses Neurological History: Reports: Other Neuro Impairments/Disorders - diabetic neuropathy Denies: Hx Headaches Psychiatric History: Denies: Hx Panic Disorder - Cancer History Hx Chemotherapy: No - Surgical History Surgery Procedure, Year, and Place: VASECTOMY;. LEFT KNEE PATELLA REALIGNMENT- 1986;. 2011- PERITONEAL CATHETER PLACEMENT;. 04[place] [place]06[place]23[place]; 04[place]02[place]14[place] [place] 2013 -CAUTERIZED DUE TO BLOOD POOLING THEN 10/2014 Rt EYE; REVISION Lt BKA. heart stents 09/28 and 03/28, 06/2016, 04/27. open heart surgery 03/28. tracetomy 10/26. hemodialysis catherter placed 10/26. 08/28- revision of right hand and right leg amputation. 06/2016- four fingers of right hand amputated. 04/27- amputation of right leg. 04/26- transplant of veins in left leg. 2014- amputation of left leg. 2014-revision of left leg amputation Hx Anesthesia Reactions: No - Immunization History Date of Influenza Vaccine: 05/28 Infectious Disease History: No Infectious Disease History: Denies: Hx Hepatitis, Hx Human Immunodeficiency Virus (HIV), Traveled Outside the [place] in Last 30 Days - Family History Known Family History: Positive: Diabetes Negative: Cardiac Disease - Social History Alcohol Use: None Alcohol Amount: unable to assess Hx Substance Use: No Substance Use Type: Reports: None Substance Use Comment - Amount & Last Used: unable to assess Hx Tobacco Use: Yes Smoking Status (MU): Former Smoker Type: Cigarettes Length of Time of Smoking/Using Tobacco: 22 years Have You Smoked in the Last Year: No Review of Systems Positive: Fever Positive: Cough Positive: Abdominal Pain, Nausea Musculoskeletal: Negative Skin: Negative Neurological: Negative All Other Systems Reviewed And Are Negative: Yes Physical Exam - Summary Physical Exam Summary: VITAL SIGNS: Reviewed. GENERAL: Patient is a febrile and ill looking male who is lying comfortable in the stretcher. Patient is not in any acute respiratory distress. HEAD AND FACE: No signs of trauma. No ecchymosis, hematomas or skull depressions. No sinus tenderness. EYES: PERRLA, EOMI x 2, No injected conjunctiva, no nystagmus. EARS: Hearing grossly intact. Ear canals and tympanic membranes are within normal limits. MOUTH: Oropharynx within normal limits. NECK: Supple, trachea is midline, no adenopathy, no JVD, no carotid bruit, no c- spine tenderness, neck with full ROM. CHEST: Symmetric, no tenderness at palpation LUNGS: Crackles in both bases of the lungs. CVS: Regular rate and rhythm, S1 and S2 present, no murmurs or gallops appreciated. ABDOMEN: Soft, non-tender. No signs of distention. No rebound no guarding, and no masses palpated. Bowel sounds are normal. EXTREMITIES: no edema, no cyanosis or clubbing. Right above the knee amputation. Left below the knee amputation. NEURO: Alert and oriented x 3. No acute neurological deficits. Speech is normal and follows commands. SKIN: Dry and warm Triage Information Reviewed: Yes Vital Signs On Initial Exam: Initial Vitals Temp Pulse Resp BP Pulse Ox 101 F 85 14 115/56 95 10/18/17 08:29 10/18/17 08:29 10/18/17 08:29 10/18/17 08:29 10/18/17 08:29 Vital Signs Reviewed: Yes Diagnostics - Vital Signs Vital Signs Temp Pulse Resp BP Pulse Ox 10/18/17 08:29 101 F 85 14 115/56 95 - Laboratory Result Diagrams: 10/18/17 09:25 10/18/17 09:25 Lab Statement: Any lab studies that have been ordered have been reviewed, and results considered in the medical decision making process. - Radiology Chest XR Xray Interpretation: No Acute Changes - IMPRESSION: Lines and tubes as above. No active cardiopulmonary disease. Dr. Chamberlain has reviewed this radiology report. Radiology Interpretation Completed By: Radiologist - EKG 08:58 Cardiac Rate: NL EKG Rhythm: Sinus Rhythm - at 87 bpm EKG Interpretation: No ST elevation. ST depression in I, V5, V6, and aVL. EKG Comparison: No Significant Change - similar to prior EKG on 09/16/17. Course/Dx - Course Assessment/Plan: This pt is a 57 y/o male presenting to [facility] via EMS c/o cough and fever since yesterday. reports the pt has developed a productive cough with green sputum. notes the pt had a temperature of 104 F this morning. Pt also c/o abdominal pain and nausea. Pt was brought to the ED yesterday for abdominal pain, nausea, bedsores and fever. He had a CT done which resulted negative for an acute pathology. notes they went home but pt's fever continued. This morning the pt had an appointment with infectious disease in [place] but decided to come to the ED today due to his symptoms. Pt is currently on Vancomycin. reports the pt was on Zosyn for 4 weeks, BID, and his last dose was last night. PMHx includes end stage renal disease, diabetes, bilateral lower extremity amputation, right hand digits amputation. Test results shows the pt has WBC of 16.3, chronic anemia of hemoglobin or hematocri of 11.1/34, fibrinogen is 416, Sodium is 125, BUN is 53 and creatinine of 5.20, which is acute on chronic renal failure, troponin of 0.13, CRP of 218.05, globulin of 5, and procalcitonin of 3.0. Influenza A is negative. Influenza B is positive. Chest XR: Lines and tubes as above. No active cardiopulmonary disease. In the ED course the pt is febrile, tachycardic , and slightly hypotensive, therefore I used the sepsis protocol. He was given Zosyn and Cefepime. Since I dont have a source of high fever and the pt has nausea and abdominal pain, with a negative abdomen/pelvis CT yesterday, I discussed the case with Dr. Turk, polish maker, who recommends for the pt to be transferred to [facility] because the pt has intraabdominal abscesses that are resistant to many antibiotics. The pts also reported that 2 days ago accidentally one of the visiting nurses cut the drainage from the abscess and now there is no discharge coming out of the abscess; therefore there may be increased collection of fluid which now is producing a fever. The pt was supposed to follow up with Dr. Flores, in [facility], today but since the pt was unstable he decided to come to the ED. At this point the pt is hemodynamically stable. I discussed the case with the transfer center in [facility] and was auto accepted to the ED under Dr. Carmona. The pt is stable and will be transferred to the [facility]. - Diagnoses Provider Diagnoses: Fever, Sepsis, History on intraabdominal abscess - Provider Notifications Discussed Care Of Patient With: Isrrael Turk Instructed by Provider To: Other - I discussed the case with Dr. Turk, polish maker, who recommends to transfer the pt to [facility]. [ 11: 27] I discussed with the transfer center in [facility] and auto accepted the pt to the ED under Dr. Carmona. - Critical Care Time Critical Care Time: 75-104 min Discharge - Discharge Plan Condition: Stable Disposition: OTHER Discharge Disposition Comment: [facility] Referrals: Justa Cruz [Primary Care Provider] - The documentation as recorded by the Jose shell Angela accurately reflects the service I personally performed and the decisions made by me, Power Chamberlain MD.
[2017-10-18 14:43] VITALS: BP 103/79
== END 2017-10-18 14:42 ==
LOC: ED 08:23
DX: A41.9 Sepsis, unspecified organism (principal); E11.22 Type 2 diabetes mellitus with diabetic chronic kidney disease; N18.6 End stage renal disease; Z99.2 Dependence on renal dialysis; Z86.19 Personal history of other infectious and parasitic diseases; Z87.891 Personal history of nicotine dependence; Z89.512 Acquired absence of left leg below knee; Z89.611 Acquired absence of right leg above knee; Z89.021 Acquired absence of right finger(s); Z88.3 Allergy status to other anti-infective agents; Z88.5 Allergy status to narcotic agent
CPT/HCPCS: 36415; 71045; 80053; 82550; 83605; 84145; 84484; 85025; 85384; 85610; 85730; 86140; 87040; 87070; 87077; 87186; 87205; 87502; 93005; 96365; 96366; 96367; 99285; A9270-GY; J0690; J2543; J3370

== ENCOUNTER 2017-12-16 17:45 | Emergency (ER) | payer OTHER ==
[2017-12-16 19:21] LABS: ABS Basophils 0.1 10^3/ul (0-0.2); ABS Eosinophils 0.2 10^3/ul (0-0.6); ABS Lymphocytes 1.8 10^3/ul (1.0-4.8); ABS Nucleated RBC 0 10^3/ul; Eosinophil % 2.1 % (0-6); Hematocrit 42 % (42-52); Hemoglobin 13.9 g/dl (14.0-18.0); Lymphocyte % 16.4 % (25-47); Mean Corpuscular HGB Conc 33 g/dl (31-36); Mean Corpuscular Hemoglobin 31 pg (27-31); Mean Corpuscular Volume 92 fL (80-94); Mean Platelet Volume 9.8 um3 (7.4-10.4); Nucleated Red Blood Cells % 0; Platelet Count 302 10^3/ul (150-450); Red Blood Count 4.53 10^6/ul (4.0-5.4); Red Cell Distribution Width 17 % (10.5-15); White Blood Count 11.2 10^3/ul (3.5-10.8)
[2017-12-16 19:37] LABS: EGFR Non-African American 16.8 (>60)
--- NOTE | 2017-12-16 19:52 | RAD ---
INDICATION: Pain and duskiness on the left ring finger COMPARISON: None. TECHNIQUE: 3 views of the left ring finger were obtained. FINDINGS: The bones appear to be diffusely hyperdense. There is joint space narrowing. There is coarse atherosclerotic calcification of the palmar and digital arteries. There are no signs of osteomyelitis. The patient is status post amputation of the left middle finger distal phalanx. IMPRESSION: ADVANCED CALCIFIED ATHEROSCLEROSIS WITH OTHER CHRONIC FINDINGS DESCRIBED ABOVE. IN THE PRESENCE OF PAIN AND DISCOLORATION, AND CONSIDERING THE PATIENT'S MEDICAL HISTORY, ARTERIAL INSUFFICIENCY SHOULD BE CONSIDERED.
[2017-12-16] MEDS ORDERED: Levofloxacin TAB* 500 MG PO ONE (21:07)
[2017-12-16] MEDS ORDERED: HYDROmorphone TAB* 4 MG PO ONE (21:13)
[2017-12-16 21:41] VITALS: BP 116/55
--- NOTE | 2017-12-16 23:10 | ED ---
Ethan Ellison Nilda, scribed for Zak Stout MD on 12/16/17 at 1841 . Upper Extremity Pain - HPI Summary HPI Summary: This patient is a 57 year old M BIBA accompanied by with a chief complaint of intermittent fever for past 4 days that was 101.4F at its worst. Pt went to PCP today and was found to have elevated WBC 12.5. Pt and are concerned for possible infection of L-fourth finger since pt has had constant severe pain in area for the past few weeks. Pt has seen vascular surgeon and orthopedic who said no surgery at this time. Pt also has sinusitis symptoms (rhinorrhea). The patient rates the pain 8/10 in severity. Symptoms aggravated by movement and palpation and alleviated by rest. PMHx chronic osteomyelitis Dx in October. - History of Current Complaint Chief Complaint: EDExtremityUpper Stated Complaint: INFECTION IN FINGER Time Seen by Provider: 12/16/17 18:18 Hx Obtained From: Patient Mechanism Of Injury: Other - cuts on finger, infection. Onset/Duration: Started Weeks Ago, Traumatic, Still Present Timing: Lasting Days Severity Currently: Severe Pain Location: Finger - 4th finger, left hand Aggravating Factor(s): Movement, Other - palpation Alleviating Factor(s): Rest Associated Signs & Symptoms: Positive: Other - fever, rhinorrhea - Allergies/Home Medications Allergies/Adverse Reactions: Allergies Allergy/AdvReac Type Severity Reaction Status Date / Time MS Clindamycin [Clindamycin] AdvReac Intermediate Diarrhea Verified 06/01/17 13: 37 MS Morphine [Morphine] AdvReac Hallucinati Verified 06/01/17 13:37 ons PMH/Surg Hx/FS Hx/Imm Hx Endocrine/Hematology History: Reports: Hx Diabetes, Hx Anemia, Other Endocrine/ Hematological Disorders - retinal hemorrhage with heparin Denies: Hx Systemic Lupus Erythematosus, Hx Thyroid Disease Cardiovascular History: Reports: Hx Angina, Hx Angioplasty, Hx Cardiac Arrest, Hx Coronary Artery Disease, Hx Hypercholesterolemia, Hx Hypertension, Hx Myocardial Infarction, Hx Peripheral Vascular Disease, Other Cardiovascular Problems/Disorders - a.fib in past Denies: Hx Auto Implanted Cardiovert Defib, Hx Congestive Heart Failure, Hx Pacemaker/ICD, Hx Valvular Heart Disease Respiratory History: Reports: Hx Sleep Apnea - undiagnosed, Other Respiratory Problems/Disorders - post nasal drip Denies: Hx Asthma, Hx Chronic Obstructive Pulmonary Disease (COPD) GI History: Reports: Hx Gastroesophageal Reflux Disease, Other GI Disorders - g tube Denies: Hx Jaundice, Hx Ulcer History: Reports: Hx Chronic Renal Failure - ESRD, Hx Dialysis, Hx Kidney Stones, Hx Renal Disease, Other Problems/Disorders Musculoskeletal History: Reports: Hx Orthopedic Injury - Broke right foot in 2009, Other Musculoskeletal History - bilateral BKA, multiple finger amputations on right hand Denies: Hx Rheumatoid Arthritis Sensory History: Reports: Hx Cataracts - right eye, Hx Vision Problem, Hx Hearing Problem - ringing in left ear, Other Sensory Impairments - Bleed related to Heparin. Denies: Hx Contacts or Glasses, Hx Hearing Aid Opthamlomology History: Reports: Hx Cataracts - right eye, Hx Vision Problem, Other Sensory Impairments - Bleed related to Heparin. Denies: Hx Contacts or Glasses Neurological History: Reports: Other Neuro Impairments/Disorders - diabetic neuropathy Denies: Hx Headaches Psychiatric History: Denies: Hx Panic Disorder - Cancer History Hx Chemotherapy: No - Surgical History Surgery Procedure, Year, and Place: VASECTOMY;. LEFT KNEE PATELLA REALIGNMENT- 1986;. 2011- PERITONEAL CATHETER PLACEMENT;. 04[place]2013-[place] [place]BKA-06/23/2014; 04/02/14[place] [place]. Lt EYE 2013 -CAUTERIZED DUE TO BLOOD POOLING THEN 10/2014 Rt EYE; REVISION Lt BKA. heart stents 09/28 and 03/28, 06/2016, 04/27. open heart surgery 03/28. tracetomy 10/26. hemodialysis catherter placed 10/26. 08/28- revision of right hand and right leg amputation. 06/2016- four fingers of right hand amputated. 04/27- amputation of right leg. 04/26- transplant of veins in left leg. 2014- amputation of left leg. 2014-revision of left leg amputation Hx Anesthesia Reactions: No - Immunization History Date of Influenza Vaccine: 05/28 Infectious Disease History: No Infectious Disease History: Denies: Hx Hepatitis, Hx Human Immunodeficiency Virus (HIV), Traveled Outside the [place] in Last 30 Days - Family History Known Family History: Positive: Diabetes Negative: Cardiac Disease - Social History Alcohol Use: None Alcohol Amount: unable to assess Hx Substance Use: No Substance Use Type: Reports: None Substance Use Comment - Amount & Last Used: unable to assess Hx Tobacco Use: Yes Smoking Status (MU): Former Smoker Type: Cigarettes Length of Time of Smoking/Using Tobacco: 22 years Have You Smoked in the Last Year: No Review of Systems Positive: Fever Positive: Nasal Discharge Positive: Other - L-fourth finger pain All Other Systems Reviewed And Are Negative: Yes Physical Exam - Summary Physical Exam Summary: General: well-appearing, no pain distress Skin: warm, color reflects adequate perfusion, dry Head: normal Eyes: EOMI, WALDEMAR ENT: normal Neck: supple, nontender Respiratory: CTA, breath sounds present Cardiovascular: RRR Abdomen: soft, nontender Bowel: present Musculoskeletal: Left BKA. Right AKA. Left hand 4th finger dusky in appearance. Tender to palpation, delayed capillary refill. Healing scabbed over wound at dorsum of PIP. All fingers of right hand amputated. Neurological: normal, sensory/motor intact, A&O x3 Psychological: affect/mood appropriate Triage Information Reviewed: Yes Vital Signs On Initial Exam: Initial Vitals Temp Pulse Resp BP Pulse Ox 97.8 F 56 20 121/68 100 12/16/17 17:49 12/16/17 17:49 12/16/17 17:49 12/16/17 17:49 12/16/17 17:49 Vital Signs Reviewed: Yes Diagnostics - Vital Signs Vital Signs Temp Pulse Resp BP Pulse Ox 12/16/17 17:49 97.8 F 56 20 121/68 100 - Laboratory Lab Results: Lab Results 12/16/17 12/16/17 Range/Units 19:08 19:08 WBC 11.2 H (3.5-10.8) 10^3/ul RBC 4.53 (4.0-5.4) 10^6/ul Hgb 13.9 L (14.0-18.0) g/dl Hct 42 (42-52) % MCV 92 (80-94) fL MCH 31 (27-31) pg MCHC 33 (31-36) g/dl RDW 17 H (10.5-15) % Plt Count 302 (150-450) 10^3/ul MPV 9.8 (7.4-10.4) um3 Neut % (Auto) 71.6 (38-83) % Lymph % (Auto) 16.4 L (25-47) % [place] % (Auto) 9.3 H (0-7) % Eos % (Auto) 2.1 (0-6) % Baso % (Auto) 0.6 (0-2) % Absolute Neuts (auto) 8.0 H (1.5-7.7) 10^3/ul Absolute Lymphs (auto) 1.8 (1.0-4.8) 10^3/ul Absolute Monos (auto) 1.0 H (0-0.8) 10^3/ul Absolute Eos (auto) 0.2 (0-0.6) 10^3/ul Absolute Basos (auto) 0.1 (0-0.2) 10^3/ul Absolute Nucleated RBC 0 10^3/ul Nucleated RBC % 0 Sodium 132 L (139-145) mmol/L Potassium 3.7 D (3.5-5.0) mmol/L Chloride 92 L (101-111) mmol/L Carbon Dioxide 29 (22-32) mmol/L Anion Gap 11 (2-11) mmol/L BUN 39 H (6-24) mg/dL Creatinine 3.75 H (0.67-1.17) mg/dL Est GFR ( Amer) 21.6 (>60) Est GFR (Non-Af Amer) 16.8 (>60) BUN/Creatinine Ratio 10.4 (8-20) Glucose 199 H (70-100) mg/dL Calcium 10.3 (8.6-10.3) mg/dL Total Bilirubin 0.40 (0.2-1.0) mg/dL AST 27 (13-39) U/L ALT 39 (7-52) U/L Alkaline Phosphatase 203 H (34-104) U/L C-Reactive Protein 131.44 H (< 5.00) mg/L Total Protein 8.8 (6.4-8.9) g/dL Albumin 3.6 (3.2-5.2) g/dL Globulin 5.2 H (2-4) g/dL Albumin/Globulin Ratio 0.7 L (1-3) Result Diagrams: 12/16/17 19:08 12/16/17 19:08 Lab Statement: Any lab studies that have been ordered have been reviewed, and results considered in the medical decision making process. - Radiology Finger XR Radiology Interpretation Completed By: Radiologist - Finger XR reveals: ADVANCED CALCIFIED ATHEROSCLEROSIS WITH OTHER CHRONIC FINDINGS DESCRIBED ABOVE. IN THE PRESENCE OF PAIN AND DISCOLORATION, AND CONSIDERING THE PATIENT'S MEDICAL HISTORY, ARTERIAL INSUFFICIENCY SHOULD BE CONSIDERED. Dr. Stout has reviewed this radiology report. Re-Evaluation - Re-Evaluation First Eval Re-Evaluation Time: 20:41 Comment: Reviewed imaging and labs with pt. Pt agreeable to D/C. Course/Dx - Course Course Of Treatment: Medications and allergies reviewed. Mr Landry has seen vascular for the dusky finger at [facility] who told him it was not time to remove the finger yet. WILL RX LEVAQUIN FOR SINUSITIS. F/U PMD; RETURN IF WORSE. - Diagnoses Provider Diagnoses: Sinusitis, Fever, Vascular insufficiency Discharge - Sign-Out/Discharge Documenting (check all that apply): Discharge/Admit/Transfer - Discharge Plan Condition: Stable Disposition: HOME Prescriptions: HYDROmorphone TAB* [Dilaudid TAB*] 4 mg PO Q6H PRN #15 tab MDD 4 PRN Reason: Pain levoFLOXacin [Levaquin] 250 mg PO EVERY OTHER DAY #5 tablet Patient Education Materials: Sinusitis (ED), Fever in Adults (ED) Referrals: Justa Cruz [Primary Care Provider] - Additional Instructions: FOLLOW UP WITH YOUR DOCTOR. RETURN TO THE EMERGENCY DEPARTMENT FOR ANY WORSENING OF YOUR CONDITION OR QUESTIONS OR CONCERNS. - Billing Disposition and Condition Condition: STABLE Disposition: HOME The documentation as recorded by the Ethan shell Nilda accurately reflects the service I personally performed and the decisions made by me, Zak Stout MD.
== END 2017-12-16 22:00 | disposition home or self-care (01) ==
LOC: ED 17:45
DX: J32.9 Chronic sinusitis, unspecified (principal); R50.9 Fever, unspecified; I99.8 Other disorder of circulatory system; I70.208 Unspecified atherosclerosis of native arteries of extremities, other extremity; Z86.19 Personal history of other infectious and parasitic diseases; Z87.891 Personal history of nicotine dependence; Z88.3 Allergy status to other anti-infective agents; Z88.5 Allergy status to narcotic agent
CPT/HCPCS: 36415; 73140; 80053; 85025; 86140; 99283; A9270-GY

== ENCOUNTER 2017-12-28 17:17 | Emergency (ER) | payer BC, MEDICARE, OTHER ==
[2017-12-28] MEDS ORDERED: Phenylephrine 1% NASAL* 15 ML BOT BOTH NARES ONE (18:19)
[2017-12-28 19:05] LABS: Hematocrit 38 % (42-52); Hemoglobin 12.5 g/dl (14.0-18.0); Mean Corpuscular HGB Conc 33 g/dl (31-36); Mean Corpuscular Hemoglobin 30 pg (27-31); Mean Corpuscular Volume 92 fL (80-94); Mean Platelet Volume 9.9 um3 (7.4-10.4); Platelet Count 273 10^3/ul (150-450); Red Blood Count 4.11 10^6/ul (4.0-5.4); Red Cell Distribution Width 17 % (10.5-15); White Blood Count 10.9 10^3/ul (3.5-10.8)
[2017-12-28 19:07] LABS: INR 1.02 (0.77-1.02)
[2017-12-28 19:08] LABS: ABS Basophils 0.1 10^3/ul (0-0.2); ABS Eosinophils 0.2 10^3/ul (0-0.6); ABS Lymphocytes 1.6 10^3/ul (1.0-4.8); ABS Monocytes 1.9 10^3/ul (0-0.8); ABS Neutrophils 7.1 10^3/ul (1.5-7.7); ABS Nucleated RBC 0 10^3/ul; Nucleated Red Blood Cells % 0
--- NOTE | 2017-12-28 22:31 | ED ---
Ruben Ellison Jennifer, scribed for William Pinedo MD on 12/28/17 at 1803 . Throat Pain/Nasal Congestion - HPI Summary HPI Summary: The patient is a 57 year old male who presents with nosebleed beginning 45 minutes ago. The patient explains it is coming out of his nose in the front and also down his throat in the back. The patient has been coughing out blood clots constantly. He states that pinching his nose higher up alleviates the nosebleed. Patient reports he is on blood thinners Brilinta and Aspirin. His states he just got off antibiotics for sinusitis that he got prescribed about 12 days ago. The patient additionally complains of pain above his right brow that goes across his forehead and comes and goes. This headache began 2-3 weeks ago. - History of Current Complaint Chief Complaint: EDEpistaxis Hx Obtained From: Patient Onset/Duration: Lasting Minutes - 45 minutes, Still Present Severity: Moderate Associated Signs And Symptoms: Positive: Nasal Discharge - nosebleed Cough: Productive - blood - Allergies/Home Medications Allergies/Adverse Reactions: Allergies Allergy/AdvReac Type Severity Reaction Status Date / Time clindamycin Allergy Diarrhea Verified 12/28/17 17:28 morphine Allergy Hallucinati Verified 12/28/17 17:28 ons PMH/Surg Hx/FS Hx/Imm Hx Endocrine/Hematology History: Reports: Hx Diabetes, Hx Anemia, Other Endocrine/ Hematological Disorders - retinal hemorrhage with heparin Denies: Hx Systemic Lupus Erythematosus, Hx Thyroid Disease Cardiovascular History: Reports: Hx Angina, Hx Angioplasty, Hx Cardiac Arrest, Hx Coronary Artery Disease, Hx Hypercholesterolemia, Hx Hypertension, Hx Myocardial Infarction, Hx Peripheral Vascular Disease, Other Cardiovascular Problems/Disorders - a.fib in past Denies: Hx Auto Implanted Cardiovert Defib, Hx Congestive Heart Failure, Hx Pacemaker/ICD, Hx Valvular Heart Disease Respiratory History: Reports: Hx Sleep Apnea - undiagnosed, Other Respiratory Problems/Disorders - post nasal drip Denies: Hx Asthma, Hx Chronic Obstructive Pulmonary Disease (COPD) GI History: Reports: Hx Gastroesophageal Reflux Disease, Other GI Disorders - g tube Denies: Hx Jaundice, Hx Ulcer History: Reports: Hx Chronic Renal Failure - ESRD, Hx Dialysis, Hx Kidney Stones, Hx Renal Disease, Other Problems/Disorders Musculoskeletal History: Reports: Hx Orthopedic Injury - Broke right foot in 2009, Other Musculoskeletal History - bilateral BKA, multiple finger amputations on right hand Denies: Hx Rheumatoid Arthritis Sensory History: Reports: Hx Cataracts - right eye, Hx Vision Problem, Hx Hearing Problem - ringing in left ear, Other Sensory Impairments - Bleed related to Heparin. Denies: Hx Contacts or Glasses, Hx Hearing Aid Opthamlomology History: Reports: Hx Cataracts - right eye, Hx Vision Problem, Other Sensory Impairments - Bleed related to Heparin. Denies: Hx Contacts or Glasses Neurological History: Reports: Other Neuro Impairments/Disorders - diabetic neuropathy Denies: Hx Headaches Psychiatric History: Denies: Hx Panic Disorder - Cancer History Hx Chemotherapy: No - Surgical History Surgery Procedure, Year, and Place: VASECTOMY;. LEFT KNEE PATELLA REALIGNMENT- 1986;. 2011- PERITONEAL CATHETER PLACEMENT;. 04/2013-CREATION OF A FISTULA LEFT ARM[place] [place];. L-BKA-06/23/2014; 04/02/14-Left big toe removed[place] [place];. Lt EYE 2013 -CAUTERIZED DUE TO BLOOD POOLING THEN 10/2014 Rt EYE; REVISION Lt BKA. heart stents 09/28 and 03/28, 06/2016, 04/27. open heart surgery 03/28. tracetomy 10/26. hemodialysis catherter placed 10/26. 08/28- revision of right hand and right leg amputation. 06/2016- four fingers of right hand amputated. 04/27- amputation of right leg. 04/26- transplant of veins in left leg. 2014- amputation of left leg. 2014-revision of left leg amputation Hx Anesthesia Reactions: No - Immunization History Date of Influenza Vaccine: 05/28 Infectious Disease History: Yes Infectious Disease History: Denies: Hx Hepatitis, Hx Human Immunodeficiency Virus (HIV), Traveled Outside the US in Last 30 Days - Family History Known Family History: Positive: Diabetes Negative: Cardiac Disease - Social History Alcohol Use: None Alcohol Amount: unable to assess Hx Substance Use: No Substance Use Type: Reports: None Substance Use Comment - Amount & Last Used: unable to assess Hx Tobacco Use: Yes Smoking Status (MU): Former Smoker Type: Cigarettes Length of Time of Smoking/Using Tobacco: 22 years Have You Smoked in the Last Year: No Review of Systems Negative: Fever ENT: Other - coughing out blood Positive: Epistaxis Positive: Headache - Pain above right brow across forehead All Other Systems Reviewed And Are Negative: Yes Physical Exam - Summary Physical Exam Summary: Appearance: Well-appearing, Well-nourished Skin: Warm Eyes: Normal ENT: Normal Neck: Supple, nontender Respiratory: Clear to auscultation Cardiovascular: Normal S1, S2. No murmurs. Normal distal pulses in tibial and radial bilaterally. Abdomen: Soft, nontender Musculoskeletal: Normal, Strength/ROM Intact Neurological: Normal, A&Ox3 Psychiatric: Normal General: No acute distress Triage Information Reviewed: Yes Vital Signs On Initial Exam: Initial Vitals Temp Pulse Resp BP Pulse Ox 98.1 F 110 20 121/66 94 12/28/17 17:29 12/28/17 17:29 12/28/17 17:29 12/28/17 17:29 12/28/17 17:29 Vital Signs Reviewed: Yes Procedures - Procedure Summary Procedure Summary: Rapid Rhino placed in the left nare for epistaxis control, patient tolerated well, 7 cc of air injected, I instructed the patient that he should have rapid Rhino removed in no later than 3-4 days Diagnostics - Vital Signs Vital Signs Temp Pulse Resp BP Pulse Ox 12/28/17 17:29 98.1 F 110 20 121/66 94 - Laboratory Lab Results: Lab Results 12/28/17 12/28/17 Range/Units 18:52 18:52 WBC 10.9 H (3.5-10.8) 10^3/ul RBC 4.11 (4.0-5.4) 10^6/ul Hgb 12.5 L (14.0-18.0) g/dl Hct 38 L (42-52) % MCV 92 (80-94) fL MCH 30 (27-31) pg MCHC 33 (31-36) g/dl RDW 17 H (10.5-15) % Plt Count 273 (150-450) 10^3/ul MPV 9.9 (7.4-10.4) um3 Neut % (Auto) 65.2 (38-83) % Lymph % (Auto) 15.0 L (25-47) % Mckean % (Auto) 17.2 H (0-7) % Eos % (Auto) 2.0 (0-6) % Baso % (Auto) 0.6 (0-2) % Absolute Neuts (auto) 7.1 (1.5-7.7) 10^3/ul Absolute Lymphs (auto) 1.6 (1.0-4.8) 10^3/ul Absolute Monos (auto) 1.9 H (0-0.8) 10^3/ul Absolute Eos (auto) 0.2 (0-0.6) 10^3/ul Absolute Basos (auto) 0.1 (0-0.2) 10^3/ul Absolute Nucleated RBC 0 10^3/ul Nucleated RBC % 0 INR (Anticoag Therapy) 1.02 (0.77-1.02) APTT 36.0 (26.0-36.3) seconds Result Diagrams: 12/28/17 18:52 Lab Statement: Any lab studies that have been ordered have been reviewed, and results considered in the medical decision making process. EENT Course/Dx - Course Assessment/Plan: After pressure and intranasal phenylephrine was unsuccessful, I applied a rapid Rhino for epistaxis control which was successful. Patient tolerated procedure well, instructed to follow-up with an ENT doctor or primary care physician for removal in approximately 2-3 days. Also prescribed antibiotic prophylaxis, patient and family agrees and understands discharge instructions. - Diagnoses Provider Diagnoses: Epistaxis Discharge - Sign-Out/Discharge Documenting (check all that apply): Discharge/Admit/Transfer - Discharge Plan Condition: Improved Disposition: HOME Prescriptions: Amoxicillin PO (*) [Amoxicillin 500 MG CAP*] 500 mg PO BID #10 cap Phenylephrine 1% NASAL* [Philip-Synephrine 1% Nasal*] 1 spray BOTH NARES Q4H PRN # 1 btl PRN Reason: NOSEBLEED Patient Education Materials: Nosebleed (ED) Referrals: Sony Morgan MD [Medical Doctor] - Justa Cruz [Primary Care Provider] - Sky Arteaga MD [Medical Doctor] - Additional Instructions: PLEASE USE MEDICATIONS DIRECTED PLEASE SEE A PHYSICIAN TO GET RAPID RHINO REMOVED WITHIN 2-4 DAYS PLEASE RETURN TO THE EMERGENCY ROOM IF YOU HAVE ANY WORSENING OR CONCERNING SYMPTOMS PLEASE MAKE AN APPOINTMENT FIRST THING IN THE MORNING TO BE SEEN BY AN ENT DOCTOR WITHIN 1 WEEK IF NO IMPROVEMENT - Billing Disposition and Condition Condition: IMPROVED Disposition: HOME The documentation as recorded by the Ruben shell Jennifer accurately reflects the service I personally performed and the decisions made by me, William Pinedo MD.
[2017-12-28 22:40] VITALS: BP 193/98
== END 2017-12-28 22:41 | disposition home or self-care (01) ==
LOC: ED 17:17
DX: R04.0 Epistaxis (principal); Z79.82 Long term (current) use of aspirin; Z87.891 Personal history of nicotine dependence; Z88.3 Allergy status to other anti-infective agents; Z88.5 Allergy status to narcotic agent
CPT/HCPCS: 36415; 85025; 85610; 85730; 99283; A9270-GY

== ENCOUNTER 2017-12-31 20:33 | Emergency (ER) | payer SELFPAY ==
[2017-12-31 20:52] VITALS: BP 97/57
[2017-12-31] MEDS ORDERED: Phenylephrine 1% NASAL* 15 ML BOT LEFT NARE ONE (21:52)
[2017-12-31] MEDS ORDERED: Lidocaine 2% VISCOUS* 15 ML UDC PO ONE (21:53)
--- NOTE | 2017-12-31 22:43 | UC ---
Epistaxis Nasal HPI - HPI Summary HPI Summary: PATIENT PRESENTS WITH BLEEDING OUT OF LEFT NARIS THAT STARTED TODAY. [place] [facility] [place] WITH A SPONTANEOUS LEFT-SIDED NOSEBLEED. HE HAD A RHINO ROCKET PLACED AND WAS ADVISED TO HAVE IT REMOVED IN 3 DAYS. PATIENT WENT TO THE [facility] IN [place] THIS AFTERNOON AND HAD THE RHINO ROCKET REMOVED. AFTER REMOVAL HE SEEMED TO BE DOING WELL WITH NO RECURRENT BLEEDING. ABOUT AN HOUR LATER HE STATES THE BLEEDING SPONTANEOUSLY STARTED AGAIN. HE IS COUGHING UP LARGE BLOOD CLOTS AND HAVING BLOODY DRAINAGE IN HIS OROPHARYNX. HE IS CURRENTLY ON AMOXICILLIN PER THE ED FOR INFECTION PROPHYLAXIS. OF NOTE PT IS A TYPE I DIABETIC WHO HAS HAD MULTIPLE AMPUTATIONS AND IS ON DIALYSIS FOR ESRD SATURDAY, SATURDAY, SATURDAY. HE RECEIVED HEPARIN AT EACH OF HIS DIALYSIS SESSIONS UNTIL LAST WEEK. HE LAST DIALYZED YESTERDAY AND DID NOT RECEIVE ANY HEPARIN. HE IS ON BRILINTA AND ASPIRIN FOR RECENT CARDIAC SURGERY. PATIENT HAD 2 STENTS AND A CABG IN MARCH 2017. PATIENT DOES HAVE SOME CHRONIC NASAL CONGESTION ISSUES AND HAS BEEN USING FLONASE DAILY FOR THE PAST SEVERAL WEEKS BUT HAS NOT USED IT SINCE THE BLEEDING INITIALLY STARTED ON 12/28/17. PATIENT DENIES ANY FEVER. HAS NOT HAD PROBLEMS WITH RECURRENT NOSEBLEEDS IN THE PAST. IS NOT BLEEDING FROM ANY OTHER AREA. - History of Current Complaint Chief Complaint: UCGeneralIllness Stated Complaint: NOSE BLEED Time Seen by Provider: 12/31/17 21:22 Hx Obtained From: Patient, Family/Geophysical Operator - Onset/Duration: Sudden Onset, Lasting Hours, Still Present Timing: Constant Severity Initially: Moderate Severity Currently: Moderate Pain Intensity: 0 Pain Scale Used: 0-10 Numeric Character: Heavy Aggravating Factor(s): Nothing Alleviating Factor(s): Pressure Associated Signs And Symptoms: Positive: Sinus Pain Related Hx: Anticoagulants - Allergies/Home Medications Allergies/Adverse Reactions: Allergies Allergy/AdvReac Type Severity Reaction Status Date / Time clindamycin Allergy Diarrhea Verified 12/31/17 20:52 morphine Allergy Hallucinati Verified 12/31/17 20:52 ons PMH/Surg Hx/FS Hx/Imm Hx Endocrine History: Diabetes - TYPE I Cardiovascular History: Cardiac Disease, Hypertension GI/ History: Gastrointestional Bleed - RECTAL BLEEDING, NOS - S/P COLECTOMY ( PT HAS OSTOMY) - Surgical History Surgical History: Yes Surgery Procedure, Year, and Place: VASECTOMY;. LEFT KNEE PATELLA REALIGNMENT- 1986;. 2011- PERITONEAL CATHETER PLACEMENT;. [place] [place] L-BKA-06/23/2014; 04/02/14[place] [place]. Lt EYE 2013 -CAUTERIZED DUE TO BLOOD POOLING THEN 10/2014 Rt EYE; REVISION Lt BKA. heart stents 09/28 and 03/28, 06/2016, 04/27. open heart surgery 03/28. tracetomy 10/26. hemodialysis catherter placed 10/26. 08/28- revision of right hand and right leg amputation. 06/2016- four fingers of right hand amputated. 04/27- amputation of right leg. 04/26- transplant of veins in left leg. 2014- amputation of left leg. 2014-revision of left leg amputation - Family History Known Family History: Positive: Diabetes Negative: Cardiac Disease - Social History Alcohol Use: None Alcohol Amount: unable to assess Substance Use Type: None Substance Use Comment - Amount & Last Used: unable to assess Smoking Status (MU): Former Smoker Type: Cigarettes Length of Time of Smoking/Using Tobacco: 22 years Have You Smoked in the Last Year: No When Did the Patient Quit Smoking/Using Tobacco: 1 year ago Household Exposure Type: Cigarettes - Immunization History Most Recent Influenza Vaccination: fall 2016 Most Recent Tetanus Shot: 2004 Most Recent Pneumonia Vaccination: 2015 Review of Systems Constitutional: Negative ENT: Epistaxis Respiratory: Negative Cardiovascular: Negative Gastrointestinal: Negative All Other Systems Reviewed And Are Negative: Yes Physical Exam Triage Information Reviewed: Yes Appearance: Well-Appearing, No Pain Distress, Other: - PATIENT APPEARS FATIGUED. HAS MULTIPLE AMPUTATIONSLEFT BKA, RIGHT AKA, SEVERAL FINGERS RIGHT HAND Vital Signs: Initial Vital Signs Temp 98.7 F 12/31/17 20:49 Pulse 102 12/31/17 20:49 Resp 19 12/31/17 20:49 BP 97/57 12/31/17 20:49 Pulse Ox 97 12/31/17 20:49 Vital Signs Reviewed: Yes Eyes: Positive: Conjunctiva Clear ENT: Positive: Hearing grossly normal, Other - FRESH BLOOD IN OROPHARYNX. RIGHT NARIS WITH VISIBLE BLOOD CLOT. NO ACTIVE BLEEDING. LEFT NARIS WITH OOZING BLOOD Neck: Positive: Supple Respiratory: Positive: No respiratory distress, No accessory muscle use Cardiovascular: Positive: Pulses Normal Abdomen Description: Positive: Soft Musculoskeletal: Positive: No Edema Neurological: Positive: Alert Psychological: Positive: Normal Response To Family, Age Appropriate Behavior Skin: Negative: rashes Epistaxis Nasal Course/Dx - Course Course Of Treatment: PATIENT PRESENTS WITH RECURRENT EPISTAXIS AFTER HAVING A RHINO ROCKET REMOVED FROM LEFT NARIS TODAY. PATIENT WAS DISCUSSED WITH ENT. TOPICAL APPLICATION OF LIDOCAINE AND FELIPE-SYNEPHRINE TO HELP WITH DISCOMFORT AND VASOCONSTRICTION. 8 CM MEROCEL NASAL TAMPON COATED WITH BACITRACIN OINTMENT WAS THEN INSERTED. FELIPE-SYNEPHRINE THEN APPLIED. PATIENT ADVISED NOT TO DISTURB THE NASAL TAMPON AND TO FOLLOW-UP WITH ENT IN THE NEXT 5-7 DAYS. HE IS CURRENTLY ON DAY 4 OF 5 OF AMOXICILLIN PRESCRIBED BY THE ED. WILL EXTEND THIS FOR ANOTHER 5 DAYS IN ORDER TO ACHIEVE A 10 DAY TOTAL COURSE OF ANTIBIOTICS FOR INFECTION PROPHYLAXIS. ADVISED PATIENT TO GO TO THE ED WITHOUT FAIL IF HE DEVELOPS WORSENING PAIN, BLEEDING, FEVER OR ANY OTHER CONCERNING SYMPTOMS. - Differential Dx/Diagnosis Provider Diagnoses: EPISTAXIS - LEFT NARIS - Physician Notifications Discussed Patient Care With: Isrrael Duque - ADVISED LIDO/FELIPE-SYNEPHRINE TOPICALLY FOLLOWED BY INSERTION OF NASAL TAMPON WITH BACITRACIN FOR LUBRICATION Time Discussed With Above Provider: 21:45 Instructed by Provider To: Have Pt Call For Appt. Discharge - Sign-Out/Discharge Documenting (check all that apply): Discharge/Admit/Transfer - Discharge Plan Condition: Stable Disposition: HOME Prescriptions: Amoxicillin PO (*) [Amoxicillin 500 MG CAP*] 500 mg PO BID #10 cap Patient Education Materials: Nosebleed (ED) Referrals: Justa Cruz [Primary Care Provider] - If Needed Isrrael Duque MD [Medical Doctor] - 7 Days Additional Instructions: ANOTHER NASAL TAMPON WAS INSERTED TODAY. FELIPE-SYNEPHRINE WAS USED TO HELP WITH VASOCONSTRICTION. CALL ENT FIRST THING TOMORROW MORNING TO SCHEDULE A FOLLOW- UP APPOINTMENT FOR NEXT SATURDAY. CONTINUE THE AMOXICILLIN TO COMPLETE A 10 DAY COURSE OF ANTIBIOTICS FOR INFECTION PROPHYLAXIS. GO TO THE ED WITHOUT FAIL IF YOU DEVELOP WORSENING PAIN, BLEEDING, FEVER OR ANY OTHER CONCERNING SYMPTOMS. - Billing Disposition and Condition Condition: STABLE Disposition: HOME
== END 2017-12-31 22:41 | disposition home or self-care (01) ==
LOC: UCEAST 20:33
DX: R04.0 Epistaxis (principal); E10.9 Type 1 diabetes mellitus without complications; Z79.4 Long term (current) use of insulin; I11.9 Hypertensive heart disease without heart failure; Z88.5 Allergy status to narcotic agent; Z89.111 Acquired absence of right hand; Z89.611 Acquired absence of right leg above knee; Z89.612 Acquired absence of left leg above knee; Z95.5 Presence of coronary angioplasty implant and graft; Z88.1 Allergy status to other antibiotic agents; Z87.891 Personal history of nicotine dependence
CPT/HCPCS: 30901; 99212; A9270-GY; G0463

== ENCOUNTER 2018-01-01 00:38 | Emergency (ER) | payer OTHER ==
[2018-01-01 02:43] VITALS: BP 151/74
--- NOTE | 2018-01-01 02:43 | ED ---
Edison Ellison Natalie, scribed for Raul Blue MD on 01/01/18 at 0141 . Throat Pain/Nasal Congestion - HPI Summary HPI Summary: The patient is a 57 y/o M presenting to the ED c/o epistaxis in left nostril starting today after visiting ER in [place] to get rhino rocket removed. He had the rhino rocket placed on 12/28/17 for epistaxis and was told to get it removed today. The bleeding didn't stop until he returned home again. He's been vomiting up blood clots. He went to [facility], who told him to come to the ED. He has hx of renal failure for which he gets dialysis. He takes Brilinta. - History of Current Complaint Chief Complaint: EDBleedingDisorder Time Seen by Provider: 01/01/18 01:09 Hx Obtained From: Patient Onset/Duration: Sudden Onset, Lasting Hours, Still Present Severity: Moderate Associated Signs And Symptoms: Positive: Sinus Discomfort Cough: None - Allergies/Home Medications Allergies/Adverse Reactions: Allergies Allergy/AdvReac Type Severity Reaction Status Date / Time clindamycin Allergy Diarrhea Verified 01/01/18 00:50 morphine Allergy Hallucinati Verified 01/01/18 00:50 ons PMH/Surg Hx/FS Hx/Imm Hx Endocrine/Hematology History: Reports: Hx Diabetes, Hx Anemia, Other Endocrine/ Hematological Disorders - retinal hemorrhage with heparin Denies: Hx Systemic Lupus Erythematosus, Hx Thyroid Disease Cardiovascular History: Reports: Hx Angina, Hx Angioplasty, Hx Cardiac Arrest, Hx Coronary Artery Disease, Hx Hypercholesterolemia, Hx Hypertension, Hx Myocardial Infarction, Hx Peripheral Vascular Disease, Other Cardiovascular Problems/Disorders - a.fib in past Denies: Hx Auto Implanted Cardiovert Defib, Hx Congestive Heart Failure, Hx Pacemaker/ICD, Hx Valvular Heart Disease Respiratory History: Reports: Hx Sleep Apnea - undiagnosed, Other Respiratory Problems/Disorders - post nasal drip Denies: Hx Asthma, Hx Chronic Obstructive Pulmonary Disease (COPD) GI History: Reports: Hx Gastroesophageal Reflux Disease, Other GI Disorders - g tube Denies: Hx Jaundice, Hx Ulcer History: Reports: Hx Chronic Renal Failure - ESRD, Hx Dialysis, Hx Kidney Stones, Hx Renal Disease, Other Problems/Disorders Musculoskeletal History: Reports: Hx Orthopedic Injury - Broke right foot in 2009, Other Musculoskeletal History - bilateral BKA, multiple finger amputations on right hand Denies: Hx Rheumatoid Arthritis Sensory History: Reports: Hx Cataracts - right eye, Hx Vision Problem, Hx Hearing Problem - ringing in left ear, Other Sensory Impairments - Bleed related to Heparin. Denies: Hx Contacts or Glasses, Hx Hearing Aid Opthamlomology History: Reports: Hx Cataracts - right eye, Hx Vision Problem, Other Sensory Impairments - Bleed related to Heparin. Denies: Hx Contacts or Glasses Neurological History: Reports: Other Neuro Impairments/Disorders - diabetic neuropathy Denies: Hx Headaches Psychiatric History: Denies: Hx Panic Disorder - Cancer History Hx Chemotherapy: No - Surgical History Surgery Procedure, Year, and Place: VASECTOMY;. LEFT KNEE PATELLA REALIGNMENT- 1986;. 2011- PERITONEAL CATHETER PLACEMENT;. 04/2013-CREATION OF A FISTULA LEFT ARM[place] [place];. L-BKA-06/23/2014; 04/02/14-Left big toe removed[place] [place];. Lt EYE 2013 -CAUTERIZED DUE TO BLOOD POOLING THEN 10/2014 Rt EYE; REVISION Lt BKA. heart stents 09/28 and 03/28, 06/2016, 04/27. open heart surgery 03/28. tracetomy 10/26. hemodialysis catherter placed 10/26. 08/28- revision of right hand and right leg amputation. 06/2016- four fingers of right hand amputated. 04/27- amputation of right leg. 04/26- transplant of veins in left leg. 2014- amputation of left leg. 2014-revision of left leg amputation Hx Anesthesia Reactions: No - Immunization History Date of Influenza Vaccine: 05/28 Infectious Disease History: No Infectious Disease History: Denies: Hx Hepatitis, Hx Human Immunodeficiency Virus (HIV), Traveled Outside the US in Last 30 Days - Family History Known Family History: Positive: Diabetes Negative: Cardiac Disease - Social History Alcohol Use: None Alcohol Amount: unable to assess Hx Substance Use: No Substance Use Type: Reports: None Substance Use Comment - Amount & Last Used: unable to assess Hx Tobacco Use: Yes Smoking Status (MU): Former Smoker Type: Cigarettes Length of Time of Smoking/Using Tobacco: 22 years Have You Smoked in the Last Year: No Review of Systems Positive: Epistaxis Positive: Vomiting - blood clots from epistaxis All Other Systems Reviewed And Are Negative: Yes Physical Exam - Summary Physical Exam Summary: Appearance: Well appearing, no pain distress Skin: warm, dry, reflects adequate perfusion Head/face: normal Eyes: EOMI, [place] ENT: normal, dried blood in both nares,surgical septal perforation in left nare , blood in left posterior pharynx, no active source of bleeding found after removal of packing Neck: supple, non-tender Respiratory: CTA, breath sounds present Cardiovascular: RRR, pulses symmetrical Abdomen: non-tender, soft Bowel Sounds: present Musculoskeletal: strength/ROM intact, amputations in bilateral legs with all right fingers amputated and necrotic long finger in the left hand Neuro: normal, sensory motor intact, A&Ox3 Triage Information Reviewed: Yes Vital Signs On Initial Exam: Initial Vitals Temp Pulse Resp BP Pulse Ox 98.0 F 65 16 123/65 100 01/01/18 00:43 01/01/18 00:43 01/01/18 00:43 01/01/18 00:43 01/01/18 00:43 Vital Signs Reviewed: Yes Procedures - Procedure Summary Procedure Summary: Management of epistaxis: Patient had a loose Miracil packing in his left naris. This was removed. He had ongoing bleeding with it. I examined the naris and found no obvious area of bleeding. There is a deformity of the septum that communicated with the right naris. Right now only has dried blood. A 4.5 cm Rhino Rocket was placed in the left naris and inflated with 3 cc of air. This stopped bleeding but causes discomfort and so 1 cc of air was removed. I was able to place an additional half cc of air back in the balloon which she tolerated well. In total others 2.5 cc of air inflating the balloon. This was taped to his cheek. He tolerated this well without complication. Bleeding has stopped. Diagnostics - Vital Signs Vital Signs Temp Pulse Resp BP Pulse Ox 01/01/18 00:43 98.0 F 65 16 123/65 100 - Laboratory Lab Statement: Any lab studies that have been ordered have been reviewed, and results considered in the medical decision making process. Re-Evaluation - Re-Evaluation Second Eval Re-Evaluation Time: 02:11 Change: Improved Comment: The patient's bleeding has slowed down. He has not been coughing up clots. EENT Course/Dx - Course Course Of Treatment: Patient with extensive comorbidity and takes Brilinta after drug-eluding stent. Recurrent epistaxis throughout the week. Previously had Rhino Rocket removed from his left naris earlier today. He had rebleeding later in the day and had packing placed by urgent care. He continued to bleed. I placed an anterior Rhino Rocket after is unable to see where the bleeding was coming from. He was observed for about 1 hour after packing and had no rebleeding. He was given a dose of amoxicillin by his . He'll follow up with ENT in the morning [facility] - Differential Diagnoses Differential Diagnoses: Other - Posterior epistaxis, blood dyscrasia, anterior epistaxis, Dr. related epistaxis - Diagnoses Provider Diagnoses: Epistaxis, recurrent Discharge - Sign-Out/Discharge Documenting (check all that apply): Discharge/Admit/Transfer - Discharge Plan Condition: Improved Disposition: HOME Prescriptions: Amoxicillin PO (*) [Amoxicillin 500 MG CAP*] 500 mg PO TID #15 cap Patient Education Materials: Nosebleed (ED) Referrals: Justa Cruz [Primary Care Provider] - Sky Arteaga MD [Medical Doctor] - Additional Instructions: Call your nose and throat doctor in the morning for follow-up. Return with increased bleeding, worse or other concerns. Hold one dose of Brillinta. - Billing Disposition and Condition Condition: IMPROVED Disposition: HOME The documentation as recorded by the dEison shell Natalie accurately reflects the service I personally performed and the decisions made by me, Raul Blue MD.
== END 2018-01-01 02:42 | disposition home or self-care (01) ==
LOC: ED 00:38
DX: R04.0 Epistaxis (principal); E11.22 Type 2 diabetes mellitus with diabetic chronic kidney disease; I12.0 Hypertensive chronic kidney disease with stage 5 chronic kidney disease or end stage renal disease; N18.6 End stage renal disease; Z99.2 Dependence on renal dialysis; I25.10 Atherosclerotic heart disease of native coronary artery without angina pectoris; Z95.5 Presence of coronary angioplasty implant and graft; Z79.01 Long term (current) use of anticoagulants; Z87.891 Personal history of nicotine dependence; Z89.512 Acquired absence of left leg below knee; Z89.511 Acquired absence of right leg below knee; Z88.3 Allergy status to other anti-infective agents; Z88.5 Allergy status to narcotic agent
CPT/HCPCS: 30901; 99282

== ENCOUNTER 2018-03-21 21:00 | Emergency (ER) | payer OTHER ==
[2018-03-21 21:51] LABS: ABS Basophils 0.1 10^3/ul (0-0.2); ABS Eosinophils 0.4 10^3/ul (0-0.6); ABS Lymphocytes 2.1 10^3/ul (1.0-4.8); ABS Monocytes 1.3 10^3/ul (0-0.8); ABS Neutrophils 5.1 10^3/ul (1.5-7.7); ABS Nucleated RBC 0 10^3/ul; Eosinophil % 4.5 % (0-6); Hematocrit 39 % (42-52); Lymphocyte % 23.6 % (25-47); Mean Corpuscular HGB Conc 33 g/dl (31-36); Mean Corpuscular Hemoglobin 30 pg (27-31); Mean Corpuscular Volume 89 fL (80-94); Mean Platelet Volume 9.9 um3 (7.4-10.4); Nucleated Red Blood Cells % 0.1; Platelet Count 311 10^3/ul (150-450); Red Blood Count 4.41 10^6/ul (4.00-5.40); Red Cell Distribution Width 16 % (10.5-15); White Blood Count 8.9 10^3/ul (3.5-10.8)
[2018-03-21 21:59] LABS: INR 0.96 (0.77-1.02)
[2018-03-21 22:08] LABS: EGFR Non-African American 9.1 (>60)
[2018-03-21] MEDS ORDERED: methylPREDNISolone 125 MG* 2 ML VIAL IV ONE (22:45)
[2018-03-21] MEDS ORDERED: diPHENhydraMINE IV* 50 MG/ML 1 ml VIAL (BENADRYL) IV ONE (22:45)
[2018-03-21] MEDS ORDERED: Famotidine IV* 10 MG/ML 2 ML (20 mg) IV ONE (22:45)
--- NOTE | 2018-03-22 00:12 | ED ---
Throat Pain/Nasal Congestion - HPI Summary HPI Summary: Patient complains of onset of shaking, throat swelling, voice change, chest tightness, sensation of SOB after eating an ice cream with nuts on it. Patient states he has eaten this bee stings many times before, but does not at this particular location. Patient states she still has mild sensation of throat swelling and still has moist change. Chest tightness and SOB of completely resolved as has shaking. Denies fever, cough, sore throat, N/V/D, abdominal pain, change in urine or BM. Medical history is dialysis, STEMI, cardiac bypass surgery in 03/2017, CHF, DM 1, multiple amputations on right fingers and bilateral lower extremities, HDL, diabetic neuropathy, HTN, end-stage renal disease on dialysis. - History of Current Complaint Chief Complaint: EDChestPainROMI Time Seen by Provider: 03/21/18 22:18 Hx Obtained From: Patient, Family/Digital Engineer Onset/Duration: Sudden Onset Severity: Moderate Associated Signs And Symptoms: Positive: Dysphagia, Hoarseness Cough: None - Allergies/Home Medications Allergies/Adverse Reactions: Allergies Allergy/AdvReac Type Severity Reaction Status Date / Time clindamycin Allergy Diarrhea Verified 01/01/18 00:50 morphine Allergy Hallucinati Verified 01/01/18 00:50 ons PMH/Surg Hx/FS Hx/Imm Hx Endocrine/Hematology History: Reports: Hx Diabetes, Hx Anemia, Other Endocrine/ Hematological Disorders - retinal hemorrhage with heparin Denies: Hx Systemic Lupus Erythematosus, Hx Thyroid Disease Cardiovascular History: Reports: Hx Angina, Hx Angioplasty, Hx Cardiac Arrest, Hx Coronary Artery Disease, Hx Hypercholesterolemia, Hx Hypertension, Hx Myocardial Infarction, Hx Peripheral Vascular Disease, Other Cardiovascular Problems/Disorders - a.fib in past Denies: Hx Auto Implanted Cardiovert Defib, Hx Congestive Heart Failure, Hx Pacemaker/ICD, Hx Valvular Heart Disease Respiratory History: Reports: Hx Sleep Apnea - undiagnosed, Other Respiratory Problems/Disorders - post nasal drip Denies: Hx Asthma, Hx Chronic Obstructive Pulmonary Disease (COPD) GI History: Reports: Hx Gastroesophageal Reflux Disease, Other GI Disorders - g tube Denies: Hx Jaundice, Hx Ulcer History: Reports: Hx Chronic Renal Failure - ESRD, Hx Dialysis, Hx Kidney Stones, Hx Renal Disease, Other Problems/Disorders Musculoskeletal History: Reports: Hx Orthopedic Injury - Broke right foot in 2009, Other Musculoskeletal History - bilateral BKA, multiple finger amputations on right hand Denies: Hx Rheumatoid Arthritis Sensory History: Reports: Hx Cataracts - right eye, Hx Vision Problem, Hx Hearing Problem - ringing in left ear, Other Sensory Impairments - Bleed related to Heparin. Denies: Hx Contacts or Glasses, Hx Hearing Aid Opthamlomology History: Reports: Hx Cataracts - right eye, Hx Vision Problem, Other Sensory Impairments - Bleed related to Heparin. Denies: Hx Contacts or Glasses Neurological History: Reports: Other Neuro Impairments/Disorders - diabetic neuropathy Denies: Hx Headaches Psychiatric History: Denies: Hx Panic Disorder - Cancer History Hx Chemotherapy: No - Surgical History Surgery Procedure, Year, and Place: VASECTOMY;. LEFT KNEE PATELLA REALIGNMENT- 1986;. 2011- PERITONEAL CATHETER PLACEMENT;. 04[place]2013[place] [place]-06/23/2014; 04/02/14[place] [place]. [place] EYE 2013 -CAUTERIZED DUE TO BLOOD POOLING THEN 10/2014 Rt EYE; REVISION Lt BKA. heart stents 09/28 and 03/28, 06/2016, 04/27. open heart surgery 03/28. tracetomy 10/26. hemodialysis catherter placed 10/26. 08/28- revision of right hand and right leg amputation. 06/2016- four fingers of right hand amputated. 04/27- amputation of right leg. 04/26- transplant of veins in left leg. 2014- amputation of left leg. 2014-revision of left leg amputation Hx Anesthesia Reactions: No - Immunization History Date of Tetanus Vaccine: unk Date of Influenza Vaccine: fall 2016 Infectious Disease History: No Infectious Disease History: Denies: Hx Hepatitis, Hx Human Immunodeficiency Virus (HIV), Traveled Outside the [place] in Last 30 Days - Family History Known Family History: Positive: Diabetes Negative: Cardiac Disease - Social History Alcohol Use: None Alcohol Amount: unable to assess Hx Substance Use: No Substance Use Type: Reports: None Substance Use Comment - Amount & Last Used: unable to assess Hx Tobacco Use: Yes Smoking Status (MU): Former Smoker Type: Cigarettes Length of Time of Smoking/Using Tobacco: 22 years Have You Smoked in the Last Year: No Review of Systems Constitutional: Negative Eyes: Negative Positive: Sore Throat Positive: Chest Pain Positive: Shortness Of Breath Gastrointestinal: Negative Genitourinary: Negative Musculoskeletal: Negative Skin: Negative Neurological: Negative Psychological: Normal All Other Systems Reviewed And Are Negative: Yes Physical Exam - Summary Physical Exam Summary: No indication of abscess, swelling of tongue, lips, throat. Triage Information Reviewed: Yes Vital Signs On Initial Exam: Initial Vitals Temp Pulse Resp BP Pulse Ox 98.0 F 74 14 144/125 100 03/21/18 21:02 03/21/18 21:02 03/21/18 21:02 03/21/18 21:02 03/21/18 21:02 Vital Signs Reviewed: Yes Appearance: Positive: Well-Appearing Skin: Positive: Warm Head/Face: Positive: Normal Head/Face Inspection Eyes: Positive: Normal ENT: Positive: Pharyngeal erythema, TMs normal Neck: Positive: Supple Respiratory/Lung Sounds: Positive: Clear to Auscultation Cardiovascular: Positive: Normal Abdomen Description: Positive: Nontender Musculoskeletal: Positive: Normal Neurological: Positive: Normal Psychiatric: Positive: Normal AVPU Assessment: Alert - Yazmin Coma Scale Best Eye Response: 4 - Spontaneous Best Motor Response: 6 - Obeys Commands Best Verbal Response: 5 - Oriented Coma Scale Total: 15 Diagnostics - Vital Signs Vital Signs Temp Pulse Resp BP Pulse Ox 03/21/18 23:38 59 15 218/64 95 03/21/18 21:02 98.0 F 74 14 144/125 100 - Laboratory Lab Results: Lab Results 03/21/18 03/21/18 03/21/18 Range/Units 21:40 21:40 21:40 WBC 8.9 (3.5-10.8) 10^3/ul RBC 4.41 (4.00-5.40) 10^6/ul Hgb 13.0 L (14.0-18.0) g/dl Hct 39 L (42-52) % MCV 89 (80-94) fL MCH 30 (27-31) pg MCHC 33 (31-36) g/dl RDW 16 H (10.5-15) % Plt Count 311 (150-450) 10^3/ul MPV 9.9 (7.4-10.4) um3 Neut % (Auto) 56.7 (38-83) % Lymph % (Auto) 23.6 L (25-47) % Kendall % (Auto) 14.3 H (0-7) % Eos % (Auto) 4.5 (0-6) % Baso % (Auto) 0.9 (0-2) % Absolute Neuts (auto) 5.1 (1.5-7.7) 10^3/ul Absolute Lymphs (auto) 2.1 (1.0-4.8) 10^3/ul Absolute Monos (auto) 1.3 H (0-0.8) 10^3/ul Absolute Eos (auto) 0.4 (0-0.6) 10^3/ul Absolute Basos (auto) 0.1 (0-0.2) 10^3/ul Absolute Nucleated RBC 0 10^3/ul Nucleated RBC % 0.1 INR (Anticoag Therapy) 0.96 (0.77-1.02) D-Dimer, Quantitative 287 H (Less Than 230) ng/mL Sodium 127 L (135-145) mmol/L Potassium 5.2 H (3.5-5.0) mmol/L Chloride 92 L (101-111) mmol/L Carbon Dioxide 22 (22-32) mmol/L Anion Gap 13 H (2-11) mmol/L BUN 95 H (6-24) mg/dL Creatinine 6.39 H (0.67-1.17) mg/dL Est GFR ( Amer) 11.0 (>60) Est GFR (Non-Af Amer) 9.1 (>60) BUN/Creatinine Ratio 14.9 (8-20) Glucose 152 H (70-100) mg/dL Lactic Acid (0.5-2.0) mmol/L Calcium 10.6 H (8.6-10.3) mg/dL Total Bilirubin 0.30 (0.2-1.0) mg/dL AST 19 (13-39) U/L ALT 27 (7-52) U/L Alkaline Phosphatase 159 H (34-104) U/L Troponin I 0.11 H* (<0.04) ng/mL B-Natriuretic Peptide ( - 100) pg/mL Total Protein 9.0 H (6.4-8.9) g/dL Albumin 3.8 (3.2-5.2) g/dL Globulin 5.2 H (2-4) g/dL Albumin/Globulin Ratio 0.7 L (1-3) 03/21/18 03/21/18 Range/Units 21:40 21:40 WBC (3.5-10.8) 10^3/ul RBC (4.00-5.40) 10^6/ul Hgb (14.0-18.0) g/dl Hct (42-52) % MCV (80-94) fL MCH (27-31) pg MCHC (31-36) g/dl RDW (10.5-15) % Plt Count (150-450) 10^3/ul MPV (7.4-10.4) um3 Neut % (Auto) (38-83) % Lymph % (Auto) (25-47) % Kendall % (Auto) (0-7) % Eos % (Auto) (0-6) % Baso % (Auto) (0-2) % Absolute Neuts (auto) (1.5-7.7) 10^3/ul Absolute Lymphs (auto) (1.0-4.8) 10^3/ul Absolute Monos (auto) (0-0.8) 10^3/ul Absolute Eos (auto) (0-0.6) 10^3/ul Absolute Basos (auto) (0-0.2) 10^3/ul Absolute Nucleated RBC 10^3/ul Nucleated RBC % INR (Anticoag Therapy) (0.77-1.02) D-Dimer, Quantitative (Less Than 230) ng/mL Sodium (135-145) mmol/L Potassium (3.5-5.0) mmol/L Chloride (101-111) mmol/L Carbon Dioxide (22-32) mmol/L Anion Gap (2-11) mmol/L BUN (6-24) mg/dL Creatinine (0.67-1.17) mg/dL Est GFR ( Amer) (>60) Est GFR (Non-Af Amer) (>60) BUN/Creatinine Ratio (8-20) Glucose (70-100) mg/dL Lactic Acid 1.1 (0.5-2.0) mmol/L Calcium (8.6-10.3) mg/dL Total Bilirubin (0.2-1.0) mg/dL AST (13-39) U/L ALT (7-52) U/L Alkaline Phosphatase (34-104) U/L Troponin I (<0.04) ng/mL B-Natriuretic Peptide 560 H ( - 100) pg/mL Total Protein (6.4-8.9) g/dL Albumin (3.2-5.2) g/dL Globulin (2-4) g/dL Albumin/Globulin Ratio (1-3) Result Diagrams: 03/21/18 21:40 03/21/18 21:40 Lab Statement: Any lab studies that have been ordered have been reviewed, and results considered in the medical decision making process. - Radiology cxr Xray Interpretation: No Acute Changes Radiology Interpretation Completed By: ED Physician - EKG 1 Cardiac Rate: NL EKG Rhythm: Sinus Rhythm ST Segment: Non-Specific Ectopy: None EKG Comparison: No Significant Change EENT Course/Dx - Course Course Of Treatment: Patient complains of onset of shaking, throat swelling, voice change, chest tightness, sensation of SOB after eating an ice cream with nuts on it. Patient states he has eaten this bee stings many times before, but does not at this particular location. Patient states she still has mild sensation of throat swelling and still has moist change. Chest tightness and SOB of completely resolved as has shaking. Denies fever, cough, sore throat, N/ V/D, abdominal pain, change in urine or BM. Medical history is dialysis, STEMI , cardiac bypass surgery in 03/2017, CHF, DM 1, multiple amputations on right fingers and bilateral lower extremities, HDL, diabetic neuropathy, HTN, end- stage renal disease on dialysis. Physical exam: No indication of abscess, swelling of tongue, lips, throat. Discussed pt with Dr Turner who recommended d /c home. . Patient has multiple comorbidities. Symptoms throat swelling symptoms improved with Benadryl, Solu-Medrol and Pepcid. All labs are at patient baseline. Elevated d-dimer consistent with elevated d-dimer in 04/13/16 with negative CTA. Patient denies any active chest pain or score sore throat with shortness of breath on arrival to the ED, stated those symptoms were related to this sensation of his throat swollen throat.. Vital signs within normal limits. Patient also has wounds to left fourth finger and left knee. Fourth finger of left hand anticipating surgery in 2 days. Finger wound is clean and dry, no oral purulent discharge. Left knee wound has eschar and some purulent discharge. Per , who cleans wound regularly, wound Was evaluated 2 weeks ago and is anticipating surgery. Is not on an antibiotic per wound care because patient is in chronic need of antibiotics and they are used only when absolutely necessary. Patient is afebrile, unremarkable white count. Rx for prednisone to prevent rebound allergic reaction will not be given as this can cause elevated blood sugar in a diabetic patient and may increase infection. Patient's has been advised to use Benadryl for any returning symptoms and to return to the ED for any concerning symptoms. Patient due for dialysis tomorrow. - Diagnoses Provider Diagnoses: Allergic reaction Discharge - Sign-Out/Discharge Documenting (check all that apply): Patient Departure - Discharge Plan Condition: Stable Disposition: HOME Patient Education Materials: Food Allergy (ED), General Allergic Reaction (ED) Referrals: Justa Cruz [Primary Care Provider] - Additional Instructions: Follow-up with primary care. Return to the ED for any new or worsening symptoms. - Billing Disposition and Condition Condition: STABLE Disposition: Home
[2018-03-22 00:39] VITALS: BP 90/60
--- NOTE | 2018-03-22 07:00 | RAD ---
INDICATION: Chest pain. COMPARISON: Comparison is made with a prior study from October 28, 2017. TECHNIQUE: A portable view of the chest was obtained. FINDINGS: There is a dual-lumen chest central venous catheter present entering on the left side. The catheter tip projects over the right atrium. The heart is within normal limits in size for this portable exam. The lungs are underinflated and clear. No pleural effusion or pneumothorax is seen. IMPRESSION: NO EVIDENCE FOR ACUTE FINDING.
== END 2018-03-22 00:38 | disposition home or self-care (01) ==
LOC: ED 21:00
DX: T78.1XXA Other adverse food reactions, not elsewhere classified, initial encounter (principal); R07.89 Other chest pain; R13.10 Dysphagia, unspecified; R49.0 Dysphonia; X58.XXXA Exposure to other specified factors, initial encounter; E11.22 Type 2 diabetes mellitus with diabetic chronic kidney disease; I12.0 Hypertensive chronic kidney disease with stage 5 chronic kidney disease or end stage renal disease; N18.6 End stage renal disease; Z99.2 Dependence on renal dialysis; I44.7 Left bundle-branch block, unspecified; Z95.5 Presence of coronary angioplasty implant and graft; Z89.111 Acquired absence of right hand; Z89.611 Acquired absence of right leg above knee; Z89.612 Acquired absence of left leg above knee; Z88.1 Allergy status to other antibiotic agents; Z88.5 Allergy status to narcotic agent; Z87.891 Personal history of nicotine dependence
CPT/HCPCS: 36415; 71045; 80053; 83605; 83880; 84484; 85025; 85379; 85610; 93005; 96374; 96375; 99283; J1200; J2930

== ENCOUNTER 2018-03-26 18:39 | Emergency (ER) | payer OTHER ==
[2018-03-26] MEDS ORDERED: Vancomycin(*) 1,000 MG in NS 0.9% 250 ML* 250 ML IVPB ONE (20:11)
[2018-03-26] MEDS ORDERED: Piperacillin/Tazobac ADVAN(*) 3.375 GM in NS 0.9% 100 ML* 100 ML IVPB ONE (20:11)
[2018-03-26] MEDS ORDERED: Metoclopramide IV* 5 MG/ML 2 ML VIAL IV SLOW PU ONE (20:11)
[2018-03-26] MEDS ORDERED: fentaNYL* 50 MCG/ML 2 ML VIAL (100 MCG VIAL) IV SLOW PU ONE (20:11)
--- NOTE | 2018-03-26 21:00 | ED ---
Upper Extremity Pain - HPI Summary HPI Summary: This is scribe Jet Newman documenting for attending Dr. Cata Tejada This patient is a 58 year old M presenting to [facility] accompanied by his with a chief complaint of constant left 4th finger amputation post-surgical pain , worsening since the surgery on 03/24/18 at the [facility]. Pt endorses the pain radiates to his palm and his wrist. He notes that his 4th finger was gangrenous and displayed severe calcification of the veins, so it needed to be amputated. He was instructed to not remove the dressing until his 2 week follow up appointment. Pt endorses Rx oxycodone 15 mg every 4 hours, methadone 5 mg in between oxycodone doses 3x a day, and Pregabalin 75 mg 2x daily. He endorses having been on this regimen for the past 3 months, and was prescribed by pain management through the NH. He received dialysis at 1500 today. He notes that the sx today are different from previous sx (neuropathy). He denies fever. Rx pregabalin 2x 75 mg. PMHx right AKA, left BKA, next month AKA on left due to gangrenous ulcer that is not healing, PMHx right 2nd, 3rd, 4th, and 5th finger amputations, ileostomy bag, dialysis. He denies current smoking. Dr. Elie CHANDLER, [facility], was surgeon for most recent procedure. He denies taking current abx. His blood sugar is maintained at 150. I, Dr. Ivy personally performed the services described in this documentation as scribed in my presence and it is both accurate and complete. - History of Current Complaint Chief Complaint: EDExtremityUpper Stated Complaint: POST SURGERY PAIN Time Seen by Provider: 03/26/18 19:31 Hx Obtained From: Patient Mechanism Of Injury: Other - 4th finger amputation surgery Onset/Duration: Started Days Ago, Still Present, Worse Since - constantly worsening Timing: Constant Severity Initially: Severe Severity Currently: Severe Pain Location: Arm, Wrist, Hand, Finger Character: Sharp Aggravating Factor(s): Movement Alleviating Factor(s): Nothing Associated Signs & Symptoms: Positive: Swelling, Redness, Other - decreased ROM secondary to pain. Negative: Fever - Allergies/Home Medications Allergies/Adverse Reactions: Allergies Allergy/AdvReac Type Severity Reaction Status Date / Time clindamycin Allergy Diarrhea Verified 03/26/18 18:45 morphine Allergy Hallucinati Verified 03/26/18 18:45 ons PMH/Surg Hx/FS Hx/Imm Hx Endocrine/Hematology History: Reports: Hx Diabetes, Hx Anemia, Other Endocrine/ Hematological Disorders - retinal hemorrhage with heparin Denies: Hx Systemic Lupus Erythematosus, Hx Thyroid Disease Cardiovascular History: Reports: Hx Angina, Hx Angioplasty, Hx Cardiac Arrest, Hx Coronary Artery Disease, Hx Hypercholesterolemia, Hx Hypertension, Hx Myocardial Infarction, Hx Peripheral Vascular Disease, Other Cardiovascular Problems/Disorders - a.fib in past Denies: Hx Auto Implanted Cardiovert Defib, Hx Congestive Heart Failure, Hx Pacemaker/ICD, Hx Valvular Heart Disease Respiratory History: Reports: Hx Sleep Apnea - undiagnosed, Other Respiratory Problems/Disorders - post nasal drip Denies: Hx Asthma, Hx Chronic Obstructive Pulmonary Disease (COPD) GI History: Reports: Hx Gastroesophageal Reflux Disease, Other GI Disorders - g tube Denies: Hx Jaundice, Hx Ulcer History: Reports: Hx Chronic Renal Failure - ESRD, Hx Dialysis, Hx Kidney Stones, Hx Renal Disease, Other Problems/Disorders Musculoskeletal History: Reports: Hx Orthopedic Injury - Broke right foot in 2009, Other Musculoskeletal History - bilateral BKA, multiple finger amputations on right hand Denies: Hx Rheumatoid Arthritis Sensory History: Reports: Hx Cataracts - right eye, Hx Contacts or Glasses, Hx Vision Problem, Hx Hearing Problem - ringing in left ear, Other Sensory Impairments - Bleed related to Heparin. Denies: Hx Legally Blind, Hx Deafness, Hx Hearing Aid Opthamlomology History: Reports: Hx Cataracts - right eye, Hx Contacts or Glasses, Hx Vision Problem, Other Sensory Impairments - Bleed related to Heparin. EENT History: Denies: Hx Deafness Neurological History: Reports: Other Neuro Impairments/Disorders - diabetic neuropathy Denies: Hx Headaches Psychiatric History: Denies: Hx Panic Disorder - Cancer History Hx Chemotherapy: No - Surgical History Surgery Procedure, Year, and Place: VASECTOMY;. LEFT KNEE PATELLA REALIGNMENT- 1986;. 2011- PERITONEAL CATHETER PLACEMENT;. 04/2013[place] [place] L-B[place]-06/23/2014; 04/02/14-Left big toe removed-[facility];. Lt EYE 2013 -CAUTERIZED DUE TO BLOOD POOLING THEN 10/2014 Rt EYE; REVISION Lt BKA. heart stents 09/28 and 03/28, 06/2016, 04/27. open heart surgery 03/28. tracetomy 10/26. hemodialysis catherter placed 10/26. 08/28- revision of right hand and right leg amputation. 06/2016- four fingers of right hand amputated. 04/27- amputation of right leg AKA. 04/26- transplant of veins in left leg. 2014- amputation of left leg BKA. 2014-revision of left leg amputation. left 4th finger amputation Hx Anesthesia Reactions: No - Immunization History Date of Tetanus Vaccine: unk Date of Influenza Vaccine: fall 2016 Infectious Disease History: No Infectious Disease History: Denies: Hx Hepatitis, Hx Human Immunodeficiency Virus (HIV), Traveled Outside the US in Last 30 Days - Family History Known Family History: Positive: Diabetes Negative: Cardiac Disease - Social History Occupation: Disabled Lives: With Family Alcohol Use: None Alcohol Amount: unable to assess Hx Substance Use: No Substance Use Type: Reports: None Substance Use Comment - Amount & Last Used: unable to assess Hx Tobacco Use: Yes Smoking Status (MU): Former Smoker Type: Cigarettes Length of Time of Smoking/Using Tobacco: 22 years Have You Smoked in the Last Year: No Review of Systems Negative: Fever Positive: Other - ileostomy bag Positive: no symptoms reported Positive: Arthralgia - left wrist, 4th finger proximal. Positive: Other - sutures, erythema recent 4th finger amp. left BKA, right AKA, all but thumb right amps Positive: Paresthesia - diabetic neuropathy All Other Systems Reviewed And Are Negative: Yes Physical Exam - Summary Physical Exam Summary: VITAL SIGNS: Reviewed. GENERAL: Patient is skinny [id number]-[id number]-[id number]-age appearing male who is lying comfortable in the stretcher. Patient is not in any acute respiratory distress. HEAD AND FACE: No signs of trauma. No ecchymosis, hematomas or skull depressions. No sinus tenderness. EYES: PERRLA, EOMI x 2, No injected conjunctiva, no nystagmus. EARS: Hearing grossly intact. Ear canals and tympanic membranes are within normal limits. MOUTH: Oropharynx within normal limits. NECK: Supple, trachea is midline, no adenopathy, no JVD, no carotid bruit, no c- spine tenderness, neck with full ROM. CHEST: No tenderness at palpation, shiley dialysis catheter over left chest wall LUNGS: Clear to auscultation bilaterally. No wheezing or crackles. CVS: Regular rate and rhythm, S1 and S2 present, no murmurs or gallops appreciated. ABDOMEN: Soft, non-tender. No signs of distention. No rebound, no guarding, and no masses palpated. Bowel sounds are normal. Right ileostomy bag EXTREMITIES: Right AKA, left BKA, amputations of 2nd, 3rd, 4th, and 5th right fingers, open amputation wound left 4th finger with swelling and redness around incision site, no discharge, and stitches in. Large gangrenous area over left knee. NEURO: Alert and oriented x 3. No acute neurological deficits. Speech is normal and follows commands. SKIN: Dry and warm, open amputation wound left 4th finger with swelling and redness around incision site, no discharge, and stitches in. Triage Information Reviewed: Yes Vital Signs On Initial Exam: Initial Vitals Temp Pulse Resp BP Pulse Ox 98.3 F 81 16 124/102 99 03/26/18 18:43 03/26/18 18:43 03/26/18 18:43 03/26/18 18:43 03/26/18 18:43 Vital Signs Reviewed: Yes Procedures - Procedure Summary Procedure Summary: I removed the patient's dressing and also reapplied it. Diagnostics - Vital Signs Vital Signs Temp Pulse Resp BP Pulse Ox 03/26/18 20:30 18 03/26/18 20:19 76 99 03/26/18 18:46 132/59 03/26/18 18:43 98.3 F 81 16 124/102 99 - Laboratory Result Diagrams: 03/26/18 21:01 03/26/18 21:01 Lab Statement: Any lab studies that have been ordered have been reviewed, and results considered in the medical decision making process. - Radiology left hand Xray Interpretation: No Acute Changes Radiology Interpretation Completed By: ED Physician - Osteopenia, no acute fx. Course/Dx - Course Course Of Treatment: A 58-year-old M presents to the ED with a CC of right hand 4th finger post-surgical pain, worsening since surgery on 03/24/18. (+) severe pain with radiation to palm, wrist, forearm. (-) fever. SHx left BKA, right AKA , right 2 3 4 5 finger amputations, left 4th finger amputation, ileostomy, dialysis, DM, diabetic neuropathy, peripheral vacular disease. A left hand xray reveals osteopenia with no acute fx. In the ED course, pt was given piperacylic/tazobactam, vancomycin, fentanyl, and reglan. Blood work obtained. I discussed the patients case with the surgeon who performed the surgery. He recommended discharging the patient on po abx and f/u with him. The patient will be sent home with a sling.The patient is agreeable with this plan - Diagnoses Provider Diagnoses: Status post surgical amputation of finger of left hand - Physician Notifications Time Discussed With Above Provider: 23:10 Instructed by Provider To: Other - I discussed patient care with Dr. Valentine the surgeon who is covering for Dr. Delgadillo, the surgeon who performed the surgery on the pt. He states the pt can go home on po abx, he recommends doxy and Augmentin. He would like the pt to f/u with him. Discharge - Sign-Out/Discharge Documenting (check all that apply): Patient Departure - Discharge Plan Condition: Stable Disposition: HOME Prescriptions: Amoxicillin/Clavulanate TAB* [Augmentin TAB 875*] 875 mg PO BID #14 tab DOXYcycline CAP(*) [DOXYcycline 100MG CAP(*)] 100 mg PO BID #14 cap Patient Education Materials: Finger Amputation (ED) Referrals: Elie MCMANUS,[facility] [Medical Doctor] - 1 Day Additional Instructions: Keep your hand elevated using your sling. Keep taking pain medications as need. RETURN TO THE EMERGENCY DEPARTMENT FOR CHANGING OR WORSENING SYMPTOMS
[2018-03-26] MEDS ORDERED: NS 0.9% 250 ML* 250 ML ONE (21:08)
[2018-03-26 21:11] LABS: Hematocrit 37 % (42-52); Hemoglobin 12.3 g/dl (14.0-18.0); Mean Corpuscular HGB Conc 33 g/dl (31-36); Mean Corpuscular Hemoglobin 30 pg (27-31); Mean Corpuscular Volume 89 fL (80-94); Mean Platelet Volume 9.9 um3 (7.4-10.4); Platelet Count 273 10^3/ul (150-450); Red Blood Count 4.16 10^6/ul (4.00-5.40); Red Cell Distribution Width 17 % (10.5-15); White Blood Count 13.8 10^3/ul (3.5-10.8)
[2018-03-26 21:20] LABS: INR 1.06 (0.77-1.02)
[2018-03-26 21:27] LABS: EGFR Non-African American 23.3 (>60)
[2018-03-26 21:37] LABS: ABS Basophils 0.1 10^3/ul (0-0.2); ABS Eosinophils 0.1 10^3/ul (0-0.6); ABS Monocytes 1.7 10^3/ul (0-0.8); ABS Neutrophils 10.9 10^3/ul (1.5-7.7); ABS Nucleated RBC 0 10^3/ul; Eosinophil % 0.6 % (0-6); Lymphocyte % 7.5 % (25-47); Nucleated Red Blood Cells % 0
[2018-03-27 00:11] VITALS: BP 148/65
--- NOTE | 2018-03-27 07:09 | RAD ---
INDICATION: Status post recent amputation of the finger left hand, pain. Comparison: Comparison is made with a prior x-ray study of the left ring finger from December 16, 2017. The fingers are flexed limiting the study. TECHNIQUE: 4 views of the left hand were obtained. FINDINGS: The bones are osteopenic. The patient is status post remote amputation of the distal phalanx of the middle finger and recent amputation of the ring finger at the level of the metacarpal phalangeal joint. There is a small amount of gas in the adjacent soft tissues. No significant focal osseous abnormalities are seen. There are prominent vascular calcifications present. IMPRESSION: STATUS POST AMPUTATION OF THE RING FINGER AT THE METACARPOPHALANGEAL JOINT. THERE IS A SMALL AMOUNT OF GAS PRESENT ADJACENT TO THE DISTAL FOURTH METACARPAL POSSIBLY IN A SOFT TISSUE DEFECT AT THE SURGICAL SITE. RECOMMEND CLINICAL CORRELATION. R1
--- NOTE | 2018-03-27 09:38 | ED ---
Course/Dx - Course Course Of Treatment: This patient was seen by Dr. Ivy and discharged, the purpose of this note is to document follow-up of an x-ray over read. There was a small amount of subcutaneous gas noticed on the hand x-ray for this patient who is recently postop. White blood cell count is elevated along with inflammatory markers, CRP was 174. I discussed the findings with the patient's hand surgeon, Dr. packer at the [facility] this morning at 9:30 AM, he will arrange close follow-up for the patient tomorrow. He states the findings are not surprising given his postoperative status. Patient's currently on Augmentin and doxycycline. - Diagnoses Provider Diagnoses: Status post surgical amputation of finger of left hand Discharge - Sign-Out/Discharge Documenting (check all that apply): Patient Departure - Discharge Plan Condition: Stable Disposition: HOME Prescriptions: Amoxicillin/Clavulanate TAB* [Augmentin TAB 875*] 875 mg PO BID #14 tab DOXYcycline CAP(*) [DOXYcycline 100MG CAP(*)] 100 mg PO BID #14 cap Patient Education Materials: Finger Amputation (ED) Referrals: Elie MCMANUS,[facility] [Medical Doctor] - 1 Day Additional Instructions: - Billing Disposition and Condition Condition: STABLE Disposition: Home
== END 2018-03-27 00:12 | disposition home or self-care (01) ==
LOC: ED 18:39
DX: Z47.81 Encounter for orthopedic aftercare following surgical amputation (principal); E11.52 Type 2 diabetes mellitus with diabetic peripheral angiopathy with gangrene; I96 Gangrene, not elsewhere classified; E11.40 Type 2 diabetes mellitus with diabetic neuropathy, unspecified; M85.842 Other specified disorders of bone density and structure, left hand; Z93.2 Ileostomy status; Z89.512 Acquired absence of left leg below knee; Z89.611 Acquired absence of right leg above knee; Z89.021 Acquired absence of right finger(s); Z87.891 Personal history of nicotine dependence; Z88.3 Allergy status to other anti-infective agents; Z88.5 Allergy status to narcotic agent
CPT/HCPCS: 36415; 80053; 83605; 85025; 85610; 85652; 85730; 86140; 96365; 96366; 96375; 99284; J2543; J2765; J3010; J3370